=== PATIENT | male | born 1985 | race Caucasian/White ===

== ENCOUNTER 2017-10-05 23:12 | Emergency (ER) | payer OTHER, MEDICAID, SELFPAY ==
[2017-10-05 23:29] VITALS: BP 138/94; PULSE 96; RESP 18; TEMP 36.8; O2SAT 97; BMI 39.7
[2017-10-06] MEDS: OXYCODONE/APAP 5/325 PREPACK 1 BOTTLE MISC (01:16)
[2017-10-06 01:25] VITALS: BP 122/87; PULSE 71; RESP 18; TEMP 36.4; O2SAT 98
--- NOTE | 2017-10-06 02:08 | ED.BACK ---
HPI - Back Pain/Injury General Chief Complaint: Back Pain/Injury Stated Complaint: POST SPINAL SURGERY, IN PAIN Time Seen by Provider: 10/05/17 23:57 History of Present Illness HPI Narrative: HPI 31-year-old male presents requesting analgesia following a dorsal root stimulator revision at [facility] earlier today. Patient notes significant discomfort after his postoperative medications were off. Patient was discharged with another patient's prescription (provided to nursing, alternate prescription with correct date noted) . Patient attempted to contact his surgeon but was unable to have repeated phone calls not returned. Patient notes that he is been minimally ambulatory, has had ongoing study pain since his postoperative pain medications wore off. ROS with no recent constitutional symptoms. Exam Gen: Pleasant, non-toxic appearing, resting in discomfort. HEENT: NC, AT, PEERL, EOMI. Resp: Clear to auscultation bilaterally. Unlabored respirations with a normal work of breathing. Card: Regular rate and rhythm. Extremities warm and well perfused. GI: Non-distended. : Deferred MSK: No visible deformities, strength and tone without visually appreciable deficit. Back with 2 surgical sites bandage, scant bright red blood in the dressings, sites are mid lumbar left paraspinal and several inches lateral. Neuro: AO x 3, no facial asymmetry, vision and hearing WNL. Heme/Lymph: Deferred Skin: Normal color with no visible lesions (other than noted above). Psych: Mood and affect appropriate. MDM Previous chart, nursing note, and vitals reviewed. A: 31-year-old male presents requesting analgesia following a dorsal root stimulator revision at [facility] earlier today. Patient with a highly plausible story for clerical error leading to oligoanalgesia. Percocet prepack (4?5-325 mg tablets) provided. Patient instructed to follow up with his surgeon in the morning. History, exam, and vitals without evidence of postoperative complication. Impression: postoperative pain (please reference below for remainder of encounter information) Related Data Home Medications Medication Instructions Recorded Confirmed dicyclomine 20 mg PO #0 10/02/11 diphenoxylate-atropine 2.5 mg PO PRN #0 10/02/11 Previous Rx's Medication Instructions Recorded cyclobenzaprine 10 mg PO Q8HP PRN #5 tab 06/27/17 hydromorphone [Dilaudid] 2 mg PO Q4HP PRN #6 tab 06/27/17 Allergies Allergy/AdvReac Type Severity Reaction Status Date / Time fentanyl Allergy Mild N/V Unverified 07/15/17 13:06 amitriptyline Allergy Unknown Unverified 07/15/17 13:06 amoxicillin Allergy Unknown Unverified 07/15/17 13:06 gabapentin Allergy Unknown Unverified 07/15/17 13:06 lithium Allergy Unknown Unverified 07/15/17 13:06 trazodone Allergy Unknown Unverified 07/15/17 13:06 [facility] Social History Smoking Status: Current every day smoker Exam Initial Vital Signs Initial Vital Signs: Vital Signs Temperature 98.3 F 10/05/17 23:29 Pulse Rate 96 H 10/05/17 23:29 Respiratory Rate 18 10/05/17 23:29 Blood Pressure 138/94 H 10/05/17 23:29 Pulse Oximetry 97 10/05/17 23:29 Course Orders Ordered: Discontinued Medications Oxycodone/Acetaminophen (Endocet 5/325 Prepack) 1 bottle MISC SEEINSTR ONE Stop: 10/06/17 00:13 Last Admin: 10/06/17 01:16 Dose: 1 bottle Vital Signs - 8 hr 10/05/17 23:29 10/06/17 01:25 Temperature 98.3 F 97.5 F L Pulse Rate 96 H 71 Respiratory Rate 18 18 Blood Pressure 138/94 H 122/87 H Pulse Oximetry 97 98 Discharge Plan Departure Patient Disposition: Home, Self-Care Clinical Impression: Back pain Discharge Date/Time: 10/06/17 01:26 Interventions: ED Discharge Assessment Last Done: 10/06/17 01:25 Activity Restrictions/Additional Instructions: You were in seen in the [facility] Emergency Department for evaluation of postoperative pain. You have been given a limited prescription for Percocet. Please take this as prescribed. Please contact your surgeon in the morning for further evaluation and care. Please read and follow all of the instructions below. Please follow up with your primary care physician as needed. If you have any new symptoms or if you are at all concerned about your health please return immediately to the emergency department. If you do not have a primary care physician, please contact [facility], [facility] at [phone], [facility] at [phone], or [facility] at [phone] to arrange follow up care. If you have health insurance, please also contact your insurer for a list of accepting providers under your policy, you may contact these providers for further health care. Your care today was limited to identifying and treating emergent medical problems only. Many people have subtle differences in their test results that require follow up with their outpatient physician(s) to correctly determine if this represents a normal variation or concerning abnormality with respect to your specific health. The care given to you today was limited to identifying and treating emergent medical problems - you need to request a copy of all of your medical records from today's visit and follow up with your outpatient physician(s) to review both today's visit and your overall health. Percocet (Oxycodone + Acetamoniphen) * Take as directed on the prescription for relief of pain. * This product contains acetaminophen (Tylenol) do not use it with other Acetaminophen containing medications. * This drug may cause mild nausea, if so you may take it with a small snack. * This drug will cause constipation, if you experience a decrease in bowel movements purchase Senna-S (sennasides and docusate) which is available over the counter at pharmacies and take as directed on the bottle. Call your physician if you have not had bowel movemen in two days. * This drug may cause fatigue - do not drive or engage in other hazardous activities when using this medication. * Do no drink alcohol when using this medication. * Store this drug safely, it is a high risk medication if misused. SIDE EFFECTS: Tell your doctor immediately if any of these unlikely but serious side effects occur: mental/mood changes, severe stomach/abdominal pain, difficulty urinating. Seek immediate medical attention if any of these rare but serious side effects occur: fainting, seizure, slow/shallow breathing, unusual drowsiness/difficulty waking up. Taking more than the recommended dose of acetaminophen may cause serious (possibly fatal) liver disease. Seek immediate medical attention if you have any symptoms of liver damage, including: dark urine, persistent nausea/vomiting, stomach/abdominal pain, yellowing eyes/skin. A very serious allergic reaction to this drug is rare. However, seek immediate medical attention if you notice any symptoms of a serious allergic reaction, including: rash, itching/swelling (especially of the face/tongue/throat), severe dizziness, trouble breathing. This is not a complete list of possible side effects. PRECAUTIONS: Before taking this medication, tell your doctor or pharmacist if you are allergic to it; or to other narcotics (such as morphine, codeine); or if you have any other allergies. This product may contain inactive ingredients, which can cause allergic reactions or other problems. Talk to your pharmacist for more details. Before using this medication, tell your doctor or pharmacist your medical history, especially of: brain disorders (such as head injury, tumor, seizures), breathing problems (such as asthma, sleep apnea, chronic obstructive pulmonary disease-COPD), kidney disease, liver disease, mental/mood disorders (such as confusion, depression), personal or family history of regular use/abuse of drugs/alcohol, stomach/intestinal problems (such as blockage, constipation, diarrhea due to infection, paralytic ileus), difficulty urinating (such as due to enlarged prostate). This drug may make you dizzy or drowsy. Avoid alcoholic beverages. Acetaminophen may cause liver damage. Daily use of alcohol, especially when combined with acetaminophen, may increase your risk for liver damage. Caution is advised if you have diabetes, alcohol dependence, liver disease, phenylketonuria (PKU), or any other condition that requires you to limit/avoid these substances in your diet. Ask your doctor or pharmacist about using this product safely. Older adults may be more sensitive to the effects of this drug, especially dizziness, drowsiness, urinary problems. During , this medication should be used only when clearly needed. Using it for long periods or in high doses near the expected delivery date is not recommended because of the potential for harm to the unborn baby. Discuss the risks and benefits with your doctor. Babies born to mothers who have used this medication for an extended time may have withdrawal symptoms such as irritability, abnormal/persistent crying, vomiting, or diarrhea. If you notice any of these symptoms in your , tell the doctor promptly. This medication passes into breast milk and may rarely have undesirable effects on a nursing . Tell the doctor immediately if your baby develops unusual sleepiness, difficulty feeding, or trouble breathing. Consult your doctor before breast-feeding. Prescriptions: No Action diphenoxylate-atropine 2.5 MG/0.025 MG tablet 2.5 mg PO PRN Qty: 0 RF: 0 dicyclomine 20 MG tablet 20 mg PO Qty: 0 RF: 0 cyclobenzaprine 10 MG tablet 10 mg PO Q8HP PRNQty: 5 RF: 0 hydromorphone [Dilaudid] 2 MG tablet 2 mg PO Q4HP PRNQty: 6 RF: 0
== END 2017-10-06 01:26 | disposition home or self-care (01) ==
PROVIDERS: Emergency Provider Emergency Medicine; Family Provider Family Medicine; PCP Family Medicine
DX: G89.18 Other acute postprocedural pain (principal); M54.9 Dorsalgia, unspecified
CPT/HCPCS: 99282; 99283

== ENCOUNTER 2018-05-23 06:43 | Emergency (ER) | payer OTHER, MEDICAID, SELFPAY ==
[2018-05-23 06:52] VITALS: BP 163/97; PULSE 65; RESP 18; TEMP 37.2; O2SAT 97; BMI 37.3
--- NOTE | 2018-05-23 07:27 | DI.CT.S_ITS ---
PROCEDURE: CT KIDNEY URETER BLADDER (KUB) INDICATIONS: left flank pain TECHNIQUE: Noncontrast 5 mm thick sections acquired from the diaphragms to the symphysis. 5 mm thick coronal and sagittal reformats were then performed. For radiation dose reduction, the following was used: automated exposure control, adjustment of mA and/or kV according to patient size. COMPARISON: None. FINDINGS: Image quality: There is metallic streak artifact from patient's implanted neurostimulator devices. Lung bases: There are confluent groundglass opacities within the lower lobes with associated small nodular and linear opacities. No pleural effusions. Heart size is normal. Urinary system: There is a small obstructing stone within the mid left ureter measuring up to approximately 3 mm with associated minimal left hydroureteronephrosis. There is minimal perinephric and periureteral fat stranding. No additional renal stones identified. No right hydronephrosis. The urinary bladder is partially distended with suggestion of bladder wall thickening. No calcified bladder stones. Other solid organs: Noncontrast evaluation of the liver demonstrates no focal hepatic lesions the gallbladder appears within normal limits without calcified gallstones. Pancreas is normal in contours. Spleen is normal in size. No adrenal nodules. Peritoneum and bowel: Unenhanced bowel loops demonstrate normal wall thickness and caliber. The appendix is normal in caliber without associated inflammatory changes such as wall thickening or fat stranding. There are calcified filling defects within the appendiceal lumen consistent with multiple clustered appendicoliths. No free fluid or air. Nodes and vessels: No retroperitoneal or mesenteric adenopathy by size criteria. Aorta and inferior vena cava are normal in caliber. Abdominal wall: No ventral hernias. Pelvis: No free pelvic fluid. No inguinal hernias or adenopathy. Bones: No suspicious bony lesions. Implanted neurostimulator leads are demonstrated extending into the spinal canal at the lumbosacral junction and into the right neuroforamina at L5-S1 and S1-S2. No vertebral body compression fractures. IMPRESSION: 1. Small obstructing 3 mm left ureteral stone with minimal left hydroureteronephrosis. 2. Confluent areas of groundglass opacity in the lower lobes with small nodular and linear bandlike opacities. The findings likely represent an infectious or inflammatory process but followup is recommended with a dedicated chest CT in 3-6 months if clinically indicated. Dictated by: Esa Madera M.D. on 05/23/2018 at 8:09 Approved by: Esa Madera M.D. on 05/23/2018 at 8:14
--- NOTE | 2018-05-23 07:37 | ED.BACK ---
HPI - Back Pain/Injury General Chief Complaint: Back Pain/Injury Stated Complaint: abd and back pain,vomiting Time Seen by Provider: 05/23/18 07:06 Source: patient Mode of arrival: ambulatory Limitations: no limitations History of Present Illness HPI Narrative: patient is a 32-year-old male who presents with left flank pain. It started suddenly at around 4:30 a.m. this morning radiates around to the front. He feels nauseous and has vomited at sometimes. No hematuria no previous history of kidney stone. He has not taken any medication the states that medications do not work for him and that he has a congenital pharmacological abnormality. MD Complaint: back pain Related Data Home Medications Medication Instructions Recorded Confirmed dicyclomine 20 mg PO #0 10/02/11 diphenoxylate-atropine 2.5 mg PO PRN #0 10/02/11 Previous Rx's Medication Instructions Recorded cyclobenzaprine 10 mg PO Q8HP PRN #5 tab 06/27/17 hydromorphone [Dilaudid] 2 mg PO Q4HP PRN #6 tab 06/27/17 hydrocodone-acetaminophen [[place]] 1 tab PO Q4-6H PRN #10 tab 05/23/18 ketorolac 10 mg PO Q6H PRN #14 tab 05/23/18 ondansetron 4 mg PO Q6-8H PRN #10 tab 05/23/18 Allergies Allergy/AdvReac Type Severity Reaction Status Date / Time fentanyl Allergy Mild N/V Verified 05/23/18 06:59 amitriptyline Allergy Unknown Verified 05/23/18 06:59 amoxicillin Allergy Unknown Verified 05/23/18 06:59 gabapentin Allergy Unknown Verified 05/23/18 06:59 lithium Allergy Unknown Verified 05/23/18 06:59 trazodone Allergy Unknown Verified 05/23/18 06:59 buprenorphine Allergy Anaphylaxis Verified 05/23/18 06:59 bupropion [From Wellbutrin] AdvReac Verified 05/23/18 07:00 clavulanic acid AdvReac Verified 05/23/18 06:59 [From Augmentin] clonidine AdvReac Verified 05/23/18 06:59 methadone AdvReac Verified 05/23/18 06:59 nortriptyline AdvReac Verified 05/23/18 06:59 Review of Systems Review of Systems GENERAL: Denies chills, fatigue, malaise, fever, sweats, travel HEENT: Denies sinus pain, ear pain, sore throat, difficulty swallowing, neck pain RESPIRATORY: Denies dyspnea, cough, wheezing, hemoptysis, sputum. CARDIOVASCULAR: Denies chest pain, palpitations, orthopnea, edema GASTROINTESTINAL: +nausea, vomiting Denies abdominal pain, diarrhea, constipation, melena. : +flank pain, Denies dysuria, frequency, incontinence, hematuria, urinary retention MUSCULOSKELETAL: Denies weakness, joint pain, or bony pain SKIN: No rash, no erythema, no pruritus NEUROLOGIC: Denies weakness, dizziness, headache, numbness, change in speech, confusion PSYCHIATRIC: No concerning psychosocial issues. 12 point review of systems is negative except for those stated above and HPI COUNTS INCLUDE 234 BEDS AT THE [facility] Social History Smoking Status: Current every day smoker Social History Smoking Status: Current every day smoker Exam Initial Vital Signs Initial Vital Signs: Vital Signs Temperature 99 F 05/23/18 06:52 Pulse Rate 65 05/23/18 06:52 Respiratory Rate 18 05/23/18 06:52 Blood Pressure 163/97 H 05/23/18 06:52 Pulse Oximetry 97 05/23/18 06:52 GENERAL: young male appears in pain holding left flank HEENT: Head atraumatic,EOMI, pupils reactive CARDIOVASCULAR: Regular rate and rhythm without murmurs, rubs or gallops. RESPIRATORY: Breath sounds equal bilaterally, no wheezes rales or rhonchi. ABDOMEN: Soft, nontender. Normoactive bowel sounds all 4 quadrants. No guarding or rebound. : Left CVA tenderness EXTREMITIES: Normal range of motion, no clubbing or edema. Neurovascularly intact NEUROLOGICAL: Alert and oriented x4.Normal gait and speech. SKIN: Warm, dry, no laceration, no petechiae, no rashes or lesions. Course Orders Ordered: ED Orders 05/23/18 07:27 CT kidney ureter bladder (KUB) Stat 05/23/18 07:30 Basic Metabolic Panel Stat Complete Blood Count AUTO DIFF Stat 05/23/18 09:10 Urine Microscopic Stat Discontinued Medications Hydromorphone HCl (Dilaudid) 0.5 mg IV NOW ONE Stop: 05/23/18 09:33 Last Admin: 05/23/18 09:43 Dose: 0.5 mg Sodium Chloride (Normal Saline 0.9%) 1,000 mls @ 1,000 mls/hr IV BOLUS ONE Stop: 05/23/18 08:26 Last Infusion: 05/23/18 08:49 Dose: 0 mls/hr Admin: 05/23/18 07:39 Dose: 1,000 mls/hr Ketorolac Tromethamine (Toradol) 30 mg IV NOW ONE Stop: 05/23/18 07:28 Last Admin: 05/23/18 07:38 Dose: 30 mg Ondansetron HCl (Zofran) 4 mg IV NOW ONE Stop: 05/23/18 07:28 Last Admin: 05/23/18 07:39 Dose: 4 mg Ondansetron HCl (Zofran) 4 mg IV NOW ONE Stop: 05/23/18 08:53 Last Admin: 05/23/18 08:52 Dose: 4 mg Vital Signs - 8 hr 05/23/18 06:52 05/23/18 10:05 05/23/18 10:27 Temperature 99 F 98.1 F Pulse Rate 65 71 70 Respiratory Rate 18 18 18 Blood Pressure 163/97 H 135/85 Blood Pressure [Left Arm] 136/83 Pulse Oximetry 97 99 99 MDM - Back Pain/Injury Lab Data Attestation: I reviewed the patient's lab results. Result diagrams: 05/23/18 07:30 05/23/18 07:30 Lab Results 05/23/18 05/23/18 05/23/18 Range/Units 07:30 07:30 09:10 WBC 8.7 (4.5-11.0) X10^3/uL RBC 5.28 (4.5-5.9) X10^6/uL Hgb 15.8 (13.5-17.5) g/dL Hct 47.2 (41-53) % MCV 89.4 (80-100) fL MCH 30.0 (26-34) PG MCHC 33.6 (30-36) % RDW 13.3 (11.6-14.8) % Plt Count 337 (150-400) X10^3/uL Neut % (Auto) 66.5 (50-75) % Lymph % (Auto) 22.2 L (25-40) % [place] % (Auto) 5.7 (3-14) % Eos % (Auto) 4.9 H (2-4) % Baso % (Auto) 0.7 (0-2) % Neut # (Auto) 5800 (2581-0747) /uL Lymph # (Auto) 1900 (5773-4421) /uL [place] # (Auto) 500 (0-900) /uL Eos # (Auto) 400 (0-450) /uL Baso # (Auto) 100 (0-100) /uL Sodium 141 (137-145) mmol/L Potassium 3.9 (3.4-5.1) mmol/L Chloride 105 (98-107) mmol/L Carbon Dioxide 23 (22-32) mmol/L BUN 13 (9-20) mg/dL Creatinine 1.00 (0.66-1.25) mg/dL Estimated GFR > 60.0 (>60) mL/min BUN/Creatinine Ratio 13.0 (6-22) Glucose 128 H (70-100) mg/dL Calcium 9.4 (8.4-10.2) mg/dL Urine RBC 5-10/hpf H (0-5/HPF) Urine WBC 0-1/hpf (0-5/HPF) Ur Squamous Epith Cells 0-1 /hpf Amorphous Sediment 2+ Urine Bacteria Occasional (0-1) (None) Ur Culture Indicated? Cult not indicated Urine Dip Bedside Urine Glucose Negative Bedside Urine Bilirubin - Negative Bedside Urine Ketone + 15 Urine Specific [place] 1.025 Bedside Urine Occult Blood +++ Bedside Urine pH 6.0 Bedside Urine Protein +/- 15 Bedside Urine Urobilinogen - Negative Bedside Urine Nitrite - Negative Bedside Urine Leukocytes - Negative Esterase Imaging Data CT scan - abdomen: Radiologist's impression: PROCEDURE: CT KIDNEY URETER BLADDER (KUB) INDICATIONS: left flank pain TECHNIQUE: Noncontrast 5 mm thick sections acquired from the diaphragms to the symphysis. 5 mm thick coronal and sagittal reformats were then performed. For radiation dose reduction, the following was used: automated exposure control, adjustment of mA and/or kV according to patient size. COMPARISON: None. FINDINGS: Image quality: There is metallic streak artifact from patient's implanted neurostimulator devices. Lung bases: There are confluent groundglass opacities within the lower lobes with associated small nodular and linear opacities. No pleural effusions. Heart size is normal. Urinary system: There is a small obstructing stone within the mid left ureter measuring up to approximately 3 mm with associated minimal left hydroureteronephrosis. There is minimal perinephric and periureteral fat stranding. No additional renal stones identified. No right hydronephrosis. The urinary bladder is partially distended with suggestion of bladder wall thickening. No calcified bladder stones. Other solid organs: Noncontrast evaluation of the liver demonstrates no focal hepatic lesions the gallbladder appears within normal limits without calcified gallstones. Pancreas is normal in contours. Spleen is normal in size. No adrenal nodules. Peritoneum and bowel: Unenhanced bowel loops demonstrate normal wall thickness and caliber. The appendix is normal in caliber without associated inflammatory changes such as wall thickening or fat stranding. There are calcified filling defects within the appendiceal lumen consistent with multiple clustered appendicoliths. No free fluid or air. Nodes and vessels: No retroperitoneal or mesenteric adenopathy by size criteria. Aorta and inferior vena cava are normal in caliber. Abdominal wall: No ventral hernias. Pelvis: No free pelvic fluid. No inguinal hernias or adenopathy. Bones: No suspicious bony lesions. Implanted neurostimulator leads are demonstrated extending into the spinal canal at the lumbosacral junction and into the right neuroforamina at L5-S1 and S1-S2. No vertebral body compression fractures. IMPRESSION: 1. Small obstructing 3 mm left ureteral stone with minimal left hydroureteronephrosis. 2. Confluent areas of groundglass opacity in the lower lobes with small nodular and linear bandlike opacities. The findings likely represent an infectious or inflammatory process but followup is recommended with a dedicated chest CT in 3-6 months if clinically indicated. Dictated by: Esa Madera M.D. on 05/23/2018 at 8:09 MDM Narrative Medical decision making narrative: Patient's pain is starting to come back. Patient states that he does well with Dilaudid. His Toradol did help him quite a lot though. He is tolerating oral fluids but still feels nauseated at times. No sign of infection. Anticipate kidney stone to pass without any difficulty. Discharge Plan Departure Patient Disposition: Home Clinical Impression: Kidney stone on left side Discharge Date/Time: 05/23/18 10:27 Interventions: ED Discharge Assessment Last Done: 05/23/18 10:27 Instructions: DI for Kidney Stones Activity Restrictions/Additional Instructions: *Increase fluid intake * PCP tomorrow to schedule an get referral for Urology Strain urine, try to catch stone -If you should have fever, or pain is uncontrolled with medication at home or any other concerning symptoms return to ER for further evaluation MEDICATIONS Take ketorolac Take [place] every 6 hours if needed for severe pain Take Zofran every 4-6 hours if needed for nausea CONTROLLED SUBSTANCE DISCHARGE (Narcotoic/benzodiazepine) 1. You have been prescribed narcotic medications, it does have acetaminophen/Tylenol/paracetamol in it so do not take extra Tylenol or Tylenol containing products 2. Please understand that we cannot provide further refills of narcotics, benzodiazepines or controlled substances through the ED and her pain management will need to be through your provider. 3. While on these medications you cannot drive or operate heavy machinery. 4. You cannot sign legal documents or perform any duties such as this. 5. As long as you're taking opiate pain medications he should also be taking a stool softener such as Colace, Dulcolax, MiraLAX or prune juice, to help avoid constipation. Prescriptions: New ketorolac 10 mg tablet 10 mg PO Q6H PRN (Reason: pain) Qty: 14 RF: 0 ondansetron 4 mg tablet,disintegrating 4 mg PO Q6-8H PRN (Reason: nausea and vomiting) Qty: 10 RF: 0 hydrocodone-acetaminophen [[place]] 5-325 mg tablet 1 tab PO Q4-6H PRN (Reason: pain) Qty: 10 RF: 0 No Action diphenoxylate-atropine 2.5 MG/0.025 MG tablet 2.5 mg PO PRN Qty: 0 RF: 0 dicyclomine 20 MG tablet 20 mg PO Qty: 0 RF: 0 cyclobenzaprine 10 MG tablet 10 mg PO Q8HP PRNQty: 5 RF: 0 hydromorphone [Dilaudid] 2 MG tablet 2 mg PO Q4HP PRNQty: 6 RF: 0 Referrals: Juan Antonio Contreras MD [Primary Care Provider] -
[2018-05-23] MEDS: KETOROLAC 60 MG/2 ML VIAL 30 MG IV (07:38)
[2018-05-23] MEDS: SODIUM CHLORIDE 0.9% 1,000 ML 1000 ML IV (07:39)
[2018-05-23] MEDS: ONDANSETRON 4 MG/2 ML INJ IV ×2 (07:39→08:52)
[2018-05-23 07:41] LABS: Add Manual Diff / Slide Review NO; Basophils Absolute Auto 100 /uL (0-100); Basophils Percent Auto 0.7 % (0-2); Eosinophils Absolute Auto 400 /uL (0-450); Eosinophils Percent Auto 4.9 % (2-4); Hematocrit 47.2 % (41-53); Hemoglobin 15.8 g/dL (13.5-17.5); Lymphocytes Absolute Auto 1900 /uL (1100-4500); Lymphocytes Percent Auto 22.2 % (25-40); Mean Corpuscular HGB Conc 33.6 % (30-36); Mean Corpuscular Volume 89.4 fL (80-100); Monocytes Absolute Auto 500 /uL (0-900); Monocytes Percent Auto 5.7 % (3-14); Neutrophils Absolute Auto 5800 /uL (1500-7000); Neutrophils Percent Auto 66.5 % (50-75); Platelet Count 337 X10^3/uL (150-400); Red Blood Cell Count 5.28 X10^6/uL (4.5-5.9); Red Cell Distribution Width 13.3 % (11.6-14.8); White Blood Cell Count 8.7 X10^3/uL (4.5-11.0)
[2018-05-23 07:49] LABS: Blood Urea Nitrogen 13 mg/dL (9-20); Calcium 9.4 mg/dL (8.4-10.2); Carbon Dioxide 23 mmol/L (22-32); Chloride 105 mmol/L (98-107); Estimated Glomerular Filt Rate > 60.0 mL/min (>60); Glucose 128 mg/dL (70-100); HEMOLYSIS < 15 (0-50); Potassium 3.9 mmol/L (3.4-5.1); Sodium 141 mmol/L (137-145)
[2018-05-23 09:38] LABS: Amorphous Sediment Urine 2+; Bacteria Urine Occasional (0-1); Culture Indicated Urine Cult Not Indicated; RBC Urine 5-10/HPF (0-5/HPF); Squamous Epithelial Cell Urine 0-1 /HPF; WBC Urine 0-1/HPF (0-5/HPF)
[2018-05-23] MEDS: HYDROMORPHONE 1 MG INJ 0.5 MG IV (09:43)
[2018-05-23 10:05] VITALS: BP 136/83; PULSE 71; RESP 18; O2SAT 99
[2018-05-23 10:27] VITALS: BP 135/85; PULSE 70; RESP 18; TEMP 36.7; O2SAT 99
== END 2018-05-23 10:27 | disposition home or self-care (01) ==
PROVIDERS: Emergency Provider Emergency Medicine; Family Provider Family Medicine; PCP Family Medicine
DX: N20.0 Calculus of kidney (principal)
CPT/HCPCS: 36591; 74176; 80048; 81003; 81015; 85025; 96361; 96374; 96375; 96376; 99283; 99284; J1170; J1885; J2405

== ENCOUNTER 2018-10-10 06:53 | Emergency (ER) | payer OTHER, MEDICAID, SELFPAY ==
[2018-10-10 07:21] VITALS: BP 137/89; PULSE 88; RESP 14; TEMP 37.2; O2SAT 100; BMI 38.7
--- NOTE | 2018-10-10 08:06 | ED.MALEGU ---
HPI - Male Genitourinary General Chief complaint: Urogenital-Male Stated complaint: Severe back/abd pain Time Seen by Provider: 10/10/18 08:06 Source: patient and old records reviewed Mode of arrival: ambulatory Limitations: no limitations History of Present Illness HPI Narrative: This is a 32-year-old male comes to the emergency department with complaint of left flank pain that is radiating down to the testicular area. Patient states that he has felt sweaty and warm but does not know if he has had any fevers. Patient states he has been nauseated. He states he has actually been throwing up on and off for 3 days. But he states that the pain did not start until today. He states that he does not really have a lot of abdominal pain other than where radiates sort of obliquely along to the testicle. Patient states that he has had normal bowel movements although he has noted blood when he has them. Patient states that this does feel like when he had a kidney stone in the past. He does have a history of complex regional pain syndrome and has a neurostimulator. He states 1 of them is an MDR. He has had 2 surgeries total for neurostimulator. Patient states he has had a finger reattachmen but no other surgeries. He states that the pain came on about 3:00 a.m. this morning. He states he had taken some medication to help him sleep. Related Data Home Medications Medication Instructions Recorded Confirmed dicyclomine 20 mg PO #0 10/02/11 diphenoxylate-atropine 2.5 mg PO PRN #0 10/02/11 Previous Rx's Medication Instructions Recorded cyclobenzaprine 10 mg PO Q8HP PRN #5 tab 06/27/17 hydromorphone [Dilaudid] 2 mg PO Q4HP PRN #6 tab 06/27/17 hydrocodone-acetaminophen [[place]] 1 tab PO Q4-6H PRN #10 tab 05/23/18 ondansetron 4 mg PO Q6-8H PRN #10 tab 05/23/18 hydrocodone-acetaminophen [[place]] 1 tab PO QID PRN #7 tab 10/10/18 ketorolac 10 mg PO TID PRN 50 Days #10 tab 10/10/18 tamsulosin [Flomax] 0.4 mg PO DAILY #5 cap 10/10/18 Allergies Allergy/AdvReac Type Severity Reaction Status Date / Time fentanyl Allergy Mild N/V Verified 05/23/18 06:59 amitriptyline Allergy Unknown Verified 05/23/18 06:59 amoxicillin Allergy Unknown Verified 05/23/18 06:59 gabapentin Allergy Unknown Verified 05/23/18 06:59 lithium Allergy Unknown Verified 05/23/18 06:59 trazodone Allergy Unknown Verified 05/23/18 06:59 buprenorphine Allergy Anaphylaxis Verified 05/23/18 06:59 bupropion [From Wellbutrin] AdvReac Verified 05/23/18 07:00 clavulanic acid AdvReac Verified 05/23/18 06:59 [From Augmentin] clonidine AdvReac Verified 05/23/18 06:59 methadone AdvReac Verified 05/23/18 06:59 nortriptyline AdvReac Verified 05/23/18 06:59 Review of Systems Review of Systems ROS Unobtainable: All systems reviewed & are unremarkable except as noted in HPI and below Constitutional Denies chills, Denies fever(s), Denies lethargy and Denies weakness Cardiovascular Denies chest pain and Denies dyspnea Respiratory Denies chest congestion and Denies dyspnea Gastrointestinal Gastrointestinal: Reports abdominal pain (left flank radiates to testicle), Denies melena, Reports hematochezia, Denies change in bowel habits, Denies diarrhea, Reports nausea and Reports vomiting Genitourinary Reports hematuria, Denies difficulty urinating, Reports genital pain (pain radiates to left testicle), Reports dysuria, Reports flank pain (left), Denies scrotal swelling, Reports testicular pain (left sided.), Reports urinary frequency, Denies urinary incontinence and Reports urinary urgency Integumentary/Breasts Denies erythema and Denies rash Neurologic Denies weakness [facility] Social History (Updated 10/10/18 @ 08:22 by Phuong Eagle DO) Smoking Status: Current every day smoker alcohol intake: current substance use type: marijuana Social History (Updated 10/10/18 @ 08:22 by Phuong Eagle DO) Smoking Status: Current every day smoker alcohol intake: current substance use type: marijuana Exam Narrative Exam Narrative: GENERAL: Alert and oriented x three, obese male in moderate distress. HEENT: Head normocephalic, atraumatic, EOMI, pupils reactive, face symmetric, moist mucous membranes NECK: Supple, full range of motion CARDIOVASCULAR: Regular rate and rhythm without murmurs, rubs or gallops. RESPIRATORY: Breath sounds equal bilaterally, no wheezes rales or rhonchi. ABDOMEN: Soft, nontender to palpation. Normoactive bowel sounds all 4 quadrants. No guarding or rebound, rigidity, no mass : No CVA tenderness. Male: normal external examination, uncircumcised no penile discharge or lesions, testicles non-tender, cremasteric reflex intact, no inguinal hernias noted. EXTREMITIES: Normal range of motion, no clubbing or edema. Neurovascularly intact NEUROLOGICAL: Cranial nerves II through XII grossly intact. Moving all extremities SKIN: Warm, dry, no petechiae, no rashes or lesions. Initial Vital Signs Initial Vital Signs: Vital Signs Temperature 98.9 F 10/10/18 07:21 Pulse Rate 88 10/10/18 07:21 Respiratory Rate 14 10/10/18 07:21 Blood Pressure 137/89 10/10/18 07:21 Pulse Oximetry 100 10/10/18 07:21 Course Orders Ordered: ED Orders 10/10/18 07:58 Complete Blood Count AUTO DIFF Stat Comprehensive Metabolic Panel Stat 10/10/18 08:15 Urine Microscopic Stat 10/10/18 08:17 CT kidney ureter bladder (KUB) Stat Discontinued Medications Sodium Chloride (Normal Saline 0.9%) 1,000 mls @ 1,000 mls/hr IV BOLUS ONE Stop: 10/10/18 09:15 Last Infusion: 10/10/18 09:20 Dose: 0 mls/hr Admin: 10/10/18 08:25 Dose: 1,000 mls/hr Ketorolac Tromethamine (Toradol) 30 mg IV NOW ONE Stop: 10/10/18 08:17 Last Admin: 10/10/18 08:25 Dose: 30 mg Ondansetron HCl (Zofran) 4 mg IV NOW ONE Stop: 10/10/18 08:17 Last Admin: 10/10/18 08:25 Dose: 4 mg Vital Signs - 8 hr 10/10/18 07:21 10/10/18 08:49 10/10/18 10:03 Temperature 98.9 F Pulse Rate 88 110 H 95 H Respiratory Rate 14 18 16 Blood Pressure 137/89 107/65 Blood Pressure [Right Arm] 118/74 Pulse Oximetry 100 96 95 MDM - Male Genitourinary Lab Data Attestation: I reviewed the patient's lab results. Result diagrams: 10/10/18 07:58 10/10/18 07:58 Lab Results 10/10/18 10/10/18 10/10/18 Range/Units 07:58 07:58 08:15 WBC 7.2 (4.5-11.0) X10^3/uL RBC 5.10 (4.5-5.9) X10^6/uL Hgb 15.5 (13.5-17.5) g/dL Hct 46.4 (41-53) % MCV 90.9 (80-100) fL MCH 30.3 (26-34) PG MCHC 33.3 (30-36) % RDW 13.3 (11.6-14.8) % Plt Count 269 (150-400) X10^3/uL Neut % (Auto) 64.6 (50-75) % Lymph % (Auto) 20.2 L (25-40) % [place] % (Auto) 10.5 (3-14) % Eos % (Auto) 4.1 H (2-4) % Baso % (Auto) 0.6 (0-2) % Neut # (Auto) 4700 (0847-7735) /uL Lymph # (Auto) 1500 (8313-6491) /uL [place] # (Auto) 800 (0-900) /uL Eos # (Auto) 300 (0-450) /uL Baso # (Auto) 0 (0-100) /uL Sodium 142 (137-145) mmol/L Potassium 4.2 (3.4-5.1) mmol/L Chloride 104 (98-107) mmol/L Carbon Dioxide 28 (22-32) mmol/L BUN 12 (9-20) mg/dL Creatinine 1.00 (0.66-1.25) mg/dL Estimated GFR > 60.0 (>60) mL/min BUN/Creatinine Ratio 12.0 (6-22) Glucose 131 H (70-100) mg/dL Calcium 9.3 (8.4-10.2) mg/dL Total Bilirubin 0.5 (0.2-1.3) mg/dL AST 57 (17-59) IU/L ALT 28 (21-72) IU/L Alkaline Phosphatase 83 (38-126) U/L Total Protein 7.8 (6.3-8.2) g/dL Albumin 4.3 (3.5-5.0) g/dL Globulin 3.5 (1.7-4.1) g/dL Albumin/Globulin Ratio 1.2 (1.0-2.8) Urine RBC 1-5/hpf (0-5/HPF) Urine WBC 0-1/hpf (0-5/HPF) Ur Squamous Epith Cells 0-1 /hpf (0-5/HPF) Amorphous Sediment 1+ Urine Bacteria Not Reportable Urine Mucus 1+ H (Negative) Ur Culture Indicated? Cult not indicated Urine Dip Bedside Urine Glucose Negative Bedside Urine Bilirubin - Negative Bedside Urine Ketone - Negative Urine Specific [place] 1.030 Bedside Urine Occult Blood ++ Bedside Urine pH 5.0 Bedside Urine Protein + 30 Bedside Urine Urobilinogen - Negative Bedside Urine Nitrite - Negative Bedside Urine Leukocytes - Negative Esterase Imaging Data CT scan - abdomen: Radiologist's impression: [place] [address] CT Scan Report Signed Patient: Arsalan Varela [facility]#: [id number] : 1985Acct:[id number] Age/Sex: 32 / MDate of Service: 10/10/18 Loc: ED Accession Number: [id number] Procedure: CT kidney ureter bladder (KUB) Ordering Provider: Phuong Eagle D.O. PROCEDURE: CT KIDNEY URETER BLADDER (KUB) INDICATIONS: left flank pain, freq, dysuria today. vomiting x 3 day TECHNIQUE: Noncontrast 5 mm thick sections acquired from the diaphragms to the symphysis. 5 mm thick coronal and sagittal reformats were then performed. For radiation dose reduction, the following was used: automated exposure control, adjustment of mA and/or kV according to patient size. COMPARISON: None. FINDINGS: Image quality: Diagnostic. Lung bases: Minimal scar versus atelectasis is present within the bilateral imaged lung bases. Heart size is normal. Urinary system: Both kidneys are normal in size. No nephrolithiasis is identified. There is mild left-sided hydronephrosis and hydroureter with a 3 x 4 x 5 mm calculus evident within the distal aspect of the left ureter near the vesicoureteral junction. No additional renal or ureteral calculi are evident. There is no hydronephrosis or hydroureter on the right. Mild perinephric edema is present on the left. The urinary bladder is unremarkable. No bladder calculi are evident. The prostate is not enlarged. Other solid organs: Liver is normal in size. Gallbladder is not enlarged. Pancreas is normal in contours. Spleen is normal in size. No adrenal nodules. Peritoneum and bowel: Unenhanced bowel loops demonstrate normal wall thickness and caliber. No free fluid or air. Nodes and vessels: No retroperitoneal or mesenteric adenopathy by size criteria. Aorta and inferior vena cava are normal in caliber. Subcentimeter lymph nodes are seen within the ileocolic region. Abdominal wall: No ventral hernias. Pelvis: No free pelvic fluid. No inguinal hernias or adenopathy. Bones: No suspicious bony lesions. No vertebral body compression fractures. The spinal and sacral stimulator apparatus is identified. The spinal stimulator apparatus is positioned with the tip located at the T11 level. The sacral stimulator apparatus is seen extending into the right L5-S1 and S1-S2 neural foramina. IMPRESSION: 1. Small to moderate-sized at least partially obstructing calculus within the distal left ureter with corresponding mild hydronephrosis. 2. No bowel obstruction. 3. Spinal/sacral stimulator devices. Dictated by: Lionel Davison M.D. on 10/10/2018 at 8:27 Approved by: Lionel Davison M.D. on 10/10/2018 at 8:32 MDM Narrative Medical decision making narrative: Labs show no acute changes, slightly elevated glucose. Urine shows blood but no signs of infection. Patient's CT shows some mild left-sided hydro and hydroureter with a 3 x 4 x 5 mm calculus the distal aspect of the left ureter near the vesicoureteral junction. Mild perinephric edema is present on the left, bladder is unremarkable, patient spinal in sacral stimulator apparatus are identified and appear appropriately placed. No other changes to the bowel and otherwise no major abnormalities. Patient had some complaint of vomiting for 3 days as well as some blood in his stool that had started before his most recent episode of pain which is why a CT was ordered. Patient's and I discussed plan for follow-up with primary care or Urology as needed for his kidney stone. He is feeling more comfortable after some Toradol. We did discuss that it would be appropriate for him to get a colonoscopy he continues to have blood in his stool since, he states he is not aware of any hemorrhoids, he has had a colonoscopy 2 years prior and had an EGD fairly recently. Discharge Plan Departure Patient Disposition: Home Clinical Impression: Kidney stone on left side Discharge Date/Time: 10/10/18 10:04 Interventions: ED Discharge Assessment Last Done: 10/10/18 10:03 Instructions: DI for Kidney Stones Activity Restrictions/Additional Instructions: Follow-up with your primary care in the next 2-3 days for recheck. Call for an appointment. Also discussed with your physician about getting a colonoscopy if he continued to have blood in your stool. Take pain medication as prescribed, this medication can make you sleepy do not drive, perform hazardous activities or make any major decisions while taking it. Take flomax once daily until gone. Return to the emergency department for fevers greater than 100.4 F, rapidly worsening pain, persistent vomiting, black or bloody stools the continue, difficulty or inability to urinate, passing out, chest pain or shortness of breath or other new or concerning symptoms. Prescriptions: New tamsulosin [Flomax] 0.4 mg capsule 0.4 mg PO DAILY Qty: 5 RF: 0 hydrocodone-acetaminophen [[place]] 5-325 mg tablet 1 tab PO QID PRN (Reason: pain) Qty: 7 RF: 0 ketorolac 10 mg tablet 10 mg PO TID PRN (Reason: pain) 50 Days Qty: 10 RF: 0 No Action diphenoxylate-atropine 2.5 MG/0.025 MG tablet 2.5 mg PO PRN Qty: 0 RF: 0 dicyclomine 20 MG tablet 20 mg PO Qty: 0 RF: 0 cyclobenzaprine 10 MG tablet 10 mg PO Q8HP PRNQty: 5 RF: 0 hydromorphone [Dilaudid] 2 MG tablet 2 mg PO Q4HP PRNQty: 6 RF: 0 ondansetron 4 mg tablet,disintegrating 4 mg PO Q6-8H PRN (Reason: nausea and vomiting) Qty: 10 RF: 0 hydrocodone-acetaminophen [[place]] 5-325 mg tablet 1 tab PO Q4-6H PRN (Reason: pain) Qty: 10 RF: 0 Referrals: Michel Garnett [Primary Care Provider] -
--- NOTE | 2018-10-10 08:17 | DI.CT.S_ITS ---
PROCEDURE: CT KIDNEY URETER BLADDER (KUB) INDICATIONS: left flank pain, freq, dysuria today. vomiting x 3 day TECHNIQUE: Noncontrast 5 mm thick sections acquired from the diaphragms to the symphysis. 5 mm thick coronal and sagittal reformats were then performed. For radiation dose reduction, the following was used: automated exposure control, adjustment of mA and/or kV according to patient size. COMPARISON: None. FINDINGS: Image quality: Diagnostic. Lung bases: Minimal scar versus atelectasis is present within the bilateral imaged lung bases. Heart size is normal. Urinary system: Both kidneys are normal in size. No nephrolithiasis is identified. There is mild left-sided hydronephrosis and hydroureter with a 3 x 4 x 5 mm calculus evident within the distal aspect of the left ureter near the vesicoureteral junction. No additional renal or ureteral calculi are evident. There is no hydronephrosis or hydroureter on the right. Mild perinephric edema is present on the left. The urinary bladder is unremarkable. No bladder calculi are evident. The prostate is not enlarged. Other solid organs: Liver is normal in size. Gallbladder is not enlarged. Pancreas is normal in contours. Spleen is normal in size. No adrenal nodules. Peritoneum and bowel: Unenhanced bowel loops demonstrate normal wall thickness and caliber. No free fluid or air. Nodes and vessels: No retroperitoneal or mesenteric adenopathy by size criteria. Aorta and inferior vena cava are normal in caliber. Subcentimeter lymph nodes are seen within the ileocolic region. Abdominal wall: No ventral hernias. Pelvis: No free pelvic fluid. No inguinal hernias or adenopathy. Bones: No suspicious bony lesions. No vertebral body compression fractures. The spinal and sacral stimulator apparatus is identified. The spinal stimulator apparatus is positioned with the tip located at the T11 level. The sacral stimulator apparatus is seen extending into the right L5-S1 and S1-S2 neural foramina. IMPRESSION: 1. Small to moderate-sized at least partially obstructing calculus within the distal left ureter with corresponding mild hydronephrosis. 2. No bowel obstruction. 3. Spinal/sacral stimulator devices. Dictated by: Lionel Davison M.D. on 10/10/2018 at 8:27 Approved by: Lionel Davison M.D. on 10/10/2018 at 8:32
[2018-10-10] MEDS: KETOROLAC 30 MG/ML VIAL IV (08:25)
[2018-10-10] MEDS: SODIUM CHLORIDE 0.9% 1,000 ML 1000 ML IV (08:25)
[2018-10-10] MEDS: ONDANSETRON 4 MG/2 ML INJ IV (08:25)
[2018-10-10 08:29] LABS: Add Manual Diff / Slide Review NO; Basophils Absolute Auto 0 /uL (0-100); Basophils Percent Auto 0.6 % (0-2); Eosinophils Absolute Auto 300 /uL (0-450); Eosinophils Percent Auto 4.1 % (2-4); Hematocrit 46.4 % (41-53); Hemoglobin 15.5 g/dL (13.5-17.5); Lymphocytes Absolute Auto 1500 /uL (1100-4500); Lymphocytes Percent Auto 20.2 % (25-40); Mean Corpuscular HGB Conc 33.3 % (30-36); Mean Corpuscular Hemoglobin 30.3 PG (26-34); Mean Corpuscular Volume 90.9 fL (80-100); Monocytes Absolute Auto 800 /uL (0-900); Monocytes Percent Auto 10.5 % (3-14); Neutrophils Absolute Auto 4700 /uL (1500-7000); Neutrophils Percent Auto 64.6 % (50-75); Platelet Count 269 X10^3/uL (150-400); Red Cell Distribution Width 13.3 % (11.6-14.8); White Blood Cell Count 7.2 X10^3/uL (4.5-11.0)
[2018-10-10 08:35] LABS: Alanine Aminotransferase 28 IU/L (21-72); Albumin 4.3 g/dL (3.5-5.0); Albumin Globulin Ratio 1.2 (1.0-2.8); Alkaline Phosphatase 83 U/L (38-126); Aspartate Aminotransferase 57 IU/L (17-59); Bilirubin Total 0.5 mg/dL (0.2-1.3); Blood Urea Nitrogen 12 mg/dL (9-20); Calcium 9.3 mg/dL (8.4-10.2); Carbon Dioxide 28 mmol/L (22-32); Chloride 104 mmol/L (98-107); Estimated Glomerular Filt Rate > 60.0 mL/min (>60); Globulin 3.5 g/dL (1.7-4.1); Glucose 131 mg/dL (70-100); HEMOLYSIS 23 (0-50); Potassium 4.2 mmol/L (3.4-5.1); Sodium 142 mmol/L (137-145); Total Protein 7.8 g/dL (6.3-8.2)
[2018-10-10 08:40] LABS: Amorphous Sediment Urine 1+; Culture Indicated Urine Cult Not Indicated; Mucus Urine 1+ (Negative); RBC Urine 1-5/HPF (0-5/HPF); Squamous Epithelial Cell Urine 0-1 /HPF (0-5/HPF); WBC Urine 0-1/HPF (0-5/HPF)
[2018-10-10 08:49] VITALS: BP 118/74; PULSE 110; RESP 18; O2SAT 96
[2018-10-10 10:03] VITALS: BP 107/65; PULSE 95; RESP 16; O2SAT 95
== END 2018-10-10 10:04 | disposition home or self-care (01) ==
PROVIDERS: Emergency Provider Emergency Medicine; PCP Physician Assistant Medical
DX: N20.0 Calculus of kidney (principal)
CPT/HCPCS: 36591; 74176; 80053; 81003; 81015; 85025; 96361; 96374; 96375; 99283; 99284; J1885; J2405

== ENCOUNTER → 2019-03-16 11:42 | Outpatient (CLI) | payer OTHER, MEDICAID, SELFPAY ==
[2019-03-16 12:31] LABS: Add Manual Diff / Slide Review NO; Basophils Absolute Auto 0 /uL (0-100); Basophils Percent Auto 0.5 % (0-2); Eosinophils Absolute Auto 200 /uL (0-450); Eosinophils Percent Auto 3.3 % (2-4); Hematocrit 46.3 % (41-53); Hemoglobin 15.7 g/dL (13.5-17.5); Lymphocytes Absolute Auto 2200 /uL (1100-4500); Lymphocytes Percent Auto 31.3 % (25-40); Mean Corpuscular Volume 91.3 fL (80-100); Monocytes Absolute Auto 600 /uL (0-900); Monocytes Percent Auto 8.6 % (3-14); Neutrophils Absolute Auto 3900 /uL (1500-7000); Neutrophils Percent Auto 56.3 % (50-75); Platelet Count 259 X10^3/uL (150-400); Red Blood Cell Count 5.07 X10^6/uL (4.5-5.9)
[2019-03-16 12:58] LABS: Alanine Aminotransferase 19 IU/L (<50); Albumin 4.4 g/dL (3.5-5.0); Albumin Globulin Ratio 1.5 (1.0-2.8); Alkaline Phosphatase 75 U/L (38-126); Aspartate Aminotransferase 26 IU/L (17-59); BUN Creatinine Ratio 11.1 (6-22); Bilirubin Total 0.4 mg/dL (0.2-1.3); Blood Urea Nitrogen 10 mg/dL (9-20); Calcium 9.6 mg/dL (8.4-10.2); Carbon Dioxide 29 mmol/L (22-32); Chloride 106 mmol/L (98-107); Cholesterol 178 mg/dL (140-199); Estimated Glomerular Filt Rate > 60.0 mL/min (>60); Globulin 2.9 g/dL (1.7-4.1); Glucose 100 mg/dL (70-100); HDL Cholesterol 51 mg/dL (40-60); HEMOLYSIS < 15 (0-50); LDL Cholesterol Calculated 102 mg/dL (<100); Potassium 4.5 mmol/L (3.4-5.1); Sodium 143 mmol/L (137-145); Total Protein 7.3 g/dL (6.3-8.2); Triglycerides 124 mg/dL (35-150)
[2019-03-16 13:43] LABS: Vitamin D 25 Hydroxy (D3) 21.1 ng/mL (30.0-100.0)
[2019-03-16 13:47] LABS: Vitamin B12 327 pg/mL (239-931)
== END ==
PROVIDERS: PCP Family Medicine; Visit Provider Family Medicine
DX: E55.9 Vitamin D deficiency, unspecified (principal); E66.9 Obesity, unspecified; F32.9 Major depressive disorder, single episode, unspecified
CPT/HCPCS: 36415; 80053; 80061; 82306; 82607; 85025

== ENCOUNTER → 2019-05-06 08:38 | Outpatient (CLI) | payer OTHER, MEDICAID, SELFPAY ==
[2019-05-06 10:10] LABS: Alanine Aminotransferase 17 IU/L (<50); Albumin 4.2 g/dL (3.5-5.0); Albumin Globulin Ratio 1.2 (1.0-2.8); Alkaline Phosphatase 67 U/L (38-126); Aspartate Aminotransferase 26 IU/L (17-59); BUN Creatinine Ratio 11.8 (6-22); Bilirubin Total 0.5 mg/dL (0.2-1.3); Blood Urea Nitrogen 13 mg/dL (9-20); Calcium 9.3 mg/dL (8.4-10.2); Carbon Dioxide 30 mmol/L (22-32); Chloride 101 mmol/L (98-107); Cholesterol 188 mg/dL (140-199); Estimated Glomerular Filt Rate > 60.0 mL/min (>60); Globulin 3.4 g/dL (1.7-4.1); Glucose 99 mg/dL (70-100); HDL Cholesterol 36 mg/dL (40-60); HEMOLYSIS < 15 (0-50); LDL Cholesterol Calculated 133 mg/dL (<100); Potassium 4.3 mmol/L (3.4-5.1); Sodium 139 mmol/L (137-145); Total Protein 7.6 g/dL (6.3-8.2); Triglycerides 96 mg/dL (35-150)
== END ==
PROVIDERS: PCP Family Medicine; Visit Provider Family Medicine
DX: Z13.220 Encounter for screening for lipoid disorders (principal); Z13.228 Encounter for screening for other metabolic disorders
CPT/HCPCS: 36415; 80053; 80061

== ENCOUNTER → 2019-09-03 11:34 | Outpatient (CLI) | payer OTHER, MEDICAID, SELFPAY ==
[2019-09-05 02:33] LABS: COVID19 Sendout Not Detected (Not Detect)
== END ==
PROVIDERS: PCP Family Medicine; Visit Provider Physician Assistant
DX: Z01.818 Encounter for other preprocedural examination (principal)
CPT/HCPCS: 87635

== ENCOUNTER → 2020-05-18 08:35 | Outpatient (CLI) | payer OTHER, MEDICAID, SELFPAY ==
[2020-05-18 09:34] LABS: Add Manual Diff / Slide Review NO; Basophils Absolute Auto 0 /uL (0-100); Basophils Percent Auto 0.5 % (0-2); Eosinophils Absolute Auto 300 /uL (0-450); Eosinophils Percent Auto 3.6 % (2-4); Hematocrit 50.8 % (41-53); Hemoglobin 16.9 g/dL (13.5-17.5); Lymphocytes Absolute Auto 3000 /uL (1100-4500); Lymphocytes Percent Auto 37.2 % (25-40); Mean Corpuscular HGB Conc 33.2 % (30-36); Mean Corpuscular Hemoglobin 30.4 PG (26-34); Mean Corpuscular Volume 91.7 fL (80-100); Monocytes Absolute Auto 800 /uL (0-900); Monocytes Percent Auto 9.5 % (3-14); Neutrophils Absolute Auto 3900 /uL (1500-7000); Neutrophils Percent Auto 49.2 % (50-75); Platelet Count 260 X10^3/uL (150-400); Red Blood Cell Count 5.55 X10^6/uL (4.5-5.9); Red Cell Distribution Width 13.4 % (11.6-14.8)
[2020-05-18 09:41] LABS: Alanine Aminotransferase 26 IU/L (<50); Albumin 4.7 g/dL (3.5-5.0); Albumin Globulin Ratio 1.3 (1.0-2.8); Alkaline Phosphatase 80 U/L (38-126); Aspartate Aminotransferase 33 IU/L (17-59); BUN Creatinine Ratio 14.4 (6-22); Bilirubin Total 0.6 mg/dL (0.2-1.3); Blood Urea Nitrogen 13 mg/dL (9-20); Calcium 9.3 mg/dL (8.4-10.2); Carbon Dioxide 31 mmol/L (22-32); Chloride 106 mmol/L (98-107); Cholesterol 188 mg/dL (140-199); Estimated Glomerular Filt Rate > 60.0 mL/min (>60); Globulin 3.7 g/dL (1.7-4.1); Glucose 103 mg/dL (70-100); HDL Cholesterol 40 mg/dL (40-60); HEMOLYSIS < 15 (0-50); LDL Cholesterol Calculated 117 mg/dL (<100); Potassium 3.8 mmol/L (3.4-5.1); Sodium 141 mmol/L (137-145); Total Protein 8.4 g/dL (6.3-8.2); Triglycerides 154 mg/dL (35-150)
[2020-05-18 09:55] LABS: Vitamin D 25 Hydroxy (D3) 20.5 ng/mL (30.0-100.0)
== END ==
PROVIDERS: PCP Family Medicine; Referring Provider Family Medicine; Visit Provider Family Medicine
DX: E56.9 Vitamin deficiency, unspecified (principal); E66.9 Obesity, unspecified; Z13.220 Encounter for screening for lipoid disorders
CPT/HCPCS: 36415; 80053; 80061; 82306; 85025

== ENCOUNTER 2020-08-22 14:30 | Outpatient (RCR) | payer OTHER, MEDICAID, SELFPAY ==
--- NOTE | 2020-06-18 17:29 | PT.OIE ---
Current Diagnoses Other chronic pain (06/18/20) Low back pain (06/18/20) Past Medical History (Last Updated 06/08/20 @ 13:30 by Berhane Reinoso DO) Acute exacerbation of chronic low back pain ADHD Allergies Ankle pain Asthma Chronic back pain Chronic cough Cranial somatic dysfunction CRPS (complex regional pain syndrome) Depression Excessive cerumen in left ear canal Foot pain Fractures GI bleeding Headache History of recurrent ear infection Inflamed seborrheic keratosis Insomnia due to medical condition Kidney stones Lower limb region somatic dysfunction Migraines Obesity (BMI 30.0-34.9) Pain, foot, right, chronic Post traumatic stress disorder (PTSD) Sacral region somatic dysfunction Sacroiliac joint stiffness Screening for hyperlipidemia Sleep apnea Urge incontinence of urine Vitamin deficiency Past Surgical History (Last Updated 03/15/19 @ 21:54 by Ana Luisa Chen) Anesthesia History of placement of ear tubes Status post insertion of spinal cord stimulator Status post insertion of spinal cord stimulator Visit Care Team Role Provider Type Berhane Reinoso DO Attending Provider Physician Family Provider Primary Care Provider Referring Provider Specialty: Family Practice Address: [address] [place] [address], [facility] Email: Physical Therapy Initial Evaluation PT-OP-A Visit Information Start: 06/18/20 16:47 Freq: Status: Active Protocol: Document 06/18/20 16:47 HH (Rec: 06/18/20 17:29 [email or web address]) Out-Patient Physical Therapy Visit Information Visit Information Visit Type Initial Evaluation Visit Start Time 14:30 Visit Stop Time 15:15 Total Visit Minutes 45 Visit Number 1/9 Number of COMMUNITY ASSOCIATE Visits 0 Evaluation Information Evaluation Date 06/18/20 Precautions Precautions spinal stimulator and DRG stimulator at his low back fibromyalgia and CPRS Depression PT-OP-B Current Condition Start: 06/18/20 16:47 Freq: Status: Active Protocol: Document 06/18/20 16:47 HH (Rec: 06/18/20 17:29 HH [email or web address]) Current Condition History of Current Condition Onset Date many years ago Current Complaints Chronic low back pain, poor activity tolerance History of Current Condition This is a 34-year-old obeses man with history of COPD, asthma, kidney stones, daily current marijuana smoker, PTSD , depression, complex regional pain syndrome, migraines, pain related insomnia, ADHD, and REGIS presents today for his chronic low back pain. He reports low back pain in the middle of the sacrum and lower lumbar region which gets better only when lying on his back. He reports the pain ranges from 3-5/10 depending on activity, worse with bending forward and increased physical activity. He is not taking any pain medications now but use medical marijuana half a gram per day for pain relief. 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 He has severe pain in both legs most of the time and pain in the back only when bending over. He is officially disabled. Treatment Goals Patient/Caregiver Goals 1. to reduce his back pain 2. 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 He also tends to WB more on LLE d/t R foot pain Functional Limitations- Other pt requires to push off from chair armrests for STS He also WB mostly on L LE. Personal Factors Other Personal Factors That May Effect fibromyalgia, CPRS Therapy/Recovery spinal nerve stimulator and DRG stimulator depression PT-OP-C Subjective Start: 06/18/20 16:47 Freq: Status: Active Protocol: Document 06/18/20 16:47 (Rec: 06/18/20 17:29 [email or web address]) Patient Questionnaires Oswestry Low Back Index Oswestry Score 54 Oswestry Impairment 40 to 59% Impaired (Score 40- 59) OP-PT Pain Assessment Location R foot Pain Location Details medial plantar surface Intensity 3 Description Burning,Radiating,Shooting Frequency Constant Pain Aggravating Factors Activity,Exercise,Standing, Walking,Stair Climbing Pain Alleviating Factors Inactivity LBP Pain Location Details lower lumbar, sacral area Intensity 5 Scale Used Numeric (0 - 10) Description Aching,Dull Frequency Frequent Pain Aggravating Factors Activity,Exercise,Standing, Sitting,Walking,Bending, Lifting Pain Alleviating Factors Inactivity PT-OP-D Balance Start: 06/18/20 16:47 Freq: Status: Active Protocol: Document 06/18/20 16:47 HH (Rec: 06/18/20 17:29 [email or web address]) Balance Tests Single Limb Standing Single Limb- Right 5 Single Limb- Left >60 PT-OP-H Neuro Start: 06/18/20 16:47 Freq: Status: Active Protocol: Document 06/18/20 16:47 HH (Rec: 06/18/20 17:29 [email or web address]) Deep Tendon Reflex & Clonus Assessment Deep Tendon Reflex Left Achilles Deep Tendon Reflex 2+ Normal Left Patellar Deep Tendon Reflex 2+ Normal Right Achilles Deep Tendon Reflex 1+ Diminished Right Patellar Deep Tendon Reflex 1+ Diminished PT-OP-J Posture/Palpation/Skin Start: 06/18/20 16:47 Freq: Status: Active Protocol: Document 06/18/20 16:47 HH (Rec: 06/18/20 17:29 [email or web address]) Posture Evaluation Position Standing Pelvis Posture Anteriorly Tilted Weight Distribution Weight Shifted Left,Decreased Wt.Bear on (R) PT-OP-K Range of Motion Start: 06/18/20 16:47 Freq: Status: Active Protocol: Document 06/18/20 16:47 HH (Rec: 06/18/20 17:29 [email or web address]) Lumbar Spine Range of Motion Lumbar Spine Active Degrees Comments toe touch test= 14 inches from floor, consistent pain with repeated flexion lateral flexion = 22 inches from floor, no pain noted extension = shoulders meet heels, consistent pain with repeated extension PT-OP-L Special Tests Start: 06/18/20 16:47 Freq: Status: Active Protocol: Document 06/18/20 16:47 HH (Rec: 06/18/20 17:29 [email or web address]) Special Tests Lumbar Spine Special Tests Slump Test Results +ve on L Comments pain at lumbar Prone Instability Test Test Results +VE L Comments slight decrease in pain with LLE extension Straight Leg Raise Test Results -ve PT-OP-M Strength Start: 06/18/20 16:47 Freq: Status: Active Protocol: Document 06/18/20 16:47 HH (Rec: 06/18/20 17:29 [email or web address]) Trunk Strength Trunk Manual Muscle Testing Testing Position Sitting Core Stabilization flexion endurance hold test at sit up position with trunk at 60 degrees flexion= 19 s chect up extension test= 28s Hip Strength Hip Manual Muscle Testing Right Flexion (L2) 4+ Good+ Extension (S1) 4+ Good+ Abduction 4+ Good+ Adduction 4+ Good+ Left Flexion (L2) 4+ Good+ Extension (S1) 4+ Good+ Abduction 4+ Good+ Adduction 4+ Good+ Knee Strength Knee Manual Muscle Testing Right Flexion (S2) 4+ Good+ Extension (L3) 4+ Good+ Left Flexion (S2) 5 Normal Extension (L3) 5 Normal Ankle/Foot Strength Ankle and Foot Manual Muscle Testing Right Dorsiflexion (L4) 5 Normal Plantarflexion (S1) 4 Good Inversion 4+ Good+ Eversion (S1) 4+ Good+ Left Dorsiflexion (L4) 5 Normal Plantarflexion (S1) 5 Normal Inversion 5 Normal Eversion (S1) 5 Normal PT-OP-T Assessment and Plan Start: 06/18/20 16:47 Freq: Status: Active Protocol: Document 06/18/20 16:47 (Rec: 06/18/20 17:29 [email or web address]) Physical Therapy Assessment Rehab Potential Rehabilitation Potential Fair Evaluation Complexity Number of Personal Factors/Comorbidities 3 or More Number of Body Systems Impaired 4 or More Clinical Presentation at Evaluation Stable Impairments Impairments Activity Tolerance,Balance, Functional Activities, Functional Mobility,Gait,Pain, Posture,ROM,Sensation,Soft Tissue Mobility,Strength, Transfers Goals trunk endurance Impairment chest life= 28 s, flexion hold = 19s Short Term Goal (STG) pt will improve both trunk flexion and extension endurance by 10 seconds STG Duration 6 weeks Dividing Machine Operator Goal (LTG) pt will improve both trunk flexion and extension endurance by 20 seconds in 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 , walking and lift duty type of work LTG Duration 12 weeks ROM Impairment toe touch =14inches from floor Short Term Goal (STG) pt will be able to reach mid orozco with bend over test to improve his trunk flexion mobility without increase in pain STG Duration 4 weeks Dividing Machine Operator Goal (LTG) pt will be able to reach ankles with bend over test to improve his trunk flexion mobility without increase in pain LTG Duration 8weeks oswestry Impairment pt scores 54 on Owestry LBP questionnaire Short Term Goal (STG) pt will score <45 on Oswestry to improve his quality of life STG Duration 6 weeks Dividing Machine Operator Goal (LTG) pt will score <35 on Oswestry to improve his quality of life , such as pain, quality of sleep and overall activity tolerance. LTG Duration 12 weeks Assessment Summary Assessment This is a 34-year-old obese and disabled man with history of COPD, asthma, kidney stones , daily current marijuana smoker, PTSD, depression, complex regional pain syndrome , migraines, pain related insomnia presents today for his chronic low back pain. Pt also has a nerve stimulator in his back for the last seven years and a DRG stimulator for a year and a half. Upon assessment, pt shows non specific low back pain who has very poor trunk mobility whose pain is worse with either flexion/ extension, along with very poor trunk stability/ endurance. His pain also significant limits his functional mobility who needs support to stand up from chair and use of SPC for prolonged walking. However, pt does show WFL LE strength and mobility but R foot is worse d/t his CRPS on R lower leg from his old injury. Because of pt's complicated PMH and prolonged inactivity/ deconditioning, will attempt a course of PT to improve his trunk mobility and strength in order for him to increase his activitiy tolerance with manageable pain . Physical Therapy Plan Frequency and Duration Frequency of Treatment 2x/Week Duration of Treatment 12 weeks Plan of Care Start Date 06/18/20 Plan of Care End Date 09/16/20 Therapeutic Interventions Therapeutic Interventions Aquatic Therapy,Balance Training,Gait Training,Home Exercise Program,Manual Therapy,Neuromuscular Re- education,Orthotic/Prosthetic Management,Patient/Caregiver Education,Self-Care/Home Management,Soft Tissue Mobilization,Taping, Therapeutic Activities, Therapeutic Exercises Modalities Cold Pack/Ice Massage,Hot Packs Next Visit Focus/Plan Next Note Type Treatment Note Next Visit Plan overall cardio ex, bike, stepper initiate trunk ROM ex, in gravity eliminated position ankle PF strengthening if tolerable leg press
--- NOTE | 2020-06-21 15:17 | PT.OTN ---
Current Diagnoses Other chronic pain (06/21/20) Low back pain (06/21/20) Physical Therapy Treatment Note PT-OP-A Visit Information Start: 06/18/20 16:47 Freq: Status: Active Protocol: Document 06/21/20 14:34 HH (Rec: 06/21/20 15:17 HH [id number]) Out-Patient Physical Therapy Visit Information Visit Information Visit Type Treatment Note Visit Start Time 14:34 Visit Stop Time 15:15 Total Visit Minutes 41 Visit Number 2/9 Number of FUNERAL HOME ASSISTANT Visits 0 PT-OP-B Current Condition Start: 06/18/20 16:47 Freq: Status: Active Protocol: Document 06/18/20 16:47 HH (Rec: 06/18/20 17:29 HH [email or web address]) Current Condition History of Current Condition Onset Date many years ago Current Complaints Chronic low back pain, poor activity tolerance History of Current Condition This is a 34-year-old obeses man with history of COPD, asthma, kidney stones, daily current marijuana smoker, PTSD , depression, complex regional pain syndrome, migraines, pain related insomnia, ADHD, and REGIS presents today for his chronic low back pain. He reports low back pain in the middle of the sacrum and lower lumbar region which gets better only when lying on his back. He reports the pain ranges from 3-5/10 depending on activity, worse with bending forward and increased physical activity. He is not taking any pain medications now but use medical marijuana half a gram per day for pain relief. 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 He has severe pain in both legs most of the time and pain in the back only when bending over. He is officially disabled. Treatment Goals Patient/Caregiver Goals 1. to reduce his back pain 2. 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 He also tends to WB more on LLE d/t R foot pain Functional Limitations- Other pt requires to push off from chair armrests for STS He also WB mostly on L LE. Personal Factors Other Personal Factors That May Effect fibromyalgia, CPRS Therapy/Recovery spinal nerve stimulator and DRG stimulator depression PT-OP-C Subjective Start: 06/18/20 16:47 Freq: Status: Active Protocol: Document 06/21/20 14:34 HH (Rec: 06/21/20 15:17 HH [id number]) OP-PT Subjective Patient Comments Patient Comments Im feeling pretty much the same. PT-OP-D Balance Start: 06/18/20 16:47 Freq: Status: Active Protocol: Document 06/18/20 16:47 HH (Rec: 06/18/20 17:29 HH [email or web address]) Balance Tests Single Limb Standing Single Limb- Right 5 Single Limb- Left >60 PT-OP-H Neuro Start: 06/18/20 16:47 Freq: Status: Active Protocol: Document 06/18/20 16:47 HH (Rec: 06/18/20 17:29 HH [email or web address]) Deep Tendon Reflex & Clonus Assessment Deep Tendon Reflex Left Achilles Deep Tendon Reflex 2+ Normal Left Patellar Deep Tendon Reflex 2+ Normal Right Achilles Deep Tendon Reflex 1+ Diminished Right Patellar Deep Tendon Reflex 1+ Diminished PT-OP-J Posture/Palpation/Skin Start: 06/18/20 16:47 Freq: Status: Active Protocol: Document 06/18/20 16:47 HH (Rec: 06/18/20 17:29 HH [email or web address]) Posture Evaluation Position Standing Pelvis Posture Anteriorly Tilted Weight Distribution Weight Shifted Left,Decreased Wt.Bear on (R) PT-OP-K Range of Motion Start: 06/18/20 16:47 Freq: Status: Active Protocol: Document 06/18/20 16:47 HH (Rec: 06/18/20 17:29 HH [email or web address]) Lumbar Spine Range of Motion Lumbar Spine Active Degrees Comments toe touch test= 14 inches from floor, consistent pain with repeated flexion lateral flexion = 22 inches from floor, no pain noted extension = shoulders meet heels, consistent pain with repeated extension PT-OP-L Special Tests Start: 06/18/20 16:47 Freq: Status: Active Protocol: Document 06/18/20 16:47 HH (Rec: 06/18/20 17:29 HH [email or web address]) Special Tests Lumbar Spine Special Tests Slump Test Results +ve on L Comments pain at lumbar Prone Instability Test Test Results +VE L Comments slight decrease in pain with LLE extension Straight Leg Raise Test Results -ve PT-OP-M Strength Start: 06/18/20 16:47 Freq: Status: Active Protocol: Document 06/18/20 16:47 (Rec: 06/18/20 17:29 HH [email or web address]) Trunk Strength Trunk Manual Muscle Testing Testing Position Sitting Core Stabilization flexion endurance hold test at sit up position with trunk at 60 degrees flexion= 19 s chect up extension test= 28s Hip Strength Hip Manual Muscle Testing Right Flexion (L2) 4+ Good+ Extension (S1) 4+ Good+ Abduction 4+ Good+ Adduction 4+ Good+ Left Flexion (L2) 4+ Good+ Extension (S1) 4+ Good+ Abduction 4+ Good+ Adduction 4+ Good+ Knee Strength Knee Manual Muscle Testing Right Flexion (S2) 4+ Good+ Extension (L3) 4+ Good+ Left Flexion (S2) 5 Normal Extension (L3) 5 Normal Ankle/Foot Strength Ankle and Foot Manual Muscle Testing Right Dorsiflexion (L4) 5 Normal Plantarflexion (S1) 4 Good Inversion 4+ Good+ Eversion (S1) 4+ Good+ Left Dorsiflexion (L4) 5 Normal Plantarflexion (S1) 5 Normal Inversion 5 Normal Eversion (S1) 5 Normal PT-OP-Q Treatments Start: 06/18/20 16:47 Freq: Status: Active Protocol: Document 06/21/20 14:34 HH (Rec: 06/21/20 15:17 HH [id number]) Cardio Equipment Recumbent Stepper (Sci-Fit) Duration (Minutes) 8 Resistance 3 Gym Equipment Shuttle Recovery Bsquat Resistance # 75 Shuttle Recovery Platform Stable SL squat Resistance #50 Shuttle Recovery Platform Stable Reps/Time 15 x2 Therapeutic Exercises Supine Exercises pelvic tilt Side bilateral Reps/Minutes 8 x 2 Comments for HEP bridging Side bilateral Reps/Minutes 8 x 2 Comments for HEP Sitting Exercises trunk flexion Side bilateral Reps/Minutes 8 x2 Comments for HEP Manual Therapy Treatment Soft Tissue Mobilization glutes, piriformis Mobilization Type Sustained Pressure,Trigger Point Release Intensity/Depth Moderate Body Position Sidelying PT-OP-T Assessment and Plan Start: 06/18/20 16:47 Freq: Status: Active Protocol: Document 06/21/20 14:34 (Rec: 06/21/20 15:17 [id number]) Physical Therapy Assessment Goals trunk endurance Impairment chest life= 28 s, flexion hold = 19s Short Term Goal (STG) pt will improve both trunk flexion and extension endurance by 10 seconds STG Duration 6 weeks Intermediate Goal (LTG) pt will improve both trunk flexion and extension endurance by 20 seconds in 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 , 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 and lift duty type of work LTG Duration 12 weeks ROM Impairment toe touch =14inches from floor Short Term Goal (STG) pt will be able to reach mid orozco with bend over test to improve his trunk flexion mobility without increase in pain STG Duration 4 weeks Dough Braker Goal (LTG) pt will be able to reach ankles with bend over test to improve his trunk flexion mobility without increase in pain LTG Duration 8weeks oswestry Impairment pt scores 54 on Owestry LBP questionnaire Short Term Goal (STG) pt will score <45 on Oswestry to improve his quality of life STG Duration 6 weeks Dough Braker Goal (LTG) pt will score <35 on Oswestry to improve his quality of life , such as pain, quality of sleep and overall activity tolerance. LTG Duration 12 weeks Assessment Summary Assessment This session inclused a mix of trunk ROM, stabilization, LE strengthening and overall cardio endurance training. Pt isaac session well. Will assess his response next visit. Physical Therapy Plan Frequency and Duration Frequency of Treatment 2x/Week Duration of Treatment 12 weeks Plan of Care Start Date 06/18/20 Plan of Care End Date 09/16/20 Next Visit Focus/Plan Next Note Type Treatment Note Next Visit Plan overall cardio ex, bike, stepper initiate trunk ROM ex, in gravity eliminated position ankle PF strengthening if tolerable leg press
--- NOTE | 2020-06-28 15:18 | PT.OTN ---
Current Diagnoses Other chronic pain (06/28/20) Low back pain (06/28/20) Physical Therapy Treatment Note PT-OP-A Visit Information Start: 06/18/20 16:47 Freq: Status: Active Protocol: Document 06/28/20 14:34 HH (Rec: 06/28/20 15:18 HH [id number]) Out-Patient Physical Therapy Visit Information Visit Information Visit Type Treatment Note Visit Start Time 14:34 Visit Stop Time 15:16 Total Visit Minutes 42 Visit Number 3/9 Number of CLINICAL EDUCATION ACADEMIC COORDINATOR Visits 0 PT-OP-B Current Condition Start: 06/18/20 16:47 Freq: Status: Active Protocol: Document 06/18/20 16:47 HH (Rec: 06/18/20 17:29 HH [email or web address]) Current Condition History of Current Condition Onset Date many years ago Current Complaints Chronic low back pain, poor activity tolerance History of Current Condition This is a 34-year-old obeses man with history of COPD, asthma, kidney stones, daily current marijuana smoker, PTSD , depression, complex regional pain syndrome, migraines, pain related insomnia, ADHD, and REGIS presents today for his chronic low back pain. He reports low back pain in the middle of the sacrum and lower lumbar region which gets better only when lying on his back. He reports the pain ranges from 3-5/10 depending on activity, worse with bending forward and increased physical activity. He is not taking any pain medications now but use medical marijuana half a gram per day for pain relief. 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 He has severe pain in both legs most of the time and pain in the back only when bending over. He is officially disabled. Treatment Goals Patient/Caregiver Goals 1. to reduce his back pain 2. 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 He also tends to WB more on LLE d/t R foot pain Functional Limitations- Other pt requires to push off from chair armrests for STS He also WB mostly on L LE. Personal Factors Other Personal Factors That May Effect fibromyalgia, CPRS Therapy/Recovery spinal nerve stimulator and DRG stimulator depression PT-OP-C Subjective Start: 06/18/20 16:47 Freq: Status: Active Protocol: Document 06/21/20 14:34 HH (Rec: 06/21/20 15:17 HH [id number]) OP-PT Subjective Patient Comments Patient Comments Im feeling pretty much the same. PT-OP-D Balance Start: 06/18/20 16:47 Freq: Status: Active Protocol: Document 06/18/20 16:47 HH (Rec: 06/18/20 17:29 HH [email or web address]) Balance Tests Single Limb Standing Single Limb- Right 5 Single Limb- Left >60 PT-OP-H Neuro Start: 06/18/20 16:47 Freq: Status: Active Protocol: Document 06/18/20 16:47 HH (Rec: 06/18/20 17:29 HH [email or web address]) Deep Tendon Reflex & Clonus Assessment Deep Tendon Reflex Left Achilles Deep Tendon Reflex 2+ Normal Left Patellar Deep Tendon Reflex 2+ Normal Right Achilles Deep Tendon Reflex 1+ Diminished Right Patellar Deep Tendon Reflex 1+ Diminished PT-OP-J Posture/Palpation/Skin Start: 06/18/20 16:47 Freq: Status: Active Protocol: Document 06/18/20 16:47 HH (Rec: 06/18/20 17:29 HH [email or web address]) Posture Evaluation Position Standing Pelvis Posture Anteriorly Tilted Weight Distribution Weight Shifted Left,Decreased Wt.Bear on (R) PT-OP-K Range of Motion Start: 06/18/20 16:47 Freq: Status: Active Protocol: Document 06/18/20 16:47 HH (Rec: 06/18/20 17:29 HH [email or web address]) Lumbar Spine Range of Motion Lumbar Spine Active Degrees Comments toe touch test= 14 inches from floor, consistent pain with repeated flexion lateral flexion = 22 inches from floor, no pain noted extension = shoulders meet heels, consistent pain with repeated extension PT-OP-L Special Tests Start: 06/18/20 16:47 Freq: Status: Active Protocol: Document 06/18/20 16:47 HH (Rec: 06/18/20 17:29 HH [email or web address]) Special Tests Lumbar Spine Special Tests Slump Test Results +ve on L Comments pain at lumbar Prone Instability Test Test Results +VE L Comments slight decrease in pain with LLE extension Straight Leg Raise Test Results -ve PT-OP-M Strength Start: 06/18/20 16:47 Freq: Status: Active Protocol: Document 06/18/20 16:47 (Rec: 06/18/20 17:29 HH [email or web address]) Trunk Strength Trunk Manual Muscle Testing Testing Position Sitting Core Stabilization flexion endurance hold test at sit up position with trunk at 60 degrees flexion= 19 s chect up extension test= 28s Hip Strength Hip Manual Muscle Testing Right Flexion (L2) 4+ Good+ Extension (S1) 4+ Good+ Abduction 4+ Good+ Adduction 4+ Good+ Left Flexion (L2) 4+ Good+ Extension (S1) 4+ Good+ Abduction 4+ Good+ Adduction 4+ Good+ Knee Strength Knee Manual Muscle Testing Right Flexion (S2) 4+ Good+ Extension (L3) 4+ Good+ Left Flexion (S2) 5 Normal Extension (L3) 5 Normal Ankle/Foot Strength Ankle and Foot Manual Muscle Testing Right Dorsiflexion (L4) 5 Normal Plantarflexion (S1) 4 Good Inversion 4+ Good+ Eversion (S1) 4+ Good+ Left Dorsiflexion (L4) 5 Normal Plantarflexion (S1) 5 Normal Inversion 5 Normal Eversion (S1) 5 Normal PT-OP-Q Treatments Start: 06/18/20 16:47 Freq: Status: Active Protocol: Document 06/28/20 14:34 HH (Rec: 06/28/20 15:18 HH [id number]) Cardio Equipment Recumbent Stepper (Sci-Fit) Duration (Minutes) 10 Resistance 3 Gym Equipment Shuttle Recovery Bsquat Resistance # 75 Shuttle Recovery Platform Stable SL squat Resistance #50 Shuttle Recovery Platform Stable Reps/Time 15 x2 Therapeutic Exercises Supine Exercises supine marches Side bilateral Reps/Minutes 8x 2 bridging Side bilateral Equipment Used yellow band Reps/Minutes 8 x 2 Comments for HEP Sitting Exercises trunk flexion Side bilateral Reps/Minutes 10 x2 Manual Therapy Treatment Soft Tissue Mobilization glutes, piriformis Mobilization Type Sustained Pressure,Trigger Point Release Intensity/Depth Moderate Body Position Sidelying PT-OP-T Assessment and Plan Start: 06/18/20 16:47 Freq: Status: Active Protocol: Document 06/28/20 14:34 (Rec: 06/28/20 15:18 [id number]) Physical Therapy Assessment Goals trunk endurance Impairment chest life= 28 s, flexion hold = 19s Short Term Goal (STG) pt will improve both trunk flexion and extension endurance by 10 seconds STG Duration 6 weeks Senior Living Goal (LTG) pt will improve both trunk flexion and extension endurance by 20 seconds in 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 , walking and lift duty type of work LTG Duration 12 weeks ROM Impairment toe touch =14inches from floor Short Term Goal (STG) pt will be able to reach mid orozco with bend over test to improve his trunk flexion mobility without increase in pain STG Duration 4 weeks Senior Living Goal (LTG) pt will be able to reach ankles with bend over test to improve his trunk flexion mobility without increase in pain LTG Duration 8weeks oswestry Impairment pt scores 54 on Owestry LBP questionnaire Short Term Goal (STG) pt will score <45 on Oswestry to improve his quality of life STG Duration 6 weeks Nuclear Chemistry Technician Goal (LTG) pt will score <35 on Oswestry to improve his quality of life , such as pain, quality of sleep and overall activity tolerance. LTG Duration 12 weeks Assessment Summary Assessment Pt isaac session okay and he reports trunk flexion tends to increase his pain. Physical Therapy Plan Frequency and Duration Frequency of Treatment 2x/Week Duration of Treatment 12 weeks Plan of Care Start Date 06/18/20 Plan of Care End Date 09/16/20 Therapeutic Interventions Therapeutic Interventions Aquatic Therapy,Balance Training,Gait Training,Home Exercise Program,Manual Therapy,Neuromuscular Re- education,Orthotic/Prosthetic Management,Patient/Caregiver Education,Self-Care/Home Management,Soft Tissue Mobilization,Taping, Therapeutic Activities, Therapeutic Exercises Modalities Cold Pack/Ice Massage,Hot Packs Next Visit Focus/Plan Next Note Type Treatment Note Next Visit Plan overall cardio ex, bike, stepper initiate trunk ROM ex, in gravity eliminated position ankle PF strengthening if tolerable leg press
--- NOTE | 2020-07-02 15:32 | PT.OTN ---
Current Diagnoses Other chronic pain (07/02/20) Low back pain (07/02/20) Physical Therapy Treatment Note PT-OP-A Visit Information Start: 06/18/20 16:47 Freq: Status: Active Protocol: Document 07/02/20 14:37 HH (Rec: 07/02/20 15:32 HH [email or web address]) Out-Patient Physical Therapy Visit Information Visit Information Visit Type Treatment Note Visit Start Time 14:32 Visit Stop Time 15:15 Total Visit Minutes 43 Visit Number 4/9 Number of MUSIC PROMOTER Visits 0 PT-OP-B Current Condition Start: 06/18/20 16:47 Freq: Status: Active Protocol: Document 06/18/20 16:47 HH (Rec: 06/18/20 17:29 HH [email or web address]) Current Condition History of Current Condition Onset Date many years ago Current Complaints Chronic low back pain, poor activity tolerance History of Current Condition This is a 34-year-old obeses man with history of COPD, asthma, kidney stones, daily current marijuana smoker, PTSD , depression, complex regional pain syndrome, migraines, pain related insomnia, ADHD, and REGIS presents today for his chronic low back pain. He reports low back pain in the middle of the sacrum and lower lumbar region which gets better only when lying on his back. He reports the pain ranges from 3-5/10 depending on activity, worse with bending forward and increased physical activity. He is not taking any pain medications now but use medical marijuana half a gram per day for pain relief. 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 He has severe pain in both legs most of the time and pain in the back only when bending over. He is officially disabled. Treatment Goals Patient/Caregiver Goals 1. to reduce his back pain 2. 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 He also tends to WB more on LLE d/t R foot pain Functional Limitations- Other pt requires to push off from chair armrests for STS He also WB mostly on L LE. Personal Factors Other Personal Factors That May Effect fibromyalgia, CPRS Therapy/Recovery spinal nerve stimulator and DRG stimulator depression PT-OP-C Subjective Start: 06/18/20 16:47 Freq: Status: Active Protocol: Document 07/02/20 14:37 HH (Rec: 07/02/20 15:32 HH [id number]) OP-PT Subjective Patient Comments Patient Comments I havent slept since 2 am. My pain has been the same Patient Reported Progress Same PT-OP-D Balance Start: 06/18/20 16:47 Freq: Status: Active Protocol: Document 06/18/20 16:47 HH (Rec: 06/18/20 17:29 HH [email or web address]) Balance Tests Single Limb Standing Single Limb- Right 5 Single Limb- Left >60 PT-OP-H Neuro Start: 06/18/20 16:47 Freq: Status: Active Protocol: Document 06/18/20 16:47 HH (Rec: 06/18/20 17:29 HH [email or web address]) Deep Tendon Reflex & Clonus Assessment Deep Tendon Reflex Left Achilles Deep Tendon Reflex 2+ Normal Left Patellar Deep Tendon Reflex 2+ Normal Right Achilles Deep Tendon Reflex 1+ Diminished Right Patellar Deep Tendon Reflex 1+ Diminished PT-OP-J Posture/Palpation/Skin Start: 06/18/20 16:47 Freq: Status: Active Protocol: Document 06/18/20 16:47 HH (Rec: 06/18/20 17:29 HH [email or web address]) Posture Evaluation Position Standing Pelvis Posture Anteriorly Tilted Weight Distribution Weight Shifted Left,Decreased Wt.Bear on (R) PT-OP-K Range of Motion Start: 06/18/20 16:47 Freq: Status: Active Protocol: Document 06/18/20 16:47 HH (Rec: 06/18/20 17:29 HH [email or web address]) Lumbar Spine Range of Motion Lumbar Spine Active Degrees Comments toe touch test= 14 inches from floor, consistent pain with repeated flexion lateral flexion = 22 inches from floor, no pain noted extension = shoulders meet heels, consistent pain with repeated extension PT-OP-L Special Tests Start: 06/18/20 16:47 Freq: Status: Active Protocol: Document 06/18/20 16:47 HH (Rec: 06/18/20 17:29 [email or web address]) Special Tests Lumbar Spine Special Tests Slump Test Results +ve on L Comments pain at lumbar Prone Instability Test Test Results +VE L Comments slight decrease in pain with LLE extension Straight Leg Raise Test Results -ve PT-OP-M Strength Start: 06/18/20 16:47 Freq: Status: Active Protocol: Document 06/18/20 16:47 HH (Rec: 06/18/20 17:29 [email or web address]) Trunk Strength Trunk Manual Muscle Testing Testing Position Sitting Core Stabilization flexion endurance hold test at sit up position with trunk at 60 degrees flexion= 19 s chect up extension test= 28s Hip Strength Hip Manual Muscle Testing Right Flexion (L2) 4+ Good+ Extension (S1) 4+ Good+ Abduction 4+ Good+ Adduction 4+ Good+ Left Flexion (L2) 4+ Good+ Extension (S1) 4+ Good+ Abduction 4+ Good+ Adduction 4+ Good+ Knee Strength Knee Manual Muscle Testing Right Flexion (S2) 4+ Good+ Extension (L3) 4+ Good+ Left Flexion (S2) 5 Normal Extension (L3) 5 Normal Ankle/Foot Strength Ankle and Foot Manual Muscle Testing Right Dorsiflexion (L4) 5 Normal Plantarflexion (S1) 4 Good Inversion 4+ Good+ Eversion (S1) 4+ Good+ Left Dorsiflexion (L4) 5 Normal Plantarflexion (S1) 5 Normal Inversion 5 Normal Eversion (S1) 5 Normal PT-OP-Q Treatments Start: 06/18/20 16:47 Freq: Status: Active Protocol: Document 07/02/20 14:37 (Rec: 07/02/20 15:32 [id number]) Gym Equipment Shuttle Recovery Bsquat Resistance # 75 Shuttle Recovery Platform Stable Therapeutic Exercises Supine Exercises SLR Side bilateral Reps/Minutes 8x2 Comments cues on core engagement supine marches Side bilateral Reps/Minutes 8x 2 bridging Side bilateral Equipment Used yellow band Reps/Minutes 8 x 2 Comments for HEP Sitting Exercises trunk flexion Side bilateral Reps/Minutes 10 x2 Manual Therapy Treatment Soft Tissue Mobilization glutes, piriformis Mobilization Type Sustained Pressure,Trigger Point Release Intensity/Depth Moderate Body Position Sidelying PT-OP-T Assessment and Plan Start: 06/18/20 16:47 Freq: Status: Active Protocol: Document 07/02/20 14:37 HH (Rec: 07/02/20 15:32 [id number]) Physical Therapy Assessment Goals trunk endurance Impairment chest life= 28 s, flexion hold = 19s Short Term Goal (STG) pt will improve both trunk flexion and extension endurance by 10 seconds STG Duration 6 weeks Snf Goal (LTG) pt will improve both trunk flexion and extension endurance by 20 seconds in 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 , walking and lift duty type of work LTG Duration 12 weeks ROM Impairment toe touch =14inches from floor Short Term Goal (STG) pt will be able to reach mid orozco with bend over test to improve his trunk flexion mobility without increase in pain STG Duration 4 weeks Snf Goal (LTG) pt will be able to reach ankles with bend over test to improve his trunk flexion mobility without increase in pain LTG Duration 8weeks oswestry Impairment pt scores 54 on Owestry LBP questionnaire Short Term Goal (STG) pt will score <45 on Oswestry to improve his quality of life STG Duration 6 weeks Snf Goal (LTG) pt will score <35 on Oswestry to improve his quality of life , such as pain, quality of sleep and overall activity tolerance. LTG Duration 12 weeks Assessment Summary Assessment Pt reports stiffness during trunk flexion but didnt report increase of back pain. Will cont focus on core stabilization and overall strengthening. Physical Therapy Plan Frequency and Duration Frequency of Treatment 2x/Week Duration of Treatment 12 weeks Plan of Care Start Date 06/18/20 Plan of Care End Date 09/16/20 Next Visit Focus/Plan Next Note Type Treatment Note Next Visit Plan overall cardio ex, bike, stepper initiate trunk ROM ex, in gravity eliminated position ankle PF strengthening if tolerable leg press
--- NOTE | 2020-07-05 15:17 | PT.OTN ---
Current Diagnoses Other chronic pain (07/05/20) Low back pain (07/05/20) Physical Therapy Treatment Note PT-OP-A Visit Information Start: 06/18/20 16:47 Freq: Status: Active Protocol: Document 07/05/20 14:32 HH (Rec: 07/05/20 15:17 HH [id number]) Out-Patient Physical Therapy Visit Information Visit Information Visit Type Treatment Note Visit Start Time 14:32 Visit Stop Time 15:15 Total Visit Minutes 43 Visit Number 4/9 Number of MANAGER BUILDING Visits 0 PT-OP-B Current Condition Start: 06/18/20 16:47 Freq: Status: Active Protocol: Document 06/18/20 16:47 HH (Rec: 06/18/20 17:29 HH [email or web address]) Current Condition History of Current Condition Onset Date many years ago Current Complaints Chronic low back pain, poor activity tolerance History of Current Condition This is a 34-year-old obeses man with history of COPD, asthma, kidney stones, daily current marijuana smoker, PTSD , depression, complex regional pain syndrome, migraines, pain related insomnia, ADHD, and REGIS presents today for his chronic low back pain. He reports low back pain in the middle of the sacrum and lower lumbar region which gets better only when lying on his back. He reports the pain ranges from 3-5/10 depending on activity, worse with bending forward and increased physical activity. He is not taking any pain medications now but use medical marijuana half a gram per day for pain relief. 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 He has severe pain in both legs most of the time and pain in the back only when bending over. He is officially disabled. Treatment Goals Patient/Caregiver Goals 1. to reduce his back pain 2. 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 He also tends to WB more on LLE d/t R foot pain Functional Limitations- Other pt requires to push off from chair armrests for STS He also WB mostly on L LE. Personal Factors Other Personal Factors That May Effect fibromyalgia, CPRS Therapy/Recovery spinal nerve stimulator and DRG stimulator depression PT-OP-C Subjective Start: 06/18/20 16:47 Freq: Status: Active Protocol: Document 07/05/20 14:32 HH (Rec: 07/05/20 15:17 HH [email or web address]) OP-PT Subjective Patient Comments Patient Comments I just lift a lot of fernandez earlier for a couple so it hurts my back today. Patient Reported Progress Same PT-OP-D Balance Start: 06/18/20 16:47 Freq: Status: Active Protocol: Document 06/18/20 16:47 HH (Rec: 06/18/20 17:29 HH [email or web address]) Balance Tests Single Limb Standing Single Limb- Right 5 Single Limb- Left >60 PT-OP-H Neuro Start: 06/18/20 16:47 Freq: Status: Active Protocol: Document 06/18/20 16:47 HH (Rec: 06/18/20 17:29 HH [email or web address]) Deep Tendon Reflex & Clonus Assessment Deep Tendon Reflex Left Achilles Deep Tendon Reflex 2+ Normal Left Patellar Deep Tendon Reflex 2+ Normal Right Achilles Deep Tendon Reflex 1+ Diminished Right Patellar Deep Tendon Reflex 1+ Diminished PT-OP-J Posture/Palpation/Skin Start: 06/18/20 16:47 Freq: Status: Active Protocol: Document 06/18/20 16:47 HH (Rec: 06/18/20 17:29 HH [email or web address]) Posture Evaluation Position Standing Pelvis Posture Anteriorly Tilted Weight Distribution Weight Shifted Left,Decreased Wt.Bear on (R) PT-OP-K Range of Motion Start: 06/18/20 16:47 Freq: Status: Active Protocol: Document 06/18/20 16:47 HH (Rec: 06/18/20 17:29 HH [email or web address]) Lumbar Spine Range of Motion Lumbar Spine Active Degrees Comments toe touch test= 14 inches from floor, consistent pain with repeated flexion lateral flexion = 22 inches from floor, no pain noted extension = shoulders meet heels, consistent pain with repeated extension PT-OP-L Special Tests Start: 06/18/20 16:47 Freq: Status: Active Protocol: Document 06/18/20 16:47 HH (Rec: 06/18/20 17:29 [email or web address]) Special Tests Lumbar Spine Special Tests Slump Test Results +ve on L Comments pain at lumbar Prone Instability Test Test Results +VE L Comments slight decrease in pain with LLE extension Straight Leg Raise Test Results -ve PT-OP-M Strength Start: 06/18/20 16:47 Freq: Status: Active Protocol: Document 06/18/20 16:47 (Rec: 06/18/20 17:29 [email or web address]) Trunk Strength Trunk Manual Muscle Testing Testing Position Sitting Core Stabilization flexion endurance hold test at sit up position with trunk at 60 degrees flexion= 19 s chect up extension test= 28s Hip Strength Hip Manual Muscle Testing Right Flexion (L2) 4+ Good+ Extension (S1) 4+ Good+ Abduction 4+ Good+ Adduction 4+ Good+ Left Flexion (L2) 4+ Good+ Extension (S1) 4+ Good+ Abduction 4+ Good+ Adduction 4+ Good+ Knee Strength Knee Manual Muscle Testing Right Flexion (S2) 4+ Good+ Extension (L3) 4+ Good+ Left Flexion (S2) 5 Normal Extension (L3) 5 Normal Ankle/Foot Strength Ankle and Foot Manual Muscle Testing Right Dorsiflexion (L4) 5 Normal Plantarflexion (S1) 4 Good Inversion 4+ Good+ Eversion (S1) 4+ Good+ Left Dorsiflexion (L4) 5 Normal Plantarflexion (S1) 5 Normal Inversion 5 Normal Eversion (S1) 5 Normal PT-OP-Q Treatments Start: 06/18/20 16:47 Freq: Status: Active Protocol: Document 07/05/20 14:32 (Rec: 07/05/20 15:17 [id number]) Therapeutic Exercises Supine Exercises ab curl Side bilateral Equipment Used red therapy Reps/Minutes 10 x2 LTR Side bilateral Equipment Used red therapy ball Reps/Minutes 10 x2 SLR Side bilateral Reps/Minutes 8x2 Comments cues on core engagement supine marches Side bilateral Reps/Minutes 8x 2 bridging Side bilateral Equipment Used yellow band Reps/Minutes 8 x 2 Comments for HEP Sitting Exercises trunk flexion Side bilateral Reps/Minutes 10 x2 Manual Therapy Treatment Soft Tissue Mobilization glutes, piriformis Mobilization Type Sustained Pressure,Trigger Point Release Intensity/Depth Moderate Body Position Sidelying PT-OP-T Assessment and Plan Start: 06/18/20 16:47 Freq: Status: Active Protocol: Document 07/05/20 14:32 (Rec: 07/05/20 15:17 [id number]) Physical Therapy Assessment Goals trunk endurance Impairment chest life= 28 s, flexion hold = 19s Short Term Goal (STG) pt will improve both trunk flexion and extension endurance by 10 seconds STG Duration 6 weeks Lorry Weigher Goal (LTG) pt will improve both trunk flexion and extension endurance by 20 seconds in 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 , walking and lift duty type of work LTG Duration 12 weeks ROM Impairment toe touch =14inches from floor Short Term Goal (STG) pt will be able to reach mid orozco with bend over test to improve his trunk flexion mobility without increase in pain STG Duration 4 weeks Lorry Weigher Goal (LTG) pt will be able to reach ankles with bend over test to improve his trunk flexion mobility without increase in pain LTG Duration 8weeks oswestry Impairment pt scores 54 on Owestry LBP questionnaire Short Term Goal (STG) pt will score <45 on Oswestry to improve his quality of life STG Duration 6 weeks Lorry Weigher Goal (LTG) pt will score <35 on Oswestry to improve his quality of life , such as pain, quality of sleep and overall activity tolerance. LTG Duration 12 weeks Assessment Summary Assessment Pt has higher muscle tonicity at lumbar paraspinals today after helping his friends to lift fernandez. He reports his fatigue has been as bad but pain is persistent. Physical Therapy Plan Frequency and Duration Frequency of Treatment 2x/Week Duration of Treatment 12 weeks Plan of Care Start Date 06/18/20 Plan of Care End Date 09/16/20 Next Visit Focus/Plan Next Note Type Treatment Note Next Visit Plan overall cardio ex, bike, stepper initiate trunk ROM ex, in gravity eliminated position ankle PF strengthening if tolerable leg press
--- NOTE | 2020-07-12 15:17 | PT.OTN ---
Current Diagnoses Other chronic pain (07/12/20) Low back pain (07/12/20) Physical Therapy Treatment Note PT-OP-A Visit Information Start: 06/18/20 16:47 Freq: Status: Active Protocol: Document 07/12/20 14:33 HH (Rec: 07/12/20 15:17 HH [id number]) Out-Patient Physical Therapy Visit Information Visit Information Visit Type Treatment Note Visit Start Time 14:31 Visit Stop Time 15:15 Total Visit Minutes 44 Visit Number 5/9 Number of CLOUD INFRASTRUCTURE ARCHITECT Visits 0 PT-OP-B Current Condition Start: 06/18/20 16:47 Freq: Status: Active Protocol: Document 06/18/20 16:47 HH (Rec: 06/18/20 17:29 HH [email or web address]) Current Condition History of Current Condition Onset Date many years ago Current Complaints Chronic low back pain, poor activity tolerance History of Current Condition This is a 34-year-old obeses man with history of COPD, asthma, kidney stones, daily current marijuana smoker, PTSD , depression, complex regional pain syndrome, migraines, pain related insomnia, ADHD, and REGIS presents today for his chronic low back pain. He reports low back pain in the middle of the sacrum and lower lumbar region which gets better only when lying on his back. He reports the pain ranges from 3-5/10 depending on activity, worse with bending forward and increased physical activity. He is not taking any pain medications now but use medical marijuana half a gram per day for pain relief. 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 He has severe pain in both legs most of the time and pain in the back only when bending over. He is officially disabled. Treatment Goals Patient/Caregiver Goals 1. to reduce his back pain 2. 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 He also tends to WB more on LLE d/t R foot pain Functional Limitations- Other pt requires to push off from chair armrests for STS He also WB mostly on L LE. Personal Factors Other Personal Factors That May Effect fibromyalgia, CPRS Therapy/Recovery spinal nerve stimulator and DRG stimulator depression PT-OP-C Subjective Start: 06/18/20 16:47 Freq: Status: Active Protocol: Document 07/12/20 14:33 HH (Rec: 07/12/20 15:17 HH [id number]) OP-PT Subjective Patient Comments Patient Comments Im going to have a diagnostic facet joint nerve block and they gave me meloxican at the same time. The med tends to help i think. Patient Reported Progress Same PT-OP-D Balance Start: 06/18/20 16:47 Freq: Status: Active Protocol: Document 06/18/20 16:47 HH (Rec: 06/18/20 17:29 HH [email or web address]) Balance Tests Single Limb Standing Single Limb- Right 5 Single Limb- Left >60 PT-OP-H Neuro Start: 06/18/20 16:47 Freq: Status: Active Protocol: Document 06/18/20 16:47 HH (Rec: 06/18/20 17:29 HH [email or web address]) Deep Tendon Reflex & Clonus Assessment Deep Tendon Reflex Left Achilles Deep Tendon Reflex 2+ Normal Left Patellar Deep Tendon Reflex 2+ Normal Right Achilles Deep Tendon Reflex 1+ Diminished Right Patellar Deep Tendon Reflex 1+ Diminished PT-OP-J Posture/Palpation/Skin Start: 06/18/20 16:47 Freq: Status: Active Protocol: Document 06/18/20 16:47 HH (Rec: 06/18/20 17:29 HH [email or web address]) Posture Evaluation Position Standing Pelvis Posture Anteriorly Tilted Weight Distribution Weight Shifted Left,Decreased Wt.Bear on (R) PT-OP-K Range of Motion Start: 06/18/20 16:47 Freq: Status: Active Protocol: Document 06/18/20 16:47 HH (Rec: 06/18/20 17:29 HH [email or web address]) Lumbar Spine Range of Motion Lumbar Spine Active Degrees Comments toe touch test= 14 inches from floor, consistent pain with repeated flexion lateral flexion = 22 inches from floor, no pain noted extension = shoulders meet heels, consistent pain with repeated extension PT-OP-L Special Tests Start: 06/18/20 16:47 Freq: Status: Active Protocol: Document 06/18/20 16:47 HH (Rec: 06/18/20 17:29 HH [email or web address]) Special Tests Lumbar Spine Special Tests Slump Test Results +ve on L Comments pain at lumbar Prone Instability Test Test Results +VE L Comments slight decrease in pain with LLE extension Straight Leg Raise Test Results -ve PT-OP-M Strength Start: 06/18/20 16:47 Freq: Status: Active Protocol: Document 06/18/20 16:47 HH (Rec: 06/18/20 17:29 [email or web address]) Trunk Strength Trunk Manual Muscle Testing Testing Position Sitting Core Stabilization flexion endurance hold test at sit up position with trunk at 60 degrees flexion= 19 s chect up extension test= 28s Hip Strength Hip Manual Muscle Testing Right Flexion (L2) 4+ Good+ Extension (S1) 4+ Good+ Abduction 4+ Good+ Adduction 4+ Good+ Left Flexion (L2) 4+ Good+ Extension (S1) 4+ Good+ Abduction 4+ Good+ Adduction 4+ Good+ Knee Strength Knee Manual Muscle Testing Right Flexion (S2) 4+ Good+ Extension (L3) 4+ Good+ Left Flexion (S2) 5 Normal Extension (L3) 5 Normal Ankle/Foot Strength Ankle and Foot Manual Muscle Testing Right Dorsiflexion (L4) 5 Normal Plantarflexion (S1) 4 Good Inversion 4+ Good+ Eversion (S1) 4+ Good+ Left Dorsiflexion (L4) 5 Normal Plantarflexion (S1) 5 Normal Inversion 5 Normal Eversion (S1) 5 Normal PT-OP-Q Treatments Start: 06/18/20 16:47 Freq: Status: Active Protocol: Document 07/12/20 14:33 HH (Rec: 07/12/20 15:17 [id number]) Cardio Equipment Recumbent Stepper (Sci-Fit) Duration (Minutes) 8 Resistance 3.0 Gym Equipment Shuttle Recovery Bsquat Resistance # 75 Shuttle Recovery Platform Stable Reps/Time 10 x2 SL squat Resistance #50 Shuttle Recovery Platform Stable Reps/Time 15x2 Therapeutic Exercises Supine Exercises supine marches Side bilateral Reps/Minutes 8x 2 bridging Side bilateral Equipment Used yellow band Reps/Minutes 8 x 2 Comments for HEP Sitting Exercises trunk flexion Side bilateral Reps/Minutes 10 x2 PT-OP-T Assessment and Plan Start: 06/18/20 16:47 Freq: Status: Active Protocol: Document 07/12/20 14:33 (Rec: 07/12/20 15:17 HH [id number]) Physical Therapy Assessment Goals trunk endurance Impairment chest life= 28 s, flexion hold = 19s Short Term Goal (STG) pt will improve both trunk flexion and extension endurance by 10 seconds STG Duration 6 weeks [facility] Goal (LTG) pt will improve both trunk flexion and extension endurance by 20 seconds in 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 , walking and lift duty 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 work LTG Duration 12 weeks ROM Impairment toe touch =14inches from floor Short Term Goal (STG) pt will be able to reach mid orozco with bend over test to improve his trunk flexion mobility without increase in pain STG Duration 4 weeks [facility] Goal (LTG) pt will be able to reach ankles with bend over test to improve his trunk flexion mobility without increase in pain LTG Duration 8weeks oswestry Impairment pt scores 54 on Owestry LBP questionnaire Short Term Goal (STG) pt will score <45 on Oswestry to improve his quality of life STG Duration 6 weeks [facility] Goal (LTG) pt will score <35 on Oswestry to improve his quality of life , such as pain, quality of sleep and overall activity tolerance. LTG Duration 12 weeks Assessment Summary Assessment Pt isaac session okay today but his pain is persistent. Pt noticed his activity tolerance is possilby improving. Added 4 more appointments to cont overall endurance and strength training. Physical Therapy Plan Frequency and Duration Frequency of Treatment 2x/Week Duration of Treatment 12 weeks Plan of Care Start Date 06/18/20 Plan of Care End Date 09/16/20 Next Visit Focus/Plan Next Note Type Treatment Note Next Visit Plan overall cardio ex, bike, stepper initiate trunk ROM ex, in gravity eliminated position ankle PF strengthening if tolerable leg press
--- NOTE | 2020-07-17 15:18 | PT.OTN ---
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 1 Evaluation Information Evaluation Date 06/18/20 Precautions Precautions spinal stimulator and DRG stimulator at his low back fibromyalgia and CPRS Depression PT-OP-B Current Condition Start: 06/18/20 16:47 Freq: Status: Active Protocol: Document 06/18/20 16:47 HH (Rec: 06/18/20 17:29 HH [email or web address]) Current Condition History of Current Condition Onset Date many years ago Current Complaints Chronic low back pain, poor activity tolerance History of Current Condition This is a 34-year-old obeses man with history of COPD, asthma, kidney stones, daily current marijuana smoker, PTSD , depression, complex regional pain syndrome, migraines, pain related insomnia, ADHD, and REGIS presents today for his chronic low back pain. He reports low back pain in the middle of the sacrum and lower lumbar region which gets better only when lying on his back. He reports the pain ranges from 3-5/10 depending on activity, worse with bending forward and increased physical activity. He is not taking any pain medications now but use medical marijuana half a gram per day for pain relief. 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 He has severe pain in both legs most of the time and pain in the back only when bending over. He is officially disabled. Treatment Goals Patient/Caregiver Goals 1. to reduce his back pain 2. 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 He also tends to WB more on LLE d/t R foot pain Functional Limitations- Other pt requires to push off from chair armrests for STS He also WB mostly on L LE. Personal Factors Other Personal Factors That May Effect fibromyalgia, CPRS Therapy/Recovery spinal nerve stimulator and DRG stimulator depression PT-OP-C Subjective Start: 06/18/20 16:47 Freq: Status: Active Protocol: Document 07/17/20 14:35 SP (Rec: 07/17/20 16:44 SP [id number]) OP-PT Subjective Patient Comments Patient Comments I ususally feel ok during tx but its later when find out if did to much and increased pain. Am taking meds and have the spinal stimulator for pain control. Pt reported Miriam flexion ROM bothers him. Patient Reported Progress Same PT-OP-D Balance Start: 06/18/20 16:47 Freq: Status: Active Protocol: Document 06/18/20 16:47 HH (Rec: 06/18/20 17:29 HH [email or web address]) Balance Tests Single Limb Standing Single Limb- Right 5 Single Limb- Left >60 PT-OP-H Neuro Start: 06/18/20 16:47 Freq: Status: Active Protocol: Document 06/18/20 16:47 HH (Rec: 06/18/20 17:29 HH [email or web address]) Deep Tendon Reflex & Clonus Assessment Deep Tendon Reflex Left Achilles Deep Tendon Reflex 2+ Normal Left Patellar Deep Tendon Reflex 2+ Normal Right Achilles Deep Tendon Reflex 1+ Diminished Right Patellar Deep Tendon Reflex 1+ Diminished PT-OP-J Posture/Palpation/Skin Start: 06/18/20 16:47 Freq: Status: Active Protocol: Document 06/18/20 16:47 HH (Rec: 06/18/20 17:29 HH [email or web address]) Posture Evaluation Position Standing Pelvis Posture Anteriorly Tilted Weight Distribution Weight Shifted Left,Decreased Wt.Bear on (R) PT-OP-K Range of Motion Start: 06/18/20 16:47 Freq: Status: Active Protocol: Document 06/18/20 16:47 HH (Rec: 06/18/20 17:29 HH [email or web address]) Lumbar Spine Range of Motion Lumbar Spine Active Degrees Comments toe touch test= 14 inches from floor, consistent pain with repeated flexion lateral flexion = 22 inches from floor, no pain noted extension = shoulders meet heels, consistent pain with repeated extension PT-OP-L Special Tests Start: 06/18/20 16:47 Freq: Status: Active Protocol: Document 06/18/20 16:47 HH (Rec: 06/18/20 17:29 HH [email or web address]) Special Tests Lumbar Spine Special Tests Slump Test Results +ve on L Comments pain at lumbar Prone Instability Test Test Results +VE L Comments slight decrease in pain with LLE extension Straight Leg Raise Test Results -ve PT-OP-M Strength Start: 06/18/20 16:47 Freq: Status: Active Protocol: Document 06/18/20 16:47 HH (Rec: 06/18/20 17:29 HH [email or web address]) Trunk Strength Trunk Manual Muscle Testing Testing Position Sitting Core Stabilization flexion endurance hold test at sit up position with trunk at 60 degrees flexion= 19 s chect up extension test= 28s Hip Strength Hip Manual Muscle Testing Right Flexion (L2) 4+ Good+ Extension (S1) 4+ Good+ Abduction 4+ Good+ Adduction 4+ Good+ Left Flexion (L2) 4+ Good+ Extension (S1) 4+ Good+ Abduction 4+ Good+ Adduction 4+ Good+ Knee Strength Knee Manual Muscle Testing Right Flexion (S2) 4+ Good+ Extension (L3) 4+ Good+ Left Flexion (S2) 5 Normal Extension (L3) 5 Normal Ankle/Foot Strength Ankle and Foot Manual Muscle Testing Right Dorsiflexion (L4) 5 Normal Plantarflexion (S1) 4 Good Inversion 4+ Good+ Eversion (S1) 4+ Good+ Left Dorsiflexion (L4) 5 Normal Plantarflexion (S1) 5 Normal Inversion 5 Normal Eversion (S1) 5 Normal PT-OP-Q Treatments Start: 06/18/20 16:47 Freq: Status: Active Protocol: Document 07/17/20 14:35 SP (Rec: 07/17/20 16:44 SP [id number]) Cardio Equipment Recumbent Stepper (Sci-Fit) Duration (Minutes) 7 Resistance 4 Gym Equipment Shuttle Recovery Bsquat Resistance # 75 Shuttle Recovery Platform Stable,Unstable Reps/Time x10 each SL squat Resistance #50 Shuttle Recovery Platform Stable,Unstable Reps/Time 2x15 Therapeutic Exercises Supine Exercises pec stretch Supine Exercise Name supine table Side bilateral Reps/Minutes 30 LTR Side bilateral Equipment Used feet on table this tx. Reps/Minutes x10, pause 5 sec each side. supine marches Side bilateral Resistance AROM Reps/Minutes 8x 2 bridging Side bilateral Equipment Used L2 TB Reps/Minutes 8 x 2 Comments for HEP Prone Exercises cat/camel Reps/Minutes x8 Comments good tolerance quadruped Prone Exercise Name LE extension slides (foot kept contact table) Resistance AROM Reps/Minutes x5 each LE Comments cued level pelvis, good tolerance reported Sidelying Exercises open book Sidelying Exercise Name irritated back R>L so stopped Side bilateral Reps/Minutes x5 Comments cued limit pain free range, scap glide head with arm little TS rotation Sitting Exercises trunk flexion Sitting Exercise Name tolerant range Side bilateral Reps/Minutes 10 x2 Comments reports emma but it does irritate LB Standing Exercises hip abd Side bilateral Resistance AROM Reps/Minutes x10 each Comments cued tall posture, wt shift over stance LE, lift only glut fac- isaac well PT-OP-T Assessment and Plan Start: 06/18/20 16:47 Freq: Status: Active Protocol: Document 07/17/20 14:35 SP (Rec: 07/17/20 16:44 SP [id number]) Physical Therapy Assessment Goals trunk endurance Impairment chest life= 28 s, flexion hold = 19s Short Term Goal (STG) pt will improve both trunk flexion and extension endurance by 10 seconds STG Duration 6 weeks Assisted Goal (LTG) pt will improve both trunk flexion and extension endurance by 20 seconds in 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 , walking and lift duty type of work LTG Duration 12 weeks ROM Impairment toe touch =14inches from floor Short Term Goal (STG) pt will be able to reach mid orozco with bend over test to improve his trunk flexion mobility without increase in pain STG Duration 4 weeks Motor Driver Goal (LTG) pt will be able to reach ankles with bend over test to improve his trunk flexion mobility without increase in pain LTG Duration 8weeks oswestry Impairment pt scores 54 on Owestry LBP questionnaire Short Term Goal (STG) pt will score <45 on Oswestry to improve his quality of life STG Duration 6 weeks Motor Driver Goal (LTG) pt will score <35 on Oswestry to improve his quality of life , such as pain, quality of sleep and overall activity tolerance. LTG Duration 12 weeks Assessment Summary Assessment Pt tolerated tx ok today, no changes in pain level maintained at 4/10 central LBP . Reviewed HEP, tolerated supine march better than seated Miriam flexion ROM. Initiated quadruped activities and standing hip abd with good response tolerance. TS assessment rotation seemed to irritate spine so stopped. Physical Therapy Plan Frequency and Duration Frequency of Treatment 2x/Week Duration of Treatment 12 weeks Plan of Care Start Date 06/18/20 Plan of Care End Date 09/16/20 Therapeutic Interventions Therapeutic Interventions Aquatic Therapy,Balance Training,Gait Training,Home Exercise Program,Manual Therapy,Neuromuscular Re- education,Orthotic/Prosthetic Management,Patient/Caregiver Education,Self-Care/Home Management,Soft Tissue Mobilization,Taping, Therapeutic Activities, Therapeutic Exercises Modalities Cold Pack/Ice Massage,Hot Packs Next Visit Focus/Plan Next Note Type Treatment Note Next Visit Plan Assess response to quadruped, standign hip abd, TS rotation ROM last tx. Continue per PT POC: overall cardio ex, bike, stepper initiate trunk ROM ex, in gravity eliminated position ankle PF strengthening if tolerable leg press
--- NOTE | 2020-07-26 10:33 | PT.OTN ---
Current Diagnoses Other chronic pain (07/26/20) Low back pain (07/26/20) Physical Therapy Treatment Note PT-OP-A Visit Information Start: 06/18/20 16:47 Freq: Status: Active Protocol: Document 07/26/20 09:48 SP (Rec: 07/26/20 11:36 SP [id number]) Out-Patient Physical Therapy Visit Information Visit Information Visit Type Treatment Note Visit Note 2 more visits left with authorization. Last tx 08/09 with PT. 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 2 Evaluation Information Evaluation Date 06/18/20 Precautions Precautions spinal stimulator and DRG stimulator at his low back fibromyalgia and CPRS Depression PT-OP-B Current Condition Start: 06/18/20 16:47 Freq: Status: Active Protocol: Document 06/18/20 16:47 HH (Rec: 06/18/20 17:29 HH [email or web address]) Current Condition History of Current Condition Onset Date many years ago Current Complaints Chronic low back pain, poor activity tolerance History of Current Condition This is a 34-year-old obeses man with history of COPD, asthma, kidney stones, daily current marijuana smoker, PTSD , depression, complex regional pain syndrome, migraines, pain related insomnia, ADHD, and REGIS presents today for his chronic low back pain. He reports low back pain in the middle of the sacrum and lower lumbar region which gets better only when lying on his back. He reports the pain ranges from 3-5/10 depending on activity, worse with bending forward and increased physical activity. He is not taking any pain medications now but use medical marijuana half a gram per day for pain relief. 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 He has severe pain in both legs most of the time and pain in the back only when bending over. He is officially disabled. Treatment Goals Patient/Caregiver Goals 1. to reduce his back pain 2. 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 He also tends to WB more on LLE d/t R foot pain Functional Limitations- Other pt requires to push off from chair armrests for STS He also WB mostly on L LE. Personal Factors Other Personal Factors That May Effect fibromyalgia, CPRS Therapy/Recovery spinal nerve stimulator and DRG stimulator depression PT-OP-C Subjective Start: 06/18/20 16:47 Freq: Status: Active Protocol: Document 07/26/20 09:48 SP (Rec: 07/26/20 11:36 SP [id number]) OP-PT Subjective Patient Comments Patient Comments Pt states is moving better, but the back pain hasn't changed just the diagnostic nerve block has given relief but only about 2 hrs. Is able to help his father painting, prepping bee boxes. Patient Reported Progress Same PT-OP-D Balance Start: 06/18/20 16:47 Freq: Status: Active Protocol: Document 06/18/20 16:47 HH (Rec: 06/18/20 17:29 HH [email or web address]) Balance Tests Single Limb Standing Single Limb- Right 5 Single Limb- Left >60 PT-OP-H Neuro Start: 06/18/20 16:47 Freq: Status: Active Protocol: Document 06/18/20 16:47 HH (Rec: 06/18/20 17:29 HH [email or web address]) Deep Tendon Reflex & Clonus Assessment Deep Tendon Reflex Left Achilles Deep Tendon Reflex 2+ Normal Left Patellar Deep Tendon Reflex 2+ Normal Right Achilles Deep Tendon Reflex 1+ Diminished Right Patellar Deep Tendon Reflex 1+ Diminished PT-OP-J Posture/Palpation/Skin Start: 06/18/20 16:47 Freq: Status: Active Protocol: Document 06/18/20 16:47 HH (Rec: 06/18/20 17:29 HH [email or web address]) Posture Evaluation Position Standing Pelvis Posture Anteriorly Tilted Weight Distribution Weight Shifted Left,Decreased Wt.Bear on (R) PT-OP-K Range of Motion Start: 06/18/20 16:47 Freq: Status: Active Protocol: Document 06/18/20 16:47 HH (Rec: 06/18/20 17:29 HH [email or web address]) Lumbar Spine Range of Motion Lumbar Spine Active Degrees Comments toe touch test= 14 inches from floor, consistent pain with repeated flexion lateral flexion = 22 inches from floor, no pain noted extension = shoulders meet heels, consistent pain with repeated extension PT-OP-L Special Tests Start: 06/18/20 16:47 Freq: Status: Active Protocol: Document 06/18/20 16:47 HH (Rec: 06/18/20 17:29 HH [email or web address]) Special Tests Lumbar Spine Special Tests Slump Test Results +ve on L Comments pain at lumbar Prone Instability Test Test Results +VE L Comments slight decrease in pain with LLE extension Straight Leg Raise Test Results -ve PT-OP-M Strength Start: 06/18/20 16:47 Freq: Status: Active Protocol: Document 06/18/20 16:47 HH (Rec: 06/18/20 17:29 HH [email or web address]) Trunk Strength Trunk Manual Muscle Testing Testing Position Sitting Core Stabilization flexion endurance hold test at sit up position with trunk at 60 degrees flexion= 19 s chect up extension test= 28s Hip Strength Hip Manual Muscle Testing Right Flexion (L2) 4+ Good+ Extension (S1) 4+ Good+ Abduction 4+ Good+ Adduction 4+ Good+ Left Flexion (L2) 4+ Good+ Extension (S1) 4+ Good+ Abduction 4+ Good+ Adduction 4+ Good+ Knee Strength Knee Manual Muscle Testing Right Flexion (S2) 4+ Good+ Extension (L3) 4+ Good+ Left Flexion (S2) 5 Normal Extension (L3) 5 Normal Ankle/Foot Strength Ankle and Foot Manual Muscle Testing Right Dorsiflexion (L4) 5 Normal Plantarflexion (S1) 4 Good Inversion 4+ Good+ Eversion (S1) 4+ Good+ Left Dorsiflexion (L4) 5 Normal Plantarflexion (S1) 5 Normal Inversion 5 Normal Eversion (S1) 5 Normal PT-OP-Q Treatments Start: 06/18/20 16:47 Freq: Status: Active Protocol: Document 07/26/20 09:48 SP (Rec: 07/26/20 11:36 SP [id number]) Cardio Equipment Recumbent Stepper (Sci-Fit) Duration (Minutes) 7 Resistance 5 Seat Position 13 Therapeutic Exercises Supine Exercises ab curl Supine Exercise Name upper body lift Side bilateral Equipment Used BLE on red cm ball Reps/Minutes 10 x2 LTR Supine Exercise Name able Ble lifted Side bilateral Reps/Minutes 2x5 SLR Supine Exercise Name BLE out straight Side bilateral Reps/Minutes x8 Comments cues on core engagement supine marches Side bilateral Resistance AROM Reps/Minutes x15 bridging Side bilateral Equipment Used L2 TB Reps/Minutes 8 x 2 Comments for HEP Prone Exercises cat/camel Prone Exercise Name cat camel x8 then into child's pose 30 x2 Reps/Minutes x8 Comments good tolerance quadruped Prone Exercise Name LE extension slides (foot kept contact table) Resistance AROM Reps/Minutes x5 each LE Comments cued level pelvis, good tolerance reported Sidelying Exercises open book Sidelying Exercise Name R ok, L end range pinches on implant so lessened range and ok (PT only) Side bilateral Reps/Minutes x5 Comments good painfree range Sitting Exercises trunk flexion Sitting Exercise Name tolerant range to Side bilateral Reps/Minutes x10 Comments able reach floor now, good stretch Standing Exercises calf stretch Standing Exercise Name R tighter than L Side bilateral Reps/Minutes 30 each LE band walk Standing Exercise Name assessment if ok for HEP, PT only til next tx Side bilateral Resistance Tb #2 Reps/Minutes 10 ft x2 laps Comments max cuing for trunk alignment, small steps, foot clearance trial LE heel raises Standing Exercise Name 2 count up, pause 4 count down Side bilateral Resistance AROM Equipment Used rail, off step Reps/Minutes x10 Comments good stable w/ ankle mobility hip abd Side bilateral Resistance AROM Equipment Used rail Reps/Minutes x10 each Comments cued tall posture, wt shift over stance LE, lift only glut fac- isaac well Manual Therapy Treatment Soft Tissue Mobilization gastroc/ soleus Body Location R>L Mobilization Type Cross-Friction,Myofascial Release,Sustained Pressure, Other Intensity/Depth Moderate Body Position Prone Comments manual then instruction on self rolling stick vs tennis ball sustained pressure ankle ROM PF, DF/ circles Self-Care/Home Management Treatment Education Patient Education Home Exercise Program Other Education Time spent on beneficial HEP flexibiltiy and ther ex strengthening with good results end tx. Education of importance of HEP carryover done in PT at home for continued benefits is noticing with activities able to do now. 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 LTG Duration 8weeks progressing oswestry Impairment pt scores 54 on Owestry LBP questionnaire Short Term Goal (STG) pt will score <45 on Oswestry to improve his quality of life STG Duration 6 weeks Alf Goal (LTG) pt will score <35 on Oswestry to improve his quality of life , such as pain, quality of sleep and overall activity tolerance. LTG Duration 12 weeks Progress Towards Goals Progress Towards Goals Progressing Toward Goals Progress Comments Pt met STG ROM. Assessment Summary Assessment Pt had good tolerance to stretching and core HEP, he is able to sit and reach toes seated, within 2 from floor standing with report of good stretch. Intiated band walk, eccentric calf raises to assist R>L tightness and self STMs to R calf with reported improvement. Physical Therapy Plan Frequency and Duration Frequency of Treatment 2x/Week Duration of Treatment 12 weeks Plan of Care Start Date 06/18/20 Plan of Care End Date 09/16/20 Therapeutic Interventions Therapeutic Interventions Aquatic Therapy,Balance Training,Gait Training,Home Exercise Program,Manual Therapy,Neuromuscular Re- education,Orthotic/Prosthetic Management,Patient/Caregiver Education,Self-Care/Home Management,Soft Tissue Mobilization,Taping, Therapeutic Activities, Therapeutic Exercises Modalities Cold Pack/Ice Massage,Hot Packs Next Visit Focus/Plan Next Note Type Treatment Note Next Visit Plan Assess response to HEP review, self STMs to R calf, initiated band walk. Continue per PT POC 2 more txs in authorization: overall cardio ex, bike, stepper initiate trunk ROM ex, in gravity eliminated position ankle PF strengthening if tolerable leg press
--- NOTE | 2020-07-31 15:15 | PT.OTN ---
Current Diagnoses Other chronic pain (07/31/20) Low back pain (07/31/20) Physical Therapy Treatment Note PT-OP-A Visit Information Start: 06/18/20 16:47 Freq: Status: Active Protocol: Document 07/31/20 14:33 SP (Rec: 07/31/20 16:16 SP [id number]) Out-Patient Physical Therapy Visit Information Visit Information Visit Type Treatment Note Visit Note 1 more visit left with authorization. Last tx / with PT, added 3 more tx, check if can get approval otherwise next is his last. Visit Start Time 14:33 Visit Stop Time 15:15 Total Visit Minutes 42 Visit Number 8/9 Number of HEAT CURER Visits 3 Evaluation Information Evaluation Date 06/18/20 Precautions Precautions spinal stimulator and DRG stimulator at his low back fibromyalgia and CPRS Depression PT-OP-B Current Condition Start: 06/18/20 16:47 Freq: Status: Active Protocol: Document 06/18/20 16:47 HH (Rec: 06/18/20 17:29 HH [email or web address]) Current Condition History of Current Condition Onset Date many years ago Current Complaints Chronic low back pain, poor activity tolerance History of Current Condition This is a 34-year-old obeses man with history of COPD, asthma, kidney stones, daily current marijuana smoker, PTSD , depression, complex regional pain syndrome, migraines, pain related insomnia, ADHD, and REGIS presents today for his chronic low back pain. He reports low back pain in the middle of the sacrum and lower lumbar region which gets better only when lying on his back. He reports the pain ranges from 3-5/10 depending on activity, worse with bending forward and increased physical activity. He is not taking any pain medications now but use medical marijuana half a gram per day for pain relief. 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 He has severe pain in both legs most of the time and pain in the back only when bending over. He is officially disabled. Treatment Goals Patient/Caregiver Goals 1. to reduce his back pain 2. 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 He also tends to WB more on LLE d/t R foot pain Functional Limitations- Other pt requires to push off from chair armrests for STS He also WB mostly on L LE. Personal Factors Other Personal Factors That May Effect fibromyalgia, CPRS Therapy/Recovery spinal nerve stimulator and DRG stimulator depression PT-OP-C Subjective Start: 06/18/20 16:47 Freq: Status: Active Protocol: Document 07/31/20 14:33 SP (Rec: 07/31/20 16:16 SP [id number]) OP-PT Subjective Patient Comments Patient Comments Pt stated his R leg hurt more after last tx. My calf is as hard as a rock, it let's me know its there. Back 08/13. 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 PT-OP-D Balance Start: 06/18/20 16:47 Freq: Status: Active Protocol: Document 06/18/20 16:47 HH (Rec: 06/18/20 17:29 HH [email or web address]) Balance Tests Single Limb Standing Single Limb- Right 5 Single Limb- Left >60 PT-OP-H Neuro Start: 06/18/20 16:47 Freq: Status: Active Protocol: Document 06/18/20 16:47 HH (Rec: 06/18/20 17:29 HH [email or web address]) Deep Tendon Reflex & Clonus Assessment Deep Tendon Reflex Left Achilles Deep Tendon Reflex 2+ Normal Left Patellar Deep Tendon Reflex 2+ Normal Right Achilles Deep Tendon Reflex 1+ Diminished Right Patellar Deep Tendon Reflex 1+ Diminished PT-OP-J Posture/Palpation/Skin Start: 06/18/20 16:47 Freq: Status: Active Protocol: Document 06/18/20 16:47 HH (Rec: 06/18/20 17:29 HH [email or web address]) Posture Evaluation Position Standing Pelvis Posture Anteriorly Tilted Weight Distribution Weight Shifted Left,Decreased Wt.Bear on (R) PT-OP-K Range of Motion Start: 06/18/20 16:47 Freq: Status: Active Protocol: Document 06/18/20 16:47 HH (Rec: 06/18/20 17:29 HH [email or web address]) Lumbar Spine Range of Motion Lumbar Spine Active Degrees Comments toe touch test= 14 inches from floor, consistent pain with repeated flexion lateral flexion = 22 inches from floor, no pain noted extension = shoulders meet heels, consistent pain with repeated extension PT-OP-L Special Tests Start: 06/18/20 16:47 Freq: Status: Active Protocol: Document 06/18/20 16:47 HH (Rec: 06/18/20 17:29 HH [email or web address]) Special Tests Lumbar Spine Special Tests Slump Test Results +ve on L Comments pain at lumbar Prone Instability Test Test Results +VE L Comments slight decrease in pain with LLE extension Straight Leg Raise Test Results -ve PT-OP-M Strength Start: 06/18/20 16:47 Freq: Status: Active Protocol: Document 06/18/20 16:47 HH (Rec: 06/18/20 17:29 HH [email or web address]) Trunk Strength Trunk Manual Muscle Testing Testing Position Sitting Core Stabilization flexion endurance hold test at sit up position with trunk at 60 degrees flexion= 19 s chect up extension test= 28s Hip Strength Hip Manual Muscle Testing Right Flexion (L2) 4+ Good+ Extension (S1) 4+ Good+ Abduction 4+ Good+ Adduction 4+ Good+ Left Flexion (L2) 4+ Good+ Extension (S1) 4+ Good+ Abduction 4+ Good+ Adduction 4+ Good+ Knee Strength Knee Manual Muscle Testing Right Flexion (S2) 4+ Good+ Extension (L3) 4+ Good+ Left Flexion (S2) 5 Normal Extension (L3) 5 Normal Ankle/Foot Strength Ankle and Foot Manual Muscle Testing Right Dorsiflexion (L4) 5 Normal Plantarflexion (S1) 4 Good Inversion 4+ Good+ Eversion (S1) 4+ Good+ Left Dorsiflexion (L4) 5 Normal Plantarflexion (S1) 5 Normal Inversion 5 Normal Eversion (S1) 5 Normal PT-OP-Q Treatments Start: 06/18/20 16:47 Freq: Status: Active Protocol: Document 07/31/20 14:33 SP (Rec: 07/31/20 16:16 SP [id number]) Cardio Equipment Recumbent Stepper (Sci-Fit) Duration (Minutes) 6 Resistance 4 Seat Position 12 Other 0.92 miles, RPMs 43-51 Therapeutic Exercises Prone Exercises child's pose Reps/Minutes 30 x2 Comments feels good prone press up on elbows Resistance AROM Reps/Minutes 2 sec hold x5 Comments little pinch pressure in LS but stated it's not bad. quadruped Prone Exercise Name bird dog UE/ LE ext- addd to HEP Resistance AROM Reps/Minutes 2x5 reps Comments good level pelvis and tolerance reported Standing Exercises postural roll up TA Standing Exercise Name w/ shld ER Resistance back to wall Reps/Minutes x5 Comments cued TA, LS ROM- discomfort if flexes to far approx >40 deg shld ext Standing Exercise Name added to HEP Resistance Tb #2 Reps/Minutes x10 Comments cued x1 for scap stabilization - good self corrections- pain free core resisted walk outs Standing Exercise Name added to HEP Side bilateral Resistance TB #2 Reps/Minutes 3 steps R and L Comments to L find, to R little pressure at hip but stated was ok. calf stretch Standing Exercise Name R tighter than L Side bilateral Reps/Minutes 30 each LE Manual Therapy Treatment Soft Tissue Mobilization glutes, piriformis Mobilization Type Cross-Friction,Sustained Pressure,Other Intensity/Depth Moderate Body Position Sidelying Comments [facility] kathryn guerra. 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 LTG Duration 8weeks progressing oswestry Impairment pt scores 54 on Owestry LBP questionnaire Short Term Goal (STG) pt will score <45 on Oswestry to improve his quality of life STG Duration 6 weeks Prison Goal (LTG) pt will score <35 on Oswestry to improve his quality of life , such as pain, quality of sleep and overall activity tolerance. LTG Duration 12 weeks Assessment Summary Assessment Pt stated leg not as tight but back feels about the same. Pt does his exercises but not the trunk flexion seated, irritates back to much. Pt seems to tolerated extension base ex today. Physical Therapy Plan Frequency and Duration Frequency of Treatment 2x/Week Duration of Treatment 12 weeks Plan of Care Start Date 06/18/20 Plan of Care End Date 09/16/20 Therapeutic Interventions Therapeutic Interventions Aquatic Therapy,Balance Training,Gait Training,Home Exercise Program,Manual Therapy,Neuromuscular Re- education,Orthotic/Prosthetic Management,Patient/Caregiver Education,Self-Care/Home Management,Soft Tissue Mobilization,Taping, Therapeutic Activities, Therapeutic Exercises Modalities Cold Pack/Ice Massage,Hot Packs Next Visit Focus/Plan Next Note Type Treatment Note Next Visit Plan Assess response to last tx. Continue per PT POC 1 more txs in authorization: overall cardio ex, bike, stepper initiate trunk ROM ex, in gravity eliminated position ankle PF strengthening if tolerable leg press
--- NOTE | 2020-08-09 15:15 | PT.OTN ---
Current Diagnoses Other chronic pain (08/09/20) Low back pain (08/09/20) Physical Therapy Treatment Note PT-OP-A Visit Information Start: 06/18/20 16:47 Freq: Status: Active Protocol: Document 08/09/20 14:24 HH (Rec: 08/09/20 15:15 [id number]) Out-Patient Physical Therapy Visit Information Visit Information Visit Type Treatment Note Visit Note 1 more visit left with authorization. Last tx 08/09 with PT, added 3 more tx, check if can get approval otherwise next is his last. Visit Start Time 14:30 Visit Stop Time 15:15 Total Visit Minutes 45 Visit Number 12/13 Number of PORTFOLIO ASSISTANT Visits 0 PT-OP-B Current Condition Start: 06/18/20 16:47 Freq: Status: Active Protocol: Document 06/18/20 16:47 HH (Rec: 06/18/20 17:29 [email or web address]) Current Condition History of Current Condition Onset Date many years ago Current Complaints Chronic low back pain, poor activity tolerance History of Current Condition This is a 34-year-old obeses man with history of COPD, asthma, kidney stones, daily current marijuana smoker, PTSD , depression, complex regional pain syndrome, migraines, pain related insomnia, ADHD, and REGIS presents today for his chronic low back pain. He reports low back pain in the middle of the sacrum and lower lumbar region which gets better only when lying on his back. He reports the pain ranges from 3-5/10 depending on activity, worse with bending forward and increased physical activity. He is not taking any pain medications now but use medical marijuana half a gram per day for pain relief. 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 He has severe pain in both legs most of the time and pain in the back only when bending over. He is officially disabled. Treatment Goals Patient/Caregiver Goals 1. to reduce his back pain 2. 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 He also tends to WB more on LLE d/t R foot pain Functional Limitations- Other pt requires to push off from chair armrests for STS He also WB mostly on L LE. Personal Factors Other Personal Factors That May Effect fibromyalgia, CPRS Therapy/Recovery spinal nerve stimulator and DRG stimulator depression PT-OP-C Subjective Start: 06/18/20 16:47 Freq: Status: Active Protocol: Document 08/09/20 14:24 HH (Rec: 08/09/20 15:15 HH [id number]) OP-PT Subjective Patient Comments Patient Comments Im more mobile then before but the pain is still the same . They did the nerve block shots L4-S1. I felt good for a day but thats it. Patient Reported Progress Same Patient Questionnaires Oswestry Low Back Index Oswestry Score 54 Oswestry Impairment 40 to 59% Impaired (Score 40- 59) PT-OP-D Balance Start: 06/18/20 16:47 Freq: Status: Active Protocol: Document 06/18/20 16:47 HH (Rec: 06/18/20 17:29 HH [email or web address]) Balance Tests Single Limb Standing Single Limb- Right 5 Single Limb- Left >60 PT-OP-H Neuro Start: 06/18/20 16:47 Freq: Status: Active Protocol: Document 06/18/20 16:47 HH (Rec: 06/18/20 17:29 HH [email or web address]) Deep Tendon Reflex & Clonus Assessment Deep Tendon Reflex Left Achilles Deep Tendon Reflex 2+ Normal Left Patellar Deep Tendon Reflex 2+ Normal Right Achilles Deep Tendon Reflex 1+ Diminished Right Patellar Deep Tendon Reflex 1+ Diminished PT-OP-J Posture/Palpation/Skin Start: 06/18/20 16:47 Freq: Status: Active Protocol: Document 06/18/20 16:47 HH (Rec: 06/18/20 17:29 HH [email or web address]) Posture Evaluation Position Standing Pelvis Posture Anteriorly Tilted Weight Distribution Weight Shifted Left,Decreased Wt.Bear on (R) PT-OP-K Range of Motion Start: 06/18/20 16:47 Freq: Status: Active Protocol: Document 06/18/20 16:47 HH (Rec: 06/18/20 17:29 HH [email or web address]) Lumbar Spine Range of Motion Lumbar Spine Active Degrees Comments toe touch test= 14 inches from floor, consistent pain with repeated flexion lateral flexion = 22 inches from floor, no pain noted extension = shoulders meet heels, consistent pain with repeated extension PT-OP-L Special Tests Start: 06/18/20 16:47 Freq: Status: Active Protocol: Document 06/18/20 16:47 HH (Rec: 06/18/20 17:29 [email or web address]) Special Tests Lumbar Spine Special Tests Slump Test Results +ve on L Comments pain at lumbar Prone Instability Test Test Results +VE L Comments slight decrease in pain with LLE extension Straight Leg Raise Test Results -ve PT-OP-M Strength Start: 06/18/20 16:47 Freq: Status: Active Protocol: Document 06/18/20 16:47 (Rec: 06/18/20 17:29 [email or web address]) Trunk Strength Trunk Manual Muscle Testing Testing Position Sitting Core Stabilization flexion endurance hold test at sit up position with trunk at 60 degrees flexion= 19 s chect up extension test= 28s Hip Strength Hip Manual Muscle Testing Right Flexion (L2) 4+ Good+ Extension (S1) 4+ Good+ Abduction 4+ Good+ Adduction 4+ Good+ Left Flexion (L2) 4+ Good+ Extension (S1) 4+ Good+ Abduction 4+ Good+ Adduction 4+ Good+ Knee Strength Knee Manual Muscle Testing Right Flexion (S2) 4+ Good+ Extension (L3) 4+ Good+ Left Flexion (S2) 5 Normal Extension (L3) 5 Normal Ankle/Foot Strength Ankle and Foot Manual Muscle Testing Right Dorsiflexion (L4) 5 Normal Plantarflexion (S1) 4 Good Inversion 4+ Good+ Eversion (S1) 4+ Good+ Left Dorsiflexion (L4) 5 Normal Plantarflexion (S1) 5 Normal Inversion 5 Normal Eversion (S1) 5 Normal PT-OP-Q Treatments Start: 06/18/20 16:47 Freq: Status: Active Protocol: Document 08/09/20 14:24 HH (Rec: 08/09/20 15:15 [id number]) Cardio Equipment Recumbent Stepper (Sci-Fit) Duration (Minutes) 6 Resistance 4 Seat Position 12 Other 0.92 miles, RPMs 43-51 Therapeutic Exercises Supine Exercises supine marches Side bilateral Resistance AROM Reps/Minutes x15 pelvic tilt Side bilateral Reps/Minutes 8 x 2 Comments for HEP Prone Exercises prone press up on elbows Resistance AROM Reps/Minutes 2 sec hold x5 Comments little pinch pressure in LS but stated it's not bad. cat/camel Prone Exercise Name cat camel x8 then into child's pose 30 x2 Reps/Minutes x8 Comments good tolerance quadruped Prone Exercise Name bird dog UE/ LE ext- addd to HEP Resistance AROM Reps/Minutes 2x5 reps Comments good level pelvis and tolerance reported Standing Exercises hip hinge Standing Exercise Name neutral spine Side bilateral Equipment Used PVC pipe Reps/Minutes 10 x2 PT-OP-T Assessment and Plan Start: 06/18/20 16:47 Freq: Status: Active Protocol: Document 08/09/20 14:24 HH (Rec: 08/09/20 15:15 HH [id number]) Physical Therapy Assessment Goals trunk endurance Impairment chest life= 28 s, flexion hold = 19s Short Term Goal (STG) pt will improve both trunk flexion and extension endurance by 10 seconds STG Duration 6 weeks Blocker And Cutter Contact Lens Goal (LTG) pt will improve both trunk flexion and extension endurance by 20 seconds 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 LTG Duration 8weeks progressing oswestry Impairment pt scores 54 on Owestry LBP questionnaire Short Term Goal (STG) pt will score <45 on Oswestry to improve his quality of life STG Duration 6 weeks Senior Care Goal (LTG) pt will score <35 on Oswestry to improve his quality of life , such as pain, quality of sleep and overall activity tolerance. LTG Duration 12 weeks Assessment Summary Assessment Pt stated his pain is about the same since evaluation but he is overall more mobile and believes physical therapy is helping. Tx focused on stability and initiation of strengthening. Added hip hinge pattern today and he has no c /o Physical Therapy Plan Frequency and Duration Frequency of Treatment 2x/Week Duration of Treatment 12 weeks Plan of Care Start Date 06/18/20 Plan of Care End Date 09/16/20 Next Visit Focus/Plan Next Note Type Treatment Note Next Visit Plan Assess response to last tx. Continue per PT POC 1 more txs in authorization: overall cardio ex, bike, stepper initiate trunk ROM ex, in gravity eliminated position ankle PF strengthening if tolerable leg press
--- NOTE | 2020-08-15 16:00 | PT.OTN ---
Current Diagnoses Other chronic pain (08/15/20) Low back pain (08/15/20) Physical Therapy Treatment Note PT-OP-A Visit Information Start: 06/18/20 16:47 Freq: Status: Active Protocol: Document 08/15/20 14:29 HH (Rec: 08/15/20 16:16 HH [id number]) Out-Patient Physical Therapy Visit Information Visit Information Visit Type Treatment Note Visit Note 12 more authorized visit Visit Start Time 14:30 Visit Stop Time 15:14 Total Visit Minutes 44 Visit Number 04/17 Number of RN REFERRAL Visits 0 PT-OP-B Current Condition Start: 06/18/20 16:47 Freq: Status: Active Protocol: Document 06/18/20 16:47 HH (Rec: 06/18/20 17:29 [email or web address]) Current Condition History of Current Condition Onset Date many years ago Current Complaints Chronic low back pain, poor activity tolerance History of Current Condition This is a 34-year-old obeses man with history of COPD, asthma, kidney stones, daily current marijuana smoker, PTSD , depression, complex regional pain syndrome, migraines, pain related insomnia, ADHD, and REGIS presents today for his chronic low back pain. He reports low back pain in the middle of the sacrum and lower lumbar region which gets better only when lying on his back. He reports the pain ranges from 3-5/10 depending on activity, worse with bending forward and increased physical activity. He is not taking any pain medications now but use medical marijuana half a gram per day for pain relief. 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 He has severe pain in both legs most of the time and pain in the back only when bending over. He is officially disabled. Treatment Goals Patient/Caregiver Goals 1. to reduce his back pain 2. 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 He also tends to WB more on LLE d/t R foot pain Functional Limitations- Other pt requires to push off from chair armrests for STS He also WB mostly on L LE. Personal Factors Other Personal Factors That May Effect fibromyalgia, CPRS Therapy/Recovery spinal nerve stimulator and DRG stimulator depression PT-OP-C Subjective Start: 06/18/20 16:47 Freq: Status: Active Protocol: Document 08/15/20 14:29 HH (Rec: 08/15/20 16:16 HH [id number]) OP-PT Subjective Patient Comments Patient Comments im going to have nerve cauterization AT L4 medial branch to kill the pain nerve on 09/04 at [facility]. My leg did get tight and sore after last time. Patient Reported Progress Same PT-OP-D Balance Start: 06/18/20 16:47 Freq: Status: Active Protocol: Document 06/18/20 16:47 HH (Rec: 06/18/20 17:29 HH [email or web address]) Balance Tests Single Limb Standing Single Limb- Right 5 Single Limb- Left >60 PT-OP-H Neuro Start: 06/18/20 16:47 Freq: Status: Active Protocol: Document 06/18/20 16:47 HH (Rec: 06/18/20 17:29 HH [email or web address]) Deep Tendon Reflex & Clonus Assessment Deep Tendon Reflex Left Achilles Deep Tendon Reflex 2+ Normal Left Patellar Deep Tendon Reflex 2+ Normal Right Achilles Deep Tendon Reflex 1+ Diminished Right Patellar Deep Tendon Reflex 1+ Diminished PT-OP-J Posture/Palpation/Skin Start: 06/18/20 16:47 Freq: Status: Active Protocol: Document 06/18/20 16:47 HH (Rec: 06/18/20 17:29 HH [email or web address]) Posture Evaluation Position Standing Pelvis Posture Anteriorly Tilted Weight Distribution Weight Shifted Left,Decreased Wt.Bear on (R) PT-OP-K Range of Motion Start: 06/18/20 16:47 Freq: Status: Active Protocol: Document 06/18/20 16:47 HH (Rec: 06/18/20 17:29 HH [email or web address]) Lumbar Spine Range of Motion Lumbar Spine Active Degrees Comments toe touch test= 14 inches from floor, consistent pain with repeated flexion lateral flexion = 22 inches from floor, no pain noted extension = shoulders meet heels, consistent pain with repeated extension PT-OP-L Special Tests Start: 06/18/20 16:47 Freq: Status: Active Protocol: Document 06/18/20 16:47 (Rec: 06/18/20 17:29 [email or web address]) Special Tests Lumbar Spine Special Tests Slump Test Results +ve on L Comments pain at lumbar Prone Instability Test Test Results +VE L Comments slight decrease in pain with LLE extension Straight Leg Raise Test Results -ve PT-OP-M Strength Start: 06/18/20 16:47 Freq: Status: Active Protocol: Document 06/18/20 16:47 (Rec: 06/18/20 17:29 [email or web address]) Trunk Strength Trunk Manual Muscle Testing Testing Position Sitting Core Stabilization flexion endurance hold test at sit up position with trunk at 60 degrees flexion= 19 s chect up extension test= 28s Hip Strength Hip Manual Muscle Testing Right Flexion (L2) 4+ Good+ Extension (S1) 4+ Good+ Abduction 4+ Good+ Adduction 4+ Good+ Left Flexion (L2) 4+ Good+ Extension (S1) 4+ Good+ Abduction 4+ Good+ Adduction 4+ Good+ Knee Strength Knee Manual Muscle Testing Right Flexion (S2) 4+ Good+ Extension (L3) 4+ Good+ Left Flexion (S2) 5 Normal Extension (L3) 5 Normal Ankle/Foot Strength Ankle and Foot Manual Muscle Testing Right Dorsiflexion (L4) 5 Normal Plantarflexion (S1) 4 Good Inversion 4+ Good+ Eversion (S1) 4+ Good+ Left Dorsiflexion (L4) 5 Normal Plantarflexion (S1) 5 Normal Inversion 5 Normal Eversion (S1) 5 Normal PT-OP-Q Treatments Start: 06/18/20 16:47 Freq: Status: Active Protocol: Document 08/15/20 14:29 (Rec: 08/15/20 16:16 [id number]) Gym Equipment Shuttle Recovery Bsquat Resistance # 75 then 100# Shuttle Recovery Platform Stable,Unstable Reps/Time x10 each Therapeutic Exercises Prone Exercises cat/camel Prone Exercise Name cat camel x8 then into child's pose 30 x2 Reps/Minutes x8 Comments good tolerance Sidelying Exercises hip abduction Side bilateral Reps/Minutes x 8 x2 Standing Exercises hip extension Side bilateral Resistance AROM Reps/Minutes 10 each hip hinge Standing Exercise Name neutral spine Side bilateral Equipment Used PVC pipe Reps/Minutes 10 x2 calf stretch Standing Exercise Name R tighter than L Side bilateral Reps/Minutes 30 each LE hip abd Side bilateral Resistance AROM Equipment Used rail Reps/Minutes x10 each Comments cued tall posture, wt shift over stance LE, lift only glut fac- isaac well PT-OP-T Assessment and Plan Start: 06/18/20 16:47 Freq: Status: Active Protocol: Document 08/15/20 14:29 HH (Rec: 08/15/20 16:16 HH [id number]) Physical Therapy Assessment Goals trunk endurance Impairment chest life= 28 s, flexion hold = 19s Short Term Goal (STG) pt will improve both trunk flexion and extension endurance by 10 seconds STG Duration 6 weeks Numerical Control Lathe Operator Goal (LTG) pt will improve both trunk flexion and extension endurance by 20 seconds in 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 LTG Duration 8weeks progressing oswestry Impairment pt scores 54 on Owestry LBP questionnaire Short Term Goal (STG) pt will score <45 on Oswestry to improve his quality of life STG Duration 6 weeks Fci Goal (LTG) pt will score <35 on Oswestry to improve his quality of life , such as pain, quality of sleep and overall activity tolerance. LTG Duration 12 weeks Assessment Summary Assessment pt is going to have L4 medial branch nerve cauterization on 09/04 for managing his ongoing pain. Pt isaac session okay today with same c/o. Physical Therapy Plan Frequency and Duration Frequency of Treatment 2x/Week Duration of Treatment 12 weeks Plan of Care Start Date 06/18/20 Plan of Care End Date 09/16/20 Therapeutic Interventions Therapeutic Interventions Aquatic Therapy,Balance Training,Gait Training,Home Exercise Program,Manual Therapy,Neuromuscular Re- education,Orthotic/Prosthetic Management,Patient/Caregiver Education,Self-Care/Home Management,Soft Tissue Mobilization,Taping, Therapeutic Activities, Therapeutic Exercises Modalities Cold Pack/Ice Massage,Hot Packs Next Visit Focus/Plan Next Note Type Treatment Note Next Visit Plan Assess response to last tx. Continue per PT POC 1 more txs in authorization: overall cardio ex, bike, stepper initiate trunk ROM ex, in gravity eliminated position ankle PF strengthening if tolerable leg press
--- NOTE | 2020-08-22 16:20 | PT.OTN ---
Current Diagnoses Other chronic pain (08/22/20) Low back pain (08/22/20) Physical Therapy Treatment Note PT-OP-A Visit Information Start: 06/18/20 16:47 Freq: Status: Active Protocol: Document 08/22/20 14:37 HH (Rec: 08/22/20 16:20 HH [id number]) Out-Patient Physical Therapy Visit Information Visit Information Visit Type Treatment Note Visit Note 12 more authorized visit Visit Start Time 14:31 Visit Stop Time 15:15 Total Visit Minutes 44 Visit Number 2/ Number of PUBLIC POLICY COORDINATOR Visits 0 PT-OP-B Current Condition Start: 06/18/20 16:47 Freq: Status: Active Protocol: Document 06/18/20 16:47 HH (Rec: 06/18/20 17:29 HH [email or web address]) Current Condition History of Current Condition Onset Date many years ago Current Complaints Chronic low back pain, poor activity tolerance History of Current Condition This is a 34-year-old obeses man with history of COPD, asthma, kidney stones, daily current marijuana smoker, PTSD , depression, complex regional pain syndrome, migraines, pain related insomnia, ADHD, and REGIS presents today for his chronic low back pain. He reports low back pain in the middle of the sacrum and lower lumbar region which gets better only when lying on his back. He reports the pain ranges from 3-5/10 depending on activity, worse with bending forward and increased physical activity. He is not taking any pain medications now but use medical marijuana half a gram per day for pain relief. 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 He has severe pain in both legs most of the time and pain in the back only when bending over. He is officially disabled. Treatment Goals Patient/Caregiver Goals 1. to reduce his back pain 2. 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 He also tends to WB more on LLE d/t R foot pain Functional Limitations- Other pt requires to push off from chair armrests for STS He also WB mostly on L LE. Personal Factors Other Personal Factors That May Effect fibromyalgia, CPRS Therapy/Recovery spinal nerve stimulator and DRG stimulator depression PT-OP-C Subjective Start: 06/18/20 16:47 Freq: Status: Active Protocol: Document 08/22/20 14:37 HH (Rec: 08/22/20 16:20 HH [email or web address]) OP-PT Subjective Patient Comments Patient Comments I had a tough week cause i havent been sleeping at all because my niece were over at my place. I also stop smoking marijuana since last week so my pain is spiking up! Patient Reported Progress Improving PT-OP-D Balance Start: 06/18/20 16:47 Freq: Status: Active Protocol: Document 06/18/20 16:47 HH (Rec: 06/18/20 17:29 HH [email or web address]) Balance Tests Single Limb Standing Single Limb- Right 5 Single Limb- Left >60 PT-OP-H Neuro Start: 06/18/20 16:47 Freq: Status: Active Protocol: Document 06/18/20 16:47 HH (Rec: 06/18/20 17:29 HH [email or web address]) Deep Tendon Reflex & Clonus Assessment Deep Tendon Reflex Left Achilles Deep Tendon Reflex 2+ Normal Left Patellar Deep Tendon Reflex 2+ Normal Right Achilles Deep Tendon Reflex 1+ Diminished Right Patellar Deep Tendon Reflex 1+ Diminished PT-OP-J Posture/Palpation/Skin Start: 06/18/20 16:47 Freq: Status: Active Protocol: Document 06/18/20 16:47 HH (Rec: 06/18/20 17:29 HH [email or web address]) Posture Evaluation Position Standing Pelvis Posture Anteriorly Tilted Weight Distribution Weight Shifted Left,Decreased Wt.Bear on (R) PT-OP-K Range of Motion Start: 06/18/20 16:47 Freq: Status: Active Protocol: Document 06/18/20 16:47 HH (Rec: 06/18/20 17:29 HH [email or web address]) Lumbar Spine Range of Motion Lumbar Spine Active Degrees Comments toe touch test= 14 inches from floor, consistent pain with repeated flexion lateral flexion = 22 inches from floor, no pain noted extension = shoulders meet heels, consistent pain with repeated extension PT-OP-L Special Tests Start: 06/18/20 16:47 Freq: Status: Active Protocol: Document 06/18/20 16:47 HH (Rec: 06/18/20 17:29 [email or web address]) Special Tests Lumbar Spine Special Tests Slump Test Results +ve on L Comments pain at lumbar Prone Instability Test Test Results +VE L Comments slight decrease in pain with LLE extension Straight Leg Raise Test Results -ve PT-OP-M Strength Start: 06/18/20 16:47 Freq: Status: Active Protocol: Document 06/18/20 16:47 HH (Rec: 06/18/20 17:29 [email or web address]) Trunk Strength Trunk Manual Muscle Testing Testing Position Sitting Core Stabilization flexion endurance hold test at sit up position with trunk at 60 degrees flexion= 19 s chect up extension test= 28s Hip Strength Hip Manual Muscle Testing Right Flexion (L2) 4+ Good+ Extension (S1) 4+ Good+ Abduction 4+ Good+ Adduction 4+ Good+ Left Flexion (L2) 4+ Good+ Extension (S1) 4+ Good+ Abduction 4+ Good+ Adduction 4+ Good+ Knee Strength Knee Manual Muscle Testing Right Flexion (S2) 4+ Good+ Extension (L3) 4+ Good+ Left Flexion (S2) 5 Normal Extension (L3) 5 Normal Ankle/Foot Strength Ankle and Foot Manual Muscle Testing Right Dorsiflexion (L4) 5 Normal Plantarflexion (S1) 4 Good Inversion 4+ Good+ Eversion (S1) 4+ Good+ Left Dorsiflexion (L4) 5 Normal Plantarflexion (S1) 5 Normal Inversion 5 Normal Eversion (S1) 5 Normal PT-OP-Q Treatments Start: 06/18/20 16:47 Freq: Status: Active Protocol: Document 08/22/20 14:37 HH (Rec: 08/22/20 16:20 HH [id number]) Cardio Equipment Recumbent Stepper (Sci-Fit) Duration (Minutes) 6 Resistance 4 Seat Position 12 Other 0.92 miles, RPMs 43-51 Gym Equipment Shuttle Recovery Bsquat Resistance # 75 then 100# Shuttle Recovery Platform Stable,Unstable Reps/Time x10 each Therapeutic Exercises Supine Exercises deadbug Side bilateral Equipment Used red therapy ball in between legs and UEs Reps/Minutes 8 seconds x 5 SLR Supine Exercise Name BLE out straight Side bilateral Reps/Minutes x8 Comments cues on core engagement Prone Exercises cat/camel Prone Exercise Name cat camel x8 then into child's pose 30 x2 Reps/Minutes x8 Comments good tolerance Standing Exercises hip extension Side bilateral Resistance AROM Reps/Minutes 10 each hip hinge Standing Exercise Name neutral spine Side bilateral Equipment Used PVC pipe Reps/Minutes 10 x2 hip abd Side bilateral Resistance AROM Equipment Used rail Reps/Minutes x10 each Comments cued tall posture, wt shift over stance LE, lift only glut fac- isaac well PT-OP-T Assessment and Plan Start: 06/18/20 16:47 Freq: Status: Active Protocol: Document 08/22/20 14:37 HH (Rec: 08/22/20 16:20 HH [id number]) Physical Therapy Assessment Goals trunk endurance Impairment chest life= 28 s, flexion hold = 19s Short Term Goal (STG) pt will improve both trunk flexion and extension endurance by 10 seconds STG Duration 6 weeks [place] Goal (LTG) pt will improve both trunk flexion and extension endurance by 20 seconds 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 LTG Duration 8weeks progressing oswestry Impairment pt scores 54 on Owestry LBP questionnaire Short Term Goal (STG) pt will score <45 on Oswestry to improve his quality of life STG Duration 6 weeks Usp Goal (LTG) pt will score <35 on Oswestry to improve his quality of life , such as pain, quality of sleep and overall activity tolerance. LTG Duration 12 weeks Assessment Summary Assessment Pt stated he has not been taking marijuana so his pain is quite consistent and he hasnt been sleeping. Pt isaac session okay today with mostly core stabilization ex. Physical Therapy Plan Frequency and Duration Frequency of Treatment 2x/Week Duration of Treatment 12 weeks Plan of Care Start Date 06/18/20 Plan of Care End Date 06/13/21 Next Visit Focus/Plan Next Note Type Treatment Note Next Visit Plan Assess response to last tx. Continue per PT POC 1 more txs in authorization: overall cardio ex, bike, stepper initiate trunk ROM ex, in gravity eliminated position ankle PF strengthening if tolerable leg press
--- NOTE | 2020-10-26 11:56 | PT.OPDS ---
Current Diagnoses Other chronic pain (08/22/20) Low back pain (08/22/20) Visit Care Team Role Provider Type Berhane Reinoso DO Attending Provider Physician Family Provider Primary Care Provider Referring Provider Specialty: Family Practice Address: [address] [place] [address], [phone] Email: Visit Number Visit Number 05/18 Discharge Summary PT-OP-T Assessment and Plan Start: 06/18/20 16:47 Freq: Status: Active Protocol: Document 10/26/20 11:55 HH (Rec: 10/26/20 11:56 [email or web address]) Physical Therapy Plan Discharge Physical Therapy Discharge Reasons No Longer Attending PT Discharge Comments pt is no longer attending PT. Per EMR, pt has not shown significant improvements from PT. DC from PT today
== END 2020-11-06 15:29 | disposition home or self-care (01) ==
LOC: PHYS 14:30
PROVIDERS: Family Provider Family Medicine; PCP Family Medicine; Referring Provider Family Medicine; Visit Provider Family Medicine
DX: M54.5 Low back pain (principal); G89.29 Other chronic pain
CPT/HCPCS: 97110; 97140; 97163

== ENCOUNTER → 2021-10-17 10:33 | Outpatient (CLI) | payer OTHER, MEDICAID, SELFPAY ==
--- NOTE | 2021-10-17 10:35 | DI.RAD.S_ITS ---
PROCEDURE: XR ANKLE LT MIN 3V INDICATIONS: pain TECHNIQUE: Three views of the ankle were acquired. COMPARISON: None. FINDINGS: Bones: No fractures or dislocations. Ankle mortise is normally aligned. Lateral view demonstrates prominent anterior and mild posterior tibiotalar joint spurs and reactive spurring in the dorsal talus. No suspicious bony lesions. Soft tissues: No tibiotalar joint effusion. Achilles tendon appears normal. 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 Dictated by: Elizabeth Toledo M.D. on 10/17/2021 at 14:43 Approved by: Elizabeth Toledo M.D. on 10/17/2021 at 14:44
--- NOTE | 2021-10-17 10:35 | DI.RAD.S_ITS ---
PROCEDURE: XR SHOULDER RT MIN 2V INDICATIONS: pain TECHNIQUE: 3 views of the shoulder were acquired. COMPARISON: None. FINDINGS: Bones: No fractures or dislocations. No suspicious bony lesions. Visualized ribs appear intact. Soft tissues: No suspicious soft tissue calcifications. IMPRESSION: No fracture. No osseous lesion. If symptoms and/or clinical suspicion for pathology persists, further assessment with repeat radiographs (7-10 days) or advanced imaging (e.g. CT, MRI or bone scan) should be considered. Dictated by: Shweta Mackay MD, PhD on 10/17/2021 at 12:07 Approved by: Shweta Mackay MD, PhD on 10/17/2021 at 12:07
== END ==
PROVIDERS: Family Provider Family Medicine; PCP Family Medicine; Referring Provider Family Medicine; Visit Provider Family Medicine
DX: G89.11 Acute pain due to trauma (principal); M25.511 Pain in right shoulder; M25.572 Pain in left ankle and joints of left foot; G89.29 Other chronic pain
CPT/HCPCS: 73030; 73610

== ENCOUNTER 2022-01-07 09:00 | Outpatient (RCR) | payer OTHER, MEDICAID, SELFPAY ==
--- NOTE | 2021-10-01 18:49 | PT.OIE ---
Current Diagnoses Acute pain due to trauma (10/01/21) Other chronic pain (10/01/21) Pain in right shoulder (10/01/21) Pain in left ankle and joints of left foot (10/01/21) Muscle weakness (generalized) (10/01/21) Past Medical History (Last Updated 08/30/21 @ 17:02 by Berhane Reinoso DO) Acute exacerbation of chronic low back pain Acute pain of right shoulder due to trauma ADHD Allergies Ankle pain Asthma Chronic back pain Chronic cough Chronic pain of left ankle Cranial somatic dysfunction CRPS (complex regional pain syndrome) Depression Excessive cerumen in left ear canal Foot pain Fractures GI bleeding Headache History of recurrent ear infection Inflamed seborrheic keratosis Insomnia due to medical condition Kidney stones Lower limb region somatic dysfunction Migraines Obesity (BMI 30.0-34.9) Pain, foot, right, chronic Post traumatic stress disorder (PTSD) Sacral region somatic dysfunction Sacroiliac joint stiffness Screening for hyperlipidemia Sleep apnea Urge incontinence of urine Vitamin deficiency Past Surgical History (Last Updated 03/15/19 @ 21:54 by Ana Luisa Chen) Anesthesia History of placement of ear tubes Status post insertion of spinal cord stimulator Status post insertion of spinal cord stimulator Visit Care Team Role Provider Type Berhane Reinoso DO Attending Provider Physician Family Provider Primary Care Provider Referring Provider Specialty: [facility] Address: [address] [place] [address], [facility] Email: Physical Therapy Initial Evaluation PT-OP-A Visit Information Start: 09/30/21 17:50 Freq: Status: Active Protocol: Document 10/01/21 13:49 LRN (Rec: 10/01/21 14:37 LRN [id number]) Out-Patient Physical Therapy Visit Information Visit Information Visit Type Initial Evaluation Visit Start Time 13:49 Visit Stop Time 14:35 Total Visit Minutes 46 Visit Number 1 Evaluation Information Evaluation Date 10/01/21 Precautions Precautions Dorsal root ganglion Spinal Stimulator at L5-S1 on R side and ~T12 level, PTSD, ADHD, Depression, Complex Regional Pain Syndrome/Fibromyalgia, Headaches, Tape allergy, Back and neck pain. PT-OP-B Current Condition Start: 09/30/21 17:50 Freq: Status: Active Protocol: Document 10/01/21 13:49 LRN (Rec: 10/01/21 14:37 LRN [id number]) Current Condition History of Current Condition Onset Date R shldr 05/2021 & L ankle 2013 Current Complaints R shoulder and L ankle pain. History of Current Condition R shoulder pain is worse than the L ankle pain. R shoulder pain onset by doing pushups against the sink and went from 90 deg's shoulder AB to 0 deg 's AB and felt a pop and burning pain at posterior R shoulder deep inside radiated across the chest and down to forearm. Has intermittent tingling in the R hand or with use (holding screwdriver or electric drill). Had broken the Lunate in 2013 (seizure from falling off rope swing 30 ' in air). No imaging to date . States TNS units are alright to use and that he has one that he uses (ok'd as long as he doesn't do it over the DRG site. L Ankle pain from falling off rope swing 30' in air due to seizure and had avulsion fracture of the distal fibula. L Ankle grabs him when moving, with pain on the outside of the ankle. In standing he describes the ankle as gravely. Denies tinging or numbness. Prior Treatments and Tests R shoulder: Needling by Dr. Reinoso, pt feels is not too helpful. Future Testing and Treatments Planned Order in for CT of R shoulder and CT of ankle (not able to do MRI due to implants). Developmental History Developmental History Pt was supposed to have surgery for additional leads to the L side of the dorsal root ganglion at L5-S1 due to Complex Regional Pain Syndrome (CRPS). Has dorsal root ganglion stimulator at L5-S1 on R side for DRG and at mid back (level unknown), ~T12 level. Treatment Goals Patient/Caregiver Goals Decrease R shoulder pain with pt able to tolerate positioning for drawing on a big pad. Decrease L ankle pain in standing and when at rest. Improve R shoulder mobility. Personal Factors Other Personal Factors That May Effect [facility] Therapy/Recovery on waking due to pain. 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 Has Dorsal Root Ganglion Spinal Stimulator implants for past 12 yrs (07/02/2011, 2nd implant 06/2017 due to stimulatro stopped working after fall, no damage to implant or wires at the time of fall) PT-OP-C Subjective Start: 09/30/21 17:50 Freq: Status: Active Protocol: Document 10/01/21 13:49 LRN (Rec: 10/01/21 14:37 LRN [id number]) Patient Questionnaires Foot & Ankle Ability Measure- ADL and Sports FAAM-ADL Score 36 FAAM-ADL Impairment 60 to 79% Impaired (Score 16- 32) FAAM-Sport Score 10 FAAM-Sport Impairment 60 to 79% Impaired (Score 6-11 ) Lower Extremity Functional Scale LEFS Score 28 LEFS Impairment 60 to 79% Impaired (Score 17- 31) Quick Dash- Upper Extremity Quick Dash UE Score 59.09 Quick Dash UE Impairment 40 to 59% Impaired (Score 40- 59) OP-PT Pain Assessment Pain Assessment Grid Paper Pain Assessment Grid Completed Yes Location R shoulder Pain Location Details Superior aspect and posterior acromion Intensity 7 Scale Used Numeric (0 - 10) Description Burning Frequency Constant Pain Duration Lessens at rest Radiating Location Elbow, 1/2 time down to forearm Other Pain Alleviating Factors Marijuana, and cyclobenzaprine L ankle Pain Location Details Lateral ankle jt and lateral lower leg Intensity 6 Scale Used Numeric (0 - 10) Description Aching,Sharp,Throbbing Description- Other Sharp when grabs Frequency Intermittent Pain Duration When standing, relieved with meds and offloading. Radiating Location to knee Other Pain Alleviating Factors Marijuana, Stimulator PT-OP-D Balance Start: 09/30/21 17:50 Freq: Status: Active Protocol: Document 10/01/21 13:49 LRN (Rec: 10/01/21 14:37 LRN [id number]) Balance Tests Functional Reach Functional Reach Test 0 (Pt not able to hold arm to 90 deg's flex) Functional Reach Impairment Rating 100% Impaired (Score 0) Single Limb Standing Single Limb- Right 17 Single Limb- Left 21 PT-OP-J Posture/Palpation/Skin Start: 09/30/21 17:50 Freq: Status: Active Protocol: Document 10/01/21 13:49 LRN (Rec: 10/01/21 14:37 LRN [id number]) Posture Evaluation Position Standing Head/C-Spine Posture Forward Head Shoulder Posture (L) Elevated Foot Arch (L) Low Arch,(R) Low Arch Palpation Assessment Location R shoulder Palpation Location Superior R shoulder Palpation Findings Tenderness L ankle Palpation Location Lateral L ankle Palpation Findings Tenderness PT-OP-K Range of Motion Start: 09/30/21 17:50 Freq: Status: Active Protocol: Document 10/01/21 13:49 LRN (Rec: 10/01/21 14:37 LRN [id number]) Shoulder Goniometric Range of Motion Shoulder Right Active Shoulder ROM WFL No Testing Position Sitting Flexion 80 Extension 22 Abduction 62 Horizontal Adduction 52 External Rotation at 0 degrees Abduction 45 Internal Rotation Behind Back (text) Hand on buttock Comments Numbness reaching into AB Lacks 15 deg's horiz AB Left Active Shoulder ROM WFL Yes Testing Position Sitting Flexion 180 Extension 60 Abduction 180 Horizontal Adduction 78 External Rotation at 0 degrees Abduction 50 Internal Rotation Behind Back (text) T6 Shoulder ROM Limitations Shoulder ROM Limitations Pain PT-OP-M Strength Start: 09/30/21 17:50 Freq: Status: Active Protocol: Document 10/01/21 13:49 LRN (Rec: 10/01/21 14:37 LRN [id number]) Shoulder Strength Shoulder Manual Muscle Testing Right Flexion 2 Poor Abduction (C5) 2- Poor- Adduction 4 Good External Rotation 4+ Good+ Internal Rotation 5 Normal Horizontal Abduction 2 Poor Horizontal Adduction 2 Poor Left Comments Generally 5/5 Elbow/Forearm Strength Elbow and Forearm Manual Muscle Testing Right Flexion (C6) 5 Normal Extension (C7) 4 Good Pronation 5 Normal Supination 5 Normal Comments Decreased strength due to shoulder pain. Left Comments Generally 5/5 Knee Strength Knee Manual Muscle Testing Right Comments Generally 5/5 Left Comments Generally 5/5 Ankle/Foot Strength Ankle and Foot Manual Muscle Testing Right Dorsiflexion (L4) 5 Normal Plantarflexion (S1) 5 Normal Inversion 4 Good Eversion (S1) 4 Good Left Dorsiflexion (L4) 5 Normal Plantarflexion (S1) 5 Normal Inversion 3 Fair Eversion (S1) 3- Fair- PT-OP-Q Treatments Start: 09/30/21 17:50 Freq: Status: Active Protocol: Document 10/01/21 13:49 LRN (Rec: 10/01/21 14:37 LRN [id number]) Self-Care/Home Management Treatment Education Other Education Discussed results of evaluation, goals, and plan of care (POC). Pt agreeable to goals and POC. Activities Self-Care/Home Management Activities I/S pt in home ex of active shoulder IR/ER with elbow in by sides & active ankle PF/DF/ EV/IV - 30 reps if tolerated. PT-OP-T Assessment and Plan Start: 09/30/21 17:50 Freq: Status: Active Protocol: Document 10/01/21 13:49 LRN (Rec: 10/01/21 14:37 LRN [id number]) Physical Therapy Assessment Rehab Potential Rehabilitation Potential Fair Evaluation Complexity Number of Personal Factors/Comorbidities 3 or More Number of Body Systems Impaired 4 or More Clinical Presentation at Evaluation Evolving Impairments Impairments Activity Tolerance,Balance, Pain,Posture,ROM,Soft Tissue Mobility,Strength Goals Four Impairment Decreased R shoulder mobility. Short Term Goal (STG) Pt will be able reach above shoulder height with tolerable pain. STG Duration 10/31/21 Technical Documentation Specialist Goal (LTG) Improve R shoulder mobility to improved function per UE QuickDASH score. LTG Duration 12/03/21 Three Impairment Pain in L ankle Impairment Pain standing is 5-6/10 Pain laying down is 4-5/10 Technical Documentation Specialist Goal (LTG) Decrease L ankle pain in standing and when at rest ( lying down 50%). LTG Duration 12/03/21 Two Impairment Pain in R shoulder Impairment Pain at rest is 5/10 Pain with movement is 7/10 Technical Documentation Specialist Goal (LTG) Decrease R shoulder pain with pt able to tolerate positioning for drawing on a big pad (isaac R arm in AB). LTG Duration 12/13/21 One Impairment Lacks appropriate self care HEP Short Term Goal (STG) Pt will be independent in a self care HEP of L ankle strengthening & R shoulder ROM exercises. STG Duration 10/04/21 Technical Documentation Specialist Goal (LTG) Pt will be independent in a self care HEP of shoulder ROM/ strengthening, core strengthening and standing balance ex's. LTG Duration 12/13/21 Assessment Summary Assessment Pt presents with multiple areas of dysfunction. He has an acute R shoulder injury, a chronic L ankle injury causing pain that limits his ability to walk and use his UE's. The pt also has a Dorsal Root Ganglion (DRG) Spinal stimulator on the R side at level L4-L5 and in the mid back (area unknown). The pt is waiting for scheduling of another DRG surgery to add leads to the L side of the back due to back pain related to his Complex Regional Pain Syndrome (CRPS), that will probably hinder his therapy for the L ankle. The pt/s primary area of complaint is the acute R shoulder pain since he has lived with the ankle pain since 2013. The pt has decreased R shoulder AROM and strength due to pain. Further special testing will be performed at his next visit if the pt is able to tolerate it. His L ankle is weak, but he appears to have functional AROM. Strengthening and stabilization is expected to help with pain reduction, although the pt tolerates very limited standing or walking due to pain that may be related to his CRPS. The pt will benefit from skilled physical therapy for therapeutic ex and education on a HEP. Modalities will be used to help manage his pain. Exercise and balance training will be progressed as pt tolerates. If the pt tolerates gait training would be appropriate. Physical Therapy Plan Frequency and Duration Frequency of Treatment 2x/Week Plan of Care Start Date 10/01/21 Plan of Care End Date 12/13/21 Therapeutic Interventions Therapeutic Interventions Balance Training,Gait Training ,Home Exercise Program,Joint Mobilizations,Manual Therapy, Neuromuscular Re-education, Patient/Caregiver Education, Self-Care/Home Management,Soft Tissue Mobilization, Therapeutic Exercises Modalities Cold Pack/Ice Massage,Hot Packs Next Visit Focus/Plan Next Note Type Treatment Note Next Visit Plan R shoulder RC strengthening and special testing of the R shoulder for possible tears/ dysfunction. L ankle strengthening with HEP issued. Gait training and balance training if tolerated. Core strengthening. Modalities of MH/Ice if needed . Although pt reports use of EStim is okay, conservative treatment of no EStim with pt using TNS unit at home.
--- NOTE | 2021-10-03 16:27 | PT.OTN ---
Current Diagnoses Acute pain due to trauma (10/03/21) Other chronic pain (10/03/21) Pain in right shoulder (10/03/21) Pain in left ankle and joints of left foot (10/03/21) Muscle weakness (generalized) (10/03/21) Physical Therapy Treatment Note PT-OP-A Visit Information Start: 09/30/21 17:50 Freq: Status: Active Protocol: Document 10/03/21 15:27 LRN (Rec: 10/03/21 16:26 LRN [id number]) Out-Patient Physical Therapy Visit Information Visit Information Visit Type Treatment Note Visit Start Time 15:27 Visit Stop Time 16:08 Total Visit Minutes 41 Visit Number 2 Evaluation Information Evaluation Date 10/01/21 Precautions Precautions Dorsal root ganglion Spinal Stimulator at L5-S1 on R side and ~T12 level, PTSD, ADHD, Depression, Complex Regional Pain Syndrome/Fibromyalgia, Headaches, Tape allergy, Back and neck pain. PT-OP-B Current Condition Start: 09/30/21 17:50 Freq: Status: Active Protocol: Document 10/01/21 13:49 LRN (Rec: 10/01/21 14:37 LRN [id number]) Current Condition History of Current Condition Onset Date R shldr 05/2021 & L ankle 2013 Current Complaints R shoulder and L ankle pain. History of Current Condition R shoulder pain is worse than the L ankle pain. R shoulder pain onset by doing pushups against the sink and went from 90 deg's shoulder AB to 0 deg 's AB and felt a pop and burning pain at posterior R shoulder deep inside radiated across the chest and down to forearm. Has intermittent tingling in the R hand or with use (holding screwdriver or electric drill). Had broken the Lunate in 2013 (seizure from falling off rope swing 30 ' in air). No imaging to date . States TNS units are alright to use and that he has one that he uses (ok'd as long as he doesn't do it over the DRG site. L Ankle pain from falling off rope swing 30' in air due to seizure and had avulsion fracture of the distal fibula. L Ankle grabs him when moving, with pain on the outside of the ankle. In standing he describes the ankle as gravely. Denies tinging or numbness. Prior Treatments and Tests R shoulder: Needling by Dr. Reinoso, pt feels is not too helpful. Future Testing and Treatments Planned Order in for CT of R shoulder and CT of ankle (not able to do MRI due to implants). Developmental History Developmental History Pt was supposed to have surgery for additional leads to the L side of the dorsal root ganglion at L5-S1 due to Complex Regional Pain Syndrome (CRPS). Has dorsal root ganglion stimulator at L5-S1 on R side for DRG and at mid back (level unknown), ~T12 level. Treatment Goals Patient/Caregiver Goals Decrease R shoulder pain with pt able to tolerate positioning for drawing on a big pad. Decrease L ankle pain in standing and when at rest. Improve R shoulder mobility. Personal Factors Other Personal Factors That May Effect [facility] Therapy/Recovery on waking due to pain. 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 Has Dorsal Root Ganglion Spinal Stimulator implants for past 12 yrs (07/02/2011, 2nd implant 06/2017 due to stimulatro stopped working after fall, no damage to implant or wires at the time of fall) PT-OP-C Subjective Start: 09/30/21 17:50 Freq: Status: Active Protocol: Document 10/03/21 15:27 LRN (Rec: 10/03/21 16:26 LRN [id number]) OP-PT Subjective Patient Comments Patient Comments States he did shoulder ER/IR ex's did 15x 4 vs 20x 3, and did ankle ex's. States today he hurts all over. PT-OP-D Balance Start: 09/30/21 17:50 Freq: Status: Active Protocol: Document 10/01/21 13:49 LRN (Rec: 10/01/21 14:37 LRN [id number]) Balance Tests Functional Reach Functional Reach Test 0 (Pt not able to hold arm to 90 deg's flex) Functional Reach Impairment Rating 100% Impaired (Score 0) Single Limb Standing Single Limb- Right 17 Single Limb- Left 21 PT-OP-J Posture/Palpation/Skin Start: 09/30/21 17:50 Freq: Status: Active Protocol: Document 10/01/21 13:49 LRN (Rec: 10/01/21 14:37 LRN [id number]) Posture Evaluation Position Standing Head/C-Spine Posture Forward Head Shoulder Posture (L) Elevated Foot Arch (L) Low Arch,(R) Low Arch Palpation Assessment Location R shoulder Palpation Location Superior R shoulder Palpation Findings Tenderness L ankle Palpation Location Lateral L ankle Palpation Findings Tenderness PT-OP-K Range of Motion Start: 09/30/21 17:50 Freq: Status: Active Protocol: Document 10/01/21 13:49 LRN (Rec: 10/01/21 14:37 LRN [id number]) Shoulder Goniometric Range of Motion Shoulder Right Active Shoulder ROM WFL No Testing Position Sitting Flexion 80 Extension 22 Abduction 62 Horizontal Adduction 52 External Rotation at 0 degrees Abduction 45 Internal Rotation Behind Back (text) Hand on buttock Comments Numbness reaching into AB Lacks 15 deg's horiz AB Left Active Shoulder ROM WFL Yes Testing Position Sitting Flexion 180 Extension 60 Abduction 180 Horizontal Adduction 78 External Rotation at 0 degrees Abduction 50 Internal Rotation Behind Back (text) T6 Shoulder ROM Limitations Shoulder ROM Limitations Pain PT-OP-L Special Tests Start: 09/30/21 17:50 Freq: Status: Active Protocol: Document 10/03/21 15:27 LRN (Rec: 10/03/21 16:26 LRN [id number]) Special Tests Shoulder Special Tests Empty Can Test Results + R shoulder Comments Painful in positioning Belly Press Test Results - R shoulder Comments Good tolerance Anterior Draw Test Results - R shoulder [place] Impingement Test Results + R shoulder Comments Very painful Elevation Impingement Test Results + R shoulder Comments Pt gets pain at R Supraspinatus region and inferior shoulder joint. PT-OP-M Strength Start: 09/30/21 17:50 Freq: Status: Active Protocol: Document 10/03/21 15:27 LRN (Rec: 10/03/21 16:26 LRN [id number]) Shoulder Strength Shoulder Manual Muscle Testing Right Flexion 2 Poor Extension 3- Fair- Abduction (C5) 2- Poor- Adduction 4 Good External Rotation 5 Normal Internal Rotation 5 Normal Horizontal Abduction 2 Poor Horizontal Adduction 2 Poor PT-OP-Q Treatments Start: 09/30/21 17:50 Freq: Status: Active Protocol: Document 10/03/21 15:27 LRN (Rec: 10/03/21 16:26 LRN [id number]) Therapeutic Exercises Supine Exercises TA/breath chest/heel slide Supine Exercise Name TA/chest breath/heel slide Side bilateral Reps/Minutes 8x each Comments Extra time for pt awareness on ASIS' to try and keep core stable. TA/breathing Supine Exercise Name TA/NL breathing Reps/Minutes 5' Comments Extra time for training, using hands on chest/abdomen for mvmt feedback TA tighening Supine Exercise Name TA tightening Reps/Minutes 3' Comments Extra time taken for cuing to pull belly button to spine Sitting Exercises L ankle TB ex Sitting Exercise Name L ankle strengthening (DF, EV) Side left Equipment Used Lev 2 Tband Reps/Minutes 20x EV, 10x 2 DF & IV Comments Extra time taken to deter max isaac resistance & best positioning. Standing Exercises Ankle DF Standing Exercise Name Ankle DF Side bilateral Equipment Used Wall Reps/Minutes 10x Ankle PF Standing Exercise Name Ankle PF Side bilateral Equipment Used Wall Reps/Minutes 10x Self-Care/Home Management Treatment Education Patient Education Home Exercise Program Activities Self-Care/Home Management Activities Issued & Reviewed ankle strengthening ex's for HEP: Sitting Ankle DF, EV, IV and standing PF/DF. Lev 2 TB issued. PT-OP-T Assessment and Plan Start: 09/30/21 17:50 Freq: Status: Active Protocol: Document 10/03/21 15:27 LRN (Rec: 10/03/21 16:26 LRN [id number]) Physical Therapy Assessment Goals Four Impairment Decreased R shoulder mobility. Short Term Goal (STG) Pt will be able reach above shoulder height with tolerable pain. STG Duration 10/31/21 Skilled Nursing Goal (LTG) Improve R shoulder mobility to improved function per UE QuickDASH score. LTG Duration 12/03/21 Three Impairment Pain in L ankle Impairment Pain standing is 5-6/10 Pain laying down is 4-5/10 Licensing Engineer Goal (LTG) Decrease L ankle pain in standing and when at rest ( lying down 50%). LTG Duration 12/03/21 Two Impairment Pain in R shoulder Impairment Pain at rest is 5/10 Pain with movement is 7/10 Skilled Nursing Goal (LTG) Decrease R shoulder pain with pt able to tolerate positioning for drawing on a big pad (isaac R arm in AB). LTG Duration 12/13/21 One Impairment Lacks appropriate self care HEP Short Term Goal (STG) Pt will be independent in a self care HEP of L ankle strengthening & R shoulder ROM exercises. (10/03/21: HEP: L ankle strengthening PF/DF/IV/EV w/ Lev 2 TBand issued). STG Duration 10/04/21 (10/03/21: MET for L ankle) Licensing Engineer Goal (LTG) Pt will be independent in a self care HEP of shoulder ROM/ strengthening, core strengthening and standing balance ex's. LTG Duration 12/13/21 Assessment Summary Assessment Pt presents with possible R Supraspinatus tear. He has low tolerance for impingement tests and is pain limiting for shoulder AB and inferior glide humeral head at GHJ. Good strength R shoulder ER/IR w/resistance. Core: pt not able to hold a TA with regular breathing, moving in abdomen vs any chest mvmt. Pt not able to feel pressure on his low back for awareness of core stab in supine due to nerve ablation. Pt able to identify loss of core control with hands on ASIS'. Physical Therapy Plan Frequency and Duration Frequency of Treatment 2x/Week Plan of Care Start Date 10/01/21 Plan of Care End Date 12/13/21 Next Visit Focus/Plan Next Note Type Treatment Note Next Visit Plan R shoulder RC strengthening, with caution at Supraspinatus. Gentle STM self care of R Supraspintus/UT. Quick review of L ankle HEP. Gait training and balance training if tolerated. Core strengthening. Modalities of MH/Ice if needed . Although pt reports use of EStim is okay, conservative treatment of no EStim with pt using TNS unit at home.
--- NOTE | 2021-10-10 17:19 | PT.OTN ---
Current Diagnoses Acute pain due to trauma (10/10/21) Other chronic pain (10/10/21) Pain in right shoulder (10/10/21) Pain in left ankle and joints of left foot (10/10/21) Muscle weakness (generalized) (10/10/21) Physical Therapy Treatment Note PT-OP-A Visit Information Start: 09/30/21 17:50 Freq: Status: Active Protocol: Document 10/10/21 15:05 AW (Rec: 10/10/21 17:19 AW [id number]) Out-Patient Physical Therapy Visit Information Visit Information Visit Type Treatment Note Visit Start Time 15:15 Visit Stop Time 15:55 Total Visit Minutes 40 Visit Number 3 Number of BOLT THREADER Visits 0 Evaluation Information Evaluation Date 10/01/21 Precautions Precautions Dorsal root ganglion Spinal Stimulator at L5-S1 on R side and ~T12 level, PTSD, ADHD, Depression, Complex Regional Pain Syndrome/Fibromyalgia, Headaches, Tape allergy, Back and neck pain. PT-OP-B Current Condition Start: 09/30/21 17:50 Freq: Status: Active Protocol: Document 10/01/21 13:49 LRN (Rec: 10/01/21 14:37 LRN [id number]) Current Condition History of Current Condition Onset Date R shldr 05/2021 & L ankle 2013 Current Complaints R shoulder and L ankle pain. History of Current Condition R shoulder pain is worse than the L ankle pain. R shoulder pain onset by doing pushups against the sink and went from 90 deg's shoulder AB to 0 deg 's AB and felt a pop and burning pain at posterior R shoulder deep inside radiated across the chest and down to forearm. Has intermittent tingling in the R hand or with use (holding screwdriver or electric drill). Had broken the Lunate in 2013 (seizure from falling off rope swing 30 ' in air). No imaging to date . States TNS units are alright to use and that he has one that he uses (ok'd as long as he doesn't do it over the DRG site. L Ankle pain from falling off rope swing 30' in air due to seizure and had avulsion fracture of the distal fibula. L Ankle grabs him when moving, with pain on the outside of the ankle. In standing he describes the ankle as gravely. Denies tinging or numbness. Prior Treatments and Tests R shoulder: Needling by Dr. Reinoso, pt feels is not too helpful. Future Testing and Treatments Planned Order in for CT of R shoulder and CT of ankle (not able to do MRI due to implants). Developmental History Developmental History Pt was supposed to have surgery for additional leads to the L side of the dorsal root ganglion at L5-S1 due to Complex Regional Pain Syndrome (CRPS). Has dorsal root ganglion stimulator at L5-S1 on R side for DRG and at mid back (level unknown), ~T12 level. Treatment Goals Patient/Caregiver Goals Decrease R shoulder pain with pt able to tolerate positioning for drawing on a big pad. Decrease L ankle pain in standing and when at rest. Improve R shoulder mobility. Personal Factors Other Personal Factors That May Effect [facility] Therapy/Recovery on waking due to pain. 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 Has Dorsal Root Ganglion Spinal Stimulator implants for past 12 yrs (07/02/2011, 2nd implant 06/2017 due to stimulatro stopped working after fall, no damage to implant or wires at the time of fall) PT-OP-C Subjective Start: 09/30/21 17:50 Freq: Status: Active Protocol: Document 10/10/21 15:05 AW (Rec: 10/10/21 17:19 AW [id number]) OP-PT Subjective Patient Comments Patient Comments Pt states he is most concerned with his shoulder today. He forgot the remote for his DRG stimulators and may not be able to tolerate supine position. PT-OP-D Balance Start: 09/30/21 17:50 Freq: Status: Active Protocol: Document 10/01/21 13:49 LRN (Rec: 10/01/21 14:37 LRN [id number]) Balance Tests Functional Reach Functional Reach Test 0 (Pt not able to hold arm to 90 deg's flex) Functional Reach Impairment Rating 100% Impaired (Score 0) Single Limb Standing Single Limb- Right 17 Single Limb- Left 21 PT-OP-J Posture/Palpation/Skin Start: 09/30/21 17:50 Freq: Status: Active Protocol: Document 10/01/21 13:49 LRN (Rec: 10/01/21 14:37 LRN [id number]) Posture Evaluation Position Standing Head/C-Spine Posture Forward Head Shoulder Posture (L) Elevated Foot Arch (L) Low Arch,(R) Low Arch Palpation Assessment Location R shoulder Palpation Location Superior R shoulder Palpation Findings Tenderness L ankle Palpation Location Lateral L ankle Palpation Findings Tenderness PT-OP-K Range of Motion Start: 09/30/21 17:50 Freq: Status: Active Protocol: Document 10/01/21 13:49 LRN (Rec: 10/01/21 14:37 LRN [id number]) Shoulder Goniometric Range of Motion Shoulder Right Active Shoulder ROM WFL No Testing Position Sitting Flexion 80 Extension 22 Abduction 62 Horizontal Adduction 52 External Rotation at 0 degrees Abduction 45 Internal Rotation Behind Back (text) Hand on buttock Comments Numbness reaching into AB Lacks 15 deg's horiz AB Left Active Shoulder ROM WFL Yes Testing Position Sitting Flexion 180 Extension 60 Abduction 180 Horizontal Adduction 78 External Rotation at 0 degrees Abduction 50 Internal Rotation Behind Back (text) T6 Shoulder ROM Limitations Shoulder ROM Limitations Pain PT-OP-L Special Tests Start: 09/30/21 17:50 Freq: Status: Active Protocol: Document 10/03/21 15:27 LRN (Rec: 10/03/21 16:26 LRN [id number]) Special Tests Shoulder Special Tests Empty Can Test Results + R shoulder Comments Painful in positioning Belly Press Test Results - R shoulder Comments Good tolerance Anterior Draw Test Results - R shoulder [place] Impingement Test Results + R shoulder Comments Very painful Elevation Impingement Test Results + R shoulder Comments Pt gets pain at R Supraspinatus region and inferior shoulder joint. PT-OP-M Strength Start: 09/30/21 17:50 Freq: Status: Active Protocol: Document 10/03/21 15:27 LRN (Rec: 10/03/21 16:26 LRN [id number]) Shoulder Strength Shoulder Manual Muscle Testing Right Flexion 2 Poor Extension 3- Fair- Abduction (C5) 2- Poor- Adduction 4 Good External Rotation 5 Normal Internal Rotation 5 Normal Horizontal Abduction 2 Poor Horizontal Adduction 2 Poor PT-OP-Q Treatments Start: 09/30/21 17:50 Freq: Status: Active Protocol: Document 10/10/21 15:05 AW (Rec: 10/10/21 17:19 AW [id number]) Therapeutic Exercises Supine Exercises TA tighening Supine Exercise Name TA tightening Reps/Minutes 3' Comments Extra time taken for cuing to pull belly button to spine Sidelying Exercises shoulder ER Sidelying Exercise Name shoulder ER Comments HEP Sitting Exercises shoulder isometrics Sitting Exercise Name shoulder isometrics - ER, IR, flexion Side right Resistance used opposite hand Comments HEP Standing Exercises Ankle DF Standing Exercise Name Ankle DF Side bilateral Equipment Used Wall Reps/Minutes 10x Ankle PF Standing Exercise Name Ankle PF Side bilateral Equipment Used Wall Reps/Minutes 10x Manual Therapy Treatment Soft Tissue Mobilization R UT, pec, biceps Body Location R UT, pec, biceps Mobilization Type Rolling,Strumming Intensity/Depth Moderate Body Position Hooklying Joint Mobilizations scapulothoracic Joint scapulothoracic Direction rotation Body Position Sidelying Self-Care/Home Management Treatment Education Patient Education Home Exercise Program Activities Self-Care/Home Management Activities Added SL ER and shoulder rotation isometrics for home. PT-OP-T Assessment and Plan Start: 09/30/21 17:50 Freq: Status: Active Protocol: Document 10/10/21 15:05 AW (Rec: 10/10/21 17:19 AW [id number]) Physical Therapy Assessment Impairments Impairments Activity Tolerance,Balance, Pain,Posture,ROM,Soft Tissue Mobility,Strength Goals Four Impairment Decreased R shoulder mobility. Short Term Goal (STG) Pt will be able reach above shoulder height with tolerable pain. STG Duration 10/31/21 [facility] Goal (LTG) Improve R shoulder mobility to improved function per UE QuickDASH score. LTG Duration 12/03/21 Three Impairment Pain in L ankle Impairment Pain standing is 5-6/10 Pain laying down is 4-5/10 Director Of Managed Care Goal (LTG) Decrease L ankle pain in standing and when at rest ( lying down 50%). LTG Duration 12/03/21 Two Impairment Pain in R shoulder Impairment Pain at rest is 5/10 Pain with movement is 7/10 Director Of Managed Care Goal (LTG) Decrease R shoulder pain with pt able to tolerate positioning for drawing on a big pad (isaac R arm in AB). LTG Duration 12/13/21 One Impairment Lacks appropriate self care HEP Short Term Goal (STG) Pt will be independent in a self care HEP of L ankle strengthening & R shoulder ROM exercises. (10/03/21: HEP: L ankle strengthening PF/DF/IV/EV w/ Lev 2 TBand issued). STG Duration 10/04/21 (10/03/21: MET for L ankle) [facility] Goal (LTG) Pt will be independent in a self care HEP of shoulder ROM/ strengthening, core strengthening and standing balance ex's. LTG Duration 12/13/21 Assessment Summary Assessment Pt does not tolerate supine position today as he forgot the remote for his DRG stim. Sidelying was better and pt was able to perform R shoulder ER in sidelying. All abduction was painful. In sitting, pt was able to perform isometric strength exercise for ER/IR and flexion . Physical Therapy Plan Frequency and Duration Frequency of Treatment 2x/Week Plan of Care Start Date 10/01/21 Plan of Care End Date 12/13/21 Therapeutic Interventions Therapeutic Interventions Balance Training,Gait Training ,Home Exercise Program,Joint Mobilizations,Manual Therapy, Neuromuscular Re-education, Patient/Caregiver Education, Self-Care/Home Management,Soft Tissue Mobilization, Therapeutic Exercises Modalities Cold Pack/Ice Massage,Hot Packs Next Visit Focus/Plan Next Note Type Treatment Note Next Visit Plan R shoulder RC strengthening, with caution at Supraspinatus. Gentle STM self care of R Supraspintus/UT. Quick review of L ankle HEP. Gait training and balance training if tolerated. Core strengthening. Modalities of MH/Ice if needed . Although pt reports use of EStim is okay, conservative treatment of no EStim with pt using TNS unit at home.
--- NOTE | 2021-10-17 17:22 | PT.OTN ---
Current Diagnoses Acute pain due to trauma (10/17/21) Other chronic pain (10/17/21) Pain in right shoulder (10/17/21) Pain in left ankle and joints of left foot (10/17/21) Muscle weakness (generalized) (10/17/21) Physical Therapy Treatment Note PT-OP-A Visit Information Start: 09/30/21 17:50 Freq: Status: Active Protocol: Document 10/17/21 08:47 LRN (Rec: 10/17/21 10:33 LRN [id number]) Out-Patient Physical Therapy Visit Information Visit Information Visit Type Treatment Note Visit Start Time 09:48 Visit Stop Time 10:27 Total Visit Minutes 39 Visit Number 07/16 Evaluation Information Evaluation Date 10/01/21 Precautions Precautions Dorsal root ganglion Spinal Stimulator at L5-S1 on R side and ~T12 level, PTSD, ADHD, Depression, Complex Regional Pain Syndrome/Fibromyalgia, Headaches, Tape allergy, Back and neck pain. PT-OP-B Current Condition Start: 09/30/21 17:50 Freq: Status: Active Protocol: Document 10/01/21 13:49 LRN (Rec: 10/01/21 14:37 LRN [id number]) Current Condition History of Current Condition Onset Date R shldr 05/2021 & L ankle 2013 Current Complaints R shoulder and L ankle pain. History of Current Condition R shoulder pain is worse than the L ankle pain. R shoulder pain onset by doing pushups against the sink and went from 90 deg's shoulder AB to 0 deg 's AB and felt a pop and burning pain at posterior R shoulder deep inside radiated across the chest and down to forearm. Has intermittent tingling in the R hand or with use (holding screwdriver or electric drill). Had broken the Lunate in 2013 (seizure from falling off rope swing 30 ' in air). No imaging to date . States TNS units are alright to use and that he has one that he uses (ok'd as long as he doesn't do it over the DRG site. L Ankle pain from falling off rope swing 30' in air due to seizure and had avulsion fracture of the distal fibula. L Ankle grabs him when moving, with pain on the outside of the ankle. In standing he describes the ankle as gravely. Denies tinging or numbness. Prior Treatments and Tests R shoulder: Needling by Dr. Reinoso, pt feels is not too helpful. Future Testing and Treatments Planned Order in for CT of R shoulder and CT of ankle (not able to do MRI due to implants). Developmental History Developmental History Pt was supposed to have surgery for additional leads to the L side of the dorsal root ganglion at L5-S1 due to Complex Regional Pain Syndrome (CRPS). Has dorsal root ganglion stimulator at L5-S1 on R side for DRG and at mid back (level unknown), ~T12 level. Treatment Goals Patient/Caregiver Goals Decrease R shoulder pain with pt able to tolerate positioning for drawing on a big pad. Decrease L ankle pain in standing and when at rest. Improve R shoulder mobility. Personal Factors Other Personal Factors That May Effect [facility] Therapy/Recovery on waking due to pain. 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 Has Dorsal Root Ganglion Spinal Stimulator implants for past 12 yrs (07/02/2011, 2nd implant 06/2017 due to stimulatro stopped working after fall, no damage to implant or wires at the time of fall) PT-OP-C Subjective Start: 09/30/21 17:50 Freq: Status: Active Protocol: Document 10/17/21 08:47 LRN (Rec: 10/17/21 10:33 LRN [id number]) OP-PT Subjective Patient Comments Patient Comments Was sick from pain for 3 days after last session due to nausea. Thinks it was because the ex's were too much. LE's makes it worse than UE's. Gastroc problems may be aggrevating the stomach. Having R shoulder and L ankle x-rays after therapy today. PT-OP-D Balance Start: 09/30/21 17:50 Freq: Status: Active Protocol: Document 10/01/21 13:49 LRN (Rec: 10/01/21 14:37 LRN [id number]) Balance Tests Functional Reach Functional Reach Test 0 (Pt not able to hold arm to 90 deg's flex) Functional Reach Impairment Rating 100% Impaired (Score 0) Single Limb Standing Single Limb- Right 17 Single Limb- Left 21 PT-OP-J Posture/Palpation/Skin Start: 09/30/21 17:50 Freq: Status: Active Protocol: Document 10/01/21 13:49 LRN (Rec: 10/01/21 14:37 LRN [id number]) Posture Evaluation Position Standing Head/C-Spine Posture Forward Head Shoulder Posture (L) Elevated Foot Arch (L) Low Arch,(R) Low Arch Palpation Assessment Location R shoulder Palpation Location Superior R shoulder Palpation Findings Tenderness L ankle Palpation Location Lateral L ankle Palpation Findings Tenderness PT-OP-K Range of Motion Start: 09/30/21 17:50 Freq: Status: Active Protocol: Document 10/01/21 13:49 LRN (Rec: 10/01/21 14:37 LRN [id number]) Shoulder Goniometric Range of Motion Shoulder Right Active Shoulder ROM WFL No Testing Position Sitting Flexion 80 Extension 22 Abduction 62 Horizontal Adduction 52 External Rotation at 0 degrees Abduction 45 Internal Rotation Behind Back (text) Hand on buttock Comments Numbness reaching into AB Lacks 15 deg's horiz AB Left Active Shoulder ROM WFL Yes Testing Position Sitting Flexion 180 Extension 60 Abduction 180 Horizontal Adduction 78 External Rotation at 0 degrees Abduction 50 Internal Rotation Behind Back (text) T6 Shoulder ROM Limitations Shoulder ROM Limitations Pain PT-OP-L Special Tests Start: 09/30/21 17:50 Freq: Status: Active Protocol: Document 10/03/21 15:27 LRN (Rec: 10/03/21 16:26 LRN [id number]) Special Tests Shoulder Special Tests Empty Can Test Results + R shoulder Comments Painful in positioning Belly Press Test Results - R shoulder Comments Good tolerance Anterior Draw Test Results - R shoulder [place] Impingement Test Results + R shoulder Comments Very painful Elevation Impingement Test Results + R shoulder Comments Pt gets pain at R Supraspinatus region and inferior shoulder joint. PT-OP-M Strength Start: 09/30/21 17:50 Freq: Status: Active Protocol: Document 10/03/21 15:27 LRN (Rec: 10/03/21 16:26 LRN [id number]) Shoulder Strength Shoulder Manual Muscle Testing Right Flexion 2 Poor Extension 3- Fair- Abduction (C5) 2- Poor- Adduction 4 Good External Rotation 5 Normal Internal Rotation 5 Normal Horizontal Abduction 2 Poor Horizontal Adduction 2 Poor PT-OP-Q Treatments Start: 09/30/21 17:50 Freq: Status: Active Protocol: Document 10/17/21 08:47 LRN (Rec: 10/17/21 10:33 LRN [id number]) Therapeutic Exercises Sitting Exercises R shoulder ER Sitting Exercise Name ER strengthening Side right Equipment Used Lev 2 TB at level of comfort Reps/Minutes 6x R shoulder Flex Sitting Exercise Name Shoulder active flex with arm resting on plinth Side right Equipment Used Plinth, towel under forearm Reps/Minutes 8x Comments Pt moves very slowly shoulder isometrics Sitting Exercise Name shoulder isometrics - ER, flexion Side right Resistance used opposite hand Comments Modified due to low toleranc L ankle TB ex Sitting Exercise Name L ankle strengthening (DF, EV) Side left Equipment Used Lev 2 Tband Reps/Minutes 20x EV, 10x DF/PF, Comments Extra time taken to deter max isaac resistance & best positioning. Standing Exercises R Biceps stretch Standing Exercise Name Shoulder in 20-25 deg flex for R elbow passive ext stretch Side right Reps/Minutes 2' Comments Extra time to determine max tolerated passive stretch position. Ankle DF Standing Exercise Name Ankle DF Side bilateral Equipment Used Wall Reps/Minutes 2x Ankle PF Standing Exercise Name Ankle PF Side bilateral Equipment Used Wall Reps/Minutes 2x Manual Therapy Treatment Soft Tissue Mobilization R UT, pec, biceps Body Location R UT, pec, biceps (side, sit) Mobilization Type Rolling,Strumming Intensity/Depth Moderate Body Position Hooklying Comments Pt R UT trP not well released, Pecs responded well to TrP release, but reportedly caused UT tightening. R biceps STM in sidelie caused tingling, in sitting tightness noted. Self-Care/Home Management Treatment Education Patient Education Pain Management Other Education Discussed with pt need to balance ex's with overdoing to prevent nausea. Activities Self-Care/Home Management Activities I/S pt to increase use of ice to R anterior shoulder and biceps for pain managment PT-OP-T Assessment and Plan Start: 09/30/21 17:50 Freq: Status: Active Protocol: Document 10/17/21 08:47 LRN (Rec: 10/17/21 10:33 LRN [id number]) Physical Therapy Assessment Goals Four Impairment Decreased R shoulder mobility. Short Term Goal (STG) Pt will be able reach above shoulder height with tolerable pain. STG Duration 10/31/21 [employer] Goal (LTG) Improve R shoulder mobility to improved function per UE QuickDASH score. LTG Duration 12/03/21 Three Impairment Pain in L ankle Impairment Pain standing is 5-6/10 Pain laying down is 4-5/10 Nursing Home Goal (LTG) Decrease L ankle pain in standing and when at rest ( lying down 50%). LTG Duration 12/03/21 Two Impairment Pain in R shoulder Impairment Pain at rest is 5/10 Pain with movement is 7/10 [employer] Goal (LTG) Decrease R shoulder pain with pt able to tolerate positioning for drawing on a big pad (isaac R arm in AB). LTG Duration 12/13/21 One Impairment Lacks appropriate self care HEP Short Term Goal (STG) Pt will be independent in a self care HEP of L ankle strengthening & R shoulder ROM exercises. (10/03/21: HEP: L ankle strengthening PF/DF/IV/EV w/ Lev 2 TBand issued). (10/17/21: I/S pt in FF R shoulder sliding arm fwd on plinth/table vs ajay, active shoulder ER/IR) STG Duration 10/04/21 (10/03/21: MET for L ankle) Nursing Home Goal (LTG) Pt will be independent in a self care HEP of shoulder ROM/ strengthening, core strengthening and standing balance ex's. (10/17/21: I/S pt in FF R shoulder sliding arm fwd on plinth/table vs ajay, active shoulder ER/IR) LTG Duration 12/13/21 (10/17/21: Progressing I/S in HEP) Assessment Summary Assessment Pt tracking his response to ex per pain rating and is quite focused on his pain. Pt is noting pain intensity with nausea onset with ankle PF/DF and possibly R shoulder ex ( ajay reaching across body). Pt may have excessive scarring at L ankle due to evulsion fracture. Poor tolerance to STM of R biceps, pt needs to self stretch more. Physical Therapy Plan Frequency and Duration Frequency of Treatment 2x/Week Plan of Care Start Date 10/01/21 Plan of Care End Date 12/13/21 Next Visit Focus/Plan Next Note Type Treatment Note Next Visit Plan Assess response to treatment and modify as needed. Issue HEP for active R shoulder RC ex's. R shoulder RC strengthening, with caution at Supraspinatus (dx tear). Gentle STM self care of R Supraspintus/UT. Quick review of L ankle HEP. Gait training and balance training if tolerated. Core strengthening. Modalities of MH/Ice if needed . Although pt reports use of EStim is okay, conservative treatment of no EStim with pt using TNS unit at home.
--- NOTE | 2021-10-28 12:34 | PT.OTN ---
Current Diagnoses Acute pain due to trauma (10/28/21) Other chronic pain (10/28/21) Pain in right shoulder (10/28/21) Pain in left ankle and joints of left foot (10/28/21) Muscle weakness (generalized) (10/28/21) Physical Therapy Treatment Note PT-OP-A Visit Information Start: 09/30/21 17:50 Freq: Status: Active Protocol: Document 10/28/21 11:18 LRN (Rec: 10/28/21 12:33 LRN [id number]) Out-Patient Physical Therapy Visit Information Visit Information Visit Type Treatment Note Visit Start Time 11:18 Visit Stop Time 12:10 Total Visit Minutes 52 Visit Number 08/15 Evaluation Information Evaluation Date 10/01/21 Precautions Precautions Dorsal root ganglion Spinal Stimulator at L5-S1 on R side and ~T12 level, PTSD, ADHD, Depression, Complex Regional Pain Syndrome/Fibromyalgia, Headaches, Tape allergy, Back and neck pain. PT-OP-B Current Condition Start: 09/30/21 17:50 Freq: Status: Active Protocol: Document 10/01/21 13:49 LRN (Rec: 10/01/21 14:37 LRN [id number]) Current Condition History of Current Condition Onset Date R shldr 05/2021 & L ankle 2013 Current Complaints R shoulder and L ankle pain. History of Current Condition R shoulder pain is worse than the L ankle pain. R shoulder pain onset by doing pushups against the sink and went from 90 deg's shoulder AB to 0 deg 's AB and felt a pop and burning pain at posterior R shoulder deep inside radiated across the chest and down to forearm. Has intermittent tingling in the R hand or with use (holding screwdriver or electric drill). Had broken the Lunate in 2013 (seizure from falling off rope swing 30 ' in air). No imaging to date . States TNS units are alright to use and that he has one that he uses (ok'd as long as he doesn't do it over the DRG site. L Ankle pain from falling off rope swing 30' in air due to seizure and had avulsion fracture of the distal fibula. L Ankle grabs him when moving, with pain on the outside of the ankle. In standing he describes the ankle as gravely. Denies tinging or numbness. Prior Treatments and Tests R shoulder: Needling by Dr. Reinoso, pt feels is not too helpful. Future Testing and Treatments Planned Order in for CT of R shoulder and CT of ankle (not able to do MRI due to implants). Developmental History Developmental History Pt was supposed to have surgery for additional leads to the L side of the dorsal root ganglion at L5-S1 due to Complex Regional Pain Syndrome (CRPS). Has dorsal root ganglion stimulator at L5-S1 on R side for DRG and at mid back (level unknown), ~T12 level. Treatment Goals Patient/Caregiver Goals Decrease R shoulder pain with pt able to tolerate positioning for drawing on a big pad. Decrease L ankle pain in standing and when at rest. Improve R shoulder mobility. Personal Factors Other Personal Factors That May Effect [facility] Therapy/Recovery on waking due to pain. 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 Has Dorsal Root Ganglion Spinal Stimulator implants for past 12 yrs (07/02/2011, 2nd implant 06/2017 due to stimulatro stopped working after fall, no damage to implant or wires at the time of fall) PT-OP-C Subjective Start: 09/30/21 17:50 Freq: Status: Active Protocol: Document 10/28/21 11:18 LRN (Rec: 10/28/21 12:33 LRN [id number]) OP-PT Subjective Patient Comments Patient Comments General pain has decreased, but some movements (reaching out to front and backwards) triggers the pain. Pain is down to 3-4/10 (irritating) with ex pain is 5-5.5/10), but not as bad as initially and taking Zofran. Took some this morning to prevent nausea from driving. Feels he has more ROM at his shoulders. PT-OP-D Balance Start: 09/30/21 17:50 Freq: Status: Active Protocol: Document 10/01/21 13:49 LRN (Rec: 10/01/21 14:37 LRN [id number]) Balance Tests Functional Reach Functional Reach Test 0 (Pt not able to hold arm to 90 deg's flex) Functional Reach Impairment Rating 100% Impaired (Score 0) Single Limb Standing Single Limb- Right 17 Single Limb- Left 21 PT-OP-J Posture/Palpation/Skin Start: 09/30/21 17:50 Freq: Status: Active Protocol: Document 10/01/21 13:49 LRN (Rec: 10/01/21 14:37 LRN [id number]) Posture Evaluation Position Standing Head/C-Spine Posture Forward Head Shoulder Posture (L) Elevated Foot Arch (L) Low Arch,(R) Low Arch Palpation Assessment Location R shoulder Palpation Location Superior R shoulder Palpation Findings Tenderness L ankle Palpation Location Lateral L ankle Palpation Findings Tenderness PT-OP-K Range of Motion Start: 09/30/21 17:50 Freq: Status: Active Protocol: Document 10/28/21 11:18 LRN (Rec: 10/28/21 12:33 LRN [id number]) Shoulder Goniometric Range of Motion Shoulder Right Active Shoulder ROM WFL No Testing Position Sitting Flexion 100 Extension 43 Abduction 125 Horizontal Abduction 100 Horizontal Adduction 110 External Rotation at 0 degrees Abduction 70 Internal Rotation Behind Back (text) L5 PT-OP-L Special Tests Start: 09/30/21 17:50 Freq: Status: Active Protocol: Document 10/03/21 15:27 LRN (Rec: 10/03/21 16:26 LRN [id number]) Special Tests Shoulder Special Tests Empty Can Test Results + R shoulder Comments Painful in positioning Belly Press Test Results - R shoulder Comments Good tolerance Anterior Draw Test Results - R shoulder [place] Impingement Test Results + R shoulder Comments Very painful Elevation Impingement Test Results + R shoulder Comments Pt gets pain at R Supraspinatus region and inferior shoulder joint. PT-OP-M Strength Start: 09/30/21 17:50 Freq: Status: Active Protocol: Document 10/03/21 15:27 LRN (Rec: 10/03/21 16:26 LRN [id number]) Shoulder Strength Shoulder Manual Muscle Testing Right Flexion 2 Poor Extension 3- Fair- Abduction (C5) 2- Poor- Adduction 4 Good External Rotation 5 Normal Internal Rotation 5 Normal Horizontal Abduction 2 Poor Horizontal Adduction 2 Poor PT-OP-Q Treatments Start: 09/30/21 17:50 Freq: Status: Active Protocol: Document 10/28/21 11:18 LRN (Rec: 10/28/21 12:33 LRN [id number]) Therapeutic Exercises Sitting Exercises R shoulder AROM Sitting Exercise Name AROM flex, ext, AB, ER Side right Comments ROM taken R shoulder Ext Sitting Exercise Name Active shoulder Ext f/b scapular pinch Side bilateral Reps/Minutes 10x R shoulder AB Sitting Exercise Name Shoulder active AB with arm resting on rolling table, elbow hgt Side right Reps/Minutes 10x R shoulder ER Sitting Exercise Name ER strengthening AROM Side right Equipment Used AROM Reps/Minutes 20x R shoulder Flex Sitting Exercise Name Shoulder active flex with arm resting on rolling table, elbow hgt Side right Reps/Minutes 10x (10x also with L side to give R side a rest) Comments Pt moves very slowly shoulder isometrics Sitting Exercise Name shoulder isometrics - ER, flexion Side right Resistance used opposite hand Reps/Minutes 10x Comments Modified resistance due to low tolerance L ankle TB ex Sitting Exercise Name L ankle strengthening (DF, EV) Side left Equipment Used Lev 2 Tband, towel roll btn knees Reps/Minutes 20x EV, 18x IV, No resistance for DF/PF-20x Comments Extra time for set up change with ankle EV with towel roll btn knees. Self-Care/Home Management Treatment Education Patient Education Home Exercise Program Activities Self-Care/Home Management Activities Issued & reviewed HEP: Standing ankle DF/PF as tolerated with I/S to continue sitting ex until able to do 10x3 reps, then pt can switch to standing ex if able to perform 8 standing reps. Issued & reviewed HEP: Passive shoulder flex and AB (sliding arm on table, active: ER/IR/ extension. PT-OP-T Assessment and Plan Start: 09/30/21 17:50 Freq: Status: Active Protocol: Document 10/28/21 11:18 LRN (Rec: 10/28/21 12:33 LRN [id number]) Physical Therapy Assessment Goals Four Impairment Decreased R shoulder mobility. Short Term Goal (STG) Pt will be able reach above shoulder height with tolerable pain. (10/28/21: R shoulder active: flex 100 deg's, AB 125 deg's) STG Duration 10/31/21 (10/28/21: MET GOAL) Assisted Goal (LTG) Improve R shoulder mobility to improved function per UE QuickDASH score. LTG Duration 12/03/21 Three Impairment Pain in L ankle Impairment Pain standing is 5-6/10 Pain laying down is 4-5/10 Assisted Goal (LTG) Decrease L ankle pain in standing and when at rest ( lying down 50%). (10/28/21: Pain rated 3-4/10) LTG Duration 12/03/21 Two Impairment Pain in R shoulder Impairment Pain at rest is 5/10 Pain with movement is 7/10 Assistant Professor Of Art Goal (LTG) Decrease R shoulder pain with pt able to tolerate positioning for drawing on a big pad (isaac R arm in AB). (10/28/21: Pt has not tried) LTG Duration 12/13/21 One Impairment Lacks appropriate self care HEP Short Term Goal (STG) Pt will be independent in a self care HEP of L ankle strengthening & R shoulder ROM exercises. (10/03/21: HEP: L ankle strengthening PF/DF/IV/EV w/ Lev 2 TBand issued). (10/17/21: I/S pt in FF R shoulder sliding arm fwd on plinth/table vs ajay, active shoulder ER/IR) (10/28/21: HEP issued: Sitting: PROM shoulder flex, AB & active shoulder ext, ER/ IR. Previously issued : HEP issued for sitting ajay shldr ER/IR and sidelie ER) STG Duration 10/04/21 (10/28/21: L ankle-MET, R shldr progressing) Assistant Professor Of Art Goal (LTG) Pt will be independent in a self care HEP of shoulder ROM/ strengthening, core strengthening and standing balance ex's. (10/17/21: I/S pt in FF R shoulder sliding arm fwd on plinth/table vs ajay, active shoulder ER/IR) LTG Duration 12/13/21 (10/17/21: Progressing I/S in HEP) Progress Towards Goals Progress Comments Improved R shoulder AROM. Assessment Summary Assessment Pt was fairly nauseated after last treatment but found marijuana to be helpful with his symptoms. Pt not able to lie down for ex's. He continues to have to move slowly and cautiously to avoid pain that might elicit onset of nausea. Pt demonstrates much improved R shoulder AROM and he tolerated new ex's very well without complaints at time of exercise. Will need to monitor and adjust ex's as needed per post-exercise symptoms. Physical Therapy Plan Frequency and Duration Frequency of Treatment 2x/Week Plan of Care Start Date 10/01/21 Plan of Care End Date 12/13/21 Next Visit Focus/Plan Next Note Type Treatment Note Next Visit Plan Assess response to ex and adjust as needed. Issue HEP for active R shoulder RC ex's of IR behind back and if tolerated reaching behind head . R shoulder RC strengthening, with caution at Supraspinatus (dx tear). Gentle STM self care of R Supraspintus/UT. Gait training and balance training if tolerated. Core strengthening. Modalities of MH/Ice if needed . Although pt reports use of No EStim for conservative treatment due to pt implanted stimulator, note: pt uses TNS unit at home.
--- NOTE | 2021-11-06 13:05 | PT.OTN ---
Current Diagnoses Acute pain due to trauma (11/06/21) Other chronic pain (11/06/21) Pain in right shoulder (11/06/21) Pain in left ankle and joints of left foot (11/06/21) Muscle weakness (generalized) (11/06/21) Physical Therapy Treatment Note PT-OP-A Visit Information Start: 09/30/21 17:50 Freq: Status: Active Protocol: Document 11/06/21 12:16 SP (Rec: 11/06/21 13:05 SP [id number]) Out-Patient Physical Therapy Visit Information Visit Information Visit Type Treatment Note Visit Note Pt reported hurt his R shld couple nights ago trying to move covers off R side due to wrapped around him in sleep felt restricting and moved to quickly into R shld ER causing increased pain. He is unable to reach out ABD, FF <45 deg. He has been using CP and not attempted to perform his exercises today. Visit Start Time 12:16 Visit Stop Time 13:05 Total Visit Minutes 49 Visit Number 09/15 Number of PERSONNEL WORKER Visits 1 Evaluation Information Evaluation Date 10/01/21 Precautions Precautions Dorsal root ganglion Spinal Stimulator at L5-S1 on R side and ~T12 level, PTSD, ADHD, Depression, Complex Regional Pain Syndrome/Fibromyalgia, Headaches, Tape allergy, Back and neck pain. PT-OP-B Current Condition Start: 09/30/21 17:50 Freq: Status: Active Protocol: Document 10/01/21 13:49 LRN (Rec: 10/01/21 14:37 LRN [id number]) Current Condition History of Current Condition Onset Date R shldr 05/2021 & L ankle 2013 Current Complaints R shoulder and L ankle pain. History of Current Condition R shoulder pain is worse than the L ankle pain. R shoulder pain onset by doing pushups against the sink and went from 90 deg's shoulder AB to 0 deg 's AB and felt a pop and burning pain at posterior R shoulder deep inside radiated across the chest and down to forearm. Has intermittent tingling in the R hand or with use (holding screwdriver or electric drill). Had broken the Lunate in 2013 (seizure from falling off rope swing 30 ' in air). No imaging to date . States TNS units are alright to use and that he has one that he uses (ok'd as long as he doesn't do it over the DRG site. L Ankle pain from falling off rope swing 30' in air due to seizure and had avulsion fracture of the distal fibula. L Ankle grabs him when moving, with pain on the outside of the ankle. In standing he describes the ankle as gravely. Denies tinging or numbness. Prior Treatments and Tests R shoulder: Needling by Dr. Reinoso, pt feels is not too helpful. Future Testing and Treatments Planned Order in for CT of R shoulder and CT of ankle (not able to do MRI due to implants). Developmental History Developmental History Pt was supposed to have surgery for additional leads to the L side of the dorsal root ganglion at L5-S1 due to Complex Regional Pain Syndrome (CRPS). Has dorsal root ganglion stimulator at L5-S1 on R side for DRG and at mid back (level unknown), ~T12 level. Treatment Goals Patient/Caregiver Goals Decrease R shoulder pain with pt able to tolerate positioning for drawing on a big pad. Decrease L ankle pain in standing and when at rest. Improve R shoulder mobility. Personal Factors Other Personal Factors That May Effect [facility] [facility] Therapy/Recovery on waking due to pain. 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 Has Dorsal Root Ganglion Spinal Stimulator implants for past 12 yrs (07/02/2011, 2nd implant 06/2017 due to stimulatro stopped working after fall, no damage to implant or wires at the time of fall) PT-OP-C Subjective Start: 09/30/21 17:50 Freq: Status: Active Protocol: Document 10/28/21 11:18 LRN (Rec: 10/28/21 12:33 LRN [id number]) OP-PT Subjective Patient Comments Patient Comments General pain has decreased, but some movements (reaching out to front and backwards) triggers the pain. Pain is down to 3-4/10 (irritating) with ex pain is 5-5.5/10), but not as bad as initially and taking Zofran. Took some this morning to prevent nausea from driving. Feels he has more ROM at his shoulders. PT-OP-D Balance Start: 09/30/21 17:50 Freq: Status: Active Protocol: Document 10/01/21 13:49 LRN (Rec: 10/01/21 14:37 LRN [id number]) Balance Tests Functional Reach Functional Reach Test 0 (Pt not able to hold arm to 90 deg's flex) Functional Reach Impairment Rating 100% Impaired (Score 0) Single Limb Standing Single Limb- Right 17 Single Limb- Left 21 PT-OP-J Posture/Palpation/Skin Start: 09/30/21 17:50 Freq: Status: Active Protocol: Document 10/01/21 13:49 LRN (Rec: 10/01/21 14:37 LRN [id number]) Posture Evaluation Position Standing Head/C-Spine Posture Forward Head Shoulder Posture (L) Elevated Foot Arch (L) Low Arch,(R) Low Arch Palpation Assessment Location R shoulder Palpation Location Superior R shoulder Palpation Findings Tenderness L ankle Palpation Location Lateral L ankle Palpation Findings Tenderness PT-OP-K Range of Motion Start: 09/30/21 17:50 Freq: Status: Active Protocol: Document 10/28/21 11:18 LRN (Rec: 10/28/21 12:33 LRN [id number]) Shoulder Goniometric Range of Motion Shoulder Right Active Shoulder ROM WFL No Testing Position Sitting Flexion 100 Extension 43 Abduction 125 Horizontal Abduction 100 Horizontal Adduction 110 External Rotation at 0 degrees Abduction 70 Internal Rotation Behind Back (text) L5 PT-OP-L Special Tests Start: 09/30/21 17:50 Freq: Status: Active Protocol: Document 10/03/21 15:27 LRN (Rec: 10/03/21 16:26 LRN [id number]) Special Tests Shoulder Special Tests Empty Can Test Results + R shoulder Comments Painful in positioning Belly Press Test Results - R shoulder Comments Good tolerance Anterior Draw Test Results - R shoulder [place] Impingement Test Results + R shoulder Comments Very painful Elevation Impingement Test Results + R shoulder Comments Pt gets pain at R Supraspinatus region and inferior shoulder joint. PT-OP-M Strength Start: 09/30/21 17:50 Freq: Status: Active Protocol: Document 10/03/21 15:27 LRN (Rec: 10/03/21 16:26 LRN [id number]) Shoulder Strength Shoulder Manual Muscle Testing Right Flexion 2 Poor Extension 3- Fair- Abduction (C5) 2- Poor- Adduction 4 Good External Rotation 5 Normal Internal Rotation 5 Normal Horizontal Abduction 2 Poor Horizontal Adduction 2 Poor PT-OP-Q Treatments Start: 09/30/21 17:50 Freq: Status: Active Protocol: Document 11/06/21 12:16 SP (Rec: 11/06/21 13:05 SP [id number]) Therapeutic Exercises Sitting Exercises radial nerve glide Sitting Exercise Name added to HEP Side right Reps/Minutes x5 reps Comments cued slow movement not excessive tension, painfree R shoulder Ext Sitting Exercise Name Active shoulder Ext f/b scapular pinch Side bilateral Reps/Minutes 10x Comments good feedback respond R shoulder AB Sitting Exercise Name Shoulder active AB with arm resting on rolling table, elbow hgt Side right Equipment Used arms in pillow case Reps/Minutes 10x Comments cued slow R shoulder ER Sitting Exercise Name ER strengthening AROM Side right Resistance AROM Equipment Used towel under arm Reps/Minutes 20x R shoulder Flex Sitting Exercise Name Shoulder active flex with arm resting on rolling table, elbow hgt Side right Equipment Used table slide Reps/Minutes 10x (10x also with L side to give R side a rest) Comments Pt moves very slowly 120 deg shoulder isometrics Sitting Exercise Name shoulder isometrics - ER, flexion Side right Resistance used opposite hand Reps/Minutes 10x Comments gentle resistance L ankle TB ex Sitting Exercise Name L ankle strengthening (DF, EV) Side left Equipment Used Lev 2 Tband, towel roll btn knees Reps/Minutes 20x EV- muscle work burn, 20x IV Comments good set up/form Standing Exercises wall walking Standing Exercise Name added end last tx, discussed but not reviewed- review next tx. Side right R Biceps stretch Standing Exercise Name Shoulder in 20-25 deg flex for R elbow passive ext stretch Side right Resistance sitting, UE contact table. Reps/Minutes 2' Comments Extra time to determine max tolerated passive stretch position. Manual Therapy Treatment Soft Tissue Mobilization R UT, pec, biceps Body Location R UT, pec, biceps, infraspinatus Mobilization Type Rolling,Strumming Intensity/Depth Moderate Body Position Sidelying Comments Pt R UT good releases, sensitive infraspinatus and R biceps STM in sidelie caused tingling, in sitting tightness noted. Joint Mobilizations scapulothoracic Joint R scapulothoracic Direction retraction/depression/ downward rotation Grade II Body Position Sidelying Reps/Duration 1 min Comments good feedback response Self-Care/Home Management Treatment Education Patient Education Home Exercise Program,Pain Management,Posture Other Education Initiated radial n. glide R UE seated with fair response discussed painfree range to decrease tingling into 1st-2nd MTP. PT-OP-T Assessment and Plan Start: 09/30/21 17:50 Freq: Status: Active Protocol: Document 11/06/21 12:16 SP (Rec: 11/06/21 13:05 SP [id number]) Physical Therapy Assessment Goals Four Impairment Decreased R shoulder mobility. Short Term Goal (STG) Pt will be able reach above shoulder height with tolerable pain. (10/28/21: R shoulder active: flex 100 deg's, AB 125 deg's) STG Duration 10/31/21 (10/28/21: MET GOAL) Sat Tutor Goal (LTG) Improve R shoulder mobility to improved function per UE QuickDASH score. LTG Duration 12/03/21 Three Impairment Pain in L ankle Impairment Pain standing is 5-6/10 Pain laying down is 4-5/10 Sat Tutor Goal (LTG) Decrease L ankle pain in standing and when at rest ( lying down 50%). (10/28/21: Pain rated 3-4/10) LTG Duration 12/03/21 Two Impairment Pain in R shoulder Impairment Pain at rest is 5/10 Pain with movement is 7/10 Sat Tutor Goal (LTG) Decrease R shoulder pain with pt able to tolerate positioning for drawing on a big pad (isaac R arm in AB). (10/28/21: Pt has not tried) LTG Duration 12/13/21 One Impairment Lacks appropriate self care HEP Short Term Goal (STG) Pt will be independent in a self care HEP of L ankle strengthening & R shoulder ROM exercises. (10/03/21: HEP: L ankle strengthening PF/DF/IV/EV w/ Lev 2 TBand issued). (10/17/21: I/S pt in FF R shoulder sliding arm fwd on plinth/table vs ajay, active shoulder ER/IR) (10/28/21: HEP issued: Sitting: PROM shoulder flex, AB & active shoulder ext, ER/ IR. Previously issued : HEP issued for sitting ajay shldr ER/IR and sidelie ER) 11/06/21: issued radial nerve glide RUE for tingling in R hand. STG Duration 10/04/21 (11/06/21: L ankle-MET, R shldr progressing) Sat Tutor Goal (LTG) Pt will be independent in a self care HEP of shoulder ROM/ strengthening, core strengthening and standing balance ex's. (10/17/21: I/S pt in FF R shoulder sliding arm fwd on plinth/table vs ajay, active shoulder ER/IR) LTG Duration 12/13/21 (11/06/21: Progressing I/S in HEP) Assessment Summary Assessment Pt improved R shld AAROM 120 deg table slide flexion, limiting shld ext and ER painfree AROM w/ suggested towel roll under arm. Pt reports no increase in pain but feels pretty sore end tx. Able to increased 20 reps ankle EV, IV against resistance today. Initiated radial n. glide within no pain ROM. Pt declined modalities end tx, states will do at home . Physical Therapy Plan Frequency and Duration Frequency of Treatment 2x/Week Plan of Care Start Date 10/01/21 Plan of Care End Date 12/13/21 Therapeutic Interventions Therapeutic Interventions Balance Training,Gait Training ,Home Exercise Program,Joint Mobilizations,Manual Therapy, Neuromuscular Re-education, Patient/Caregiver Education, Self-Care/Home Management,Soft Tissue Mobilization, Therapeutic Exercises Modalities Cold Pack/Ice Massage,Hot Packs Next Visit Focus/Plan Next Note Type Treatment Note Next Visit Plan Recheck radial n. glide, ankle , R shld HEP, adjust as needed . Issue HEP for active R shoulder RC ex's of IR behind back and if tolerated reaching behind head. R shoulder RC strengthening, with caution at Supraspinatus (dx tear). Gentle STM self care of R Supraspintus/UT. Gait training and balance training if tolerated. Core strengthening. Modalities of MH/Ice if needed . Although pt reports use of No EStim for conservative treatment due to pt implanted stimulator, note: pt uses TNS unit at home.
--- NOTE | 2021-11-15 11:45 | PT.OTN ---
Current Diagnoses Acute pain due to trauma (11/15/21) Other chronic pain (11/15/21) Pain in right shoulder (11/15/21) Pain in left ankle and joints of left foot (11/15/21) Muscle weakness (generalized) (11/15/21) Physical Therapy Treatment Note PT-OP-A Visit Information Start: 09/30/21 17:50 Freq: Status: Active Protocol: Document 11/15/21 10:45 NBM (Rec: 11/15/21 18:18 NBM [id number]) Out-Patient Physical Therapy Visit Information Visit Information Visit Type Treatment Note Visit Start Time 10:45 Visit Stop Time 11:30 Total Visit Minutes 45 Visit Number 10/15 Number of HEALTHCARE INTERPRETER Visits 2 Precautions Precautions Dorsal root ganglion Spinal Stimulator at L5-S1 on R side and ~T12 level, PTSD, ADHD, Depression, Complex Regional Pain Syndrome/Fibromyalgia, Headaches, Tape allergy, Back and neck pain. PT-OP-B Current Condition Start: 09/30/21 17:50 Freq: Status: Active Protocol: Document 10/01/21 13:49 LRN (Rec: 10/01/21 14:37 LRN [id number]) Current Condition History of Current Condition Onset Date R shldr 05/2021 & L ankle 2013 Current Complaints R shoulder and L ankle pain. History of Current Condition R shoulder pain is worse than the L ankle pain. R shoulder pain onset by doing pushups against the sink and went from 90 deg's shoulder AB to 0 deg 's AB and felt a pop and burning pain at posterior R shoulder deep inside radiated across the chest and down to forearm. Has intermittent tingling in the R hand or with use (holding screwdriver or electric drill). Had broken the Lunate in 2013 (seizure from falling off rope swing 30 ' in air). No imaging to date . States TNS units are alright to use and that he has one that he uses (ok'd as long as he doesn't do it over the DRG site. L Ankle pain from falling off rope swing 30' in air due to seizure and had avulsion fracture of the distal fibula. L Ankle grabs him when moving, with pain on the outside of the ankle. In standing he describes the ankle as gravely. Denies tinging or numbness. Prior Treatments and Tests R shoulder: Needling by Dr. Kemar, pt feels is not too helpful. Future Testing and Treatments Planned Order in for CT of R shoulder and CT of ankle (not able to do MRI due to implants). Developmental History Developmental History Pt was supposed to have surgery for additional leads to the L side of the dorsal root ganglion at L5-S1 due to Complex Regional Pain Syndrome (CRPS). Has dorsal root ganglion stimulator at L5-S1 on R side for DRG and at mid back (level unknown), ~T12 level. Treatment Goals Patient/Caregiver Goals Decrease R shoulder pain with pt able to tolerate positioning for drawing on a big pad. Decrease L ankle pain in standing and when at rest. Improve R shoulder mobility. Personal Factors Other Personal Factors That May Effect [facility] Therapy/Recovery on waking due to pain. 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 Has Dorsal Root Ganglion Spinal Stimulator implants for past 12 yrs (07/02/2011, 2nd implant 06/2017 due to stimulatro stopped working after fall, no damage to implant or wires at the time of fall) PT-OP-C Subjective Start: 09/30/21 17:50 Freq: Status: Active Protocol: Document 11/15/21 10:45 NBM (Rec: 11/15/21 18:18 NBM [id number]) OP-PT Subjective Patient Comments Patient Comments Arsalan reports It feels like a golf ball under my right shoulder blade and his shoulder hurts with tingling down his R arm. He states his shoulder had been getting steadily better until he pulled the covers off quickly and now he has plateaued. All of the exercises seem to make his R shoulder symptoms worse. His L ankle is doing much better. PT-OP-D Balance Start: 09/30/21 17:50 Freq: Status: Active Protocol: Document 10/01/21 13:49 LRN (Rec: 10/01/21 14:37 LRN [id number]) Balance Tests Functional Reach Functional Reach Test 0 (Pt not able to hold arm to 90 deg's flex) Functional Reach Impairment Rating 100% Impaired (Score 0) Single Limb Standing Single Limb- Right 17 Single Limb- Left 21 PT-OP-J Posture/Palpation/Skin Start: 09/30/21 17:50 Freq: Status: Active Protocol: Document 10/01/21 13:49 LRN (Rec: 10/01/21 14:37 LRN [id number]) Posture Evaluation Position Standing Head/C-Spine Posture Forward Head Shoulder Posture (L) Elevated Foot Arch (L) Low Arch,(R) Low Arch Palpation Assessment Location R shoulder Palpation Location Superior R shoulder Palpation Findings Tenderness L ankle Palpation Location Lateral L ankle Palpation Findings Tenderness PT-OP-K Range of Motion Start: 09/30/21 17:50 Freq: Status: Active Protocol: Document 10/28/21 11:18 LRN (Rec: 10/28/21 12:33 LRN [id number]) Shoulder Goniometric Range of Motion Shoulder Right Active Shoulder ROM WFL No Testing Position Sitting Flexion 100 Extension 43 Abduction 125 Horizontal Abduction 100 Horizontal Adduction 110 External Rotation at 0 degrees Abduction 70 Internal Rotation Behind Back (text) L5 PT-OP-L Special Tests Start: 09/30/21 17:50 Freq: Status: Active Protocol: Document 10/03/21 15:27 LRN (Rec: 10/03/21 16:26 LRN [id number]) Special Tests Shoulder Special Tests Empty Can Test Results + R shoulder Comments Painful in positioning Belly Press Test Results - R shoulder Comments Good tolerance Anterior Draw Test Results - R shoulder [place] Impingement Test Results + R shoulder Comments Very painful Elevation Impingement Test Results + R shoulder Comments Pt gets pain at R Supraspinatus region and inferior shoulder joint. PT-OP-M Strength Start: 09/30/21 17:50 Freq: Status: Active Protocol: Document 10/03/21 15:27 LRN (Rec: 10/03/21 16:26 LRN [id number]) Shoulder Strength Shoulder Manual Muscle Testing Right Flexion 2 Poor Extension 3- Fair- Abduction (C5) 2- Poor- Adduction 4 Good External Rotation 5 Normal Internal Rotation 5 Normal Horizontal Abduction 2 Poor Horizontal Adduction 2 Poor PT-OP-Q Treatments Start: 09/30/21 17:50 Freq: Status: Active Protocol: Document 11/15/21 10:45 NBM (Rec: 11/15/21 18:18 NBM [id number]) Therapeutic Exercises Supine Exercises scapular retraction Supine Exercise Name elbows at 90 deg Equipment Used mat table Reps/Minutes 5 x 5SH Comments cues for UT overactivation Sitting Exercises radial nerve glide Side right Reps/Minutes x5 reps Comments cued form and slow continuous movement - dc'd d/t increase in RUE symptoms L ankle TB ex Sitting Exercise Name L ankle strengthening (DF, PF, EV, IV) Side left Equipment Used Lev 2 Tband, towel roll btn knees Reps/Minutes 20x ea Comments cued for slow eccentric, pain w/ resisted PF resolved w/ talocrural jt mob Standing Exercises Calf stretch Standing Exercise Name gastroc/soleus: 1. 4 step 2. at wall - added to HEP Side bilateral Equipment Used 4 step; wall Reps/Minutes 2 x 30 Comments cues for toes forward, feet hip width apart Manual Therapy Treatment Soft Tissue Mobilization R UT, pec, biceps Body Location R UT, rhomboids, subscapularis , infraspinatus Mobilization Type Rolling,Strumming Intensity/Depth Moderate Body Position Sidelying Comments demar-scapular guarding improved w/ manual therapy. pillow support under RUE. cues for breathing deeply. Joint Mobilizations Talocrural Joint L Direction PA Grade II Body Position Sitting Reps/Duration x5 Comments Anterior ankle pain w/ resisted PF resolved when combined w/ PA jt mobilization . scapulothoracic Joint R scapulothoracic Direction retraction/depression/ downward rotation Grade II Body Position Sidelying Reps/Duration 4 min Comments good feedback response pillow support under RUE. Self-Care/Home Management Treatment Education Patient Education Home Exercise Program Other Education Added to HEP: standing calf stretch (gastroc/soleus) at wall - HO given. PT-OP-T Assessment and Plan Start: 09/30/21 17:50 Freq: Status: Active Protocol: Document 11/15/21 10:45 [facility] (Rec: 11/15/21 18:18 [facility] [id number]) Physical Therapy Assessment Goals Four Impairment Decreased R shoulder mobility. Short Term Goal (STG) Pt will be able reach above shoulder height with tolerable pain. (10/28/21: R shoulder active: flex 100 deg's, AB 125 deg's) STG Duration 10/31/21 (10/28/21: MET GOAL) Alf Goal (LTG) Improve R shoulder mobility to improved function per UE QuickDASH score. LTG Duration 12/03/21 Three Impairment Pain in L ankle Impairment Pain standing is 5-6/10 Pain laying down is 4-5/10 Fine Grade Operator Goal (LTG) Decrease L ankle pain in standing and when at rest ( lying down 50%). (10/28/21: Pain rated 3-4/10) LTG Duration 12/03/21 Two Impairment Pain in R shoulder Impairment Pain at rest is 5/10 Pain with movement is 7/10 Alf Goal (LTG) Decrease R shoulder pain with pt able to tolerate positioning for drawing on a big pad (isaac R arm in AB). (10/28/21: Pt has not tried) LTG Duration 12/13/21 One Impairment Lacks appropriate self care HEP Short Term Goal (STG) Pt will be independent in a self care HEP of L ankle strengthening & R shoulder ROM exercises. (10/03/21: HEP: L ankle strengthening PF/DF/IV/EV w/ Lev 2 TBand issued). (10/17/21: I/S pt in FF R shoulder sliding arm fwd on plinth/table vs ajay, active shoulder ER/IR) (10/28/21: HEP issued: Sitting: PROM shoulder flex, AB & active shoulder ext, ER/ IR. Previously issued : HEP issued for sitting ajay shldr ER/IR and sidelie ER) 11/06/21: issued radial nerve glide RUE for tingling in R hand. STG Duration 10/04/21 (11/06/21: L ankle-MET, R shldr progressing) Alf Goal (LTG) Pt will be independent in a self care HEP of shoulder ROM/ strengthening, core strengthening and standing balance ex's. (10/17/21: I/S pt in FF R shoulder sliding arm fwd on plinth/table vs ajay, active shoulder ER/IR) LTG Duration 12/13/21 (11/06/21: Progressing I/S in HEP) Assessment Summary Assessment Treatment focus on manual therapy to R shoulder and L ankle HEP review. Pt demonstrates decreased R shoulder muscle guarding after manual therapy and reports improved R shoulder symptoms. Pt's anterior ankle pain w/ resisted PF resolved when combined w/ PA talocrural jt mobilization. Gastrocnemius and soleus stretches added to HEP - HO given. Physical Therapy Plan Frequency and Duration Frequency of Treatment 2x/Week Plan of Care Start Date 10/01/21 Plan of Care End Date 12/13/21 Therapeutic Interventions Therapeutic Interventions Balance Training,Gait Training ,Home Exercise Program,Joint Mobilizations,Manual Therapy, Neuromuscular Re-education, Patient/Caregiver Education, Self-Care/Home Management,Soft Tissue Mobilization, Therapeutic Exercises Modalities Cold Pack/Ice Massage,Hot Packs Next Visit Focus/Plan Next Note Type Treatment Note Next Visit Plan Recheck radial n. glide, ankle , R shld HEP, adjust as needed . Issue HEP for active R shoulder RC ex's of IR behind back and if tolerated reaching behind head. R shoulder RC strengthening, with caution at Supraspinatus (dx tear). Gentle STM self care of R Supraspintus/UT. Gait training and balance training if tolerated. Core strengthening. Modalities of MH/Ice if needed . Although pt reports use of No EStim for conservative treatment due to pt implanted stimulator, note: pt uses TNS unit at home.
--- NOTE | 2021-12-04 08:15 | PT.OTN ---
Current Diagnoses Acute pain due to trauma (12/04/21) Other chronic pain (12/04/21) Pain in right shoulder (12/04/21) Pain in left ankle and joints of left foot (12/04/21) Muscle weakness (generalized) (12/04/21) Physical Therapy Treatment Note PT-OP-A Visit Information Start: 09/30/21 17:50 Freq: Status: Active Protocol: Document 12/04/21 07:32 SP (Rec: 12/04/21 08:38 SP [id number]) Out-Patient Physical Therapy Visit Information Visit Information Visit Type Treatment Note Visit Note PN/ POC due after next appt, expires 12/13. Update goals next visit. May need more appts,only 3 left scheduled. Visit Start Time 07:32 Visit Stop Time 08:15 Total Visit Minutes 43 Visit Number 11/15 Number of ELEMENTARY SCHOOL REGISTRAR Visits 3 Evaluation Information Evaluation Date 10/01/21 Precautions Precautions Dorsal root ganglion Spinal Stimulator at L5-S1 on R side and ~T12 level, PTSD, ADHD, Depression, Complex Regional Pain Syndrome/Fibromyalgia, Headaches, Tape allergy, Back and neck pain. PT-OP-B Current Condition Start: 09/30/21 17:50 Freq: Status: Active Protocol: Document 10/01/21 13:49 LRN (Rec: 10/01/21 14:37 LRN [id number]) Current Condition History of Current Condition Onset Date R shldr 05/2021 & L ankle 2013 Current Complaints R shoulder and L ankle pain. History of Current Condition R shoulder pain is worse than the L ankle pain. R shoulder pain onset by doing pushups against the sink and went from 90 deg's shoulder AB to 0 deg 's AB and felt a pop and burning pain at posterior R shoulder deep inside radiated across the chest and down to forearm. Has intermittent tingling in the R hand or with use (holding screwdriver or electric drill). Had broken the Lunate in 2013 (seizure from falling off rope swing 30 ' in air). No imaging to date . States TNS units are alright to use and that he has one that he uses (ok'd as long as he doesn't do it over the DRG site. L Ankle pain from falling off rope swing 30' in air due to seizure and had avulsion fracture of the distal fibula. L Ankle grabs him when moving, with pain on the outside of the ankle. In standing he describes the ankle as gravely. Denies tinging or numbness. Prior Treatments and Tests R shoulder: Needling by Dr. Reinoso, pt feels is not too helpful. Future Testing and Treatments Planned Order in for CT of R shoulder and CT of ankle (not able to do MRI due to implants). Developmental History Developmental History Pt was supposed to have surgery for additional leads to the L side of the dorsal root ganglion at L5-S1 due to Complex Regional Pain Syndrome (CRPS). Has dorsal root ganglion stimulator at L5-S1 on R side for DRG and at mid back (level unknown), ~T12 level. Treatment Goals Patient/Caregiver Goals Decrease R shoulder pain with pt able to tolerate positioning for drawing on a big pad. Decrease L ankle pain in standing and when at rest. Improve R shoulder mobility. Personal Factors Other Personal Factors That May Effect [employer] [facility] Therapy/Recovery on waking due to pain. 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 Has Dorsal Root Ganglion Spinal Stimulator implants for past 12 yrs (07/02/2011, 2nd implant 06/2017 due to stimulatro stopped working after fall, no damage to implant or wires at the time of fall) PT-OP-C Subjective Start: 09/30/21 17:50 Freq: Status: Active Protocol: Document 12/04/21 07:32 SP (Rec: 12/04/21 08:38 SP [id number]) OP-PT Subjective Patient Comments Patient Comments Pt reported ankle improving 4/ 10 pain can do B heel raises off floor now but L ankle not allowing L knee bend during calf stretch positioning, lack mobililty DF. His R shld is still hurting with HABD, worse retraction motions pointing to approx T4-7 region and not seen significant improvement in the past 2 weeks with pain lateral R arm and tingling into R 4-5 MCPs. He reports didn't get more than 45 min sleep last night but not due to shld. He reports does self STMs ball wall R post scap and a door knob to help decrease pain and self massage but doesn't fully get to area deeper thinks needed. PT-OP-D Balance Start: 09/30/21 17:50 Freq: Status: Active Protocol: Document 10/01/21 13:49 LRN (Rec: 10/01/21 14:37 LRN [id number]) Balance Tests Functional Reach Functional Reach Test 0 (Pt not able to hold arm to 90 deg's flex) Functional Reach Impairment Rating 100% Impaired (Score 0) Single Limb Standing Single Limb- Right 17 Single Limb- Left 21 PT-OP-J Posture/Palpation/Skin Start: 09/30/21 17:50 Freq: Status: Active Protocol: Document 10/01/21 13:49 LRN (Rec: 10/01/21 14:37 LRN [id number]) Posture Evaluation Position Standing Head/C-Spine Posture Forward Head Shoulder Posture (L) Elevated Foot Arch (L) Low Arch,(R) Low Arch Palpation Assessment Location R shoulder Palpation Location Superior R shoulder Palpation Findings Tenderness L ankle Palpation Location Lateral L ankle Palpation Findings Tenderness PT-OP-K Range of Motion Start: 09/30/21 17:50 Freq: Status: Active Protocol: Document 10/28/21 11:18 LRN (Rec: 10/28/21 12:33 LRN [id number]) Shoulder Goniometric Range of Motion Shoulder Right Active Shoulder ROM WFL No Testing Position Sitting Flexion 100 Extension 43 Abduction 125 Horizontal Abduction 100 Horizontal Adduction 110 External Rotation at 0 degrees Abduction 70 Internal Rotation Behind Back (text) L5 PT-OP-L Special Tests Start: 09/30/21 17:50 Freq: Status: Active Protocol: Document 10/03/21 15:27 LRN (Rec: 10/03/21 16:26 LRN [id number]) Special Tests Shoulder Special Tests Empty Can Test Results + R shoulder Comments Painful in positioning Belly Press Test Results - R shoulder Comments Good tolerance Anterior Draw Test Results - R shoulder [place] Impingement Test Results + R shoulder Comments Very painful Elevation Impingement Test Results + R shoulder Comments Pt gets pain at R Supraspinatus region and inferior shoulder joint. PT-OP-M Strength Start: 09/30/21 17:50 Freq: Status: Active Protocol: Document 10/03/21 15:27 LRN (Rec: 10/03/21 16:26 LRN [id number]) Shoulder Strength Shoulder Manual Muscle Testing Right Flexion 2 Poor Extension 3- Fair- Abduction (C5) 2- Poor- Adduction 4 Good External Rotation 5 Normal Internal Rotation 5 Normal Horizontal Abduction 2 Poor Horizontal Adduction 2 Poor PT-OP-Q Treatments Start: 09/30/21 17:50 Freq: Status: Active Protocol: Document 12/04/21 07:32 SP (Rec: 12/04/21 08:38 SP [id number]) Therapeutic Exercises Supine Exercises Self STMs Supine Exercise Name Ts ext & rolling over foam roller, over tennis ball w/ arm mvt Side right Resistance Recommended for HEP as needed pre R shld HEP Reps/Minutes 4 min total Comments MWM feedback found helpful more movement but pain didn't go away. scapular retraction Supine Exercise Name elbows at 90 deg Equipment Used mat table Reps/Minutes 5 x 5SH Comments cues for UT overactivation, causing pain T4-7 region so stopped Sidelying Exercises open book Sidelying Exercise Name added to HEP-not want HOs Side right Reps/Minutes x8 reps Comments cued head turn within painfree range, hand on head shoulder ER Sidelying Exercise Name shoulder ER- HEP review Reps/Minutes x10 Comments good feedback response within pain free range Standing Exercises calf eccentric raises/ stretch Standing Exercise Name added to HEP Side left Equipment Used heel off bottom step Reps/Minutes 10s hold stretch gastroc then soleus stretch, then ankle mob foot 2nd step Comments little more ankle mobiltiy but tight over anterior ankle: little crunchy ulnar nerve glide Standing Exercise Name added to HEP Side right Reps/Minutes x10 Comments reported gentle slow movement, tingle but goes away quickly Manual Therapy Treatment Soft Tissue Mobilization R UT, pec, biceps Body Location R UT, rhomboids, subscapularis , infraspinatus Mobilization Type Rolling,Strumming Intensity/Depth Moderate Body Position Sidelying Comments demar-scapular guarding improved w/ manual therapy. pillow support under RUE. cues for breathing deeply. Joint Mobilizations T4-8 Direction PAs Grade II Body Position Prone Comments gentle manual PAs w/ breath out- good feedback response painfree Talocrural Joint L Direction PA Grade II Body Position Supine Reps/Duration x5 Comments Anterior ankle pain w/ resisted PF resolved when combined w/ PA and AP jt mobilization. scapulothoracic Joint R scapulothoracic Direction retraction/depression/ downward rotation Grade II Body Position Sidelying Comments good feedback response pillow support under RUE. PT-OP-T Assessment and Plan Start: 09/30/21 17:50 Freq: Status: Active Protocol: Document 12/04/21 07:32 SP (Rec: 12/04/21 08:38 SP [id number]) Physical Therapy Assessment Goals Four Impairment Decreased R shoulder mobility. Short Term Goal (STG) Pt will be able reach above shoulder height with tolerable pain. (10/28/21: R shoulder active: flex 100 deg's, AB 125 deg's) STG Duration 10/31/21 (10/28/21: MET GOAL) Longterm Goal (LTG) Improve R shoulder mobility to improved function per UE QuickDASH score. LTG Duration 12/03/21 Three Impairment Pain in L ankle Impairment Pain standing is 5-6/10 Pain laying down is 4-5/10 Box Worker Goal (LTG) Decrease L ankle pain in standing and when at rest ( lying down 50%). (10/28/21: Pain rated 3-4/10) LTG Duration 12/03/21 Two Impairment Pain in R shoulder Impairment Pain at rest is 5/10 Pain with movement is 7/10 Longterm Goal (LTG) Decrease R shoulder pain with pt able to tolerate positioning for drawing on a big pad (isaac R arm in AB). (10/28/21: Pt has not tried) LTG Duration 12/13/21 One Impairment Lacks appropriate self care HEP Short Term Goal (STG) Pt will be independent in a self care HEP of L ankle strengthening & R shoulder ROM exercises. (10/03/21: HEP: L ankle strengthening PF/DF/IV/EV w/ Lev 2 TBand issued). (10/17/21: I/S pt in FF R shoulder sliding arm fwd on plinth/table vs ajay, active shoulder ER/IR) (10/28/21: HEP issued: Sitting: PROM shoulder flex, AB & active shoulder ext, ER/ IR. Previously issued : HEP issued for sitting ajay shldr ER/IR and sidelie ER) 11/06/21: issued radial nerve glide RUE for tingling in R hand. STG Duration 10/04/21 (11/06/21: L ankle-MET, R shldr progressing) Longterm Goal (LTG) Pt will be independent in a self care HEP of shoulder ROM/ strengthening, core strengthening and standing balance ex's. (10/17/21: I/S pt in FF R shoulder sliding arm fwd on plinth/table vs ajay, active shoulder ER/IR) LTG Duration 12/13/21 (11/06/21: Progressing I/S in HEP) Assessment Summary Assessment Pt responded well to manual and introduction and demonstration of self mobilizations with movement for R scap/TS with R UE ROM and L ankle off step for decreased limiting pain and increase ROM into DF but not full ROM as RLE has. Pt declined HOs. RUE ulnar nerve glide little helpful reported, suggested if tingling continues to speak with Dr Reinoso and possible inquire if EMG might be beneficial for further assessment. Physical Therapy Plan Frequency and Duration Frequency of Treatment 2x/Week Plan of Care Start Date 10/01/21 Plan of Care End Date 12/13/21 Therapeutic Interventions Therapeutic Interventions Balance Training,Gait Training ,Home Exercise Program,Joint Mobilizations,Manual Therapy, Neuromuscular Re-education, Patient/Caregiver Education, Self-Care/Home Management,Soft Tissue Mobilization, Therapeutic Exercises Modalities Cold Pack/Ice Massage,Hot Packs Next Visit Focus/Plan Next Note Type Treatment Note Next Visit Plan Ask response to manual and self STMs MWM last tx. Recheck radial n. glide, ankle , R shld HEP, adjust as needed . Issue HEP for active R shoulder RC ex's of IR behind back and if tolerated reaching behind head. R shoulder RC strengthening, with caution at Supraspinatus (dx tear). Gentle STM self care of R Supraspintus/UT. Gait training and balance training if tolerated. Core strengthening. Modalities of MH/Ice if needed . Although pt reports use of No EStim for conservative treatment due to pt implanted stimulator, note: pt uses TNS unit at home.
--- NOTE | 2021-12-12 11:22 | PT.OTN ---
Current Diagnoses Acute pain due to trauma (12/12/21) Other chronic pain (12/12/21) Pain in right shoulder (12/12/21) Pain in left ankle and joints of left foot (12/12/21) Muscle weakness (generalized) (12/12/21) Physical Therapy Treatment Note PT-OP-A Visit Information Start: 09/30/21 17:50 Freq: Status: Active Protocol: Document 12/12/21 10:35 SP (Rec: 12/12/21 11:35 SP [id number]) Out-Patient Physical Therapy Visit Information Visit Information Visit Type Treatment Note Visit Note PN/ POC due next appt, expires 12/13. Only 3 more visits possibly allowed, recheck. Visit Start Time 10:35 Visit Stop Time 11:22 Total Visit Minutes 47 Visit Number 12/16 Number of EXPLOSIVE ORDNANCE DISPOSAL SPECIALIST Visits 4 Evaluation Information Evaluation Date 10/01/21 Precautions Precautions Dorsal root ganglion Spinal Stimulator at L5-S1 on R side and ~T12 level, PTSD, ADHD, Depression, Complex Regional Pain Syndrome/Fibromyalgia, Headaches, Tape allergy, Back and neck pain. PT-OP-B Current Condition Start: 09/30/21 17:50 Freq: Status: Active Protocol: Document 10/01/21 13:49 LRN (Rec: 10/01/21 14:37 LRN [id number]) Current Condition History of Current Condition Onset Date R shldr 05/2021 & L ankle 2013 Current Complaints R shoulder and L ankle pain. History of Current Condition R shoulder pain is worse than the L ankle pain. R shoulder pain onset by doing pushups against the sink and went from 90 deg's shoulder AB to 0 deg 's AB and felt a pop and burning pain at posterior R shoulder deep inside radiated across the chest and down to forearm. Has intermittent tingling in the R hand or with use (holding screwdriver or electric drill). Had broken the Lunate in 2013 (seizure from falling off rope swing 30 ' in air). No imaging to date . States TNS units are alright to use and that he has one that he uses (ok'd as long as he doesn't do it over the DRG site. L Ankle pain from falling off rope swing 30' in air due to seizure and had avulsion fracture of the distal fibula. L Ankle grabs him when moving, with pain on the outside of the ankle. In standing he describes the ankle as gravely. Denies tinging or numbness. Prior Treatments and Tests R shoulder: Needling by Dr. Reinoso, pt feels is not too helpful. Future Testing and Treatments Planned Order in for CT of R shoulder and CT of ankle (not able to do MRI due to implants). Developmental History Developmental History Pt was supposed to have surgery for additional leads to the L side of the dorsal root ganglion at L5-S1 due to Complex Regional Pain Syndrome (CRPS). Has dorsal root ganglion stimulator at L5-S1 on R side for DRG and at mid back (level unknown), ~T12 level. Treatment Goals Patient/Caregiver Goals Decrease R shoulder pain with pt able to tolerate positioning for drawing on a big pad. Decrease L ankle pain in standing and when at rest. Improve R shoulder mobility. Personal Factors Other Personal Factors That May Effect [facility] Therapy/Recovery on waking due to pain. 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 Has Dorsal Root Ganglion Spinal Stimulator implants for past 12 yrs (07/02/2011, 2nd implant 06/2017 due to stimulatro stopped working after fall, no damage to implant or wires at the time of fall) PT-OP-C Subjective Start: 09/30/21 17:50 Freq: Status: Active Protocol: Document 12/12/21 10:35 SP (Rec: 12/12/21 11:35 SP [id number]) OP-PT Subjective Patient Comments Patient Comments Pt reports still having tingling into 4-5 RUE digits. Able to reach OH front and side now but little pinch end range ABD side head, hurts HABD fornt body and place hand in pocket jacket. PT-OP-D Balance Start: 09/30/21 17:50 Freq: Status: Active Protocol: Document 10/01/21 13:49 LRN (Rec: 10/01/21 14:37 LRN [id number]) Balance Tests Functional Reach Functional Reach Test 0 (Pt not able to hold arm to 90 deg's flex) Functional Reach Impairment Rating 100% Impaired (Score 0) Single Limb Standing Single Limb- Right 17 Single Limb- Left 21 PT-OP-J Posture/Palpation/Skin Start: 09/30/21 17:50 Freq: Status: Active Protocol: Document 10/01/21 13:49 LRN (Rec: 10/01/21 14:37 LRN [id number]) Posture Evaluation Position Standing Head/C-Spine Posture Forward Head Shoulder Posture (L) Elevated Foot Arch (L) Low Arch,(R) Low Arch Palpation Assessment Location R shoulder Palpation Location Superior R shoulder Palpation Findings Tenderness L ankle Palpation Location Lateral L ankle Palpation Findings Tenderness PT-OP-K Range of Motion Start: 09/30/21 17:50 Freq: Status: Active Protocol: Document 12/12/21 10:35 SP (Rec: 12/12/21 11:35 SP [id number]) Shoulder Goniometric Range of Motion Shoulder Right Active Shoulder ROM WFL No Testing Position Sitting Flexion 160 Abduction 168 External Rotation at 0 degrees Abduction 95 Internal Rotation Behind Back (text) T10 Comments R shld AROM seated; gained 60 deg FF, ABD 35 deg, 25 deg ER, IR behind back stadning L5> T10 improvement. *Did not recheck HABD, HADD, Extension ROM. PT-OP-L Special Tests Start: 09/30/21 17:50 Freq: Status: Active Protocol: Document 10/03/21 15:27 LRN (Rec: 10/03/21 16:26 LRN [id number]) Special Tests Shoulder Special Tests Empty Can Test Results + R shoulder Comments Painful in positioning Belly Press Test Results - R shoulder Comments Good tolerance Anterior Draw Test Results - R shoulder [place] Impingement Test Results + R shoulder Comments Very painful Elevation Impingement Test Results + R shoulder Comments Pt gets pain at R Supraspinatus region and inferior shoulder joint. PT-OP-M Strength Start: 09/30/21 17:50 Freq: Status: Active Protocol: Document 10/03/21 15:27 LRN (Rec: 10/03/21 16:26 LRN [id number]) Shoulder Strength Shoulder Manual Muscle Testing Right Flexion 2 Poor Extension 3- Fair- Abduction (C5) 2- Poor- Adduction 4 Good External Rotation 5 Normal Internal Rotation 5 Normal Horizontal Abduction 2 Poor Horizontal Adduction 2 Poor PT-OP-Q Treatments Start: 09/30/21 17:50 Freq: Status: Active Protocol: Document 12/12/21 10:35 SP (Rec: 12/12/21 11:35 SP [id number]) Therapeutic Exercises Sitting Exercises R shld TB Sitting Exercise Name ER (90- 117 deg painfree), Adduction, IR, Ext, Side right Resistance TB #2 Equipment Used Added to HEP Reps/Minutes x8 reps each Comments ed painfree range radial nerve glide Side right Reps/Minutes x5 reps Comments cued form and slow continuous movement - dc'd d/t increase in RUE symptoms R shoulder AROM Sitting Exercise Name AROM flex, ext, AB, ER Side right Equipment Used sit on box near stairs Comments ROM taken, see measurements Standing Exercises calf eccentric raises/ stretch Standing Exercise Name reviewed HEP Side left Equipment Used heel off bottom step Reps/Minutes 10s hold stretch gastroc then soleus stretch, then ankle mob foot 2nd step Comments little more ankle mobiltiy but tight over anterior ankle post manual ulnar nerve glide Standing Exercise Name reviewed HEP Side right Reps/Minutes x10 Comments reported gentle slow movement, tingle but goes away quickly return start Manual Therapy Treatment Soft Tissue Mobilization R UT, pec, biceps Body Location R UT, rhomboids, infraspinatus Mobilization Type Rolling,Strumming Intensity/Depth Moderate Body Position Sidelying Comments manual with scapular PNF Joint Mobilizations Talocrural Joint L talocrual and distal fib AP Direction PA Grade II Body Position sit Reps/Duration x5 Comments not significant decrease in tightness over anterlateral ankle and DF mobility lunge ( back position) scapulothoracic Joint R scapulothoracic Direction retraction/depression/ downward rotation Grade II Body Position Sidelying Comments good feedback response Self-Care/Home Management Treatment Education Patient Education Home Exercise Program Other Education Added: ER (90- 117 deg painfree), Adduction, IR, Ext to side TB #2. Instructed can DC isometrics. PT-OP-T Assessment and Plan Start: 09/30/21 17:50 Freq: Status: Active Protocol: Document 12/12/21 10:35 SP (Rec: 12/12/21 11:35 SP [id number]) Physical Therapy Assessment Goals Four Impairment Decreased R shoulder mobility. Short Term Goal (STG) Pt will be able reach above shoulder height with tolerable pain. (10/28/21: R shoulder active: flex 100 deg's, AB 125 deg's) STG Duration 10/31/21 (10/28/21: MET GOAL) Spreader Operator Goal (LTG) Improve R shoulder mobility to improved function per UE QuickDASH score. LTG Duration 12/03/21 Three Impairment Pain in L ankle Impairment Pain standing is 5-6/10 Pain laying down is 4-5/10 [facility]ci Goal (LTG) Decrease L ankle pain in standing and when at rest ( lying down 50%). (10/28/21: Pain rated 3-4/10) 12/12/21: pain down to 4/10 and 5 at worst when sleeping/ standing. Not continuous some positions better on R side with flexoral take and weighted blanket on top L ankle holding alignment in neutral. LTG Duration 12/03/21 progressin12/12/21 Two Impairment Pain in R shoulder Impairment Pain at rest is 5/10 Pain with movement is 7/10 Spreader Operator Goal (LTG) Decrease R shoulder pain with pt able to tolerate positioning for drawing on a big pad (isaac R arm in AB). (10/28/21: Pt has not tried) 12/12/21: progressing: mobility better accept backwards and across body, hurts put hand in pocket jacket. AROM FF WFL and ABD end range full range little pinching. LTG Duration 12/13/21 progressin12/12/21 One Impairment Lacks appropriate self care HEP Short Term Goal (STG) Pt will be independent in a self care HEP of L ankle strengthening & R shoulder ROM exercises. (10/03/21: HEP: L ankle strengthening PF/DF/IV/EV w/ Lev 2 TBand issued). (10/17/21: I/S pt in FF R shoulder sliding arm fwd on plinth/table vs ajay, active shoulder ER/IR) (10/28/21: HEP issued: Sitting: PROM shoulder flex, AB & active shoulder ext, ER/ IR. Previously issued : HEP issued for sitting ajay shldr ER/IR and sidelie ER) 11/06/21: issued radial nerve glide RUE for tingling in R hand. 12/12/21: able almost full AROM R shld FF, ABD but little pinch end reange ABD, hurts HABD fornt body. STG Duration 10/04/21 (12/12/21: L ankle-MET, R shldr progressing) [facility] Goal (LTG) Pt will be independent in a self care HEP of shoulder ROM/ strengthening, core strengthening and standing balance ex's. (10/17/21: I/S pt in FF R shoulder sliding arm fwd on plinth/table vs ajay, active shoulder ER/IR) 12/12/21: isometric reviewed R shld all directions, radial and Ulnar n. glide, wall walking ABD side shld ER. Today Added TB ER (90- 117 deg painfree), Adduction, IR, Ext to side. LTG Duration 12/13/21 (12/12/21: Progressing I/S in HEP) Progress Towards Goals Progress Towards Goals Progressing Toward Goals Progress Comments R shld AROM seated; gained 60 deg FF, ABD 35 deg, 25 deg ER, IR behind back in standing L5 > T10 improvement. *Did not recheck HABD, HADD, Extension ROM. Assessment Summary Assessment Pt making gains in AROM seated / standing. Continues get tingling in R UE 4-5 digits, pain HADD across body and putting hand in pocket jacket. Limited L ankle DF not significant improvements. Good response calf stretching gastroc. Added 4 way R shld TB strengthening today within painfree range no adverse affects. Instructed can DC isometrics. Physical Therapy Plan Frequency and Duration Frequency of Treatment 2x/Week Plan of Care Start Date 10/01/21 Plan of Care End Date 12/13/21 Therapeutic Interventions Therapeutic Interventions Balance Training,Gait Training ,Home Exercise Program,Joint Mobilizations,Manual Therapy, Neuromuscular Re-education, Patient/Caregiver Education, Self-Care/Home Management,Soft Tissue Mobilization, Therapeutic Exercises Modalities Cold Pack/Ice Massage,Hot Packs Next Visit Focus/Plan Next Note Type Re-Evaluation Next Visit Plan POC need updating,exp 12/13. Recheck HEP added 4 way TB R shld, Radial/ulnar n. glide, ankle, R shld HEP, adjust as needed. Can add towel IR stretch, range isaac. R shoulder RC strengthening, with caution at Supraspinatus (dx tear). Gentle STM self care of R Supraspintus/UT. Gait training and balance training if tolerated. Core strengthening. Modalities of MH/Ice if needed . Although pt reports use of No EStim for conservative treatment due to pt implanted stimulator, note: pt uses TNS unit at home.
--- NOTE | 2021-12-24 15:30 | PT.OTN ---
Current Diagnoses Acute pain due to trauma (12/24/21) Other chronic pain (12/24/21) Pain in right shoulder (12/24/21) Pain in left ankle and joints of left foot (12/24/21) Muscle weakness (generalized) (12/24/21) Physical Therapy Treatment Note PT-OP-A Visit Information Start: 09/30/21 17:50 Freq: Status: Active Protocol: Document 12/24/21 12:47 LRN (Rec: 12/24/21 13:54 LRN [id number]) Out-Patient Physical Therapy Visit Information Visit Information Visit Type Progress Note Visit Start Time 13:00 Visit Stop Time 13:50 Total Visit Minutes 50 Visit Number 01/15 Evaluation Information Evaluation Date 10/01/21 Precautions Precautions Dorsal root ganglion Spinal Stimulator at L5-S1 on R side and ~T12 level, PTSD, ADHD, Depression, Complex Regional Pain Syndrome/Fibromyalgia, Headaches, Tape allergy, Back and neck pain. PT-OP-B Current Condition Start: 09/30/21 17:50 Freq: Status: Active Protocol: Document 10/01/21 13:49 LRN (Rec: 10/01/21 14:37 LRN [id number]) Current Condition History of Current Condition Onset Date R shldr 05/2021 & L ankle 2013 Current Complaints R shoulder and L ankle pain. History of Current Condition R shoulder pain is worse than the L ankle pain. R shoulder pain onset by doing pushups against the sink and went from 90 deg's shoulder AB to 0 deg 's AB and felt a pop and burning pain at posterior R shoulder deep inside radiated across the chest and down to forearm. Has intermittent tingling in the R hand or with use (holding screwdriver or electric drill). Had broken the Lunate in 2013 (seizure from falling off rope swing 30 ' in air). No imaging to date . States TNS units are alright to use and that he has one that he uses (ok'd as long as he doesn't do it over the DRG site. L Ankle pain from falling off rope swing 30' in air due to seizure and had avulsion fracture of the distal fibula. L Ankle grabs him when moving, with pain on the outside of the ankle. In standing he describes the ankle as gravely. Denies tinging or numbness. Prior Treatments and Tests R shoulder: Needling by Dr. Reinoso, pt feels is not too helpful. Future Testing and Treatments Planned Order in for CT of R shoulder and CT of ankle (not able to do MRI due to implants). Developmental History Developmental History Pt was supposed to have surgery for additional leads to the L side of the dorsal root ganglion at L5-S1 due to Complex Regional Pain Syndrome (CRPS). Has dorsal root ganglion stimulator at L5-S1 on R side for DRG and at mid back (level unknown), ~T12 level. Treatment Goals Patient/Caregiver Goals Decrease R shoulder pain with pt able to tolerate positioning for drawing on a big pad. Decrease L ankle pain in standing and when at rest. Improve R shoulder mobility. Personal Factors Other Personal Factors That May Effect [facility] Therapy/Recovery on waking due to pain. 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 Has Dorsal Root Ganglion Spinal Stimulator implants for past 12 yrs (07/02/2011, 2nd implant 06/2017 due to stimulatro stopped working after fall, no damage to implant or wires at the time of fall) PT-OP-C Subjective Start: 09/30/21 17:50 Freq: Status: Active Protocol: Document 12/24/21 12:47 LRN (Rec: 12/24/21 13:54 LRN [id number]) OP-PT Subjective Patient Comments Patient Comments States R knee gave out when young. States pain has reduced in the arm, having trouble holding R arm up to draw due to pain from biceps to wrist. ROM is almost back to normal. Can do motions, still gets pain at one side of R shoulder blade hangs up. Patient Questionnaires Lower Extremity Functional Scale LEFS Score 38 LEFS Impairment 40 to 59% Impaired (Score 32- 47) Quick Dash- Upper Extremity Quick Dash UE Score 40.90 Quick Dash UE Impairment 40 to 59% Impaired (Score 40- 59) PT-OP-D Balance Start: 09/30/21 17:50 Freq: Status: Active Protocol: Document 10/01/21 13:49 LRN (Rec: 10/01/21 14:37 LRN [id number]) Balance Tests Functional Reach Functional Reach Test 0 (Pt not able to hold arm to 90 deg's flex) Functional Reach Impairment Rating 100% Impaired (Score 0) Single Limb Standing Single Limb- Right 17 Single Limb- Left 21 PT-OP-J Posture/Palpation/Skin Start: 09/30/21 17:50 Freq: Status: Active Protocol: Document 10/01/21 13:49 LRN (Rec: 10/01/21 14:37 LRN [id number]) Posture Evaluation Position Standing Head/C-Spine Posture Forward Head Shoulder Posture (L) Elevated Foot Arch (L) Low Arch,(R) Low Arch Palpation Assessment Location R shoulder Palpation Location Superior R shoulder Palpation Findings Tenderness L ankle Palpation Location Lateral L ankle Palpation Findings Tenderness PT-OP-K Range of Motion Start: 09/30/21 17:50 Freq: Status: Active Protocol: Document 12/24/21 12:47 LRN (Rec: 12/24/21 13:54 LRN [id number]) Shoulder Goniometric Range of Motion Shoulder Right Active Shoulder ROM WFL No Testing Position Sitting Flexion 180 Extension 52 Abduction 180 Horizontal Adduction 98 External Rotation at 90 degrees 90 Abduction External Rotation at 0 degrees Abduction 95 Internal Rotation Behind Back (text) T9 Left Active Shoulder ROM WFL Yes Testing Position Sitting Flexion 190 Extension 52 Abduction 180 Horizontal Adduction 102 External Rotation at 90 degrees 100 Abduction External Rotation at 0 degrees Abduction 95 Internal Rotation Behind Back (text) T8 Ankle and Foot Goniometric Range of Motion Ankle and Foot Right Active Testing Position Semi-supine Dorsiflexion with Knee Extended 3 Plantarflexion 60 Inversion 40 Eversion 25 Left Active Testing Position Semi-supine Dorsiflexion with Knee Extended 2 Plantarflexion 50 Inversion 28 Eversion 17 PT-OP-L Special Tests Start: 09/30/21 17:50 Freq: Status: Active Protocol: Document 10/03/21 15:27 LRN (Rec: 10/03/21 16:26 LRN [id number]) Special Tests Shoulder Special Tests Empty Can Test Results + R shoulder Comments Painful in positioning Belly Press Test Results - R shoulder Comments Good tolerance Anterior Draw Test Results - R shoulder [place] Impingement Test Results + R shoulder Comments Very painful Elevation Impingement Test Results + R shoulder Comments Pt gets pain at R Supraspinatus region and inferior shoulder joint. PT-OP-M Strength Start: 09/30/21 17:50 Freq: Status: Active Protocol: Document 10/03/21 15:27 LRN (Rec: 10/03/21 16:26 LRN [id number]) Shoulder Strength Shoulder Manual Muscle Testing Right Flexion 2 Poor Extension 3- Fair- Abduction (C5) 2- Poor- Adduction 4 Good External Rotation 5 Normal Internal Rotation 5 Normal Horizontal Abduction 2 Poor Horizontal Adduction 2 Poor PT-OP-Q Treatments Start: 09/30/21 17:50 Freq: Status: Active Protocol: Document 12/24/21 12:47 LRN (Rec: 12/24/21 13:54 [facility] [id number]) Therapeutic Exercises Sitting Exercises Ankle ROM Sitting Exercise Name AROM: DF, PF, EV Side bilateral Reps/Minutes x 2 Comments ROM taken R shoulder AROM Sitting Exercise Name AROM flex, ext, AB, ER, IR, horiz AD Side bilateral Comments ROM taken, see measurements R shoulder AB Sitting Exercise Name Shoulder AB stretch & review Side right R shoulder ER Sitting Exercise Name Shoulder ER stretch & review Side right R shoulder Flex Sitting Exercise Name Shoulder Flex stretch & review Side right L ankle TB ex Sitting Exercise Name L ankle strengthening (DF, PF, EV, IV) Side left Equipment Used Lev 2 Tband, towel roll btn knees Reps/Minutes 30x ea Comments cued for slow eccentric, pain w/ resisted PF resolved w/ talocrural jt mob Standing Exercises calf eccentric raises/ stretch Standing Exercise Name Toe Ups/downs Side left Reps/Minutes 10SH x 14 Comments little more ankle mobiltiy but tight over anterior ankle post manual Calf stretch Standing Exercise Name Calf stretch -runners stretch and soleus stretch Equipment Used Wall for balance Reps/Minutes 10s hold stretch gastroc then soleus stretch, then ankle mob foot 2nd step PT-OP-T Assessment and Plan Start: 09/30/21 17:50 Freq: Status: Active Protocol: Document 12/24/21 12:47 LRN (Rec: 12/24/21 13:54 [facility] [id number]) Physical Therapy Assessment Rehab Potential Rehabilitation Potential Good Evaluation Complexity Number of Personal Factors/Comorbidities 3 or More Number of Body Systems Impaired 4 or More Clinical Presentation at Evaluation Evolving Impairments Impairments Gait,Pain,ROM,Strength Goals Four Impairment Decreased R shoulder mobility. Short Term Goal (STG) Pt will be able reach above shoulder height with tolerable pain. (10/28/21: R shoulder active: flex 100 deg's, AB 125 deg's) STG Duration 10/31/21 (10/28/21: MET GOAL) Usp Goal (LTG) Improve R shoulder mobility to improved function per UE QuickDASH score. (12/24/21: Improved R shoulder mobility (see AROM R shoulder ), and improved score number for UE QuickDASH (without a change in his % disability)). LTG Duration 01/31/22 (12/24/21: Progressing) Three Impairment Pain in L ankle Impairment Pain standing is 5-6/10 Pain laying down is 4-5/10 Powder Shoveler Goal (LTG) Decrease L ankle pain in standing and when at rest ( lying down 50%). (10/28/21: Pain rated 3-4/10) (12/12/21: pain down to 4/10 and 5 at worst when sleeping/ standing. Not continuous some positions better on R side with flexoral take and weighted blanket on top L ankle holding alignment in neutral). (12/24/21: Lying down & Sitting Ankle pain is 3/10, Standing >5 minutes pain is 5/ 10 and takes hours to go away) . LTG Duration 01/31/22 (12/24/21: Progressing) Two Impairment Pain in R shoulder Impairment Pain at rest is 5/10 Pain with movement is 7/10 Powder Shoveler Goal (LTG) Decrease R shoulder pain with pt able to tolerate positioning for drawing on a big pad (isaac R arm in AB). (10/28/21: Pt has not tried) (12/12/21: progressing: mobility better accept backwards and across body, hurts put hand in pocket jacket. AROM FF WFL and ABD end range full range little pinching). (12/24/21: Pain drawing is 2/ 10, increasing to 4-5/10 after 10-15 minutes. Hand and wrist hurts after awhile. Pain at rest is 1/10). LTG Duration 01/31/22 (12/24/21: Improved, Progressing) One Impairment Lacks appropriate self care HEP Short Term Goal (STG) Pt will be independent in a self care HEP of L ankle strengthening & R shoulder ROM exercises. (10/03/21: HEP: L ankle strengthening PF/DF/IV/EV w/ Lev 2 TBand issued). (10/17/21: I/S pt in FF R shoulder sliding arm fwd on plinth/table vs ajay, active shoulder ER/IR) (10/28/21: HEP issued: Sitting: PROM shoulder flex, AB & active shoulder ext, ER/ IR. Previously issued : HEP issued for sitting ajay shldr ER/IR and sidelie ER) (11/06/21: issued radial nerve glide RUE for tingling in R hand). (12/12/21: able almost full AROM R shld FF, ABD but little pinch end reange ABD, hurts HABD fornt body). STG Duration 10/04/21 (12/24/21: MET GOAL) Powder Shoveler Goal (LTG) Pt will be independent in a self care HEP of shoulder ROM/ strengthening, core strengthening and standing balance ex's. (10/17/21: I/S pt in FF R shoulder sliding arm fwd on plinth/table vs ajay, active shoulder ER/IR) (12/12/21: isometric reviewed R shld all directions, radial and Ulnar n. glide, wall walking ABD side shld ER. Today Added TB ER (90- 117 deg painfree), Adduction, IR, Ext to side). LTG Duration 01/31/22 (12/12/21: Progressing I/S in HEP) Assessment Summary Assessment Pt has improved greatly in his R shoulder ROM and improvement in function per UE Quickdash score of 40 (40-59% impaired) vs 50 initially (40 -59% impaired, score 40-59). Although % disability is the same, a drop in score indicates good improvement. His LE function has improved per LEFS score 38 (40-59% impaired) compared to initial score of 28 (60-79% impaired). Pt continues to have pain, although less overall, in the L ankle in all positions probably due to decreased L ankle mobility and strength. He has pain in the R scapular region when drawing, but AROM is normal; therefore scapular stab and strengthening is needed. He has R Shoulder pain with pain on pushing and carrying objects, possibly due to decreased strength. The pt has 2 more allowed insurance visits; therefore the pt plans to end therapy when he has reached his limit of visits. The pt would benefit from further therapy for education and progression of his HEP, therefore we will see him for his remaining 2 visits to advance his HEP with discharge to a HEP in 2 visits if you agree. The pt will benefit from this skilled intervention to keep progressing towards achieving the above stated goals. Physical Therapy Plan Frequency and Duration Frequency of Treatment 1x/Week Plan of Care Start Date 12/24/21 Plan of Care End Date 01/31/22 Therapeutic Interventions Therapeutic Interventions Balance Training,Gait Training ,Home Exercise Program,Manual Therapy,Neuromuscular Re- education,Patient/Caregiver Education,Self-Care/Home Management,Taping,Therapeutic Exercises Modalities Cold Pack/Ice Massage,Hot Packs Next Visit Focus/Plan Next Note Type Treatment Note Next Visit Plan Improve L ankle ROM and strength to decrease pain at rest in sit, stand and supine; improve R shoulder and scapular strength and mechanics to decrease R scapular pain; and add balance HEP. R shoulder RC/scap stab strengthening, with caution at Supraspinatus (dx tear). Recheck added HEP: 4 way TB R shld, Radial/ulnar n. glide, ankle, R shld HEP, adjust as needed. Core strengthening. Gait training and balance training if tolerated. Modalities of MH/Ice if needed . No EStim for conservative treatment due to pt implanted stimulator, note: pt uses TNS unit at home.
--- NOTE | 2021-12-31 10:06 | PT.OTN ---
Current Diagnoses Acute pain due to trauma (12/31/21) Other chronic pain (12/31/21) Pain in right shoulder (12/31/21) Pain in left ankle and joints of left foot (12/31/21) Muscle weakness (generalized) (12/31/21) Physical Therapy Treatment Note PT-OP-A Visit Information Start: 09/30/21 17:50 Freq: Status: Active Protocol: Document 12/31/21 08:59 AW (Rec: 12/31/21 10:06 AW [id number]) Out-Patient Physical Therapy Visit Information Visit Information Visit Type Treatment Note Visit Start Time 09:00 Visit Stop Time 09:45 Total Visit Minutes 45 Visit Number 02/15 Evaluation Information Evaluation Date 10/01/21 Precautions Precautions Dorsal root ganglion Spinal Stimulator at L5-S1 on R side and ~T12 level, PTSD, ADHD, Depression, Complex Regional Pain Syndrome/Fibromyalgia, Headaches, Tape allergy, Back and neck pain. PT-OP-B Current Condition Start: 09/30/21 17:50 Freq: Status: Active Protocol: Document 10/01/21 13:49 LRN (Rec: 10/01/21 14:37 LRN [id number]) Current Condition History of Current Condition Onset Date R shldr 05/2021 & L ankle 2013 Current Complaints R shoulder and L ankle pain. History of Current Condition R shoulder pain is worse than the L ankle pain. R shoulder pain onset by doing pushups against the sink and went from 90 deg's shoulder AB to 0 deg 's AB and felt a pop and burning pain at posterior R shoulder deep inside radiated across the chest and down to forearm. Has intermittent tingling in the R hand or with use (holding screwdriver or electric drill). Had broken the Lunate in 2013 (seizure from falling off rope swing 30 ' in air). No imaging to date . States TNS units are alright to use and that he has one that he uses (ok'd as long as he doesn't do it over the DRG site. L Ankle pain from falling off rope swing 30' in air due to seizure and had avulsion fracture of the distal fibula. L Ankle grabs him when moving, with pain on the outside of the ankle. In standing he describes the ankle as gravely. Denies tinging or numbness. Prior Treatments and Tests R shoulder: Needling by Dr. Reinoso, pt feels is not too helpful. Future Testing and Treatments Planned Order in for CT of R shoulder and CT of ankle (not able to do MRI due to implants). Developmental History Developmental History Pt was supposed to have surgery for additional leads to the L side of the dorsal root ganglion at L5-S1 due to Complex Regional Pain Syndrome (CRPS). Has dorsal root ganglion stimulator at L5-S1 on R side for DRG and at mid back (level unknown), ~T12 level. Treatment Goals Patient/Caregiver Goals Decrease R shoulder pain with pt able to tolerate positioning for drawing on a big pad. Decrease L ankle pain in standing and when at rest. Improve R shoulder mobility. Personal Factors Other Personal Factors That May Effect [facility] Therapy/Recovery on waking due to pain. 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 Has Dorsal Root Ganglion Spinal Stimulator implants for past 12 yrs (07/02/2011, 2nd implant 06/2017 due to stimulatro stopped working after fall, no damage to implant or wires at the time of fall) PT-OP-C Subjective Start: 09/30/21 17:50 Freq: Status: Active Protocol: Document 12/31/21 08:59 AW (Rec: 12/31/21 10:06 AW [id number]) OP-PT Subjective Patient Comments Patient Comments Pt still having UE tingling that is bothersome but happy with ROM gains. PT-OP-D Balance Start: 09/30/21 17:50 Freq: Status: Active Protocol: Document 10/01/21 13:49 LRN (Rec: 10/01/21 14:37 LRN [id number]) Balance Tests Functional Reach Functional Reach Test 0 (Pt not able to hold arm to 90 deg's flex) Functional Reach Impairment Rating 100% Impaired (Score 0) Single Limb Standing Single Limb- Right 17 Single Limb- Left 21 PT-OP-J Posture/Palpation/Skin Start: 09/30/21 17:50 Freq: Status: Active Protocol: Document 10/01/21 13:49 LRN (Rec: 10/01/21 14:37 LRN [id number]) Posture Evaluation Position Standing Head/C-Spine Posture Forward Head Shoulder Posture (L) Elevated Foot Arch (L) Low Arch,(R) Low Arch Palpation Assessment Location R shoulder Palpation Location Superior R shoulder Palpation Findings Tenderness L ankle Palpation Location Lateral L ankle Palpation Findings Tenderness PT-OP-K Range of Motion Start: 09/30/21 17:50 Freq: Status: Active Protocol: Document 12/24/21 12:47 LRN (Rec: 12/24/21 13:54 LRN [id number]) Shoulder Goniometric Range of Motion Shoulder Right Active Shoulder ROM WFL No Testing Position Sitting Flexion 180 Extension 52 Abduction 180 Horizontal Adduction 98 External Rotation at 90 degrees 90 Abduction External Rotation at 0 degrees Abduction 95 Internal Rotation Behind Back (text) T9 Left Active Shoulder ROM WFL Yes Testing Position Sitting Flexion 190 Extension 52 Abduction 180 Horizontal Adduction 102 External Rotation at 90 degrees 100 Abduction External Rotation at 0 degrees Abduction 95 Internal Rotation Behind Back (text) T8 Ankle and Foot Goniometric Range of Motion Ankle and Foot Right Active Testing Position Semi-supine Dorsiflexion with Knee Extended 3 Plantarflexion 60 Inversion 40 Eversion 25 Left Active Testing Position Semi-supine Dorsiflexion with Knee Extended 2 Plantarflexion 50 Inversion 28 Eversion 17 PT-OP-L Special Tests Start: 09/30/21 17:50 Freq: Status: Active Protocol: Document 10/03/21 15:27 LRN (Rec: 10/03/21 16:26 LRN [id number]) Special Tests Shoulder Special Tests Empty Can Test Results + R shoulder Comments Painful in positioning Belly Press Test Results - R shoulder Comments Good tolerance Anterior Draw Test Results - R shoulder [place] Impingement Test Results + R shoulder Comments Very painful Elevation Impingement Test Results + R shoulder Comments Pt gets pain at R Supraspinatus region and inferior shoulder joint. PT-OP-M Strength Start: 09/30/21 17:50 Freq: Status: Active Protocol: Document 10/03/21 15:27 LRN (Rec: 10/03/21 16:26 LRN [id number]) Shoulder Strength Shoulder Manual Muscle Testing Right Flexion 2 Poor Extension 3- Fair- Abduction (C5) 2- Poor- Adduction 4 Good External Rotation 5 Normal Internal Rotation 5 Normal Horizontal Abduction 2 Poor Horizontal Adduction 2 Poor PT-OP-Q Treatments Start: 09/30/21 17:50 Freq: Status: Active Protocol: Document 12/31/21 08:59 AW (Rec: 12/31/21 10:06 AW [id number]) Therapeutic Exercises Sitting Exercises R shld TB Sitting Exercise Name ER (90- 117 deg painfree), Adduction, IR, Ext, Side right Resistance TB #2 Equipment Used Added to HEP Reps/Minutes x8 reps each Comments ed painfree range L ankle TB ex Sitting Exercise Name L ankle strengthening (DF, PF, EV, IV) Side left Equipment Used Lev 2 Tband, towel roll btn knees Reps/Minutes 30x ea Comments cued for slow eccentric, pain w/ resisted PF resolved w/ talocrural jt mob Standing Exercises single leg stance Standing Exercise Name SLS Comments R 20+ sec stable; L 20 sec unstable wall slides - SA activation Standing Exercise Name wall slides - SA activation calf eccentric raises/ stretch Standing Exercise Name Toe Ups/downs Side left Reps/Minutes 10SH x 14 ulnar nerve glide Standing Exercise Name reviewed HEP Side right Reps/Minutes x10 Comments reported gentle slow movement, tingle but goes away quickly return start Calf stretch Standing Exercise Name Calf stretch -runners stretch and soleus stretch Equipment Used Wall for balance Reps/Minutes 10s hold stretch gastroc then soleus stretch, then ankle mob foot 2nd step Comments soleus stretch much more limited Manual Therapy Treatment Joint Mobilizations Talocrural Joint L talocrual and distal fib AP Direction PA Grade II Body Position sit Reps/Duration x5 scapulothoracic Joint R scapulothoracic Direction retraction/depression/ downward rotation Grade II Body Position Sidelying Comments good feedback response PT-OP-T Assessment and Plan Start: 09/30/21 17:50 Freq: Status: Active Protocol: Document 12/31/21 08:59 AW (Rec: 12/31/21 10:06 [id number]) Physical Therapy Assessment Goals Four Impairment Decreased R shoulder mobility. Short Term Goal (STG) Pt will be able reach above shoulder height with tolerable pain. (10/28/21: R shoulder active: flex 100 deg's, AB 125 deg's) STG Duration 10/31/21 (10/28/21: MET GOAL) Correction Goal (LTG) Improve R shoulder mobility to improved function per UE QuickDASH score. (12/24/21: Improved R shoulder mobility (see AROM R shoulder ), and improved score number for UE QuickDASH (without a change in his % disability)). LTG Duration 01/31/22 (12/24/21: Progressing) Three Impairment Pain in L ankle Impairment Pain standing is 5-6/10 Pain laying down is 4-5/10 Correction Goal (LTG) Decrease L ankle pain in standing and when at rest ( lying down 50%). (10/28/21: Pain rated 3-4/10) (12/12/21: pain down to 4/10 and 5 at worst when sleeping/ standing. Not continuous some positions better on R side with flexoral take and weighted blanket on top L ankle holding alignment in neutral). (12/24/21: Lying down & Sitting Ankle pain is 3/10, Standing >5 minutes pain is 5/ 10 and takes hours to go away) . LTG Duration 01/31/22 (12/24/21: Progressing) Two Impairment Pain in R shoulder Impairment Pain at rest is 5/10 Pain with movement is 7/10 Youth Minister Goal (LTG) Decrease R shoulder pain with pt able to tolerate positioning for drawing on a big pad (isaac R arm in AB). (10/28/21: Pt has not tried) (12/12/21: progressing: mobility better accept backwards and across body, hurts put hand in pocket jacket. AROM FF WFL and ABD end range full range little pinching). (12/24/21: Pain drawing is 2/ 10, increasing to 4-5/10 after 10-15 minutes. Hand and wrist hurts after awhile. Pain at rest is 1/10). LTG Duration 01/31/22 (12/24/21: Improved, Progressing) One Impairment Lacks appropriate self care HEP Short Term Goal (STG) Pt will be independent in a self care HEP of L ankle strengthening & R shoulder ROM exercises. (10/03/21: HEP: L ankle strengthening PF/DF/IV/EV w/ Lev 2 TBand issued). (10/17/21: I/S pt in FF R shoulder sliding arm fwd on plinth/table vs ajay, active shoulder ER/IR) (10/28/21: HEP issued: Sitting: PROM shoulder flex, AB & active shoulder ext, ER/ IR. Previously issued : HEP issued for sitting ajay shldr ER/IR and sidelie ER) (11/06/21: issued radial nerve glide RUE for tingling in R hand). (12/12/21: able almost full AROM R shld FF, ABD but little pinch end reange ABD, hurts HABD fornt body). STG Duration 10/04/21 (12/24/21: MET GOAL) Correction Goal (LTG) Pt will be independent in a self care HEP of shoulder ROM/ strengthening, core strengthening and standing balance ex's. (10/17/21: I/S pt in FF R shoulder sliding arm fwd on plinth/table vs ajay, active shoulder ER/IR) (12/12/21: isometric reviewed R shld all directions, radial and Ulnar n. glide, wall walking ABD side shld ER. Today Added TB ER (90- 117 deg painfree), Adduction, IR, Ext to side). LTG Duration 01/31/22 (12/12/21: Progressing I/S in HEP) Assessment Summary Assessment Arsalan has made excellent ROM gains but is still having RUE tingling and scapular pain which limit his ability to engage in drawing. Discussed possible referral for EMG which pt will follow up on with his PCP. Pt understands next visit will be his last Physical Therapy Plan Frequency and Duration Frequency of Treatment 1x/Week Plan of Care Start Date 12/24/21 Plan of Care End Date 01/31/22 Therapeutic Interventions Therapeutic Interventions Balance Training,Gait Training ,Home Exercise Program,Manual Therapy,Neuromuscular Re- education,Patient/Caregiver Education,Self-Care/Home Management,Taping,Therapeutic Exercises Modalities Cold Pack/Ice Massage,Hot Packs Next Visit Focus/Plan Next Note Type Treatment Note Next Visit Plan Consolidate HEP for discharge
--- NOTE | 2022-01-07 18:14 | PT.OTN ---
Current Diagnoses Acute pain due to trauma (01/07/22) Other chronic pain (01/07/22) Pain in right shoulder (01/07/22) Pain in left ankle and joints of left foot (01/07/22) Muscle weakness (generalized) (01/07/22) Physical Therapy Treatment Note PT-OP-A Visit Information Start: 09/30/21 17:50 Freq: Status: Active Protocol: Document 01/07/22 09:03 LRN (Rec: 01/07/22 10:51 LRN [id number]) Out-Patient Physical Therapy Visit Information Visit Information Visit Type Treatment Note Visit Start Time 09:03 Visit Stop Time 09:54 Total Visit Minutes 51 Visit Number 03/17 Evaluation Information Evaluation Date 10/01/21 Precautions Precautions Dorsal root ganglion Spinal Stimulator at L5-S1 on R side and ~T12 level, PTSD, ADHD, Depression, Complex Regional Pain Syndrome/Fibromyalgia, Headaches, Tape allergy, Back and neck pain. PT-OP-B Current Condition Start: 09/30/21 17:50 Freq: Status: Active Protocol: Document 10/01/21 13:49 LRN (Rec: 10/01/21 14:37 LRN [id number]) Current Condition History of Current Condition Onset Date R shldr 05/2021 & L ankle 2013 Current Complaints R shoulder and L ankle pain. History of Current Condition R shoulder pain is worse than the L ankle pain. R shoulder pain onset by doing pushups against the sink and went from 90 deg's shoulder AB to 0 deg 's AB and felt a pop and burning pain at posterior R shoulder deep inside radiated across the chest and down to forearm. Has intermittent tingling in the R hand or with use (holding screwdriver or electric drill). Had broken the Lunate in 2013 (seizure from falling off rope swing 30 ' in air). No imaging to date . States TNS units are alright to use and that he has one that he uses (ok'd as long as he doesn't do it over the DRG site. L Ankle pain from falling off rope swing 30' in air due to seizure and had avulsion fracture of the distal fibula. L Ankle grabs him when moving, with pain on the outside of the ankle. In standing he describes the ankle as gravely. Denies tinging or numbness. Prior Treatments and Tests R shoulder: Needling by Dr. Reinoso, pt feels is not too helpful. Future Testing and Treatments Planned Order in for CT of R shoulder and CT of ankle (not able to do MRI due to implants). Developmental History Developmental History Pt was supposed to have surgery for additional leads to the L side of the dorsal root ganglion at L5-S1 due to Complex Regional Pain Syndrome (CRPS). Has dorsal root ganglion stimulator at L5-S1 on R side for DRG and at mid back (level unknown), ~T12 level. Treatment Goals Patient/Caregiver Goals Decrease R shoulder pain with pt able to tolerate positioning for drawing on a big pad. Decrease L ankle pain in standing and when at rest. Improve R shoulder mobility. Personal Factors Other Personal Factors That May Effect [facility] Therapy/Recovery on waking due to pain. 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 Has Dorsal Root Ganglion Spinal Stimulator implants for past 12 yrs (07/02/2011, 2nd implant 06/2017 due to stimulatro stopped working after fall, no damage to implant or wires at the time of fall) PT-OP-C Subjective Start: 09/30/21 17:50 Freq: Status: Active Protocol: Document 01/07/22 09:03 LRN (Rec: 01/07/22 10:51 LRN [id number]) OP-PT Subjective Patient Comments Patient Comments Would like to know what to do to get rid of R shoulder pain. Patient Questionnaires Lower Extremity Functional Scale LEFS Score 35 LEFS Impairment 40 to 59% Impaired (Score 32- 47) Quick Dash- Upper Extremity Quick Dash UE Score 56.81 Quick Dash UE Impairment 40 to 59% Impaired (Score 40- 59) OP-PT Pain Assessment Location R ankle pain Pain Location Details Lateral ankle jt and lateral lower leg Intensity 4 Scale Used Numeric (0 - 10) R shoulder Pain Location Details Medial border of R scapula Intensity 6 Scale Used Numeric (0 - 10) Description Aching,Sharp Frequency Intermittent L ankle Pain Location Details Lateral ankle jt and lateral lower leg Intensity 2 Scale Used Numeric (0 - 10) PT-OP-D Balance Start: 09/30/21 17:50 Freq: Status: Active Protocol: Document 10/01/21 13:49 LRN (Rec: 10/01/21 14:37 LRN [id number]) Balance Tests Functional Reach Functional Reach Test 0 (Pt not able to hold arm to 90 deg's flex) Functional Reach Impairment Rating 100% Impaired (Score 0) Single Limb Standing Single Limb- Right 17 Single Limb- Left 21 PT-OP-J Posture/Palpation/Skin Start: 09/30/21 17:50 Freq: Status: Active Protocol: Document 10/01/21 13:49 LRN (Rec: 10/01/21 14:37 LRN [id number]) Posture Evaluation Position Standing Head/C-Spine Posture Forward Head Shoulder Posture (L) Elevated Foot Arch (L) Low Arch,(R) Low Arch Palpation Assessment Location R shoulder Palpation Location Superior R shoulder Palpation Findings Tenderness L ankle Palpation Location Lateral L ankle Palpation Findings Tenderness PT-OP-K Range of Motion Start: 09/30/21 17:50 Freq: Status: Active Protocol: Document 01/07/22 09:03 LRN (Rec: 01/07/22 10:51 LRN [id number]) Shoulder Goniometric Range of Motion Shoulder Right Active Shoulder ROM WFL No Testing Position Sitting Flexion 153 Extension 55 Abduction 180 Horizontal Adduction 115 External Rotation at 90 degrees 90 Abduction External Rotation at 0 degrees Abduction 76 Left Active Shoulder ROM WFL Yes Testing Position Sitting Flexion 190 Extension 52 Abduction 180 Horizontal Adduction 102 External Rotation at 90 degrees 100 Abduction External Rotation at 0 degrees Abduction 95 Internal Rotation Behind Back (text) T8 PT-OP-L Special Tests Start: 09/30/21 17:50 Freq: Status: Active Protocol: Document 10/03/21 15:27 LRN (Rec: 10/03/21 16:26 LRN [id number]) Special Tests Shoulder Special Tests Empty Can Test Results + R shoulder Comments Painful in positioning Belly Press Test Results - R shoulder Comments Good tolerance Anterior Draw Test Results - R shoulder [place] Impingement Test Results + R shoulder Comments Very painful Elevation Impingement Test Results + R shoulder Comments Pt gets pain at R Supraspinatus region and inferior shoulder joint. PT-OP-M Strength Start: 09/30/21 17:50 Freq: Status: Active Protocol: Document 10/03/21 15:27 LRN (Rec: 10/03/21 16:26 LRN [id number]) Shoulder Strength Shoulder Manual Muscle Testing Right Flexion 2 Poor Extension 3- Fair- Abduction (C5) 2- Poor- Adduction 4 Good External Rotation 5 Normal Internal Rotation 5 Normal Horizontal Abduction 2 Poor Horizontal Adduction 2 Poor PT-OP-Q Treatments Start: 09/30/21 17:50 Freq: Status: Active Protocol: Document 01/07/22 09:03 LRN (Rec: 01/07/22 10:51 N [id number]) Therapeutic Exercises Sidelying Exercises open book Sidelying Exercise Name Modified open book with arms by sides for pec stretch Side bilateral Reps/Minutes 10x each side stretching Sitting Exercises Mireille Shoulder AROM Sitting Exercise Name Active flex, ext, ER, IR, AB Side bilateral Reps/Minutes 15' Comments AROM taken Trunk Rot Sitting Exercise Name Trunk rot with elbows flexed. Side bilateral Reps/Minutes 15X Self-Care/Home Management Treatment Education Patient Education Body Mechanics,Posture Other Education Educated and discussed proper sitting and standing posture with handouts issued and reviewed. Educated and discussed proper body mechanics with handouts issued & reviewed. Activities Self-Care/Home Management Activities Issued & Reviewed HEP for R shoulder: Pec stretch per trunk rotation, standing shoulder pushups with progression to kneeling and regular, and standing shoulder retract w/mireille arms overhead. PT-OP-T Assessment and Plan Start: 09/30/21 17:50 Freq: Status: Active Protocol: Document 01/07/22 09:03 LRN (Rec: 01/07/22 10:51 [facility] [id number]) Physical Therapy Assessment Goals Four Impairment Decreased R shoulder mobility. Impairment UE QuickDASH initial is 59.09, 40-59% impaired (score 40-59) . Short Term Goal (STG) Pt will be able reach above shoulder height with tolerable pain. (10/28/21: R shoulder active: flex 100 deg's, AB 125 deg's) STG Duration 10/31/21 (10/28/21: MET GOAL) Senior Care Goal (LTG) Improve R shoulder mobility to improved function per UE QuickDASH score. 12/24/21: Improved R shoulder mobility (see AROM R shoulder) , and improved score number for UE QuickDASH (without a change in his % disability). 01/07/22: UE QuickDASH 56.81, 40-59% impaired (score 40-59). LTG Duration 01/31/22 (01/07/22: NOT MET GOAL) Three Impairment Pain in L ankle Impairment Pain standing is 5-6/10 Pain laying down is 4-5/10 Senior Care Goal (LTG) Decrease L ankle pain in standing and when at rest ( lying down 50%). (10/28/21: Pain rated 3-4/10) (12/12/21: pain down to 4/10 and 5 at worst when sleeping/ standing. Not continuous some positions better on R side with flexoral take and weighted blanket on top L ankle holding alignment in neutral). (12/24/21: Lying down & Sitting Ankle pain is 3/10, Standing >5 minutes pain is 5/ 10 and takes hours to go away) . 01/07/22: Standin/10 At rest laying down : 0-4/10. 0/ 10 if hasn't been doing anything. LTG Duration 01/31/22 (01/07/22: Standing GOAL MET, Rest goal NOT MET) Two Impairment Pain in R shoulder Impairment Pain at rest is 5/10 Pain with movement is 7/10 Senior Care Goal (LTG) Decrease R shoulder pain with pt able to tolerate positioning for drawing on a big pad (isaac R arm in AB). (10/28/21: Pt has not tried) (12/12/21: progressing: mobility better accept backwards and across body, hurts put hand in pocket jacket. AROM FF WFL and ABD end range full range little pinching). (12/24/21: Pain drawing is 2/ 10, increasing to 4-5/10 after 10-15 minutes. Hand and wrist hurts after awhile. Pain at rest is 1/10). 01/07/22: 90% improved. LTG Duration 01/31/22 (01/07/22: Improved, NOT MET GOAL) One Impairment Lacks appropriate self care HEP Short Term Goal (STG) Pt will be independent in a self care HEP of L ankle strengthening & R shoulder ROM exercises. (10/03/21: HEP: L ankle strengthening PF/DF/IV/EV w/ Lev 2 TBand issued). (10/17/21: I/S pt in FF R shoulder sliding arm fwd on plinth/table vs ajay, active shoulder ER/IR) (10/28/21: HEP issued: Sitting: PROM shoulder flex, AB & active shoulder ext, ER/ IR. Previously issued : HEP issued for sitting ajay shldr ER/IR and sidelie ER) (11/06/21: issued radial nerve glide RUE for tingling in R hand). (12/12/21: able almost full AROM R shld FF, ABD but little pinch end reange ABD, hurts HABD fornt body). STG Duration 10/04/21 (12/24/21: MET GOAL) Con[employer] Pointer Goal (LTG) Pt will be independent in a self care HEP of shoulder ROM/ strengthening, core strengthening and standing balance ex's. (10/17/21: I/S pt in FF R shoulder sliding arm fwd on plinth/table vs ajay, active shoulder ER/IR) (12/12/21: isometric reviewed R shld all directions, radial and Ulnar n. glide, wall walking ABD side shld ER. Today Added TB ER (90- 117 deg painfree), Adduction, IR, Ext to side). (01/07/22: Pt given Shoulder AROM/active strengthening LTG Duration 01/31/22 (01/07/22: Partially met goal) Assessment Summary Assessment Pt overall has improved his R shoulder mobility but strengthening has been hindered due to pain. He has slowly improved ankle strength . Core strengthening was not able to be progressed due to discomfort from his spinal stimulator. The pt appears to have R medial scapular pain that is not cervical related, but more muscular in nature. He may have inflammation of his scapular retractors or pain from his Subscapularis, both when manually muscle tested result in pain. Further therapy would have been helpful to further reduce his pain, but understandable the pt did not want to continue therapy without financial coverage by his insurance group. If the pt continues to have R posterior shoulder pain he would be appropriate for therapy next year, but with only 1 evaluation and 12 visits for the calendar year the pt would have to decide on severity of his pain and need for PT. Physical Therapy Plan Discharge Physical Therapy Discharge Comments Pt choosing to discharge due to max insurance visit limit reached. Thank you for your referral.
== END 2022-01-09 11:33 | disposition home or self-care (01) ==
LOC: PHYS 09:00
PROVIDERS: Family Provider Family Medicine; PCP Family Medicine; Referring Provider Family Medicine; Visit Provider Family Medicine
DX: M25.572 Pain in left ankle and joints of left foot (principal); G89.29 Other chronic pain; M25.511 Pain in right shoulder; G89.11 Acute pain due to trauma; M62.81 Muscle weakness (generalized)
CPT/HCPCS: 97110; 97140; 97162; 97535

== ENCOUNTER → 2022-06-02 13:24 | Outpatient (CLI) | payer OTHER, MEDICAID, SELFPAY ==
--- NOTE | 2022-06-02 13:26 | DI.RAD.S_ITS ---
PROCEDURE: XR CERVICAL SPINE 4V OR 5V INDICATIONS: Right upper extremity pain and paresthesias TECHNIQUE: 5 views of the cervical spine acquired. COMPARISON: None. FINDINGS: Normal cervical spine vertebral body height and alignment. No degenerative changes of the endplates. Disc heights maintained. No osseous neural foraminal narrowing on oblique views. IMPRESSION: Normal study. Dictated by: Edgar Ballesteros M.D. on 06/02/2022 at 15:15 Approved by: dEgar Ballesteros M.D. on 06/02/2022 at 15:16
== END ==
PROVIDERS: Family Provider Family Medicine; PCP Family Medicine; Referring Provider Physical Medicine & Rehabilitation; Visit Provider Physical Medicine & Rehabilitation
DX: M54.12 Radiculopathy, cervical region (principal)
CPT/HCPCS: 72050

== ENCOUNTER → 2022-07-10 13:07 | Outpatient (CLI) | payer OTHER, MEDICAID, SELFPAY | PROVIDERS: Absent Provider Family Medicine; Family Provider Family Medicine; PCP Family Medicine; Referring Provider Physical Medicine & Rehabilitation; Visit Provider Physical Medicine & Rehabilitation | DX: R20.2 Paresthesia of skin (principal) | CPT/HCPCS: 95886; 95909 ==

== ENCOUNTER 2022-09-29 12:30 | Outpatient (RCR) | payer OTHER, MEDICAID, SELFPAY ==
--- NOTE | 2022-08-04 16:30 | PT.OIE ---
Current Diagnoses Acute pain due to trauma (08/04/22) Pain in right shoulder (08/04/22) Radiculopathy, cervical region (08/04/22) Impingement syndrome of right shoulder (08/04/22) Weakness (08/04/22) Past Medical History (Last Updated 05/26/22 @ 16:00 by [place] Hector DO) Acute exacerbation of chronic low back pain Acute pain of right shoulder due to trauma ADHD Allergies Ankle pain Asthma Cervical radiculopathy Chronic back pain Chronic cough Chronic pain of left ankle Cranial somatic dysfunction CRPS (complex regional pain syndrome) Depression Excessive cerumen in left ear canal Foot pain Fractures GI bleeding Headache History of recurrent ear infection Impingement syndrome of right shoulder Inflamed seborrheic keratosis Insomnia due to medical condition Kidney stones Lower limb region somatic dysfunction Migraines Obesity (BMI 30.0-34.9) Pain, foot, right, chronic Paresthesia of upper extremity Post traumatic stress disorder (PTSD) Sacral region somatic dysfunction Sacroiliac joint stiffness Screening for hyperlipidemia Sleep apnea Urge incontinence of urine Vitamin deficiency Past Surgical History (Last Reviewed 05/26/22 @ 15:54 by [place] Hector DO) Anesthesia History of placement of ear tubes Status post insertion of spinal cord stimulator Status post insertion of spinal cord stimulator Visit Care Team Role Provider Type Rambo Reinoso DO Family Provider Physician Primary Care Provider Specialty: Family Practice Address: [address] [place] [address], [id number] Email: [place] Hector DO Attending Provider Physician Referring Provider Specialty: Physiatry Pain Management Address: [address] [place] [address], [facility] Email: [email or web address] Physical Therapy Initial Evaluation PT-OP-A Visit Information Start: 07/31/22 16:46 Freq: Status: Active Protocol: Document 08/04/22 07:55 SAK (Rec: 08/04/22 08:45 SAK [id number]) Out-Patient Physical Therapy Visit Information Visit Information Visit Type Initial Evaluation Visit Start Time 08:00 Visit Stop Time 08:45 Total Visit Minutes 45 Visit Number 1 Evaluation Information Evaluation Date 08/04/22 Precautions Precautions spinal implants PT-OP-B Current Condition Start: 07/31/22 16:46 Freq: Status: Active Protocol: Document 08/04/22 07:55 SAK (Rec: 08/04/22 08:45 SAK [id number]) Current Condition History of Current Condition Onset Date 1 year Current Complaints right shoulder pain, neck pain History of Current Condition Arsalan presents today for further evaluation treatment of ongoing right shoulder and arm pain. He reports that approximately a year ago he was doing pushups when he subsequently felt acute pain involving his right shoulder and arm. He reports pain down to the fingers typically the 3rd, 4th, and 5th digits. He reports he has been through extensive conservative therapy including physical therapy at [facility]. He reports that shoulder exercises ultrasound as well as conservative management has not been beneficial; left shoulder just started hurting as well about a week ago. Had cortisone injection right shoulder about 1 month ago; took pain from 7 down to a 4. Sent back to PT due to diagnosis of right shoulder impingement. Has been doing HEP from prior PT doing every other day. Got movement back in shoulder: ER AROM, theraband ex, wall push ups, table slide Has CRPS LEs, can't use cane due to pain in shoulders. Sleeps on right shoulder, no pain in shoulder when laying on it. 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 Current Functional Impairments (Reported) Functional Limitations- ADL's painful Functional Limitations- Mobility/Gait can't use cane due to shoulder pain 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; 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 PT-OP-C Subjective Start: 07/31/22 16:46 Freq: Status: Active Protocol: Document 08/04/22 07:55 SAK (Rec: 08/05/22 16:26 SAK [id number]) Patient Questionnaires Quick Dash- Upper Extremity Quick Dash UE Score 57 OP-PT Pain Assessment Pain Assessment Grid Paper Pain Assessment Grid Completed Yes Location R shoulder Intensity 6 Scale Used Numeric (0 - 10) Description Aching,Pressure,Radiating, Tender,Tingling,With Movement Frequency Frequent Radiating Location right digits 2,3,4 Pain Aggravating Factors Activity Other Pain Aggravating Factors reaching PT-OP-F Manual Assessment Start: 07/31/22 16:46 Freq: Status: Active Protocol: Document 08/04/22 07:55 [facility] (Rec: 08/05/22 16:26 [facility] [id number]) Manual Assessments Joint Mobility Assessment Joint Mobility Assessment dec posterior and inf glid mireille shoulders right greater than left PT-OP-H Neuro Start: 07/31/22 16:46 Freq: Status: Active Protocol: Document 08/04/22 07:55 SAK (Rec: 08/05/22 16:26 [facility] [id number]) Sensation Evaluation Gross Sensation Gross Sensation Right UE Impaired Sensation Description Tingling Dermatome Impairments C7,C8,T1 PT-OP-J Posture/Palpation/Skin Start: 07/31/22 16:46 Freq: Status: Active Protocol: Document 08/04/22 07:55 [facility] (Rec: 08/05/22 16:26 [facility] [id number]) Posture Evaluation Position Sitting Head/C-Spine Posture Forward Head T-Spine Posture Increased Kyphosis Shoulder Posture (L) Rounded,(R) Rounded Scapula Posture (L) Protracted,(R) Protracted Arm Posture (L) Internally Rotated,(R) Internally Rotated Palpation Assessment Location cervical spine Palpation Location mireille right greater than left Palpation Findings Soft Tissue Tightness,Muscle Guarding,Tenderness shoulder Palpation Location GH joint line mireille Palpation Findings Soft Tissue Tightness,Muscle Guarding,Tenderness Palpation Details right greater than left PT-OP-K Range of Motion Start: 07/31/22 16:46 Freq: Status: Active Protocol: Document 08/04/22 07:55 SAK (Rec: 08/04/22 08:45 [facility] [id number]) Cervical Spine Range of Motion Cervical Spine Active Flexion 55 Extension 40 Rotation Left 55 Rotation Right 55 Lateral Flexion Left 50 Lateral Flexion Right 50 ROM Limitations Pain Shoulder Goniometric Range of Motion Shoulder Right Flexion 158 Extension 25 Abduction 150 Horizontal Abduction 75 Horizontal Adduction 0 Internal Rotation Behind Back (text) T12 Left Shoulder ROM WFL Yes Testing Position Sitting Internal Rotation Behind Back (text) T12 Shoulder ROM Limitations Shoulder ROM Limitations Pain Elbow/Forearm Range of Motion Elbow/Forearm mireille Elbow/Forearm ROM WFL Yes PT-OP-L Special Tests Start: 07/31/22 16:46 Freq: Status: Active Protocol: Document 08/04/22 07:55 [facility] (Rec: 08/05/22 16:26 [facility] [id number]) Special Tests Shoulder Special Tests Empty Can Test Results + R shoulder Comments Painful in positioning Belly Press Test Results - R shoulder Comments Good tolerance Anterior Draw Test Results - R shoulder [place] Impingement Test Results + R shoulder Comments Very painful Elevation Impingement Test Results + R shoulder Comments Pt gets pain at R Supraspinatus region and inferior shoulder joint. PT-OP-M Strength Start: 07/31/22 16:46 Freq: Status: Active Protocol: Document 08/04/22 07:55 [facility] (Rec: 08/04/22 08:45 [facility] [id number]) Shoulder Strength Shoulder Manual Muscle Testing Right Flexion 4+ Good+ Extension 4+ Good+ Abduction (C5) 4+ Good+ External Rotation 4- Good- Internal Rotation 4 Good Comments pain all motions, clunking right shoulder with return from elevation Left External Rotation 4 Good Internal Rotation 4+ Good+ Elbow/Forearm Strength Elbow and Forearm Manual Muscle Testing Right Flexion (C6) 4+ Good+ Extension (C7) 4+ Good+ Left Flexion (C6) 4+ Good+ Extension (C7) 4+ Good+ PT-OP-Q Treatments Start: 07/31/22 16:46 Freq: Status: Active Protocol: Document 08/04/22 07:55 [facility] (Rec: 08/05/22 16:26 [facility] [id number]) Self-Care/Home Management Treatment Education Patient Education Body Mechanics,Home Exercise Program,Posture Other Education Educated and discussed proper sitting and standing posture instructed to resume gentle ther ex from HEP as isaac, bring handouts for review next session. PT-OP-T Assessment and Plan Start: 07/31/22 16:46 Freq: Status: Active Protocol: Document 08/04/22 07:55 [facility] (Rec: 08/05/22 16:26 [facility] [id number]) Physical Therapy Assessment Rehab Potential Rehabilitation Potential Good Evaluation Complexity Number of Personal Factors/Comorbidities 1-2 Number of Body Systems Impaired 3 Clinical Presentation at Evaluation Evolving Impairments Impairments Activity Tolerance,Pain, Posture,ROM,Strength Goals One Impairment weakness R shoulder and c/s Short Term Goal (STG) Patient to be instructed in HEP for purposes of c/s and shoulder strengthening STG Duration 09/04/22 Senior Living Goal (LTG) Patient to be independent with HEP and demonstrate at least 4+/5 muscle strength throughout c/s and right shoulder for improved function with ADL's and work activities LTG Duration 10/04/22 Two Impairment postural dysfunction Impairment contributes to cervical and shoulder pain and dysfunction Short Term Goal (STG) instruct patient in neutral posture and postural correction exercises STG Duration 09/04/22 Senior Living Goal (LTG) Patient to be independent with HEP and demonstrate improved posture statically and with functional activities. LTG Duration 10/04/22 Three Impairment Pain in neck and right shoulders as high as 7/10 Short Term Goal (STG) Decrease reported pain level to no greater than 5/10 with all usual activities STG Duration 09/04/22 Senior Living Goal (LTG) Decrease reported pain level to no greater than 3/10 with all usual activities and allow patient to resume prior level of function Four Impairment Decreased activity tolerance Impairment UE QuickDASH initial is 57% Short Term Goal (STG) Improve QuickDash score to no greater than 40% as measure of improved activity tolerance STG Duration 09/04/22 Senior Living Goal (LTG) Improve Quickdash score to no greater than 30% as measure of improved activity tolerance Assessment Summary Assessment Patient presents to PT with function-limiting pain of a chronic nature in neck and right shoulder with radicular symptoms into right UE. Pain resulted from doing a push-up one year ago during which he felt a pop in his right shoulder and resulting pain which has persisted. His pain and radicular symptoms severely limit his activity tolerance, ability to do ADL's or work activities. He has significant postural dysfunction and weakness throughout cervical spine and shoulders. REcent injection into right AC joint was somewhat helpful Feel he would benefit from PT to decrease his pain and improve his posture, strength, and overall function. Discussed POC and patient is in agreement. Physical Therapy Plan Frequency and Duration Frequency of Treatment 2x/Week Duration of treatment (weeks) 8 Plan of Care Start Date 08/04/22 Plan of Care End Date 10/04/22 Therapeutic Interventions Therapeutic Interventions Home Exercise Program,Joint Mobilizations,Manual Therapy, Patient/Caregiver Education, Self-Care/Home Management,Soft Tissue Mobilization,Taping, Therapeutic Activities, Therapeutic Exercises Modalities Cold Pack/Ice Massage,Electric Stimulation,Hot Packs, Traction- Mechanical, Ultrasound Next Visit Focus/Plan Next Note Type Treatment Note Next Visit Plan REview HEP, ther ex for postural correction, shoulder girdle strengthening, manual therapy to improve joint mobility.
--- NOTE | 2022-08-05 16:31 | PT.OPPOC ---
Physical, Occupational & Speech Therapy At [facility] Current Diagnoses Acute pain due to trauma (08/04/22) Pain in right shoulder (08/04/22) Radiculopathy, cervical region (08/04/22) Impingement syndrome of right shoulder (08/04/22) Weakness (08/04/22) Visit Care Team Role Provider Type Rambo Reinoso DO Family Provider Physician Primary Care Provider Specialty: Family Practice Address: [address] [place] [address], [id number] Email: [place] Hector DO Attending Provider Physician Referring Provider Specialty: Physiatry Pain Management Address: [facility] [place], [address] Email: [email or web address] Plan Of Care PT-OP-T Assessment and Plan Start: 07/31/22 16:46 Freq: Status: Active Protocol: Document 08/04/22 07:55 SAK (Rec: 08/05/22 16:26 SAK [id number]) Physical Therapy Assessment Rehab Potential Rehabilitation Potential Good Evaluation Complexity Number of Personal Factors/Comorbidities 1-2 Number of Body Systems Impaired 3 Clinical Presentation at Evaluation Evolving Impairments Impairments Activity Tolerance,Pain, Posture,ROM,Strength Goals One Impairment weakness R shoulder and c/s Short Term Goal (STG) Patient to be instructed in HEP for purposes of c/s and shoulder strengthening STG Duration 09/04/22 Scorer Helper Goal (LTG) Patient to be independent with HEP and demonstrate at least 4+/5 muscle strength throughout c/s and right shoulder for improved function with ADL's and work activities LTG Duration 10/04/22 Two Impairment postural dysfunction Impairment contributes to cervical and shoulder pain and dysfunction Short Term Goal (STG) instruct patient in neutral posture and postural correction exercises STG Duration 09/04/22 Mcfp Goal (LTG) Patient to be independent with HEP and demonstrate improved posture statically and with functional activities. LTG Duration 10/04/22 Three Impairment Pain in neck and right shoulders as high as 7/10 Short Term Goal (STG) Decrease reported pain level to no greater than 5/10 with all usual activities STG Duration 09/04/22 Scorer Helper Goal (LTG) Decrease reported pain level to no greater than 3/10 with all usual activities and allow patient to resume prior level of function Four Impairment Decreased activity tolerance Impairment UE QuickDASH initial is 57% Short Term Goal (STG) Improve QuickDash score to no greater than 40% as measure of improved activity tolerance STG Duration 09/04/22 Scorer Helper Goal (LTG) Improve Quickdash score to no greater than 30% as measure of improved activity tolerance Assessment Summary Assessment Patient presents to PT with function-limiting pain of a chronic nature in neck and right shoulder with radicular symptoms into right UE. Pain resulted from doing a push-up one year ago during which he felt a pop in his right shoulder and resulting pain which has persisted. His pain and radicular symptoms severely limit his activity tolerance, ability to do ADL's or work activities. He has significant postural dysfunction and weakness throughout cervical spine and shoulders. REcent injection into right AC joint was somewhat helpful Feel he would benefit from PT to decrease his pain and improve his posture, strength, and overall function. Discussed POC and patient is in agreement. Physical Therapy Plan Frequency and Duration Frequency of Treatment 2x/Week Duration of treatment (weeks) 8 Plan of Care Start Date 08/04/22 Plan of Care End Date 10/04/22 Therapeutic Interventions Therapeutic Interventions Home Exercise Program,Joint Mobilizations,Manual Therapy, Patient/Caregiver Education, Self-Care/Home Management,Soft Tissue Mobilization,Taping, Therapeutic Activities, Therapeutic Exercises Modalities Cold Pack/Ice Massage,Electric Stimulation,Hot Packs, Traction- Mechanical, Ultrasound Next Visit Focus/Plan Next Note Type Treatment Note Next Visit Plan REview HEP, ther ex for postural correction, shoulder girdle strengthening, manual therapy to improve joint mobility. Plan of Care Dates Plan of Care Start Date 08/04/22 Plan of Care End Date 10/04/22 Electronically Signed by: Jelly Marlow PT 08/05/22 [id number] If you are in agreement with this Plan of Care, please return a signed and dated copy. I have reviewed this Plan of Care and certify that the skilled therapy services above are required to meet the patient?s needs. Physician Signature Date Printed Name and Credentials Clinical Instructor Signature Printed Name and Credentials
--- NOTE | 2022-08-06 16:24 | PT.OTN ---
Current Diagnoses Acute pain due to trauma (08/06/22) Pain in right shoulder (08/06/22) Radiculopathy, cervical region (08/06/22) Impingement syndrome of right shoulder (08/06/22) Weakness (08/06/22) Physical Therapy Treatment Note PT-OP-A Visit Information Start: 07/31/22 16:46 Freq: Status: Active Protocol: Document 08/06/22 08:47 SAK (Rec: 08/06/22 09:28 [facility] [id number]) Out-Patient Physical Therapy Visit Information Visit Information Visit Type Treatment Note Visit Note 05/18 Visit Start Time 08:47 Visit Number 2 PT-OP-B Current Condition Start: 07/31/22 16:46 Freq: Status: Active Protocol: Document 08/06/22 08:47 SAK (Rec: 08/06/22 09:28 [facility] [id number]) Current Condition History of Current Condition Onset Date 1 year Current Complaints right shoulder pain, neck pain History of Current Condition Arsalan presents today for further evaluation treatment of ongoing right shoulder and arm pain. He reports that approximately a year ago he was doing pushups when he subsequently felt acute pain involving his right shoulder and arm. He reports pain down to the fingers typically the 3rd, 4th, and 5th digits. He reports he has been through extensive conservative therapy including physical therapy at [facility]. He reports that shoulder exercises ultrasound as well as conservative management has not been beneficial; left shoulder just started hurting as well about a week ago. Had cortisone injection right shoulder about 1 month ago; took pain from 7 down to a 4. Sent back to PT due to diagnosis of right shoulder impingement. Has been doing HEP from prior PT doing every other day. Got movement back in shoulder: ER AROM, theraband ex, wall push ups, table slide Has CRPS LEs, can't use cane due to pain in shoulders. Sleeps on right shoulder, no pain in shoulder when laying on it. Also reports pain anterior chest T6 ; has had OMT Prior Treatments and Tests x-ray shoulder 10/17/22: normal x-ray c/s 06/02/22 normal study EMG right UE normal PT-OP-C Subjective Start: 07/31/22 16:46 Freq: Status: Active Protocol: Document 08/06/22 08:47 SAK (Rec: 08/06/22 09:28 [facility] [id number]) OP-PT Subjective Patient Comments Patient Comments Feeling pretty sore, did think kinesiotape some helpful with postural reminders. Brought prior HEP for PT to review PT-OP-F Manual Assessment Start: 07/31/22 16:46 Freq: Status: Active Protocol: Document 08/04/22 07:55 SAK (Rec: 08/05/22 16:26 [facility] [id number]) Manual Assessments Joint Mobility Assessment Joint Mobility Assessment dec posterior and inf glid mireille shoulders right greater than left PT-OP-H Neuro Start: 07/31/22 16:46 Freq: Status: Active Protocol: Document 08/04/22 07:55 SAK (Rec: 08/05/22 16:26 [facility] [id number]) Sensation Evaluation Gross Sensation Gross Sensation Right UE Impaired Sensation Description Tingling Dermatome Impairments C7,C8,T1 PT-OP-J Posture/Palpation/Skin Start: 07/31/22 16:46 Freq: Status: Active Protocol: Document 08/04/22 07:55 [facility] (Rec: 08/05/22 16:26 [facility] [id number]) Posture Evaluation Position Sitting Head/C-Spine Posture Forward Head T-Spine Posture Increased Kyphosis Shoulder Posture (L) Rounded,(R) Rounded Scapula Posture (L) Protracted,(R) Protracted Arm Posture (L) Internally Rotated,(R) Internally Rotated Palpation Assessment Location cervical spine Palpation Location mireille right greater than left Palpation Findings Soft Tissue Tightness,Muscle Guarding,Tenderness shoulder Palpation Location GH joint line mireille Palpation Findings Soft Tissue Tightness,Muscle Guarding,Tenderness Palpation Details right greater than left PT-OP-K Range of Motion Start: 07/31/22 16:46 Freq: Status: Active Protocol: Document 08/04/22 07:55 SAK (Rec: 08/04/22 08:45 [facility] [id number]) Cervical Spine Range of Motion Cervical Spine Active Flexion 55 Extension 40 Rotation Left 55 Rotation Right 55 Lateral Flexion Left 50 Lateral Flexion Right 50 ROM Limitations Pain Shoulder Goniometric Range of Motion Shoulder Right Flexion 158 Extension 25 Abduction 150 Horizontal Abduction 75 Horizontal Adduction 0 Internal Rotation Behind Back (text) T12 Left Shoulder ROM WFL Yes Testing Position Sitting Internal Rotation Behind Back (text) T12 Shoulder ROM Limitations Shoulder ROM Limitations Pain Elbow/Forearm Range of Motion Elbow/Forearm mireille Elbow/Forearm ROM WFL Yes PT-OP-L Special Tests Start: 07/31/22 16:46 Freq: Status: Active Protocol: Document 08/04/22 07:55 [facility] (Rec: 08/05/22 16:26 [facility] [id number]) Special Tests Shoulder Special Tests Empty Can Test Results + R shoulder Comments Painful in positioning Belly Press Test Results - R shoulder Comments Good tolerance Anterior Draw Test Results - R shoulder [place] Impingement Test Results + R shoulder Comments Very painful Elevation Impingement Test Results + R shoulder Comments Pt gets pain at R Supraspinatus region and inferior shoulder joint. PT-OP-M Strength Start: 07/31/22 16:46 Freq: Status: Active Protocol: Document 08/04/22 07:55 [facility] (Rec: 08/04/22 08:45 [facility] [id number]) Shoulder Strength Shoulder Manual Muscle Testing Right Flexion 4+ Good+ Extension 4+ Good+ Abduction (C5) 4+ Good+ External Rotation 4- Good- Internal Rotation 4 Good Comments pain all motions, clunking right shoulder with return from elevation Left External Rotation 4 Good Internal Rotation 4+ Good+ Elbow/Forearm Strength Elbow and Forearm Manual Muscle Testing Right Flexion (C6) 4+ Good+ Extension (C7) 4+ Good+ Left Flexion (C6) 4+ Good+ Extension (C7) 4+ Good+ PT-OP-Q Treatments Start: 07/31/22 16:46 Freq: Status: Active Protocol: Document 08/06/22 08:47 [facility] (Rec: 08/06/22 09:28 [facility] [id number]) Therapeutic Exercises Supine Exercises pec stretch Side bilateral Reps/Minutes 1 min Comments manual deep breathing Supine Exercise Name abdominal and chest Reps/Minutes 5x ea scap retr Reps/Minutes 5x chin tuck Reps/Minutes 5x Sitting Exercises sitting posture Reps/Minutes 3 min Comments chin tuck, scap retr Standing Exercises wall posture Reps/Minutes 3 min Comments verbal and tactile cues; less strain, dec effort to comfortable level Manual Therapy Treatment Soft Tissue Mobilization c/s Mobilization Type Myofascial Release,Sustained Pressure Intensity/Depth Moderate Body Position Hooklying Comments suboccipital release right shoulder Body Location biceps, deltoid, UT, Mobilization Type Myofascial Release,Strumming Intensity/Depth Moderate Body Position Hooklying Taping right shoulder Body Location right shoudler Treatment Focus support, postural correcton, pain relief Type of Tape Kinesio Tape Skin Inspection intact Comments I strip T10 to ant shoulder 50 % stretch Y strip deltoid insertion to ant and post borders deltoid with 50% stretch Y strip supraspinatus 50% stretch Self-Care/Home Management Treatment Education Patient Education Home Exercise Program,Pain Management,Posture PT-OP-R Modalities Start: 07/31/22 16:46 Freq: Status: Active Protocol: Document 08/06/22 08:47 [facility] (Rec: 08/06/22 16:23 [facility] [id number]) Electric Stimulation Electric Stimulation right shoulder Duration (Minutes) 15 Intensity 9 Target/Sweep Sweep Patient Position Hooklying Combined With Heat/Cold Hot Pack Comments MH to shoulder and c/s Ultrasound Therapy Treatment right shoulder Patient Position Supine Coupling Medium Ultrasound Gel Applicator Size (cm2) 10 Frequency Setting (mHz) 1 Duty Cycle 100% Intensity Setting (w/cm2) 1.4 PT-OP-T Assessment and Plan Start: 07/31/22 16:46 Freq: Status: Active Protocol: Document 08/06/22 08:47 [facility] (Rec: 08/06/22 09:28 [facility] [id number]) Physical Therapy Assessment Impairments Impairments Activity Tolerance,Pain, Posture,ROM,Strength Goals One Impairment weakness R shoulder and c/s Short Term Goal (STG) Patient to be instructed in HEP for purposes of c/s and shoulder strengthening STG Duration 09/04/22 Detention Goal (LTG) Patient to be independent with HEP and demonstrate at least 4+/5 muscle strength throughout c/s and right shoulder for improved function with ADL's and work activities LTG Duration 10/04/22 Two Impairment postural dysfunction Impairment contributes to cervical and shoulder pain and dysfunction Short Term Goal (STG) instruct patient in neutral posture and postural correction exercises STG Duration 09/04/22 Hydro Excavation Operator Goal (LTG) Patient to be independent with HEP and demonstrate improved posture statically and with functional activities. LTG Duration 10/04/22 Three Impairment Pain in neck and right shoulders as high as 7/10 Short Term Goal (STG) Decrease reported pain level to no greater than 5/10 with all usual activities STG Duration 09/04/22 Hydro Excavation Operator Goal (LTG) Decrease reported pain level to no greater than 3/10 with all usual activities and allow patient to resume prior level of function Four Impairment Decreased activity tolerance Impairment UE QuickDASH initial is 57% Short Term Goal (STG) Improve QuickDash score to no greater than 40% as measure of improved activity tolerance STG Duration 09/04/22 Detention Goal (LTG) Improve Quickdash score to no greater than 30% as measure of improved activity tolerance Assessment Summary Assessment Patient symptoms highly irritable. Provided Ultrasound, soft tissue mobilization, and IFES with MH today following ther ex for gentle postural correction with good tolerance. Patient demonstrated good understanding of new ex. Physical Therapy Plan Frequency and Duration Frequency of Treatment 2x/Week Duration of treatment (weeks) 8 Plan of Care Start Date 08/04/22 Plan of Care End Date 10/04/22 Therapeutic Interventions Therapeutic Interventions Home Exercise Program,Joint Mobilizations,Manual Therapy, Patient/Caregiver Education, Self-Care/Home Management,Soft Tissue Mobilization,Taping, Therapeutic Activities, Therapeutic Exercises Modalities Cold Pack/Ice Massage,Electric Stimulation,Hot Packs, Traction- Mechanical, Ultrasound Next Visit Focus/Plan Next Note Type Treatment Note Next Visit Plan Continue gentle progression of postural correction ex. Add AAROM ther ex as tolerated progression to AROM and resisted. Kinesiotape, manual therapy and modalities PRN.
--- NOTE | 2022-08-13 09:11 | PT.OTN ---
Current Diagnoses Acute pain due to trauma (08/13/22) Pain in right shoulder (08/13/22) Radiculopathy, cervical region (08/13/22) Impingement syndrome of right shoulder (08/13/22) Weakness (08/13/22) Physical Therapy Treatment Note PT-OP-A Visit Information Start: 07/31/22 16:46 Freq: Status: Active Protocol: Document 08/13/22 08:19 SP (Rec: 08/13/22 09:04 SP [id number]) Out-Patient Physical Therapy Visit Information Visit Information Visit Type Treatment Note Visit Note 06/15 Visit Start Time 08:19 Visit Stop Time 09:11 Total Visit Minutes 52 Visit Number 3 Number of GRAIN ELEVATOR SUPERINTENDENT Visits 1 Evaluation Information Evaluation Date 08/04/22 Precautions Precautions spinal implants PT-OP-B Current Condition Start: 07/31/22 16:46 Freq: Status: Active Protocol: Document 08/06/22 08:47 SAK (Rec: 08/06/22 09:28 SAK [id number]) Current Condition History of Current Condition Onset Date 1 year Current Complaints right shoulder pain, neck pain History of Current Condition Arsalan presents today for further evaluation treatment of ongoing right shoulder and arm pain. He reports that approximately a year ago he was doing pushups when he subsequently felt acute pain involving his right shoulder and arm. He reports pain down to the fingers typically the 3rd, 4th, and 5th digits. He reports he has been through extensive conservative therapy including physical therapy at [facility]. He reports that shoulder exercises ultrasound as well as conservative management has not been beneficial; left shoulder just started hurting as well about a week ago. Had cortisone injection right shoulder about 1 month ago; took pain from 7 down to a 4. Sent back to PT due to diagnosis of right shoulder impingement. Has been doing HEP from prior PT doing every other day. Got movement back in shoulder: ER AROM, theraband ex, wall push ups, table slide Has CRPS LEs, can't use cane due to pain in shoulders. Sleeps on right shoulder, no pain in shoulder when laying on it. Also reports pain anterior chest T6 ; has had OMT Prior Treatments and Tests x-ray shoulder 10/17/22: normal x-ray c/s 06/02/22 normal study EMG right UE normal PT-OP-C Subjective Start: 07/31/22 16:46 Freq: Status: Active Protocol: Document 08/13/22 08:19 SP (Rec: 08/13/22 09:04 SP [id number]) OP-PT Subjective Patient Comments Patient Comments Pt reports had a bad headache later in day after last tx but not sure was related to PT. He states his R shld really sore. He hasn't been able to return to drawing. He thinks the TENS helped last tx. Pt decreased R arm swing upon arrival. PT-OP-F Manual Assessment Start: 07/31/22 16:46 Freq: Status: Active Protocol: Document 08/04/22 07:55 SAK (Rec: 08/05/22 16:26 SAK [id number]) Manual Assessments Joint Mobility Assessment Joint Mobility Assessment dec posterior and inf glid mireille shoulders right greater than left PT-OP-H Neuro Start: 07/31/22 16:46 Freq: Status: Active Protocol: Document 08/04/22 07:55 SAK (Rec: 08/05/22 16:26 SAK [id number]) Sensation Evaluation Gross Sensation Gross Sensation Right UE Impaired Sensation Description Tingling Dermatome Impairments C7,C8,T1 PT-OP-J Posture/Palpation/Skin Start: 07/31/22 16:46 Freq: Status: Active Protocol: Document 08/04/22 07:55 SAK (Rec: 08/05/22 16:26 SAK [id number]) Posture Evaluation Position Sitting Head/C-Spine Posture Forward Head T-Spine Posture Increased Kyphosis Shoulder Posture (L) Rounded,(R) Rounded Scapula Posture (L) Protracted,(R) Protracted Arm Posture (L) Internally Rotated,(R) Internally Rotated Palpation Assessment Location cervical spine Palpation Location mireille right greater than left Palpation Findings Soft Tissue Tightness,Muscle Guarding,Tenderness shoulder Palpation Location GH joint line mireille Palpation Findings Soft Tissue Tightness,Muscle Guarding,Tenderness Palpation Details right greater than left PT-OP-K Range of Motion Start: 07/31/22 16:46 Freq: Status: Active Protocol: Document 08/04/22 07:55 SAK (Rec: 08/04/22 08:45 SAK [id number]) Cervical Spine Range of Motion Cervical Spine Active Flexion 55 Extension 40 Rotation Left 55 Rotation Right 55 Lateral Flexion Left 50 Lateral Flexion Right 50 ROM Limitations Pain Shoulder Goniometric Range of Motion Shoulder Right Flexion 158 Extension 25 Abduction 150 Horizontal Abduction 75 Horizontal Adduction 0 Internal Rotation Behind Back (text) T12 Left Shoulder ROM WFL Yes Testing Position Sitting Internal Rotation Behind Back (text) T12 Shoulder ROM Limitations Shoulder ROM Limitations Pain Elbow/Forearm Range of Motion Elbow/Forearm mireille Elbow/Forearm ROM WFL Yes PT-OP-L Special Tests Start: 07/31/22 16:46 Freq: Status: Active Protocol: Document 08/04/22 07:55 SAK (Rec: 08/05/22 16:26 SAK [id number]) Special Tests Shoulder Special Tests Empty Can Test Results + R shoulder Comments Painful in positioning Belly Press Test Results - R shoulder Comments Good tolerance Anterior Draw Test Results - R shoulder [place] Impingement Test Results + R shoulder Comments Very painful Elevation Impingement Test Results + R shoulder Comments Pt gets pain at R Supraspinatus region and inferior shoulder joint. PT-OP-M Strength Start: 07/31/22 16:46 Freq: Status: Active Protocol: Document 08/04/22 07:55 SAK (Rec: 08/04/22 08:45 SAK [id number]) Shoulder Strength Shoulder Manual Muscle Testing Right Flexion 4+ Good+ Extension 4+ Good+ Abduction (C5) 4+ Good+ External Rotation 4- Good- Internal Rotation 4 Good Comments pain all motions, clunking right shoulder with return from elevation Left External Rotation 4 Good Internal Rotation 4+ Good+ Elbow/Forearm Strength Elbow and Forearm Manual Muscle Testing Right Flexion (C6) 4+ Good+ Extension (C7) 4+ Good+ Left Flexion (C6) 4+ Good+ Extension (C7) 4+ Good+ PT-OP-Q Treatments Start: 07/31/22 16:46 Freq: Status: Active Protocol: Document 08/13/22 08:19 SP (Rec: 08/13/22 09:04 SP [id number]) Therapeutic Exercises Supine Exercises pec stretch Side bilateral Reps/Minutes 1 min Comments manual deep breathing Supine Exercise Name abdominal and chest Reps/Minutes 5x ea scap retr Reps/Minutes 5x Comments cued small gentle fluid engagement, tends to over engage. chin tuck Reps/Minutes 5x 5SH Comments cued small gentle nod/ hold. Sidelying Exercises shld ER Sidelying Exercise Name small range Side right Reps/Minutes x8 reps Comments cued slow painfree range, scap neutral stab positioning Manual Therapy Treatment Soft Tissue Mobilization c/s Body Location SOR, UT, LS, SCM Mobilization Type Myofascial Release,Sustained Pressure Intensity/Depth Moderate Body Position Hooklying right shoulder Body Location biceps, deltoid, UT, pec, Rhomboid, infraspinatus Mobilization Type Myofascial Release,Strumming Intensity/Depth Moderate Body Position Sidelying Joint Mobilizations R scapulothoracic Direction retraction/depression Body Position Sidelying Comments small, gentle ROM- improved post manual STMs Taping right shoulder Body Location right shoudler Treatment Focus support, postural correcton, pain relief Type of Tape Kinesio Tape Skin Inspection intact Comments I strip T10 to ant shoulder 50 % stretch Y strip deltoid insertion to ant and post borders deltoid with 50% stretch Y strip supraspinatus 50% stretch PT-OP-R Modalities Start: 07/31/22 16:46 Freq: Status: Active Protocol: Document 08/13/22 08:19 SP (Rec: 08/13/22 09:04 SP [id number]) Electric Stimulation Electric Stimulation right shoulder Duration (Minutes) 10 Intensity 9.8 Target/Sweep Sweep Patient Position Hooklying Combined With Heat/Cold Hot Pack Comments MH to shoulder and c/s PT-OP-T Assessment and Plan Start: 07/31/22 16:46 Freq: Status: Active Protocol: Document 08/13/22 08:19 SP (Rec: 08/13/22 09:04 SP [id number]) Physical Therapy Assessment Goals One Impairment weakness R shoulder and c/s Short Term Goal (STG) Patient to be instructed in HEP for purposes of c/s and shoulder strengthening STG Duration 09/04/22 Car Dealer Goal (LTG) Patient to be independent with HEP and demonstrate at least 4+/5 muscle strength throughout c/s and right shoulder for improved function with ADL's and work activities LTG Duration 10/04/22 Two Impairment postural dysfunction Impairment contributes to cervical and shoulder pain and dysfunction Short Term Goal (STG) instruct patient in neutral posture and postural correction exercises STG Duration 09/04/22 Car Dealer Goal (LTG) Patient to be independent with HEP and demonstrate improved posture statically and with functional activities. LTG Duration 10/04/22 Three Impairment Pain in neck and right shoulders as high as 7/10 Short Term Goal (STG) Decrease reported pain level to no greater than 5/10 with all usual activities STG Duration 09/04/22 Car Dealer Goal (LTG) Decrease reported pain level to no greater than 3/10 with all usual activities and allow patient to resume prior level of function Four Impairment Decreased activity tolerance Impairment UE QuickDASH initial is 57% Short Term Goal (STG) Improve QuickDash score to no greater than 40% as measure of improved activity tolerance STG Duration 09/04/22 Car Dealer Goal (LTG) Improve Quickdash score to no greater than 30% as measure of improved activity tolerance Assessment Summary Assessment Pt reports less tension R neck and more scap mobililty but having numbness anterior arm at end tx post IFC. Pt reports Ktaping is very helpful and R shld feels more supportive. Physical Therapy Plan Frequency and Duration Frequency of Treatment 2x/Week Duration of treatment (weeks) 8 Plan of Care Start Date 08/04/22 Plan of Care End Date 10/04/22 Therapeutic Interventions Therapeutic Interventions Home Exercise Program,Joint Mobilizations,Manual Therapy, Patient/Caregiver Education, Self-Care/Home Management,Soft Tissue Mobilization,Taping, Therapeutic Activities, Therapeutic Exercises Modalities Cold Pack/Ice Massage,Electric Stimulation,Hot Packs, Traction- Mechanical, Ultrasound Next Visit Focus/Plan Next Note Type Treatment Note Next Visit Plan Next tx: add nerve glides.Continue gentle progression of postural correction ex. Add AAROM ther ex as tolerated progression to AROM and resisted. Kinesiotape, manual therapy and modalities PRN.
--- NOTE | 2022-08-18 16:10 | PT.OTN ---
Current Diagnoses Acute pain due to trauma (08/18/22) Pain in right shoulder (08/18/22) Radiculopathy, cervical region (08/18/22) Impingement syndrome of right shoulder (08/18/22) Weakness (08/18/22) Physical Therapy Treatment Note PT-OP-A Visit Information Start: 07/31/22 16:46 Freq: Status: Active Protocol: Document 08/18/22 07:58 SAK (Rec: 08/18/22 08:46 SAK [id number]) Out-Patient Physical Therapy Visit Information Visit Information Visit Type Treatment Note Visit Note 07/16 Visit Start Time 07:59 Visit Number 4 Evaluation Information Evaluation Date 08/04/22 PT-OP-B Current Condition Start: 07/31/22 16:46 Freq: Status: Active Protocol: Document 08/06/22 08:47 SAK (Rec: 08/06/22 09:28 SAK [id number]) Current Condition History of Current Condition Onset Date 1 year Current Complaints right shoulder pain, neck pain History of Current Condition Arsalan presents today for further evaluation treatment of ongoing right shoulder and arm pain. He reports that approximately a year ago he was doing pushups when he subsequently felt acute pain involving his right shoulder and arm. He reports pain down to the fingers typically the 3rd, 4th, and 5th digits. He reports he has been through extensive conservative therapy including physical therapy at [facility]. He reports that shoulder exercises ultrasound as well as conservative management has not been beneficial; left shoulder just started hurting as well about a week ago. Had cortisone injection right shoulder about 1 month ago; took pain from 7 down to a 4. Sent back to PT due to diagnosis of right shoulder impingement. Has been doing HEP from prior PT doing every other day. Got movement back in shoulder: ER AROM, theraband ex, wall push ups, table slide Has CRPS LEs, can't use cane due to pain in shoulders. Sleeps on right shoulder, no pain in shoulder when laying on it. Also reports pain anterior chest T6 ; has had OMT Prior Treatments and Tests x-ray shoulder 10/17/22: normal x-ray c/s 06/02/22 normal study EMG right UE normal PT-OP-C Subjective Start: 07/31/22 16:46 Freq: Status: Active Protocol: Document 08/18/22 07:58 SAK (Rec: 08/18/22 08:46 [facility] [id number]) OP-PT Subjective Patient Comments Patient Comments Didn't tolerate the tape; blistered after a couple days. States the e-stim caused spasms all day long. Thinks ultrasound did more help than e-stim. PT-OP-F Manual Assessment Start: 07/31/22 16:46 Freq: Status: Active Protocol: Document 08/04/22 07:55 [facility] (Rec: 08/05/22 16:26 [facility] [id number]) Manual Assessments Joint Mobility Assessment Joint Mobility Assessment dec posterior and inf glid mireille shoulders right greater than left PT-OP-H Neuro Start: 07/31/22 16:46 Freq: Status: Active Protocol: Document 08/04/22 07:55 [facility] (Rec: 08/05/22 16:26 [facility] [id number]) Sensation Evaluation Gross Sensation Gross Sensation Right UE Impaired Sensation Description Tingling Dermatome Impairments C7,C8,T1 PT-OP-J Posture/Palpation/Skin Start: 07/31/22 16:46 Freq: Status: Active Protocol: Document 08/04/22 07:55 [facility] (Rec: 08/05/22 16:26 [facility] [id number]) Posture Evaluation Position Sitting Head/C-Spine Posture Forward Head T-Spine Posture Increased Kyphosis Shoulder Posture (L) Rounded,(R) Rounded Scapula Posture (L) Protracted,(R) Protracted Arm Posture (L) Internally Rotated,(R) Internally Rotated Palpation Assessment Location cervical spine Palpation Location mireille right greater than left Palpation Findings Soft Tissue Tightness,Muscle Guarding,Tenderness shoulder Palpation Location GH joint line mireille Palpation Findings Soft Tissue Tightness,Muscle Guarding,Tenderness Palpation Details right greater than left PT-OP-K Range of Motion Start: 07/31/22 16:46 Freq: Status: Active Protocol: Document 08/04/22 07:55 [facility] (Rec: 08/04/22 08:45 [facility] [id number]) Cervical Spine Range of Motion Cervical Spine Active Flexion 55 Extension 40 Rotation Left 55 Rotation Right 55 Lateral Flexion Left 50 Lateral Flexion Right 50 ROM Limitations Pain Shoulder Goniometric Range of Motion Shoulder Right Flexion 158 Extension 25 Abduction 150 Horizontal Abduction 75 Horizontal Adduction 0 Internal Rotation Behind Back (text) T12 Left Shoulder ROM WFL Yes Testing Position Sitting Internal Rotation Behind Back (text) T12 Shoulder ROM Limitations Shoulder ROM Limitations Pain Elbow/Forearm Range of Motion Elbow/Forearm mireille Elbow/Forearm ROM WFL Yes PT-OP-L Special Tests Start: 07/31/22 16:46 Freq: Status: Active Protocol: Document 08/04/22 07:55 [facility] (Rec: 08/05/22 16:26 [facility] [id number]) Special Tests Shoulder Special Tests Empty Can Test Results + R shoulder Comments Painful in positioning Belly Press Test Results - R shoulder Comments Good tolerance Anterior Draw Test Results - R shoulder [place] Impingement Test Results + R shoulder Comments Very painful Elevation Impingement Test Results + R shoulder Comments Pt gets pain at R Supraspinatus region and inferior shoulder joint. PT-OP-M Strength Start: 07/31/22 16:46 Freq: Status: Active Protocol: Document 08/04/22 07:55 [facility] (Rec: 08/04/22 08:45 [facility] [id number]) Shoulder Strength Shoulder Manual Muscle Testing Right Flexion 4+ Good+ Extension 4+ Good+ Abduction (C5) 4+ Good+ External Rotation 4- Good- Internal Rotation 4 Good Comments pain all motions, clunking right shoulder with return from elevation Left External Rotation 4 Good Internal Rotation 4+ Good+ Elbow/Forearm Strength Elbow and Forearm Manual Muscle Testing Right Flexion (C6) 4+ Good+ Extension (C7) 4+ Good+ Left Flexion (C6) 4+ Good+ Extension (C7) 4+ Good+ PT-OP-Q Treatments Start: 07/31/22 16:46 Freq: Status: Active Protocol: Document 08/18/22 07:58 [facility] (Rec: 08/18/22 08:46 [facility] [id number]) Therapeutic Exercises Sidelying Exercises scapular clocks Sidelying Exercise Name right shoulder 9,8,7:00 Reps/Minutes 5x ea Comments gentle tactile cues open book Sidelying Exercise Name modfied, arm at side Reps/Minutes 10x Sitting Exercises scapular retraction Reps/Minutes 5x sh shrugs Reps/Minutes 5x Manual Therapy Treatment Soft Tissue Mobilization c/s Body Location SOR, UT, LS, SCM Mobilization Type Myofascial Release,Sustained Pressure Intensity/Depth Moderate Body Position Hooklying right shoulder Body Location biceps, deltoid, UT, pec, Rhomboid, infraspinatus Mobilization Type Myofascial Release,Strumming Intensity/Depth Moderate Body Position Sidelying Joint Mobilizations R scapulothoracic Direction retraction/depression Body Position Sidelying Comments small, gentle ROM- improved post manual STMs Self-Care/Home Management Treatment Education Other Education self massage rhomboids with tennis ball PT-OP-R Modalities Start: 07/31/22 16:46 Freq: Status: Active Protocol: Document 08/18/22 07:58 [facility] (Rec: 08/18/22 08:46 [facility] [id number]) Hot Pack/Cold Pack Treatment Hot Pack Location right shoulder Patient Position Supine Treatment Duration (minutes) 15 Patient Tolerance Good Ultrasound Therapy Treatment right shoulder Patient Position Supine Coupling Medium Ultrasound Gel Applicator Size (cm2) 10 Frequency Setting (mHz) 1 Duty Cycle 100% Intensity Setting (w/cm2) 1.4 PT-OP-T Assessment and Plan Start: 07/31/22 16:46 Freq: Status: Active Protocol: Document 08/18/22 07:58 [facility] (Rec: 08/18/22 08:46 [facility] [id number]) Physical Therapy Assessment Goals One Impairment weakness R shoulder and c/s Short Term Goal (STG) Patient to be instructed in HEP for purposes of c/s and shoulder strengthening STG Duration 09/04/22 Longterm Goal (LTG) Patient to be independent with HEP and demonstrate at least 4+/5 muscle strength throughout c/s and right shoulder for improved function with ADL's and work activities LTG Duration 10/04/22 Two Impairment postural dysfunction Impairment contributes to cervical and shoulder pain and dysfunction Short Term Goal (STG) instruct patient in neutral posture and postural correction exercises STG Duration 09/04/22 Possum Trapper Goal (LTG) Patient to be independent with HEP and demonstrate improved posture statically and with functional activities. LTG Duration 10/04/22 Three Impairment Pain in neck and right shoulders as high as 7/10 Short Term Goal (STG) Decrease reported pain level to no greater than 5/10 with all usual activities STG Duration 09/04/22 Possum Trapper Goal (LTG) Decrease reported pain level to no greater than 3/10 with all usual activities and allow patient to resume prior level of function Four Impairment Decreased activity tolerance Impairment UE QuickDASH initial is 57% Short Term Goal (STG) Improve QuickDash score to no greater than 40% as measure of improved activity tolerance STG Duration 09/04/22 Longterm Goal (LTG) Improve Quickdash score to no greater than 30% as measure of improved activity tolerance Assessment Summary Assessment Patient did not tolerate kinesiotape or IFES well. Symptoms very irritable, poor tolerance for any ther ex. Verbal and tactile cues for scapular clock ex and modified open book with fair tolerance . Continue breathing education for relaxation. Patient ed for gentle postural correction with turning palms toward body instead of posterior. Physical Therapy Plan Frequency and Duration Frequency of Treatment 2x/Week Duration of treatment (weeks) 8 Plan of Care Start Date 08/04/22 Plan of Care End Date 10/04/22 Therapeutic Interventions Therapeutic Interventions Home Exercise Program,Joint Mobilizations,Manual Therapy, Patient/Caregiver Education, Self-Care/Home Management,Soft Tissue Mobilization,Taping, Therapeutic Activities, Therapeutic Exercises Modalities Cold Pack/Ice Massage,Electric Stimulation,Hot Packs, Traction- Mechanical, Ultrasound Next Visit Focus/Plan Next Note Type Treatment Note Next Visit Plan Continue gentle progression of postural correction ex. Add AAROM ther ex as tolerated progression to AROM and resisted. Evaluate response to moist heat to shoulder today.
--- NOTE | 2022-08-20 09:00 | PT.OTN ---
Current Diagnoses Acute pain due to trauma (08/20/22) Pain in right shoulder (08/20/22) Radiculopathy, cervical region (08/20/22) Impingement syndrome of right shoulder (08/20/22) Weakness (08/20/22) Physical Therapy Treatment Note PT-OP-A Visit Information Start: 07/31/22 16:46 Freq: Status: Active Protocol: Document 08/20/22 08:15 SP (Rec: 08/20/22 09:04 SP [id number]) Out-Patient Physical Therapy Visit Information Visit Information Visit Type Treatment Note Visit Note 08/15 Visit Start Time 08:15 Visit Stop Time 09:00 Total Visit Minutes 45 Visit Number 5 Number of SCREW MACHINE SET UP OPERATOR TOOL Visits 1 Evaluation Information Evaluation Date 08/04/22 Precautions Precautions spinal implants 08/13-03/28: Ktaping- blister adverse reaction. PT-OP-B Current Condition Start: 07/31/22 16:46 Freq: Status: Active Protocol: Document 08/06/22 08:47 SAK (Rec: 08/06/22 09:28 SAK [id number]) Current Condition History of Current Condition Onset Date 1 year Current Complaints right shoulder pain, neck pain History of Current Condition Arsalan presents today for further evaluation treatment of ongoing right shoulder and arm pain. He reports that approximately a year ago he was doing pushups when he subsequently felt acute pain involving his right shoulder and arm. He reports pain down to the fingers typically the 3rd, 4th, and 5th digits. He reports he has been through extensive conservative therapy including physical therapy at [facility]. He reports that shoulder exercises ultrasound as well as conservative management has not been beneficial; left shoulder just started hurting as well about a week ago. Had cortisone injection right shoulder about 1 month ago; took pain from 7 down to a 4. Sent back to PT due to diagnosis of right shoulder impingement. Has been doing HEP from prior PT doing every other day. Got movement back in shoulder: ER AROM, theraband ex, wall push ups, table slide Has CRPS LEs, can't use cane due to pain in shoulders. Sleeps on right shoulder, no pain in shoulder when laying on it. Also reports pain anterior chest T6 ; has had OMT Prior Treatments and Tests x-ray shoulder 10/17/22: normal x-ray c/s 06/02/22 normal study EMG right UE normal PT-OP-C Subjective Start: 07/31/22 16:46 Freq: Status: Active Protocol: Document 08/20/22 08:15 SP (Rec: 08/20/22 09:04 SP [id number]) OP-PT Subjective Patient Comments Patient Comments Pt report doesn't feel US helped, does soak warm baths and feels is helpful. Soreness over anterior L shld today arrival. Has been awake since 11 pm last night. PT-OP-F Manual Assessment Start: 07/31/22 16:46 Freq: Status: Active Protocol: Document 08/04/22 07:55 SAK (Rec: 08/05/22 16:26 SAK [id number]) Manual Assessments Joint Mobility Assessment Joint Mobility Assessment dec posterior and inf glid mireille shoulders right greater than left PT-OP-H Neuro Start: 07/31/22 16:46 Freq: Status: Active Protocol: Document 08/04/22 07:55 SAK (Rec: 08/05/22 16:26 SAK [id number]) Sensation Evaluation Gross Sensation Gross Sensation Right UE Impaired Sensation Description Tingling Dermatome Impairments C7,C8,T1 PT-OP-J Posture/Palpation/Skin Start: 07/31/22 16:46 Freq: Status: Active Protocol: Document 08/04/22 07:55 SAK (Rec: 08/05/22 16:26 SAK [id number]) Posture Evaluation Position Sitting Head/C-Spine Posture Forward Head T-Spine Posture Increased Kyphosis Shoulder Posture (L) Rounded,(R) Rounded Scapula Posture (L) Protracted,(R) Protracted Arm Posture (L) Internally Rotated,(R) Internally Rotated Palpation Assessment Location cervical spine Palpation Location mireille right greater than left Palpation Findings Soft Tissue Tightness,Muscle Guarding,Tenderness shoulder Palpation Location GH joint line mireille Palpation Findings Soft Tissue Tightness,Muscle Guarding,Tenderness Palpation Details right greater than left PT-OP-K Range of Motion Start: 07/31/22 16:46 Freq: Status: Active Protocol: Document 08/04/22 07:55 SAK (Rec: 08/04/22 08:45 SAK [id number]) Cervical Spine Range of Motion Cervical Spine Active Flexion 55 Extension 40 Rotation Left 55 Rotation Right 55 Lateral Flexion Left 50 Lateral Flexion Right 50 ROM Limitations Pain Shoulder Goniometric Range of Motion Shoulder Right Flexion 158 Extension 25 Abduction 150 Horizontal Abduction 75 Horizontal Adduction 0 Internal Rotation Behind Back (text) T12 Left Shoulder ROM WFL Yes Testing Position Sitting Internal Rotation Behind Back (text) T12 Shoulder ROM Limitations Shoulder ROM Limitations Pain Elbow/Forearm Range of Motion Elbow/Forearm mireille Elbow/Forearm ROM WFL Yes PT-OP-L Special Tests Start: 07/31/22 16:46 Freq: Status: Active Protocol: Document 08/04/22 07:55 SAK (Rec: 08/05/22 16:26 SAK [id number]) Special Tests Shoulder Special Tests Empty Can Test Results + R shoulder Comments Painful in positioning Belly Press Test Results - R shoulder Comments Good tolerance Anterior Draw Test Results - R shoulder [place] Impingement Test Results + R shoulder Comments Very painful Elevation Impingement Test Results + R shoulder Comments Pt gets pain at R Supraspinatus region and inferior shoulder joint. PT-OP-M Strength Start: 07/31/22 16:46 Freq: Status: Active Protocol: Document 08/04/22 07:55 [facility] (Rec: 08/04/22 08:45 SAK [id number]) Shoulder Strength Shoulder Manual Muscle Testing Right Flexion 4+ Good+ Extension 4+ Good+ Abduction (C5) 4+ Good+ External Rotation 4- Good- Internal Rotation 4 Good Comments pain all motions, clunking right shoulder with return from elevation Left External Rotation 4 Good Internal Rotation 4+ Good+ Elbow/Forearm Strength Elbow and Forearm Manual Muscle Testing Right Flexion (C6) 4+ Good+ Extension (C7) 4+ Good+ Left Flexion (C6) 4+ Good+ Extension (C7) 4+ Good+ PT-OP-Q Treatments Start: 07/31/22 16:46 Freq: Status: Active Protocol: Document 08/20/22 08:15 SP (Rec: 08/20/22 09:04 SP [id number]) Therapeutic Exercises Supine Exercises pec stretch Side bilateral Equipment Used over noodle Reps/Minutes 1 min Comments cued with breath, arms relaxed out to side Prone Exercises Is, Ts, Ys Prone Exercise Name trial- caused tingling forearm to dorsal hand Resistance 08/20 Hold Reps/Minutes 3 reps each Comments cued CS neutral on opp forearm , painfree range Sidelying Exercises open book Sidelying Exercise Name modfied hand on head, scapular glide Equipment Used manual support as needed for tactile cuing Reps/Minutes 10x Comments cued minimize head turn for no UT recruitment Sitting Exercises scapular retraction Reps/Minutes 5x Comments combination with scapular rolls sh shrugs Reps/Minutes 5x Comments combination with scapular rolls Standing Exercises R shld ADD Standing Exercise Name initiated in PT for HEP Side right Resistance Tb #2 Reps/Minutes x5 reps Comments trialed various angles forearm , cued scap set for no UT wall posture Reps/Minutes 3 min Comments verbal and tactile cues; less strain, dec effort to comfortable level Manual Therapy Treatment Soft Tissue Mobilization c/s Body Location UT, LS Mobilization Type Myofascial Release,Sustained Pressure Intensity/Depth Moderate Body Position Hooklying right shoulder Body Location biceps, deltoid, UT, pec, Rhomboid, infraspinatus, subscap Mobilization Type Myofascial Release,Strumming, Sustained Pressure,Other Intensity/Depth Moderate Body Position Sidelying Comments w/ FM FF, elbow flexion/ext passive PT-OP-R Modalities Start: 07/31/22 16:46 Freq: Status: Active Protocol: Document 08/18/22 07:58 SAK (Rec: 08/18/22 08:46 SAK [id number]) Hot Pack/Cold Pack Treatment Hot Pack Location right shoulder Patient Position Supine Treatment Duration (minutes) 15 Patient Tolerance Good Ultrasound Therapy Treatment right shoulder Patient Position Supine Coupling Medium Ultrasound Gel Applicator Size (cm2) 10 Frequency Setting (mHz) 1 Duty Cycle 100% Intensity Setting (w/cm2) 1.4 PT-OP-T Assessment and Plan Start: 07/31/22 16:46 Freq: Status: Active Protocol: Document 08/20/22 08:15 SP (Rec: 08/20/22 09:04 SP [id number]) Physical Therapy Assessment Goals One Impairment weakness R shoulder and c/s Short Term Goal (STG) Patient to be instructed in HEP for purposes of c/s and shoulder strengthening STG Duration 09/04/22 Shelter Goal (LTG) Patient to be independent with HEP and demonstrate at least 4+/5 muscle strength throughout c/s and right shoulder for improved function with ADL's and work activities LTG Duration 10/04/22 Two Impairment postural dysfunction Impairment contributes to cervical and shoulder pain and dysfunction Short Term Goal (STG) instruct patient in neutral posture and postural correction exercises STG Duration 09/04/22 Mirror Painter Goal (LTG) Patient to be independent with HEP and demonstrate improved posture statically and with functional activities. LTG Duration 10/04/22 Three Impairment Pain in neck and right shoulders as high as 7/10 Short Term Goal (STG) Decrease reported pain level to no greater than 5/10 with all usual activities STG Duration 09/04/22 Shelter Goal (LTG) Decrease reported pain level to no greater than 3/10 with all usual activities and allow patient to resume prior level of function Four Impairment Decreased activity tolerance Impairment UE QuickDASH initial is 57% Short Term Goal (STG) Improve QuickDash score to no greater than 40% as measure of improved activity tolerance STG Duration 09/04/22 Mirror Painter Goal (LTG) Improve Quickdash score to no greater than 30% as measure of improved activity tolerance Assessment Summary Assessment Pt declined modalities today, stated doesnt' think helps and has MHP at home. Tactile and verbal cuing for scap set hand on head open book on side not seated (performnig at home w/ pain). Pt improved symptoms having 75% time radial nerve glide dorsal forearm to fingers. Ed posture wall and over noodle with breath for decrease anterior chain tension. Physical Therapy Plan Frequency and Duration Frequency of Treatment 2x/Week Duration of treatment (weeks) 8 Plan of Care Start Date 08/04/22 Plan of Care End Date 10/04/22 Therapeutic Interventions Therapeutic Interventions Home Exercise Program,Joint Mobilizations,Manual Therapy, Patient/Caregiver Education, Self-Care/Home Management,Soft Tissue Mobilization,Taping, Therapeutic Activities, Therapeutic Exercises Modalities Cold Pack/Ice Massage,Electric Stimulation,Hot Packs, Traction- Mechanical, Ultrasound Next Visit Focus/Plan Next Note Type Treatment Note Next Visit Plan Continue gentle progression of postural correction ex. Add AAROM ther ex as tolerated progression to AROM and resisted. Evaluate response to moist heat to shoulder today.
--- NOTE | 2022-08-25 08:47 | PT.OTN ---
Current Diagnoses Acute pain due to trauma (08/25/22) Pain in right shoulder (08/25/22) Radiculopathy, cervical region (08/25/22) Impingement syndrome of right shoulder (08/25/22) Weakness (08/25/22) Physical Therapy Treatment Note PT-OP-A Visit Information Start: 07/31/22 16:46 Freq: Status: Active Protocol: Document 08/25/22 07:56 SAK (Rec: 08/25/22 08:47 [facility] [id number]) Out-Patient Physical Therapy Visit Information Visit Information Visit Type Treatment Note Visit Note 09/15 Visit Start Time 08:00 Visit Stop Time 08:45 Total Visit Minutes 45 Visit Number 5 Number of ARBORICULTURIST Visits 1 Precautions Precautions spinal implants 08/13-03/28: Ktaping- blister adverse reaction. PT-OP-B Current Condition Start: 07/31/22 16:46 Freq: Status: Active Protocol: Document 08/25/22 07:56 SAK (Rec: 08/25/22 08:47 [facility] [id number]) Current Condition History of Current Condition Onset Date 1 year Current Complaints right shoulder pain, neck pain History of Current Condition Arsalan presents today for further evaluation treatment of ongoing right shoulder and arm pain. He reports that approximately a year ago he was doing pushups when he subsequently felt acute pain involving his right shoulder and arm. He reports pain down to the fingers typically the 3rd, 4th, and 5th digits. He reports he has been through extensive conservative therapy including physical therapy at [facility]. He reports that shoulder exercises ultrasound as well as conservative management has not been beneficial; left shoulder just started hurting as well about a week ago. Had cortisone injection right shoulder about 1 month ago; took pain from 7 down to a 4. Sent back to PT due to diagnosis of right shoulder impingement. Has been doing HEP from prior PT doing every other day. Got movement back in shoulder: ER AROM, theraband ex, wall push ups, table slide Has CRPS LEs, can't use cane due to pain in shoulders. Sleeps on right shoulder, no pain in shoulder when laying on it. Also reports pain anterior chest T6 ; has had OMT Prior Treatments and Tests x-ray shoulder 10/17/22: normal x-ray c/s 06/02/22 normal study EMG right UE normal PT-OP-C Subjective Start: 07/31/22 16:46 Freq: Status: Active Protocol: Document 08/25/22 07:56 SAK (Rec: 08/25/22 08:47 [facility] [id number]) OP-PT Subjective Patient Comments Patient Comments Maybe getting about 10% less tingling as PT has gone on, otherwise nothing else but heat helpful. Wondering if wires from implants impating his pain. PT-OP-F Manual Assessment Start: 07/31/22 16:46 Freq: Status: Active Protocol: Document 08/04/22 07:55 SAK (Rec: 08/05/22 16:26 [facility] [id number]) Manual Assessments Joint Mobility Assessment Joint Mobility Assessment dec posterior and inf glid mireille shoulders right greater than left PT-OP-H Neuro Start: 07/31/22 16:46 Freq: Status: Active Protocol: Document 08/04/22 07:55 SAK (Rec: 08/05/22 16:26 [facility] [id number]) Sensation Evaluation Gross Sensation Gross Sensation Right UE Impaired Sensation Description Tingling Dermatome Impairments C7,C8,T1 PT-OP-J Posture/Palpation/Skin Start: 07/31/22 16:46 Freq: Status: Active Protocol: Document 08/04/22 07:55 SAK (Rec: 08/05/22 16:26 [facility] [id number]) Posture Evaluation Position Sitting Head/C-Spine Posture Forward Head T-Spine Posture Increased Kyphosis Shoulder Posture (L) Rounded,(R) Rounded Scapula Posture (L) Protracted,(R) Protracted Arm Posture (L) Internally Rotated,(R) Internally Rotated Palpation Assessment Location cervical spine Palpation Location mireille right greater than left Palpation Findings Soft Tissue Tightness,Muscle Guarding,Tenderness shoulder Palpation Location GH joint line mireille Palpation Findings Soft Tissue Tightness,Muscle Guarding,Tenderness Palpation Details right greater than left PT-OP-K Range of Motion Start: 07/31/22 16:46 Freq: Status: Active Protocol: Document 08/04/22 07:55 SAK (Rec: 08/04/22 08:45 SAK [id number]) Cervical Spine Range of Motion Cervical Spine Active Flexion 55 Extension 40 Rotation Left 55 Rotation Right 55 Lateral Flexion Left 50 Lateral Flexion Right 50 ROM Limitations Pain Shoulder Goniometric Range of Motion Shoulder Right Flexion 158 Extension 25 Abduction 150 Horizontal Abduction 75 Horizontal Adduction 0 Internal Rotation Behind Back (text) T12 Left Shoulder ROM WFL Yes Testing Position Sitting Internal Rotation Behind Back (text) T12 Shoulder ROM Limitations Shoulder ROM Limitations Pain Elbow/Forearm Range of Motion Elbow/Forearm mrieille Elbow/Forearm ROM WFL Yes PT-OP-L Special Tests Start: 07/31/22 16:46 Freq: Status: Active Protocol: Document 08/04/22 07:55 [facility] (Rec: 08/05/22 16:26 [facility] [id number]) Special Tests Shoulder Special Tests Empty Can Test Results + R shoulder Comments Painful in positioning Belly Press Test Results - R shoulder Comments Good tolerance Anterior Draw Test Results - R shoulder [place] Impingement Test Results + R shoulder Comments Very painful Elevation Impingement Test Results + R shoulder Comments Pt gets pain at R Supraspinatus region and inferior shoulder joint. PT-OP-M Strength Start: 07/31/22 16:46 Freq: Status: Active Protocol: Document 08/04/22 07:55 [facility] (Rec: 08/04/22 08:45 [facility] [id number]) Shoulder Strength Shoulder Manual Muscle Testing Right Flexion 4+ Good+ Extension 4+ Good+ Abduction (C5) 4+ Good+ External Rotation 4- Good- Internal Rotation 4 Good Comments pain all motions, clunking right shoulder with return from elevation Left External Rotation 4 Good Internal Rotation 4+ Good+ Elbow/Forearm Strength Elbow and Forearm Manual Muscle Testing Right Flexion (C6) 4+ Good+ Extension (C7) 4+ Good+ Left Flexion (C6) 4+ Good+ Extension (C7) 4+ Good+ PT-OP-Q Treatments Start: 07/31/22 16:46 Freq: Status: Active Protocol: Document 08/25/22 07:56 [facility] (Rec: 08/25/22 08:47 [facility] [id number]) Therapeutic Exercises Prone Exercises circles Reps/Minutes 10x CW, CCW Is, Ts, Ys Reps/Minutes 5x ea Comments cued CS neutral on opp forearm , painfree range Sidelying Exercises scapular clocks Sidelying Exercise Name right shoulder 9,8,7:00 Reps/Minutes 5x ea Comments gentle tactile cues open book Sidelying Exercise Name modfied hand on head, scapular glide Equipment Used manual support as needed for tactile cuing Reps/Minutes 10x Comments incorporate breathing Standing Exercises row Equipment Used L2 TB Reps/Minutes 10x5 shoulder ext Reps/Minutes 10x Comments verbal and tactile cues scapula shoulder ER/IR Reps/Minutes 10x Comments long axis, extended elbow, arms at sides, pain-free ROM R shld ADD Standing Exercise Name initiated in PT for HEP Side right Resistance Tb #2 Reps/Minutes x10 reps Comments plane of scapula wall posture Reps/Minutes 3 min Comments verbal and tactile cues; less strain, dec effort to comfortable level Manual Therapy Treatment Soft Tissue Mobilization c/s Body Location UT, LS Mobilization Type Myofascial Release,Sustained Pressure Intensity/Depth Moderate Body Position Hooklying right shoulder Body Location biceps, deltoid, UT, pec, Rhomboid, infraspinatus, subscap Mobilization Type Myofascial Release,Strumming, Sustained Pressure,Other Intensity/Depth Moderate Body Position Sidelying Comments w/ FM FF, elbow flexion/ext passive Joint Mobilizations R scapulothoracic Direction retraction/depression Body Position Sidelying Comments small, gentle ROM- improved post manual STMs PT-OP-R Modalities Start: 07/31/22 16:46 Freq: Status: Active Protocol: Document 08/18/22 07:58 [facility] (Rec: 08/18/22 08:46 [facility] [id number]) Hot Pack/Cold Pack Treatment Hot Pack Location right shoulder Patient Position Supine Treatment Duration (minutes) 15 Patient Tolerance Good Ultrasound Therapy Treatment right shoulder Patient Position Supine Coupling Medium Ultrasound Gel Applicator Size (cm2) 10 Frequency Setting (mHz) 1 Duty Cycle 100% Intensity Setting (w/cm2) 1.4 PT-OP-T Assessment and Plan Start: 07/31/22 16:46 Freq: Status: Active Protocol: Document 08/25/22 07:56 [facility] (Rec: 08/25/22 08:47 [facility] [id number]) Physical Therapy Assessment Goals One Impairment weakness R shoulder and c/s Short Term Goal (STG) Patient to be instructed in HEP for purposes of c/s and shoulder strengthening STG Duration 09/04/22 [facility] Goal (LTG) Patient to be independent with HEP and demonstrate at least 4+/5 muscle strength throughout c/s and right shoulder for improved function with ADL's and work activities LTG Duration 10/04/22 Two Impairment postural dysfunction Impairment contributes to cervical and shoulder pain and dysfunction Short Term Goal (STG) instruct patient in neutral posture and postural correction exercises STG Duration 09/04/22 [facility] Goal (LTG) Patient to be independent with HEP and demonstrate improved posture statically and with functional activities. LTG Duration 10/04/22 Three Impairment Pain in neck and right shoulders as high as 7/10 Short Term Goal (STG) Decrease reported pain level to no greater than 5/10 with all usual activities STG Duration 09/04/22 [facility] Goal (LTG) Decrease reported pain level to no greater than 3/10 with all usual activities and allow patient to resume prior level of function Four Impairment Decreased activity tolerance Impairment UE QuickDASH initial is 57% Short Term Goal (STG) Improve QuickDash score to no greater than 40% as measure of improved activity tolerance STG Duration 09/04/22 [facility] Goal (LTG) Improve Quickdash score to no greater than 30% as measure of improved activity tolerance Assessment Summary Assessment Improved ex performance, with cues for relaxation UT, inc scapular activation, breathing . Physical Therapy Plan Frequency and Duration Frequency of Treatment 2x/Week Duration of treatment (weeks) 8 Plan of Care Start Date 08/04/22 Plan of Care End Date 10/04/22 Therapeutic Interventions Therapeutic Interventions Home Exercise Program,Joint Mobilizations,Manual Therapy, Patient/Caregiver Education, Self-Care/Home Management,Soft Tissue Mobilization,Taping, Therapeutic Activities, Therapeutic Exercises Modalities Cold Pack/Ice Massage,Electric Stimulation,Hot Packs, Traction- Mechanical, Ultrasound Next Visit Focus/Plan Next Note Type Treatment Note Next Visit Plan Continue gentle progression of postural correction ex. Add AAROM ther ex as tolerated progression to AROM and resisted.
--- NOTE | 2022-08-27 09:00 | PT.OTN ---
Current Diagnoses Acute pain due to trauma (08/27/22) Pain in right shoulder (08/27/22) Radiculopathy, cervical region (08/27/22) Impingement syndrome of right shoulder (08/27/22) Weakness (08/27/22) Physical Therapy Treatment Note PT-OP-A Visit Information Start: 07/31/22 16:46 Freq: Status: Active Protocol: Document 08/27/22 08:21 SP (Rec: 08/27/22 09:02 SP [id number]) Out-Patient Physical Therapy Visit Information Visit Information Visit Type Treatment Note Visit Start Time 08:21 Visit Stop Time 09:00 Total Visit Minutes 39 Visit Number 6 Number of BROACHING MACHINE OPERATOR Visits 1 Evaluation Information Evaluation Date 08/04/22 Precautions Precautions spinal implants 08/13-03/28: Ktaping- blister adverse reaction. PT-OP-B Current Condition Start: 07/31/22 16:46 Freq: Status: Active Protocol: Document 08/25/22 07:56 SAK (Rec: 08/25/22 08:47 SAK [id number]) Current Condition History of Current Condition Onset Date 1 year Current Complaints right shoulder pain, neck pain History of Current Condition Arsalan presents today for further evaluation treatment of ongoing right shoulder and arm pain. He reports that approximately a year ago he was doing pushups when he subsequently felt acute pain involving his right shoulder and arm. He reports pain down to the fingers typically the 3rd, 4th, and 5th digits. He reports he has been through extensive conservative therapy including physical therapy at [facility]. He reports that shoulder exercises ultrasound as well as conservative management has not been beneficial; left shoulder just started hurting as well about a week ago. Had cortisone injection right shoulder about 1 month ago; took pain from 7 down to a 4. Sent back to PT due to diagnosis of right shoulder impingement. Has been doing HEP from prior PT doing every other day. Got movement back in shoulder: ER AROM, theraband ex, wall push ups, table slide Has CRPS LEs, can't use cane due to pain in shoulders. Sleeps on right shoulder, no pain in shoulder when laying on it. Also reports pain anterior chest T6 ; has had OMT Prior Treatments and Tests x-ray shoulder 10/17/22: normal x-ray c/s 06/02/22 normal study EMG right UE normal PT-OP-C Subjective Start: 07/31/22 16:46 Freq: Status: Active Protocol: Document 08/27/22 08:21 SP (Rec: 08/27/22 09:02 SP [id number]) OP-PT Subjective Patient Comments Patient Comments Pt reports fighting a migraine today, dad drove him here. He stated was sore after last tx but ok. Is compliant with HEP and a good reminder for scap setting. PT-OP-F Manual Assessment Start: 07/31/22 16:46 Freq: Status: Active Protocol: Document 08/04/22 07:55 SAK (Rec: 08/05/22 16:26 SAK [id number]) Manual Assessments Joint Mobility Assessment Joint Mobility Assessment dec posterior and inf glid mireille shoulders right greater than left PT-OP-H Neuro Start: 07/31/22 16:46 Freq: Status: Active Protocol: Document 08/04/22 07:55 SAK (Rec: 08/05/22 16:26 SAK [id number]) Sensation Evaluation Gross Sensation Gross Sensation Right UE Impaired Sensation Description Tingling Dermatome Impairments C7,C8,T1 PT-OP-J Posture/Palpation/Skin Start: 07/31/22 16:46 Freq: Status: Active Protocol: Document 08/04/22 07:55 SAK (Rec: 08/05/22 16:26 SAK [id number]) Posture Evaluation Position Sitting Head/C-Spine Posture Forward Head T-Spine Posture Increased Kyphosis Shoulder Posture (L) Rounded,(R) Rounded Scapula Posture (L) Protracted,(R) Protracted Arm Posture (L) Internally Rotated,(R) Internally Rotated Palpation Assessment Location cervical spine Palpation Location mireille right greater than left Palpation Findings Soft Tissue Tightness,Muscle Guarding,Tenderness shoulder Palpation Location GH joint line mireille Palpation Findings Soft Tissue Tightness,Muscle Guarding,Tenderness Palpation Details right greater than left PT-OP-K Range of Motion Start: 07/31/22 16:46 Freq: Status: Active Protocol: Document 08/04/22 07:55 SAK (Rec: 08/04/22 08:45 SAK [id number]) Cervical Spine Range of Motion Cervical Spine Active Flexion 55 Extension 40 Rotation Left 55 Rotation Right 55 Lateral Flexion Left 50 Lateral Flexion Right 50 ROM Limitations Pain Shoulder Goniometric Range of Motion Shoulder Right Flexion 158 Extension 25 Abduction 150 Horizontal Abduction 75 Horizontal Adduction 0 Internal Rotation Behind Back (text) T12 Left Shoulder ROM WFL Yes Testing Position Sitting Internal Rotation Behind Back (text) T12 Shoulder ROM Limitations Shoulder ROM Limitations Pain Elbow/Forearm Range of Motion Elbow/Forearm mireille Elbow/Forearm ROM WFL Yes PT-OP-L Special Tests Start: 07/31/22 16:46 Freq: Status: Active Protocol: Document 08/04/22 07:55 SAK (Rec: 08/05/22 16:26 SAK [id number]) Special Tests Shoulder Special Tests Empty Can Test Results + R shoulder Comments Painful in positioning Belly Press Test Results - R shoulder Comments Good tolerance Anterior Draw Test Results - R shoulder [place] Impingement Test Results + R shoulder Comments Very painful Elevation Impingement Test Results + R shoulder Comments Pt gets pain at R Supraspinatus region and inferior shoulder joint. PT-OP-M Strength Start: 07/31/22 16:46 Freq: Status: Active Protocol: Document 08/04/22 07:55 [facility] (Rec: 08/04/22 08:45 SAK [id number]) Shoulder Strength Shoulder Manual Muscle Testing Right Flexion 4+ Good+ Extension 4+ Good+ Abduction (C5) 4+ Good+ External Rotation 4- Good- Internal Rotation 4 Good Comments pain all motions, clunking right shoulder with return from elevation Left External Rotation 4 Good Internal Rotation 4+ Good+ Elbow/Forearm Strength Elbow and Forearm Manual Muscle Testing Right Flexion (C6) 4+ Good+ Extension (C7) 4+ Good+ Left Flexion (C6) 4+ Good+ Extension (C7) 4+ Good+ PT-OP-Q Treatments Start: 07/31/22 16:46 Freq: Status: Active Protocol: Document 08/27/22 08:21 SP (Rec: 08/27/22 09:02 SP [id number]) Therapeutic Exercises Standing Exercises shoulder ext Resistance TB #2 orange Reps/Minutes 10x Comments verbal and tactile cues scapula retraction shoulder ER/IR Side bilateral Resistance AROM Reps/Minutes 10x Comments long axis, extended elbow, arms at sides, pain-free ROM R shld ADD Standing Exercise Name initiated in PT for HEP Side right Resistance Tb #2 Reps/Minutes x10 reps Comments plane of scapula, not passed carrying angle wall posture Side bilateral Reps/Minutes 3 min Comments cued pelvis, LS, TS, post head onwall, UE long axis ER Manual Therapy Treatment Soft Tissue Mobilization c/s Body Location UT, LS, SOR, Craniosacral ( cranial) Mobilization Type Myofascial Release,Sustained Pressure Intensity/Depth Moderate Body Position Hooklying right shoulder Body Location UT, pec, subscap Mobilization Type Myofascial Release,Strumming, Sustained Pressure,Other Intensity/Depth Moderate Body Position Sidelying Joint Mobilizations R GH Jt Joint R Direction inferior, posterior Grade II Body Position Hooklying PT-OP-R Modalities Start: 07/31/22 16:46 Freq: Status: Active Protocol: Document 08/18/22 07:58 SAK (Rec: 08/18/22 08:46 SAK [id number]) Hot Pack/Cold Pack Treatment Hot Pack Location right shoulder Patient Position Supine Treatment Duration (minutes) 15 Patient Tolerance Good Ultrasound Therapy Treatment right shoulder Patient Position Supine Coupling Medium Ultrasound Gel Applicator Size (cm2) 10 Frequency Setting (mHz) 1 Duty Cycle 100% Intensity Setting (w/cm2) 1.4 PT-OP-T Assessment and Plan Start: 07/31/22 16:46 Freq: Status: Active Protocol: Document 08/27/22 08:21 SP (Rec: 08/27/22 09:02 SP [id number]) Physical Therapy Assessment Goals One Impairment weakness R shoulder and c/s Short Term Goal (STG) Patient to be instructed in HEP for purposes of c/s and shoulder strengthening STG Duration 09/04/22 Patient Services Technician Goal (LTG) Patient to be independent with HEP and demonstrate at least 4+/5 muscle strength throughout c/s and right shoulder for improved function with ADL's and work activities LTG Duration 10/04/22 Two Impairment postural dysfunction Impairment contributes to cervical and shoulder pain and dysfunction Short Term Goal (STG) instruct patient in neutral posture and postural correction exercises STG Duration 09/04/22 Correction Goal (LTG) Patient to be independent with HEP and demonstrate improved posture statically and with functional activities. LTG Duration 10/04/22 Three Impairment Pain in neck and right shoulders as high as 7/10 Short Term Goal (STG) Decrease reported pain level to no greater than 5/10 with all usual activities STG Duration 09/04/22 Correction Goal (LTG) Decrease reported pain level to no greater than 3/10 with all usual activities and allow patient to resume prior level of function Four Impairment Decreased activity tolerance Impairment UE QuickDASH initial is 57% Short Term Goal (STG) Improve QuickDash score to no greater than 40% as measure of improved activity tolerance STG Duration 09/04/22 Patient Services Technician Goal (LTG) Improve Quickdash score to no greater than 30% as measure of improved activity tolerance Assessment Summary Assessment Pt reports decreased tension in head post manual but migraine not gone. Pt reports less R shld irritation on wall with ER. Cues for scap setting and breath improved increase ROM. Physical Therapy Plan Frequency and Duration Frequency of Treatment 2x/Week Duration of treatment (weeks) 8 Plan of Care Start Date 08/04/22 Plan of Care End Date 10/04/22 Therapeutic Interventions Therapeutic Interventions Home Exercise Program,Joint Mobilizations,Manual Therapy, Patient/Caregiver Education, Self-Care/Home Management,Soft Tissue Mobilization,Taping, Therapeutic Activities, Therapeutic Exercises Modalities Cold Pack/Ice Massage,Electric Stimulation,Hot Packs, Traction- Mechanical, Ultrasound Next Visit Focus/Plan Next Note Type Treatment Note Next Visit Plan Continue gentle progression of postural correction ex. Add AAROM ther ex as tolerated progression to AROM and resisted.
--- NOTE | 2022-09-03 10:47 | PT.OTN ---
Current Diagnoses Acute pain due to trauma (09/03/22) Pain in right shoulder (09/03/22) Radiculopathy, cervical region (09/03/22) Impingement syndrome of right shoulder (09/03/22) Weakness (09/03/22) Physical Therapy Treatment Note PT-OP-A Visit Information Start: 07/31/22 16:46 Freq: Status: Active Protocol: Document 09/03/22 10:03 SP (Rec: 09/03/22 10:50 SP [id number]) Out-Patient Physical Therapy Visit Information Visit Information Visit Type Treatment Note Visit Note 11/15 Visit Start Time 10:03 Visit Stop Time 10:47 Total Visit Minutes 45 Visit Number 8 Number of MIDDLE SCHOOL GUIDANCE COUNSELOR Visits 2 Precautions Precautions spinal implants 08/13-03/28: Ktaping- blister adverse reaction. PT-OP-B Current Condition Start: 07/31/22 16:46 Freq: Status: Active Protocol: Document 08/25/22 07:56 SAK (Rec: 08/25/22 08:47 SAK [id number]) Current Condition History of Current Condition Onset Date 1 year Current Complaints right shoulder pain, neck pain History of Current Condition Arsalan presents today for further evaluation treatment of ongoing right shoulder and arm pain. He reports that approximately a year ago he was doing pushups when he subsequently felt acute pain involving his right shoulder and arm. He reports pain down to the fingers typically the 3rd, 4th, and 5th digits. He reports he has been through extensive conservative therapy including physical therapy at [facility]. He reports that shoulder exercises ultrasound as well as conservative management has not been beneficial; left shoulder just started hurting as well about a week ago. Had cortisone injection right shoulder about 1 month ago; took pain from 7 down to a 4. Sent back to PT due to diagnosis of right shoulder impingement. Has been doing HEP from prior PT doing every other day. Got movement back in shoulder: ER AROM, theraband ex, wall push ups, table slide Has CRPS LEs, can't use cane due to pain in shoulders. Sleeps on right shoulder, no pain in shoulder when laying on it. Also reports pain anterior chest T6 ; has had OMT Prior Treatments and Tests x-ray shoulder 10/17/22: normal x-ray c/s 06/02/22 normal study EMG right UE normal PT-OP-C Subjective Start: 07/31/22 16:46 Freq: Status: Active Protocol: Document 09/03/22 10:03 SP (Rec: 09/03/22 10:50 SP [id number]) OP-PT Subjective Patient Comments Patient Comments Pt reports light headache ( wearing sunglasses), still pinching endrange and pretty tight through R>L pec lately. PT-OP-F Manual Assessment Start: 07/31/22 16:46 Freq: Status: Active Protocol: Document 08/04/22 07:55 SAK (Rec: 08/05/22 16:26 SAK [id number]) Manual Assessments Joint Mobility Assessment Joint Mobility Assessment dec posterior and inf glid mireille shoulders right greater than left PT-OP-H Neuro Start: 07/31/22 16:46 Freq: Status: Active Protocol: Document 08/04/22 07:55 SAK (Rec: 08/05/22 16:26 SAK [id number]) Sensation Evaluation Gross Sensation Gross Sensation Right UE Impaired Sensation Description Tingling Dermatome Impairments C7,C8,T1 PT-OP-J Posture/Palpation/Skin Start: 07/31/22 16:46 Freq: Status: Active Protocol: Document 08/04/22 07:55 SAK (Rec: 08/05/22 16:26 SAK [id number]) Posture Evaluation Position Sitting Head/C-Spine Posture Forward Head T-Spine Posture Increased Kyphosis Shoulder Posture (L) Rounded,(R) Rounded Scapula Posture (L) Protracted,(R) Protracted Arm Posture (L) Internally Rotated,(R) Internally Rotated Palpation Assessment Location cervical spine Palpation Location mireille right greater than left Palpation Findings Soft Tissue Tightness,Muscle Guarding,Tenderness shoulder Palpation Location GH joint line mireille Palpation Findings Soft Tissue Tightness,Muscle Guarding,Tenderness Palpation Details right greater than left PT-OP-K Range of Motion Start: 07/31/22 16:46 Freq: Status: Active Protocol: Document 09/03/22 10:03 SP (Rec: 09/03/22 10:50 SP [id number]) Shoulder Goniometric Range of Motion Shoulder Left Shoulder ROM WFL Yes Testing Position Sitting Flexion 138 Extension 60 Abduction 180 External Rotation at 0 degrees Abduction 92 Internal Rotation Behind Back (text) T10 Comments R shld AROM seated: FF Pain at 90* less 20 deg(138 *) Ext improved 35 deg (160*) ABD gained 30 deg (180*) ER 92* IR standing behind back ( gained 2 vertebra) T10 PT-OP-L Special Tests Start: 07/31/22 16:46 Freq: Status: Active Protocol: Document 08/04/22 07:55 SAK (Rec: 08/05/22 16:26 SAK [id number]) Special Tests Shoulder Special Tests Empty Can Test Results + R shoulder Comments Painful in positioning Belly Press Test Results - R shoulder Comments Good tolerance Anterior Draw Test Results - R shoulder [place] Impingement Test Results + R shoulder Comments Very painful Elevation Impingement Test Results + R shoulder Comments Pt gets pain at R Supraspinatus region and inferior shoulder joint. PT-OP-M Strength Start: 07/31/22 16:46 Freq: Status: Active Protocol: Document 08/04/22 07:55 [facility] (Rec: 08/04/22 08:45 SAK [id number]) Shoulder Strength Shoulder Manual Muscle Testing Right Flexion 4+ Good+ Extension 4+ Good+ Abduction (C5) 4+ Good+ External Rotation 4- Good- Internal Rotation 4 Good Comments pain all motions, clunking right shoulder with return from elevation Left External Rotation 4 Good Internal Rotation 4+ Good+ Elbow/Forearm Strength Elbow and Forearm Manual Muscle Testing Right Flexion (C6) 4+ Good+ Extension (C7) 4+ Good+ Left Flexion (C6) 4+ Good+ Extension (C7) 4+ Good+ PT-OP-Q Treatments Start: 07/31/22 16:46 Freq: Status: Active Protocol: Document 09/03/22 10:03 SP (Rec: 09/03/22 10:50 SP [id number]) Therapeutic Exercises Standing Exercises R shld abd 90/90, IR/ eccentric ER Standing Exercise Name added to HEP Side right Resistance TB #1 peach Reps/Minutes 2x10 Comments good positional corrections, painfree range shoulder ER/IR Standing Exercise Name HEP reviewed (increased resistance 09/03/22) Side bilateral Resistance TB #2 orange Reps/Minutes 10x Comments long axis, extended elbow, arms at sides, good painfree Manual Therapy Treatment Soft Tissue Mobilization right shoulder Body Location pec, bicep, coracobrachialis, ant deltoid, pec mior Mobilization Type Strumming,Sustained Pressure, Other Intensity/Depth Moderate Body Position Hooklying Comments manual STMs and sustained pressure pec with FM FF, ER, HADD/HABD with ed on self application. Joint Mobilizations R GH Jt Joint R Direction inferior, posterior Grade II Body Position Hooklying PT-OP-R Modalities Start: 07/31/22 16:46 Freq: Status: Active Protocol: Document 08/18/22 07:58 SAK (Rec: 08/18/22 08:46 SAK [id number]) Hot Pack/Cold Pack Treatment Hot Pack Location right shoulder Patient Position Supine Treatment Duration (minutes) 15 Patient Tolerance Good Ultrasound Therapy Treatment right shoulder Patient Position Supine Coupling Medium Ultrasound Gel Applicator Size (cm2) 10 Frequency Setting (mHz) 1 Duty Cycle 100% Intensity Setting (w/cm2) 1.4 PT-OP-T Assessment and Plan Start: 07/31/22 16:46 Freq: Status: Active Protocol: Document 09/03/22 10:03 SP (Rec: 09/03/22 10:50 SP [id number]) Physical Therapy Assessment Goals One Impairment weakness R shoulder and c/s Short Term Goal (STG) Patient to be instructed in HEP for purposes of c/s and shoulder strengthening 09/03/22: added abd w/ ER 90deg resisted IR/ ER good muscle tiring within painfree range. STG Duration 09/04/22 progressing 09/03/22 Shelter Goal (LTG) Patient to be independent with HEP and demonstrate at least 4+/5 muscle strength throughout c/s and right shoulder for improved function with ADL's and work activities LTG Duration 10/04/22 Two Impairment postural dysfunction Impairment contributes to cervical and shoulder pain and dysfunction Short Term Goal (STG) instruct patient in neutral posture and postural correction exercises 09/03/22: GOAL MET: pt demonstrates good self corrections posture during ther ex post ed previous tx. STG Duration 09/04/22 GOAL MET: 09/03/22 Automobile Service Advisor Goal (LTG) Patient to be independent with HEP and demonstrate improved posture statically and with functional activities. LTG Duration 10/04/22 Three Impairment Pain in neck and right shoulders as high as 7/10 Short Term Goal (STG) Decrease reported pain level to no greater than 5/10 with all usual activities STG Duration 09/04/22 Automobile Service Advisor Goal (LTG) Decrease reported pain level to no greater than 3/10 with all usual activities and allow patient to resume prior level of function Four Impairment Decreased activity tolerance Impairment UE QuickDASH initial is 57% Short Term Goal (STG) Improve QuickDash score to no greater than 40% as measure of improved activity tolerance STG Duration 09/04/22 Shelter Goal (LTG) Improve Quickdash score to no greater than 30% as measure of improved activity tolerance Progress Towards Goals Progress Comments R shld AROM seated: FF Pain at 90* less 20 deg(138 *) Ext improved 35 deg (160*) ABD gained 30 deg (180*) ER 92* IR standing behind back ( gained 2 vertebra) T10 Assessment Summary Assessment Pt reported decreased pec tension post manual STMs/ MWM with functional movement while add ed self application. He tolerated increase resistance with long axis R shld IR/ ER and added 90/90 abd w/ IR/ eccentric ER against low resistance painfree range to progress more functional ADL mobility. Physical Therapy Plan Frequency and Duration Frequency of Treatment 2x/Week Duration of treatment (weeks) 8 Plan of Care Start Date 08/04/22 Plan of Care End Date 10/04/22 Therapeutic Interventions Therapeutic Interventions Home Exercise Program,Joint Mobilizations,Manual Therapy, Patient/Caregiver Education, Self-Care/Home Management,Soft Tissue Mobilization,Taping, Therapeutic Activities, Therapeutic Exercises Modalities Cold Pack/Ice Massage,Electric Stimulation,Hot Packs, Traction- Mechanical, Ultrasound Next Visit Focus/Plan Next Note Type Treatment Note Next Visit Plan 10th visit PN in 2 visits. Assess goal feedback next tx. Recheck added abd/er added . Add functional AROM/TB over foam roller/noodle/towel. POC: Continue gentle progression of postural correction ex. Add AAROM ther ex as tolerated progression to AROM and resisted.
--- NOTE | 2022-09-03 10:47 | PT.OTN ---
Current Diagnoses Acute pain due to trauma (09/03/22) Pain in right shoulder (09/03/22) Radiculopathy, cervical region (09/03/22) Impingement syndrome of right shoulder (09/03/22) Weakness (09/03/22) Physical Therapy Treatment Note PT-OP-A Visit Information Start: 07/31/22 16:46 Freq: Status: Active Protocol: Document 09/03/22 10:03 SP (Rec: 09/03/22 10:50 SP [id number]) Out-Patient Physical Therapy Visit Information Visit Information Visit Type Treatment Note Visit Note 11/15 Visit Start Time 10:03 Visit Stop Time 10:47 Total Visit Minutes 45 Visit Number 7 Number of BUSINESS SERVICES DIRECTOR Visits 2 Precautions Precautions spinal implants 08/13-03/28: Ktaping- blister adverse reaction. PT-OP-B Current Condition Start: 07/31/22 16:46 Freq: Status: Active Protocol: Document 08/25/22 07:56 SAK (Rec: 08/25/22 08:47 SAK [id number]) Current Condition History of Current Condition Onset Date 1 year Current Complaints right shoulder pain, neck pain History of Current Condition Arsalan presents today for further evaluation treatment of ongoing right shoulder and arm pain. He reports that approximately a year ago he was doing pushups when he subsequently felt acute pain involving his right shoulder and arm. He reports pain down to the fingers typically the 3rd, 4th, and 5th digits. He reports he has been through extensive conservative therapy including physical therapy at [facility]. He reports that shoulder exercises ultrasound as well as conservative management has not been beneficial; left shoulder just started hurting as well about a week ago. Had cortisone injection right shoulder about 1 month ago; took pain from 7 down to a 4. Sent back to PT due to diagnosis of right shoulder impingement. Has been doing HEP from prior PT doing every other day. Got movement back in shoulder: ER AROM, theraband ex, wall push ups, table slide Has CRPS LEs, can't use cane due to pain in shoulders. Sleeps on right shoulder, no pain in shoulder when laying on it. Also reports pain anterior chest T6 ; has had OMT Prior Treatments and Tests x-ray shoulder 10/17/22: normal x-ray c/s 06/02/22 normal study EMG right UE normal PT-OP-C Subjective Start: 07/31/22 16:46 Freq: Status: Active Protocol: Document 09/03/22 10:03 SP (Rec: 09/03/22 10:50 SP [id number]) OP-PT Subjective Patient Comments Patient Comments Pt reports light headache ( wearing sunglasses), still pinching endrange and pretty tight through R>L pec lately. PT-OP-F Manual Assessment Start: 07/31/22 16:46 Freq: Status: Active Protocol: Document 08/04/22 07:55 SAK (Rec: 08/05/22 16:26 SAK [id number]) Manual Assessments Joint Mobility Assessment Joint Mobility Assessment dec posterior and inf glid mireille shoulders right greater than left PT-OP-H Neuro Start: 07/31/22 16:46 Freq: Status: Active Protocol: Document 08/04/22 07:55 SAK (Rec: 08/05/22 16:26 SAK [id number]) Sensation Evaluation Gross Sensation Gross Sensation Right UE Impaired Sensation Description Tingling Dermatome Impairments C7,C8,T1 PT-OP-J Posture/Palpation/Skin Start: 07/31/22 16:46 Freq: Status: Active Protocol: Document 08/04/22 07:55 SAK (Rec: 08/05/22 16:26 SAK [id number]) Posture Evaluation Position Sitting Head/C-Spine Posture Forward Head T-Spine Posture Increased Kyphosis Shoulder Posture (L) Rounded,(R) Rounded Scapula Posture (L) Protracted,(R) Protracted Arm Posture (L) Internally Rotated,(R) Internally Rotated Palpation Assessment Location cervical spine Palpation Location mireille right greater than left Palpation Findings Soft Tissue Tightness,Muscle Guarding,Tenderness shoulder Palpation Location GH joint line mireille Palpation Findings Soft Tissue Tightness,Muscle Guarding,Tenderness Palpation Details right greater than left PT-OP-K Range of Motion Start: 07/31/22 16:46 Freq: Status: Active Protocol: Document 09/03/22 10:03 SP (Rec: 09/03/22 10:50 SP [id number]) Shoulder Goniometric Range of Motion Shoulder Left Shoulder ROM WFL Yes Testing Position Sitting Flexion 138 Extension 60 Abduction 180 External Rotation at 0 degrees Abduction 92 Internal Rotation Behind Back (text) T10 Comments R shld AROM seated: FF Pain at 90* less 20 deg(138 *) Ext improved 35 deg (160*) ABD gained 30 deg (180*) ER 92* IR standing behind back ( gained 2 vertebra) T10 PT-OP-L Special Tests Start: 07/31/22 16:46 Freq: Status: Active Protocol: Document 08/04/22 07:55 SAK (Rec: 08/05/22 16:26 SAK [id number]) Special Tests Shoulder Special Tests Empty Can Test Results + R shoulder Comments Painful in positioning Belly Press Test Results - R shoulder Comments Good tolerance Anterior Draw Test Results - R shoulder [place] Impingement Test Results + R shoulder Comments Very painful Elevation Impingement Test Results + R shoulder Comments Pt gets pain at R Supraspinatus region and inferior shoulder joint. PT-OP-M Strength Start: 07/31/22 16:46 Freq: Status: Active Protocol: Document 08/04/22 07:55 [facility] (Rec: 08/04/22 08:45 SAK [id number]) Shoulder Strength Shoulder Manual Muscle Testing Right Flexion 4+ Good+ Extension 4+ Good+ Abduction (C5) 4+ Good+ External Rotation 4- Good- Internal Rotation 4 Good Comments pain all motions, clunking right shoulder with return from elevation Left External Rotation 4 Good Internal Rotation 4+ Good+ Elbow/Forearm Strength Elbow and Forearm Manual Muscle Testing Right Flexion (C6) 4+ Good+ Extension (C7) 4+ Good+ Left Flexion (C6) 4+ Good+ Extension (C7) 4+ Good+ PT-OP-Q Treatments Start: 07/31/22 16:46 Freq: Status: Active Protocol: Document 09/03/22 10:03 SP (Rec: 09/03/22 10:50 SP [id number]) Therapeutic Exercises Standing Exercises R shld abd 90/90, IR/ eccentric ER Standing Exercise Name added to HEP Side right Resistance TB #1 peach Reps/Minutes 2x10 Comments good positional corrections, painfree range shoulder ER/IR Standing Exercise Name HEP reviewed (increased resistance 09/03/22) Side bilateral Resistance TB #2 orange Reps/Minutes 10x Comments long axis, extended elbow, arms at sides, good painfree Manual Therapy Treatment Soft Tissue Mobilization right shoulder Body Location pec, bicep, coracobrachialis, ant deltoid, pec mior Mobilization Type Strumming,Sustained Pressure, Other Intensity/Depth Moderate Body Position Hooklying Comments manual STMs and sustained pressure pec with FM FF, ER, HADD/HABD with ed on self application. Joint Mobilizations R GH Jt Joint R Direction inferior, posterior Grade II Body Position Hooklying PT-OP-R Modalities Start: 07/31/22 16:46 Freq: Status: Active Protocol: Document 08/18/22 07:58 SAK (Rec: 08/18/22 08:46 SAK [id number]) Hot Pack/Cold Pack Treatment Hot Pack Location right shoulder Patient Position Supine Treatment Duration (minutes) 15 Patient Tolerance Good Ultrasound Therapy Treatment right shoulder Patient Position Supine Coupling Medium Ultrasound Gel Applicator Size (cm2) 10 Frequency Setting (mHz) 1 Duty Cycle 100% Intensity Setting (w/cm2) 1.4 PT-OP-T Assessment and Plan Start: 07/31/22 16:46 Freq: Status: Active Protocol: Document 09/03/22 10:03 SP (Rec: 09/03/22 10:50 SP [id number]) Physical Therapy Assessment Goals One Impairment weakness R shoulder and c/s Short Term Goal (STG) Patient to be instructed in HEP for purposes of c/s and shoulder strengthening 09/03/22: added abd w/ ER 90deg resisted IR/ ER good muscle tiring within painfree range. STG Duration 09/04/22 progressing 09/03/22 Usp Goal (LTG) Patient to be independent with HEP and demonstrate at least 4+/5 muscle strength throughout c/s and right shoulder for improved function with ADL's and work activities LTG Duration 10/04/22 Two Impairment postural dysfunction Impairment contributes to cervical and shoulder pain and dysfunction Short Term Goal (STG) instruct patient in neutral posture and postural correction exercises 09/03/22: GOAL MET: pt demonstrates good self corrections posture during ther ex post ed previous tx. STG Duration 09/04/22 GOAL MET: 09/03/22 Credit Or Loans Officer Goal (LTG) Patient to be independent with HEP and demonstrate improved posture statically and with functional activities. LTG Duration 10/04/22 Three Impairment Pain in neck and right shoulders as high as 7/10 Short Term Goal (STG) Decrease reported pain level to no greater than 5/10 with all usual activities STG Duration 09/04/22 Credit Or Loans Officer Goal (LTG) Decrease reported pain level to no greater than 3/10 with all usual activities and allow patient to resume prior level of function Four Impairment Decreased activity tolerance Impairment UE QuickDASH initial is 57% Short Term Goal (STG) Improve QuickDash score to no greater than 40% as measure of improved activity tolerance STG Duration 09/04/22 Usp Goal (LTG) Improve Quickdash score to no greater than 30% as measure of improved activity tolerance Progress Towards Goals Progress Comments R shld AROM seated: FF Pain at 90* less 20 deg(138 *) Ext improved 35 deg (160*) ABD gained 30 deg (180*) ER 92* IR standing behind back ( gained 2 vertebra) T10 Assessment Summary Assessment Pt reported decreased pec tension post manual STMs/ MWM with functional movement while add ed self application. He tolerated increase resistance with long axis R shld IR/ ER and added 90/90 abd w/ IR/ eccentric ER against low resistance painfree range to progress more functional ADL mobility. Physical Therapy Plan Frequency and Duration Frequency of Treatment 2x/Week Duration of treatment (weeks) 8 Plan of Care Start Date 08/04/22 Plan of Care End Date 10/04/22 Therapeutic Interventions Therapeutic Interventions Home Exercise Program,Joint Mobilizations,Manual Therapy, Patient/Caregiver Education, Self-Care/Home Management,Soft Tissue Mobilization,Taping, Therapeutic Activities, Therapeutic Exercises Modalities Cold Pack/Ice Massage,Electric Stimulation,Hot Packs, Traction- Mechanical, Ultrasound Next Visit Focus/Plan Next Note Type Treatment Note Next Visit Plan Assess goal feedback next tx. Recheck added abd/er added . Add functional AROM/TB over foam roller/noodle/towel. POC: Continue gentle progression of postural correction ex. Add AAROM ther ex as tolerated progression to AROM and resisted.
--- NOTE | 2022-09-05 11:50 | PT.OTN ---
Current Diagnoses Acute pain due to trauma (09/05/22) Pain in right shoulder (09/05/22) Radiculopathy, cervical region (09/05/22) Impingement syndrome of right shoulder (09/05/22) Weakness (09/05/22) Physical Therapy Treatment Note PT-OP-A Visit Information Start: 07/31/22 16:46 Freq: Status: Active Protocol: Document 09/05/22 10:05 NBM (Rec: 09/05/22 11:49 NBM [id number]) Out-Patient Physical Therapy Visit Information Visit Information Visit Type Treatment Note Visit Note 12/16 Visit Start Time 10:06 Visit Stop Time 10:51 Total Visit Minutes 45 Visit Number 9 Number of TRANSFERRER Visits 3 Evaluation Information Evaluation Date 08/04/22 Precautions Precautions spinal implants 08/13-03/28: Ktaping- blister adverse reaction. PT-OP-B Current Condition Start: 07/31/22 16:46 Freq: Status: Active Protocol: Document 08/25/22 07:56 SAK (Rec: 08/25/22 08:47 SAK [id number]) Current Condition History of Current Condition Onset Date 1 year Current Complaints right shoulder pain, neck pain History of Current Condition Arsalan presents today for further evaluation treatment of ongoing right shoulder and arm pain. He reports that approximately a year ago he was doing pushups when he subsequently felt acute pain involving his right shoulder and arm. He reports pain down to the fingers typically the 3rd, 4th, and 5th digits. He reports he has been through extensive conservative therapy including physical therapy at [facility]. He reports that shoulder exercises ultrasound as well as conservative management has not been beneficial; left shoulder just started hurting as well about a week ago. Had cortisone injection right shoulder about 1 month ago; took pain from 7 down to a 4. Sent back to PT due to diagnosis of right shoulder impingement. Has been doing HEP from prior PT doing every other day. Got movement back in shoulder: ER AROM, theraband ex, wall push ups, table slide Has CRPS LEs, can't use cane due to pain in shoulders. Sleeps on right shoulder, no pain in shoulder when laying on it. Also reports pain anterior chest T6 ; has had OMT Prior Treatments and Tests x-ray shoulder 10/17/22: normal x-ray c/s 06/02/22 normal study EMG right UE normal PT-OP-C Subjective Start: 07/31/22 16:46 Freq: Status: Active Protocol: Document 09/05/22 10:05 NBM (Rec: 09/05/22 11:49 NBM [id number]) OP-PT Subjective Patient Comments Patient Comments Pt states headache went away for a couple of days but came back (wearing sunglasses). He still feels sore just in the R pec from the last treatment. He is doing his home ex's and trying to stop in the range right when the pain starts, and using ice and heat. Pt states he's been getting sleep lately surprisingly. He reports pain 4.5/10. Patient Questionnaires Quick Dash- Upper Extremity Quick Dash UE Score 31 Quick Dash UE Impairment 40 to 59% Impaired (Score 40- 59) PT-OP-F Manual Assessment Start: 07/31/22 16:46 Freq: Status: Active Protocol: Document 08/04/22 07:55 SAK (Rec: 08/05/22 16:26 SAK [id number]) Manual Assessments Joint Mobility Assessment Joint Mobility Assessment dec posterior and inf glid mireille shoulders right greater than left PT-OP-H Neuro Start: 07/31/22 16:46 Freq: Status: Active Protocol: Document 08/04/22 07:55 SAK (Rec: 08/05/22 16:26 [facility] [id number]) Sensation Evaluation Gross Sensation Gross Sensation Right UE Impaired Sensation Description Tingling Dermatome Impairments C7,C8,T1 PT-OP-J Posture/Palpation/Skin Start: 07/31/22 16:46 Freq: Status: Active Protocol: Document 08/04/22 07:55 SAK (Rec: 08/05/22 16:26 [facility] [id number]) Posture Evaluation Position Sitting Head/C-Spine Posture Forward Head T-Spine Posture Increased Kyphosis Shoulder Posture (L) Rounded,(R) Rounded Scapula Posture (L) Protracted,(R) Protracted Arm Posture (L) Internally Rotated,(R) Internally Rotated Palpation Assessment Location cervical spine Palpation Location mireille right greater than left Palpation Findings Soft Tissue Tightness,Muscle Guarding,Tenderness shoulder Palpation Location GH joint line mireille Palpation Findings Soft Tissue Tightness,Muscle Guarding,Tenderness Palpation Details right greater than left PT-OP-K Range of Motion Start: 07/31/22 16:46 Freq: Status: Active Protocol: Document 09/03/22 10:03 SP (Rec: 09/03/22 10:50 SP [id number]) Shoulder Goniometric Range of Motion Shoulder Left Shoulder ROM WFL Yes Testing Position Sitting Flexion 138 Extension 60 Abduction 180 External Rotation at 0 degrees Abduction 92 Internal Rotation Behind Back (text) T10 Comments R shld AROM seated: FF Pain at 90* less 20 deg(138 *) Ext improved 35 deg (160*) ABD gained 30 deg (180*) ER 92* IR standing behind back ( gained 2 vertebra) T10 PT-OP-L Special Tests Start: 07/31/22 16:46 Freq: Status: Active Protocol: Document 08/04/22 07:55 SAK (Rec: 08/05/22 16:26 SAK [id number]) Special Tests Shoulder Special Tests Empty Can Test Results + R shoulder Comments Painful in positioning Belly Press Test Results - R shoulder Comments Good tolerance Anterior Draw Test Results - R shoulder [place] Impingement Test Results + R shoulder Comments Very painful Elevation Impingement Test Results + R shoulder Comments Pt gets pain at R Supraspinatus region and inferior shoulder joint. PT-OP-M Strength Start: 07/31/22 16:46 Freq: Status: Active Protocol: Document 08/04/22 07:55 SAK (Rec: 08/04/22 08:45 SAK [id number]) Shoulder Strength Shoulder Manual Muscle Testing Right Flexion 4+ Good+ Extension 4+ Good+ Abduction (C5) 4+ Good+ External Rotation 4- Good- Internal Rotation 4 Good Comments pain all motions, clunking right shoulder with return from elevation Left External Rotation 4 Good Internal Rotation 4+ Good+ Elbow/Forearm Strength Elbow and Forearm Manual Muscle Testing Right Flexion (C6) 4+ Good+ Extension (C7) 4+ Good+ Left Flexion (C6) 4+ Good+ Extension (C7) 4+ Good+ PT-OP-Q Treatments Start: 07/31/22 16:46 Freq: Status: Active Protocol: Document 09/05/22 10:05 NBM (Rec: 09/05/22 11:49 NBM [id number]) Therapeutic Exercises Standing Exercises R shld abd 90/90, IR/ eccentric ER Standing Exercise Name HEP Side right Resistance TB #1 orange Reps/Minutes 2x10 Comments cued chin tuck, painfree range shoulder ext Resistance TB #2 orange Reps/Minutes 10x Comments verbal and tactile cues scapula retraction shoulder ER/IR Standing Exercise Name HEP reviewed (increased resistance 09/03/22) Side bilateral Resistance TB #2 orange Reps/Minutes 10x Comments long axis, extended elbow, arms at sides, good painfree R shld ADD Standing Exercise Name initiated in PT for HEP Side right Resistance Tb #2 Reps/Minutes x10 reps Comments plane of scapula, not passed carrying angle wall posture Side bilateral Reps/Minutes 3 min Comments cued pelvis, LS, TS, post head onwall, UE long axis ER Manual Therapy Treatment Soft Tissue Mobilization c/s Body Location UT, LS Mobilization Type Myofascial Release,Rolling, Strumming,Sustained Pressure Intensity/Depth Moderate Body Position Sidelying right shoulder Body Location pec, coracobrachialis, ant deltoid, pec minor, subscapularis Mobilization Type Strumming,Sustained Pressure, Other Intensity/Depth Moderate Body Position Hooklying Comments manual STMs and sustained pressure pec focus on pec and subscapularis . Joint Mobilizations R GH Jt Joint R Direction inferior, posterior Grade II Body Position Hooklying Comments positive feedback response R scapulothoracic Direction retraction/depression Body Position Sidelying Self-Care/Home Management Treatment Education Other Education Reminded pt of self massage with tennis ball, with focus on subscapularis and pec currently. PT-OP-R Modalities Start: 07/31/22 16:46 Freq: Status: Active Protocol: Document 09/05/22 10:05 NB (Rec: 09/05/22 11:49 [facility] [id number]) Hot Pack/Cold Pack Treatment Hot Pack Location right shoulder Patient Position Hooklying Treatment Duration (minutes) 15 Patient Tolerance Good Comments Bolster under LEs. PT-OP-T Assessment and Plan Start: 07/31/22 16:46 Freq: Status: Active Protocol: Document 09/05/22 10:05 NBM (Rec: 09/05/22 11:49 [facility] [id number]) Physical Therapy Assessment Impairments Impairments Activity Tolerance,Pain, Posture,ROM,Strength Goals One Impairment weakness R shoulder and c/s Short Term Goal (STG) Patient to be instructed in HEP for purposes of c/s and shoulder strengthening 09/03/22: added abd w/ ER 90deg resisted IR/ ER good muscle tiring within painfree range. STG Duration 09/04/22 progressing 09/03/22 Prosthodontist/Educator Goal (LTG) Patient to be independent with HEP and demonstrate at least 4+/5 muscle strength throughout c/s and right shoulder for improved function with ADL's and work activities LTG Duration 10/04/22 Two Impairment postural dysfunction Impairment contributes to cervical and shoulder pain and dysfunction Short Term Goal (STG) instruct patient in neutral posture and postural correction exercises 09/03/22: GOAL MET: pt demonstrates good self corrections posture during ther ex post ed previous tx. STG Duration 09/04/22 GOAL MET: 09/03/22 Fdc Goal (LTG) Patient to be independent with HEP and demonstrate improved posture statically and with functional activities. LTG Duration 10/04/22 Three Impairment Pain in neck and right shoulders as high as 7/10 Short Term Goal (STG) Decrease reported pain level to no greater than 5/10 with all usual activities 09/05/22: Pt reports 4.5/10 at rest but still increases above 5/10 wtih activity, then uses ice and heat while resting to manage pain. STG Duration 09/04/22 Prosthodontist/Educator Goal (LTG) Decrease reported pain level to no greater than 3/10 with all usual activities and allow patient to resume prior level of function Four Impairment Decreased activity tolerance Impairment UE QuickDASH initial is 57% Short Term Goal (STG) Improve QuickDash score to no greater than 40% as measure of improved activity tolerance 09/05/22: QuickDash score is 46% (Optional sports/ performing arts module is 69%) STG Duration 09/04/22 Fdc Goal (LTG) Improve Quickdash score to no greater than 30% as measure of improved activity tolerance Assessment Summary Assessment Pt is progressing towards QuickDash goal of no greater than 40% with improvement from 57% at initial evaluation to 46% today. The Optional QuickDash sports/performing arts module for Art Drawing is 69% today but not completed at initial evaluation. Pt demonstrates HEP compliance with good recall of resisted shoulder ex's, but requires verbal and tactile cues for scapular engagement w/ these ex's. His self-awareness improves with cueing and repetition. He also requires consistent cues for chin tuck. He demonstrates slight Upper trapezius overactivation towards end-range but lacks self-awanress and is encouraged to use a mirror at home for monitoring this. Reminded pt of self massage with tennis ball, with focus on subscapularis and pec currently. Palpable tension to R Pectoralis and Subscapularis muscles improves w/ manual therapy. End of session pt reports pain level didn't go down much from 4.5 /10 start of session. Physical Therapy Plan Frequency and Duration Frequency of Treatment 2x/Week Duration of treatment (weeks) 8 Plan of Care Start Date 08/04/22 Plan of Care End Date 10/04/22 Therapeutic Interventions Therapeutic Interventions Home Exercise Program,Joint Mobilizations,Manual Therapy, Patient/Caregiver Education, Self-Care/Home Management,Soft Tissue Mobilization,Taping, Therapeutic Activities, Therapeutic Exercises Modalities Cold Pack/Ice Massage,Electric Stimulation,Hot Packs, Traction- Mechanical, Ultrasound Next Visit Focus/Plan Next Note Type Treatment Note Next Visit Plan Recheck added abd/er added . Add functional AROM/TB over foam roller/noodle/towel. POC: Continue gentle progression of postural correction ex. Add AAROM ther ex as tolerated progression to AROM and resisted.
--- NOTE | 2022-09-09 08:25 | PT.OTN ---
Current Diagnoses Acute pain due to trauma (09/09/22) Pain in right shoulder (09/09/22) Radiculopathy, cervical region (09/09/22) Impingement syndrome of right shoulder (09/09/22) Weakness (09/09/22) Physical Therapy Treatment Note PT-OP-A Visit Information Start: 07/31/22 16:46 Freq: Status: Active Protocol: Document 09/09/22 07:31 SP (Rec: 09/09/22 09:23 SP [id number]) Out-Patient Physical Therapy Visit Information Visit Information Visit Type Treatment Note Visit Note 01/15 Visit Start Time 07:31 Visit Stop Time 08:25 Total Visit Minutes 54 Visit Number 10 Number of [employer] Visits 4 Evaluation Information Evaluation Date 08/04/22 Precautions Precautions spinal implants 08/13-03/28: Ktaping- blister adverse reaction and adverse reaction increased pain spasming post Estim. PT-OP-B Current Condition Start: 07/31/22 16:46 Freq: Status: Active Protocol: Document 08/25/22 07:56 SAK (Rec: 08/25/22 08:47 SAK [id number]) Current Condition History of Current Condition Onset Date 1 year Current Complaints right shoulder pain, neck pain History of Current Condition Arsalan presents today for further evaluation treatment of ongoing right shoulder and arm pain. He reports that approximately a year ago he was doing pushups when he subsequently felt acute pain involving his right shoulder and arm. He reports pain down to the fingers typically the 3rd, 4th, and 5th digits. He reports he has been through extensive conservative therapy including physical therapy at [facility]. He reports that shoulder exercises ultrasound as well as conservative management has not been beneficial; left shoulder just started hurting as well about a week ago. Had cortisone injection right shoulder about 1 month ago; took pain from 7 down to a 4. Sent back to PT due to diagnosis of right shoulder impingement. Has been doing HEP from prior PT doing every other day. Got movement back in shoulder: ER AROM, theraband ex, wall push ups, table slide Has CRPS LEs, can't use cane due to pain in shoulders. Sleeps on right shoulder, no pain in shoulder when laying on it. Also reports pain anterior chest T6 ; has had OMT Prior Treatments and Tests x-ray shoulder 10/17/22: normal x-ray c/s 06/02/22 normal study EMG right UE normal PT-OP-C Subjective Start: 07/31/22 16:46 Freq: Status: Active Protocol: Document 09/09/22 07:31 SP (Rec: 09/09/22 09:23 SP [id number]) OP-PT Subjective Patient Comments Patient Comments Pt reports his R shoulder is really sore since Sat from R elbow to front shoulder around back shoulder and medial scap . He reports had to move 2x 25 lb back grain for parents but his R shoulder was already irritated and didn't worsen. He stated triled to do his exercises over the weekend but makes it feel worse so just rested/slept alot. He continues to fight migraines/ headaches daily, so between R shoulder pain and headaches limits his driving. He reports is going to stop by Dr Saleh office and see if can get in to be seen for further assessment due to going backward in progress. Pt inquired decrease resistance, HEP and if needed decreased frequency of PT appts, seems to always going through doing well then starts have pain again and when backs off giving more recovery time does better to progress again. PT-OP-F Manual Assessment Start: 07/31/22 16:46 Freq: Status: Active Protocol: Document 08/04/22 07:55 SAK (Rec: 08/05/22 16:26 [facility] [id number]) Manual Assessments Joint Mobility Assessment Joint Mobility Assessment dec posterior and inf glid mireille shoulders right greater than left PT-OP-H Neuro Start: 07/31/22 16:46 Freq: Status: Active Protocol: Document 08/04/22 07:55 SAK (Rec: 08/05/22 16:26 [facility] [id number]) Sensation Evaluation Gross Sensation Gross Sensation Right UE Impaired Sensation Description Tingling Dermatome Impairments C7,C8,T1 PT-OP-J Posture/Palpation/Skin Start: 07/31/22 16:46 Freq: Status: Active Protocol: Document 08/04/22 07:55 SAK (Rec: 08/05/22 16:26 [facility] [id number]) Posture Evaluation Position Sitting Head/C-Spine Posture Forward Head T-Spine Posture Increased Kyphosis Shoulder Posture (L) Rounded,(R) Rounded Scapula Posture (L) Protracted,(R) Protracted Arm Posture (L) Internally Rotated,(R) Internally Rotated Palpation Assessment Location cervical spine Palpation Location mireille right greater than left Palpation Findings Soft Tissue Tightness,Muscle Guarding,Tenderness shoulder Palpation Location GH joint line mireille Palpation Findings Soft Tissue Tightness,Muscle Guarding,Tenderness Palpation Details right greater than left PT-OP-K Range of Motion Start: 07/31/22 16:46 Freq: Status: Active Protocol: Document 09/03/22 10:03 SP (Rec: 09/03/22 10:50 SP [id number]) Shoulder Goniometric Range of Motion Shoulder Left Shoulder ROM WFL Yes Testing Position Sitting Flexion 138 Extension 60 Abduction 180 External Rotation at 0 degrees Abduction 92 Internal Rotation Behind Back (text) T10 Comments R shld AROM seated: FF Pain at 90* less 20 deg(138 *) Ext improved 35 deg (160*) ABD gained 30 deg (180*) ER 92* IR standing behind back ( gained 2 vertebra) T10 PT-OP-L Special Tests Start: 07/31/22 16:46 Freq: Status: Active Protocol: Document 08/04/22 07:55 SAK (Rec: 08/05/22 16:26 SAK [id number]) Special Tests Shoulder Special Tests Empty Can Test Results + R shoulder Comments Painful in positioning Belly Press Test Results - R shoulder Comments Good tolerance Anterior Draw Test Results - R shoulder [place] Impingement Test Results + R shoulder Comments Very painful Elevation Impingement Test Results + R shoulder Comments Pt gets pain at R Supraspinatus region and inferior shoulder joint. PT-OP-M Strength Start: 07/31/22 16:46 Freq: Status: Active Protocol: Document 08/04/22 07:55 SAK (Rec: 08/04/22 08:45 SAK [id number]) Shoulder Strength Shoulder Manual Muscle Testing Right Flexion 4+ Good+ Extension 4+ Good+ Abduction (C5) 4+ Good+ External Rotation 4- Good- Internal Rotation 4 Good Comments pain all motions, clunking right shoulder with return from elevation Left External Rotation 4 Good Internal Rotation 4+ Good+ Elbow/Forearm Strength Elbow and Forearm Manual Muscle Testing Right Flexion (C6) 4+ Good+ Extension (C7) 4+ Good+ Left Flexion (C6) 4+ Good+ Extension (C7) 4+ Good+ PT-OP-Q Treatments Start: 07/31/22 16:46 Freq: Status: Active Protocol: Document 09/09/22 07:31 SP (Rec: 09/09/22 09:23 SP [id number]) Therapeutic Exercises Sidelying Exercises ABD Sidelying Exercise Name trialed for tolerant ROM assess Side right Reps/Minutes 3 reps Comments 90 deg before feels pain over distal RTC to mid humerus open book Sidelying Exercise Name modfied hand on head, scapular glide Equipment Used manual support as needed for tactile cuing Reps/Minutes x3 reps Comments incorporate breathing- hold for now due to shld ER Sidelying Exercise Name small range Side right Resistance AROM to 90 deg Reps/Minutes x8 reps Comments cued slow painfree range, scap neutral stab positioning Standing Exercises R shld abd 90/90, IR/ eccentric ER Standing Exercise Name HEP- Hold for now due to pain R shld. Side right Resistance TB #1 orange Reps/Minutes 2x10 Comments cued chin tuck, painfree range shoulder ER/IR Standing Exercise Name HEP reviewed- 09/09 reports elbow pain hold long axis and return elbow 90 deg Side bilateral Resistance TB #2 orange> #1 peach TB Reps/Minutes 10x Comments elbow 90 deg, just muscle tiring R shld ADD Standing Exercise Name review- causing pain so hold Side right Resistance Tb #2> AROM Reps/Minutes 3 reps Comments plane of scapula irritation anterior R shld Manual Therapy Treatment Soft Tissue Mobilization c/s Body Location UT, LS Mobilization Type Myofascial Release,Rolling, Strumming,Sustained Pressure Intensity/Depth Moderate Body Position Hooklying right shoulder Body Location pec, coracobrachialis, ant deltoid, pec minor, subscapularis Mobilization Type Strumming,Sustained Pressure, Other Intensity/Depth Moderate Body Position Hooklying Comments manual STMs and sustained pressure pec focus on pec and subscapularis . Joint Mobilizations R GH Jt Joint R Direction inferior, posterior Grade II Body Position Hooklying Comments manual and inferior glide with shld ER, FF, scaption PROM R scapulothoracic Direction retraction/depression Grade II Body Position Sidelying PT-OP-R Modalities Start: 07/31/22 16:46 Freq: Status: Active Protocol: Document 09/09/22 07:31 SP (Rec: 09/09/22 09:23 SP [id number]) Hot Pack/Cold Pack Treatment Hot Pack Location right shoulder Patient Position Hooklying Treatment Duration (minutes) 15 Patient Tolerance Good Comments Bolster under LEs. PT-OP-T Assessment and Plan Start: 07/31/22 16:46 Freq: Status: Active Protocol: Document 09/09/22 07:31 SP (Rec: 09/09/22 09:23 SP [id number]) Physical Therapy Assessment Goals One Impairment weakness R shoulder and c/s Short Term Goal (STG) Patient to be instructed in HEP for purposes of c/s and shoulder strengthening 09/03/22: added abd w/ ER 90deg resisted IR/ ER good muscle tiring within painfree range. STG Duration 09/04/22 progressing 09/03/22 [employer] Goal (LTG) Patient to be independent with HEP and demonstrate at least 4+/5 muscle strength throughout c/s and right shoulder for improved function with ADL's and work activities LTG Duration 10/04/22 Two Impairment postural dysfunction Impairment contributes to cervical and shoulder pain and dysfunction Short Term Goal (STG) instruct patient in neutral posture and postural correction exercises 09/03/22: GOAL MET: pt demonstrates good self corrections posture during ther ex post ed previous tx. STG Duration 09/04/22 GOAL MET: 09/03/22 Custodial Goal (LTG) Patient to be independent with HEP and demonstrate improved posture statically and with functional activities. 09/09/22: verbal review HEP: open book (hold), prone pendulum circles/Ts/Is/Ys, TB: HABD/ HADD (hold), IR/ER elbow bent, wall posture. LTG Duration 10/04/22 updated 09/09/22 Three Impairment Pain in neck and right shoulders as high as 7/10 Short Term Goal (STG) Decrease reported pain level to no greater than 5/10 with all usual activities 09/05/22: Pt reports 4.5/10 at rest but still increases above 5/10 wtih activity, then uses ice and heat while resting to manage pain. STG Duration 09/04/22 updated 09/05/22 Custodial Goal (LTG) Decrease reported pain level to no greater than 3/10 with all usual activities and allow patient to resume prior level of function 09/05/22: Pt reports 4.5/10 at rest but still increases above 5/10 wtih activity, then uses ice and heat while resting to manage pain. LTG Duration updated 09/05/22 Four Impairment Decreased activity tolerance Impairment UE QuickDASH initial is 57% Short Term Goal (STG) Improve QuickDash score to no greater than 40% as measure of improved activity tolerance 09/05/22: QuickDash score is 46% (Optional sports/ performing arts module is 69%) STG Duration 09/04/22 updated 09/05/22 [employer] Goal (LTG) Improve Quickdash score to no greater than 30% as measure of improved activity tolerance 09/05/22: QuickDash score is 46% (Optional sports/ performing arts module is 69%, of no greater than 40% with improvement from 57% at initial evaluation. LTG Duration updated 09/05/22 Assessment Summary Assessment Tx focused on manual due to pain report on arrival. He responded increase scapular mobility post manual with less tension through pec and proximal bicep. Good tolerance to decrease resistance to IR /ER with change of elbow at 90 deg. Put hold/inactivate on irritating HEP this tx, see objective. Physical Therapy Plan Frequency and Duration Frequency of Treatment 2x/Week Duration of treatment (weeks) 8 Plan of Care Start Date 08/04/22 Plan of Care End Date 10/04/22 Therapeutic Interventions Therapeutic Interventions Home Exercise Program,Joint Mobilizations,Manual Therapy, Patient/Caregiver Education, Self-Care/Home Management,Soft Tissue Mobilization,Taping, Therapeutic Activities, Therapeutic Exercises Modalities Cold Pack/Ice Massage,Electric Stimulation,Hot Packs, Traction- Mechanical, Ultrasound Next Visit Focus/Plan Next Note Type Progress Note Next Visit Plan * No Ktaping, Estim. 11th visit PN next tx, 09/15. Ask if was able make appt with Dr Hector. DIscuss if need to decrease frequency/continue recheck tolerated HEP at this time. REcheck prone Ts, Is, Ys . Add functional AROM over foam roller/noodle/towel. POC: Continue gentle progression of postural correction ex, ROM and progress resistance as tolerated.
--- NOTE | 2022-09-15 19:08 | PT.OTN ---
Current Diagnoses Acute pain due to trauma (09/15/22) Pain in right shoulder (09/15/22) Radiculopathy, cervical region (09/15/22) Impingement syndrome of right shoulder (09/15/22) Weakness (09/15/22) Physical Therapy Treatment Note PT-OP-A Visit Information Start: 07/31/22 16:46 Freq: Status: Active Protocol: Document 09/15/22 09:40 LRN (Rec: 09/15/22 10:30 LRN [id number]) Out-Patient Physical Therapy Visit Information Visit Information Visit Type Progress Note Visit Start Time 09:40 Visit Stop Time 10:35 Total Visit Minutes 55 Visit Number 11 Evaluation Information Evaluation Date 08/04/22 Precautions Precautions spinal implants 08/13-03/28: Ktaping- blister adverse reaction and adverse reaction increased pain spasming post Estim. PT-OP-B Current Condition Start: 07/31/22 16:46 Freq: Status: Active Protocol: Document 08/25/22 07:56 SAK (Rec: 08/25/22 08:47 SAK [id number]) Current Condition History of Current Condition Onset Date 1 year Current Complaints right shoulder pain, neck pain History of Current Condition Arsalan presents today for further evaluation treatment of ongoing right shoulder and arm pain. He reports that approximately a year ago he was doing pushups when he subsequently felt acute pain involving his right shoulder and arm. He reports pain down to the fingers typically the 3rd, 4th, and 5th digits. He reports he has been through extensive conservative therapy including physical therapy at [facility]. He reports that shoulder exercises ultrasound as well as conservative management has not been beneficial; left shoulder just started hurting as well about a week ago. Had cortisone injection right shoulder about 1 month ago; took pain from 7 down to a 4. Sent back to PT due to diagnosis of right shoulder impingement. Has been doing HEP from prior PT doing every other day. Got movement back in shoulder: ER AROM, theraband ex, wall push ups, table slide Has CRPS LEs, can't use cane due to pain in shoulders. Sleeps on right shoulder, no pain in shoulder when laying on it. Also reports pain anterior chest T6 ; has had OMT Prior Treatments and Tests x-ray shoulder 10/17/22: normal x-ray c/s 06/02/22 normal study EMG right UE normal PT-OP-C Subjective Start: 07/31/22 16:46 Freq: Status: Active Protocol: Document 09/15/22 09:40 LRN (Rec: 09/15/22 10:30 LRN [id number]) OP-PT Subjective Patient Comments Patient Comments Pt made appt with Dr. Hector for end of November. Pt reports he is now able to deep breathe and feels his collar bone and clavicle have loosened up allowing him to deep breathe. Drawing has improved from 15 to 30 minutes before pain onset. Pain sensation and locations are the same. Pain down the R arm as previously reported. PT-OP-F Manual Assessment Start: 07/31/22 16:46 Freq: Status: Active Protocol: Document 08/04/22 07:55 SAK (Rec: 08/05/22 16:26 SAK [id number]) Manual Assessments Joint Mobility Assessment Joint Mobility Assessment dec posterior and inf glid mireille shoulders right greater than left PT-OP-H Neuro Start: 07/31/22 16:46 Freq: Status: Active Protocol: Document 08/04/22 07:55 SAK (Rec: 08/05/22 16:26 SAK [id number]) Sensation Evaluation Gross Sensation Gross Sensation Right UE Impaired Sensation Description Tingling Dermatome Impairments C7,C8,T1 PT-OP-J Posture/Palpation/Skin Start: 07/31/22 16:46 Freq: Status: Active Protocol: Document 08/04/22 07:55 SAK (Rec: 08/05/22 16:26 SAK [id number]) Posture Evaluation Position Sitting Head/C-Spine Posture Forward Head T-Spine Posture Increased Kyphosis Shoulder Posture (L) Rounded,(R) Rounded Scapula Posture (L) Protracted,(R) Protracted Arm Posture (L) Internally Rotated,(R) Internally Rotated Palpation Assessment Location cervical spine Palpation Location mireille right greater than left Palpation Findings Soft Tissue Tightness,Muscle Guarding,Tenderness shoulder Palpation Location GH joint line mireille Palpation Findings Soft Tissue Tightness,Muscle Guarding,Tenderness Palpation Details right greater than left PT-OP-K Range of Motion Start: 07/31/22 16:46 Freq: Status: Active Protocol: Document 09/03/22 10:03 SP (Rec: 09/03/22 10:50 SP [id number]) Shoulder Goniometric Range of Motion Shoulder Left Shoulder ROM WFL Yes Testing Position Sitting Flexion 138 Extension 60 Abduction 180 External Rotation at 0 degrees Abduction 92 Internal Rotation Behind Back (text) T10 Comments R shld AROM seated: FF Pain at 90* less 20 deg(138 *) Ext improved 35 deg (160*) ABD gained 30 deg (180*) ER 92* IR standing behind back ( gained 2 vertebra) T10 PT-OP-L Special Tests Start: 07/31/22 16:46 Freq: Status: Active Protocol: Document 08/04/22 07:55 SAK (Rec: 08/05/22 16:26 SAK [id number]) Special Tests Shoulder Special Tests Empty Can Test Results + R shoulder Comments Painful in positioning Belly Press Test Results - R shoulder Comments Good tolerance Anterior Draw Test Results - R shoulder [place] Impingement Test Results + R shoulder Comments Very painful Elevation Impingement Test Results + R shoulder Comments Pt gets pain at R Supraspinatus region and inferior shoulder joint. PT-OP-M Strength Start: 07/31/22 16:46 Freq: Status: Active Protocol: Document 09/15/22 09:40 LRN (Rec: 09/15/22 18:29 LRN [id number]) Cervical Spine Strength Cervical Spine Manual Muscle Testing Testing Position Sitting Flexion (C1-2) 5 Normal Extension 5 Normal Lateral Flexion Left (C3) 5 Normal Lateral Flexion Right (C3) 5 Normal Shoulder Strength Shoulder Manual Muscle Testing Right External Rotation 4+ Good+ Comments MMT is 5/5 except as indicated above. Left External Rotation 4+ Good+ Comments MMT is 5/5 except as indicated above. PT-OP-Q Treatments Start: 07/31/22 16:46 Freq: Status: Active Protocol: Document 09/15/22 09:40 LRN (Rec: 09/15/22 10:30 LRN [id number]) Therapeutic Exercises Supine Exercises pec stretch Supine Exercise Name Open book with elbow bent, slower mvmt on L. Side bilateral Reps/Minutes 8' Comments cued with breath, rotation of head w/arm. deep breathing Supine Exercise Name abdominal and chest Reps/Minutes 4' Comments Use of arm lifts to improve chest breaths. Prone Exercises Is, Ts, Ys Side right Reps/Minutes 5x ea Comments cued CS neutral on opp forearm and scap retract/depr w/Ys, painfree range Sitting Exercises C/S Yajaira Sitting Exercise Name Cervical Isometric holds (Flex , Ext, mireille SB) Side bilateral Comments MMT taken Shoulder Yajaira Sitting Exercise Name Shoulder Isometric holds (Flex , Ext, ER, IR, AB) Side bilateral Comments MMT taken sitting posture Sitting Exercise Name Sitting posture review with pt demonstrating self posture corrections Reps/Minutes 5' Comments Posture corrections throughout exercises Standing Exercises row Equipment Used L2 TB Reps/Minutes 10x5 shoulder ext Resistance TB #2 orange & #1 peach Reps/Minutes 10x each Comments verbal and tactile cues scapula retraction shoulder ER/IR Standing Exercise Name HEP reviewed- 09/09 reports elbow pain hold long axis and return elbow 90 deg Side bilateral Resistance TB #1 peach Reps/Minutes 9x, 2x Comments elbow 90 deg, just muscle tiring wall posture Standing Exercise Name Verbal review after pt performed self postural corrections. Reps/Minutes 3' PT-OP-R Modalities Start: 07/31/22 16:46 Freq: Status: Active Protocol: Document 09/15/22 09:40 LRN (Rec: 09/15/22 10:30 LRN [id number]) Hot Pack/Cold Pack Treatment Hot Pack Location right shoulder Patient Position Hooklying Treatment Duration (minutes) 15 Patient Tolerance Good Comments Bolster under LEs. PT-OP-T Assessment and Plan Start: 07/31/22 16:46 Freq: Status: Active Protocol: Document 09/15/22 09:40 LRN (Rec: 09/15/22 10:30 LRN [id number]) Physical Therapy Assessment Rehab Potential Rehabilitation Potential Good Evaluation Complexity Number of Personal Factors/Comorbidities 1-2 Number of Body Systems Impaired 3 Clinical Presentation at Evaluation Evolving Impairments Impairments Activity Tolerance,Pain, Posture,ROM,Strength Goals One Impairment weakness R shoulder and c/s Short Term Goal (STG) Patient to be instructed in HEP for purposes of c/s and shoulder strengthening. 09/03/22: added abd w/ER 90deg resisted IR/ ER good muscle tiring within painfree range. STG Duration 10/01/22 progressing 09/03/22 Alf Goal (LTG) Patient to be independent with HEP and demonstrate at least 4+/5 muscle strength throughout c/s and right shoulder for improved function with ADL's and work activities. 09/15/22: Shoulder strength is 5/5 except with ER bilaterally, C/S strength is 5 /5 for flex/ext/mireille SB. LTG Duration 10/08/22 progressed 09/15/22. Two Impairment postural dysfunction Impairment contributes to cervical and shoulder pain and dysfunction Short Term Goal (STG) instruct patient in neutral posture and postural correction exercises 09/03/22: GOAL MET: pt demonstrates good self corrections posture during ther ex post ed previous tx. STG Duration 09/04/22 GOAL MET: 09/03/22 Noodle Catalyst Maker Goal (LTG) Patient to be independent with HEP and demonstrate improved posture statically and with functional activities. 09/09/22: verbal review HEP: open book (hold), prone pendulum circles/Ts/Is/Ys, TB: HABD/ HADD (hold), IR/ER elbow bent, wall posture. 09/15/22: Pt demonstrates awareness of his posture with self correction during and inbetween exercises. Unknown postural corrections with functional activities. LTG Duration 10/08/22 progressed 09/15/22 Three Impairment Pain in neck and right shoulders as high as 7/10 Short Term Goal (STG) Decrease reported pain level to no greater than 5/10 with all usual activities 09/05/22: Pt reports 4.5/10 at rest but still increases above 5/10 wtih activity, then uses ice and heat while resting to manage pain. 09/15/22: Pain 4-4.5/10 with usual activities, 5/10 with fishing. STG Duration 10/01/22 updated 09/05/22 Alf Goal (LTG) Decrease reported pain level to no greater than 3/10 with all usual activities and allow patient to resume prior level of function. 09/05/22: Pt reports 4.5/10 at rest but still increases above 5/10 wtih activity, then uses ice and heat while resting to manage pain. LTG Duration 10/08/22 progressed 09/05/22 Four Impairment Decreased activity tolerance Impairment UE QuickDASH initial is 57% Short Term Goal (STG) Improve QuickDash score to no greater than 40% as measure of improved activity tolerance 09/05/22: QuickDash score is 46% (Optional sports/ performing arts module is 69%) STG Duration 09/04/22 progressed 09/05/22 Noodle Catalyst Maker Goal (LTG) Improve Quickdash score to no greater than 30% as measure of improved activity tolerance 09/05/22: QuickDash score is 46% (Optional sports/ performing arts module is 69%, of no greater than 40% with improvement from 57% at initial evaluation. LTG Duration 10/08/22 progressed 09/05/22 Assessment Summary Assessment Pt has low tolerance to exercise; therefore it may be the reason for his slow progress onto a HEP for C/S and shoulder strengthening and lack of improvement with functional activities, but he continues to be consistent with ex's and demonstrates good knowledge of his current HEP and recently added prone Ts, Is, Ys exercises. Pt appears to need HEP for C/S and scap stab strengthening. Extra time was taken for ex review of existing HEP for POC assessment. Pt decreased frequency of visits to 1x/week due to discomfort just from driving to his appointments. Function has improved per UE Quickdash score of 31, 20-39% impaired (initially score was 57, 40-59% impaired). The pt is limited in his insurance limits and has one more visit for final education and training in strengthening and pain management. Physical Therapy Plan Frequency and Duration Frequency of Treatment 2x/Week Duration of treatment (weeks) 8 Plan of Care Start Date 08/04/22 Plan of Care End Date 10/08/22 Therapeutic Interventions Therapeutic Interventions Home Exercise Program,Manual Therapy,Neuromuscular Re- education,Orthotic/Prosthetic Management,Patient/Caregiver Education,Self-Care/Home Management,Soft Tissue Mobilization,Taping, Therapeutic Activities, Therapeutic Exercises Modalities Cold Pack/Ice Massage,Hot Packs Next Visit Focus/Plan Next Note Type Discharge Summary Next Visit Plan * No Ktaping, Estim. Add functional AROM over foam roller/noodle/towel for HEP, and complete HEP self care program for DC if no further PT visits authorized. POC: Gentle progression of postural correction ex, ROM and resistance strengthnening as tolerated.
--- NOTE | 2022-09-15 19:12 | PT.OPPOC ---
Physical, Occupational & Speech Therapy At Current Diagnoses Acute pain due to trauma (09/15/22) Pain in right shoulder (09/15/22) Radiculopathy, cervical region (09/15/22) Impingement syndrome of right shoulder (09/15/22) Weakness (09/15/22) Visit Care Team Role Provider Type Rambo Reinoso DO Family Provider Physician Primary Care Provider Specialty: Family Practice Address: [address] [place] [address], [id number] Email: Rome Hector DO Attending Provider Physician Referring Provider Specialty: Physiatry Pain Management Address: [facility] [place], [address] Email: [email or web address] Plan Of Care PT-OP-T Assessment and Plan Start: 07/31/22 16:46 Freq: Status: Active Protocol: Document 09/15/22 09:40 LRN (Rec: 09/15/22 10:30 LRN [id number]) Physical Therapy Assessment Rehab Potential Rehabilitation Potential Good Evaluation Complexity Number of Personal Factors/Comorbidities 1-2 Number of Body Systems Impaired 3 Clinical Presentation at Evaluation Evolving Impairments Impairments Activity Tolerance,Pain, Posture,ROM,Strength Goals One Impairment weakness R shoulder and c/s Short Term Goal (STG) Patient to be instructed in HEP for purposes of c/s and shoulder strengthening. 09/03/22: added abd w/ER 90deg resisted IR/ ER good muscle tiring within painfree range. STG Duration 10/01/22 progressing 09/03/22 Wood Heel Back Liner Goal (LTG) Patient to be independent with HEP and demonstrate at least 4+/5 muscle strength throughout c/s and right shoulder for improved function with ADL's and work activities. 09/15/22: Shoulder strength is 5/5 except with ER bilaterally, C/S strength is 5 /5 for flex/ext/mireille SB. LTG Duration 10/08/22 progressed 09/15/22. Two Impairment postural dysfunction Impairment contributes to cervical and shoulder pain and dysfunction Short Term Goal (STG) instruct patient in neutral posture and postural correction exercises 09/03/22: GOAL MET: pt demonstrates good self corrections posture during ther ex post ed previous tx. STG Duration 09/04/22 GOAL MET: 09/03/22 Wood Heel Back Liner Goal (LTG) Patient to be independent with HEP and demonstrate improved posture statically and with functional activities. 09/09/22: verbal review HEP: open book (hold), prone pendulum circles/Ts/Is/Ys, TB: HABD/ HADD (hold), IR/ER elbow bent, wall posture. 09/15/22: Pt demonstrates awareness of his posture with self correction during and inbetween exercises. Unknown postural corrections with functional activities. LTG Duration 10/08/22 progressed 09/15/22 Three Impairment Pain in neck and right shoulders as high as 7/10 Short Term Goal (STG) Decrease reported pain level to no greater than 5/10 with all usual activities 09/05/22: Pt reports 4.5/10 at rest but still increases above 5/10 wtih activity, then uses ice and heat while resting to manage pain. 09/15/22: Pain 4-4.5/10 with usual activities, 5/10 with fishing. STG Duration 10/01/22 updated 09/05/22 Residential Goal (LTG) Decrease reported pain level to no greater than 3/10 with all usual activities and allow patient to resume prior level of function. 09/05/22: Pt reports 4.5/10 at rest but still increases above 5/10 wtih activity, then uses ice and heat while resting to manage pain. LTG Duration 10/08/22 progressed 09/05/22 Four Impairment Decreased activity tolerance Impairment UE QuickDASH initial is 57% Short Term Goal (STG) Improve QuickDash score to no greater than 40% as measure of improved activity tolerance 09/05/22: QuickDash score is 46% (Optional sports/ performing arts module is 69%) STG Duration 09/04/22 progressed 09/05/22 Wood Heel Back Liner Goal (LTG) Improve Quickdash score to no greater than 30% as measure of improved activity tolerance 09/05/22: QuickDash score is 46% (Optional sports/ performing arts module is 69%, of no greater than 40% with improvement from 57% at initial evaluation. LTG Duration 10/08/22 progressed 09/05/22 Assessment Summary Assessment Primary therapist on leave currently, but will return prior to pt discharge for reassessment at a later date. Today, pt demonstrated low tolerance to exercise; therefore it may be the reason for his slow progress onto a HEP for C/S and shoulder strengthening and lack of improvement with functional activities, but he continues to be consistent with ex's and demonstrates good knowledge of his current HEP and recently added prone Ts, Is, Ys exercises. Pt appears to need HEP for C/S and scap stab strengthening. Extra time was taken for ex review of existing HEP for POC assessment. Pt decreased frequency of visits to 1x/week due to discomfort just from driving to his appointments. Function has improved per UE Quickdash score of 31, 20-39% impaired (initially score was 57, 40-59% impaired). The pt is limited in his insurance limits and has one more visit for final education and training in strengthening and pain management. Physical Therapy Plan Frequency and Duration Frequency of Treatment 2x/Week Duration of treatment (weeks) 8 Plan of Care Start Date 08/04/22 Plan of Care End Date 10/08/22 Therapeutic Interventions Therapeutic Interventions Home Exercise Program,Manual Therapy,Neuromuscular Re- education,Orthotic/Prosthetic Management,Patient/Caregiver Education,Self-Care/Home Management,Soft Tissue Mobilization,Taping, Therapeutic Activities, Therapeutic Exercises Modalities Cold Pack/Ice Massage,Hot Packs Next Visit Focus/Plan Next Note Type Discharge Summary Next Visit Plan * No Ktaping, Estim. Reassessment for probable discharge. Add functional AROM over foam roller/noodle/ towel for HEP, and complete HEP self care program for DC if no further PT visits authorized, or unless pt chooses to pay out of pocket. POC: Gentle progression of postural correction ex, ROM and resistance strengthening as tolerated. Plan of Care Dates Plan of Care Start Date 08/04/22 Plan of Care End Date 10/08/22 Electronically Signed by: Taylor Marcus, PT 09/15/221911 If you are in agreement with this Plan of Care, please return a signed and dated copy. I have reviewed this Plan of Care and certify that the skilled therapy services above are required to meet the patient?s needs. Physician Signature Date Printed Name and Credentials Clinical Instructor Signature Printed Name and Credentials
--- NOTE | 2022-09-29 13:13 | PT.OTN ---
Current Diagnoses Acute pain due to trauma (09/29/22) Pain in right shoulder (09/29/22) Radiculopathy, cervical region (09/29/22) Impingement syndrome of right shoulder (09/29/22) Weakness (09/29/22) Physical Therapy Treatment Note PT-OP-A Visit Information Start: 07/31/22 16:46 Freq: Status: Active Protocol: Document 09/29/22 12:30 SAK (Rec: 09/29/22 13:13 [facility] [id number]) Out-Patient Physical Therapy Visit Information Visit Information Visit Type Treatment Note Visit Start Time 12:30 Total Visit Minutes 55 Visit Number 12 Evaluation Information Evaluation Date 08/04/22 Precautions Precautions spinal implants 08/13-03/28: Ktaping- blister adverse reaction and adverse reaction increased pain spasming post Estim. PT-OP-B Current Condition Start: 07/31/22 16:46 Freq: Status: Active Protocol: Document 08/25/22 07:56 SAK (Rec: 08/25/22 08:47 SAK [id number]) Current Condition History of Current Condition Onset Date 1 year Current Complaints right shoulder pain, neck pain History of Current Condition Arsalan presents today for further evaluation treatment of ongoing right shoulder and arm pain. He reports that approximately a year ago he was doing pushups when he subsequently felt acute pain involving his right shoulder and arm. He reports pain down to the fingers typically the 3rd, 4th, and 5th digits. He reports he has been through extensive conservative therapy including physical therapy at [facility]. He reports that shoulder exercises ultrasound as well as conservative management has not been beneficial; left shoulder just started hurting as well about a week ago. Had cortisone injection right shoulder about 1 month ago; took pain from 7 down to a 4. Sent back to PT due to diagnosis of right shoulder impingement. Has been doing HEP from prior PT doing every other day. Got movement back in shoulder: ER AROM, theraband ex, wall push ups, table slide Has CRPS LEs, can't use cane due to pain in shoulders. Sleeps on right shoulder, no pain in shoulder when laying on it. Also reports pain anterior chest T6 ; has had OMT Prior Treatments and Tests x-ray shoulder 10/17/22: normal x-ray c/s 06/02/22 normal study EMG right UE normal PT-OP-C Subjective Start: 07/31/22 16:46 Freq: Status: Active Protocol: Document 09/15/22 09:40 LRN (Rec: 09/15/22 10:30 [facility] [id number]) OP-PT Subjective Patient Comments Patient Comments Pt made appt with Dr. Hector for end of November. Pt reports he is now able to deep breathe and feels his collar bone and clavicle have loosened up allowing him to deep breathe. Drawing has improved from 15 to 30 minutes before pain onset. Pain sensation and locations are the same. Pain down the R arm as previously reported. PT-OP-F Manual Assessment Start: 07/31/22 16:46 Freq: Status: Active Protocol: Document 08/04/22 07:55 SAK (Rec: 08/05/22 16:26 SAK [id number]) Manual Assessments Joint Mobility Assessment Joint Mobility Assessment dec posterior and inf glid mireille shoulders right greater than left PT-OP-H Neuro Start: 07/31/22 16:46 Freq: Status: Active Protocol: Document 08/04/22 07:55 SAK (Rec: 08/05/22 16:26 SAK [id number]) Sensation Evaluation Gross Sensation Gross Sensation Right UE Impaired Sensation Description Tingling Dermatome Impairments C7,C8,T1 PT-OP-J Posture/Palpation/Skin Start: 07/31/22 16:46 Freq: Status: Active Protocol: Document 08/04/22 07:55 SAK (Rec: 08/05/22 16:26 SAK [id number]) Posture Evaluation Position Sitting Head/C-Spine Posture Forward Head T-Spine Posture Increased Kyphosis Shoulder Posture (L) Rounded,(R) Rounded Scapula Posture (L) Protracted,(R) Protracted Arm Posture (L) Internally Rotated,(R) Internally Rotated Palpation Assessment Location cervical spine Palpation Location mireille right greater than left Palpation Findings Soft Tissue Tightness,Muscle Guarding,Tenderness shoulder Palpation Location GH joint line mireille Palpation Findings Soft Tissue Tightness,Muscle Guarding,Tenderness Palpation Details right greater than left PT-OP-K Range of Motion Start: 07/31/22 16:46 Freq: Status: Active Protocol: Document 09/03/22 10:03 SP (Rec: 09/03/22 10:50 SP [id number]) Shoulder Goniometric Range of Motion Shoulder Left Shoulder ROM WFL Yes Testing Position Sitting Flexion 138 Extension 60 Abduction 180 External Rotation at 0 degrees Abduction 92 Internal Rotation Behind Back (text) T10 Comments R shld AROM seated: FF Pain at 90* less 20 deg(138 *) Ext improved 35 deg (160*) ABD gained 30 deg (180*) ER 92* IR standing behind back ( gained 2 vertebra) T10 PT-OP-L Special Tests Start: 07/31/22 16:46 Freq: Status: Active Protocol: Document 08/04/22 07:55 SAK (Rec: 08/05/22 16:26 SAK [id number]) Special Tests Shoulder Special Tests Empty Can Test Results + R shoulder Comments Painful in positioning Belly Press Test Results - R shoulder Comments Good tolerance Anterior Draw Test Results - R shoulder [place] Impingement Test Results + R shoulder Comments Very painful Elevation Impingement Test Results + R shoulder Comments Pt gets pain at R Supraspinatus region and inferior shoulder joint. PT-OP-M Strength Start: 07/31/22 16:46 Freq: Status: Active Protocol: Document 09/15/22 09:40 LRN (Rec: 09/15/22 18:29 LRN [id number]) Cervical Spine Strength Cervical Spine Manual Muscle Testing Testing Position Sitting Flexion (C1-2) 5 Normal Extension 5 Normal Lateral Flexion Left (C3) 5 Normal Lateral Flexion Right (C3) 5 Normal Shoulder Strength Shoulder Manual Muscle Testing Right External Rotation 4+ Good+ Comments MMT is 5/5 except as indicated above. Left External Rotation 4+ Good+ Comments MMT is 5/5 except as indicated above. PT-OP-Q Treatments Start: 07/31/22 16:46 Freq: Status: Active Protocol: Document 09/29/22 12:30 [facility] (Rec: 09/29/22 13:13 [facility] [id number]) Self-Care/Home Management Treatment Education Patient Education Home Exercise Program,Pain Management,Posture Other Education deep breathing, self massage PT-OP-R Modalities Start: 07/31/22 16:46 Freq: Status: Active Protocol: Document 09/29/22 12:30 [facility] (Rec: 09/29/22 13:13 [facility] [id number]) Hot Pack/Cold Pack Treatment Hot Pack Location right shoulder Patient Position Hooklying Treatment Duration (minutes) 15 Patient Tolerance Good Comments Bolster under LEs. PT-OP-T Assessment and Plan Start: 07/31/22 16:46 Freq: Status: Active Protocol: Document 09/29/22 12:30 [facility] (Rec: 09/29/22 13:13 [facility] [id number]) Physical Therapy Assessment Goals One Impairment weakness R shoulder and c/s Short Term Goal (STG) Patient to be instructed in HEP for purposes of c/s and shoulder strengthening. 09/03/22: added abd w/ER 90deg resisted IR/ ER good muscle tiring within painfree range. STG Duration 10/01/22 progressing 09/03/22 Group Home Goal (LTG) Patient to be independent with HEP and demonstrate at least 4+/5 muscle strength throughout c/s and right shoulder for improved function with ADL's and work activities. 09/15/22: Shoulder strength is 5/5 except with ER bilaterally, C/S strength is 5 /5 for flex/ext/mireille SB. LTG Duration 10/08/22 progressed 09/15/22. Two Impairment postural dysfunction Impairment contributes to cervical and shoulder pain and dysfunction Short Term Goal (STG) instruct patient in neutral posture and postural correction exercises 09/03/22: GOAL MET: pt demonstrates good self corrections posture during ther ex post ed previous tx. STG Duration 09/04/22 GOAL MET: 09/03/22 Group Home Goal (LTG) Patient to be independent with HEP and demonstrate improved posture statically and with functional activities. 09/09/22: verbal review HEP: open book (hold), prone pendulum circles/Ts/Is/Ys, TB: HABD/ HADD (hold), IR/ER elbow bent, wall posture. 09/15/22: Pt demonstrates awareness of his posture with self correction during and inbetween exercises. Unknown postural corrections with functional activities. LTG Duration 10/08/22 progressed 09/15/22 Three Impairment Pain in neck and right shoulders as high as 7/10 Short Term Goal (STG) Decrease reported pain level to no greater than 5/10 with all usual activities 09/05/22: Pt reports 4.5/10 at rest but still increases above 5/10 wtih activity, then uses ice and heat while resting to manage pain. 09/15/22: Pain 4-4.5/10 with usual activities, 5/10 with fishing. STG Duration 10/01/22 updated 09/05/22 Group Home Goal (LTG) Decrease reported pain level to no greater than 3/10 with all usual activities and allow patient to resume prior level of function. 09/05/22: Pt reports 4.5/10 at rest but still increases above 5/10 wtih activity, then uses ice and heat while resting to manage pain. LTG Duration 10/08/22 progressed 09/05/22 Four Impairment Decreased activity tolerance Impairment UE QuickDASH initial is 57% Short Term Goal (STG) Improve QuickDash score to no greater than 40% as measure of improved activity tolerance 09/05/22: QuickDash score is 46% (Optional sports/ performing arts module is 69%) STG Duration 09/04/22 progressed 09/05/22 Civil Drafting Technician Goal (LTG) Improve Quickdash score to no greater than 30% as measure of improved activity tolerance 09/05/22: QuickDash score is 46% (Optional sports/ performing arts module is 69%, of no greater than 40% with improvement from 57% at initial evaluation. LTG Duration 10/08/22 progressed 09/05/22 Assessment Summary Assessment Patient reporting 30% improvement in pain and function. Today is last PT appointment due to insurance restrictions. Patient to see Dr. Hector in November. He is independent in HEP and demonstrates good understanding of self massage using tennis ball. May benefit from further PT in the new year. Physical Therapy Plan Discharge Physical Therapy Discharge Comments insurance restrictions
== END 2022-10-02 11:26 | disposition home or self-care (01) ==
LOC: PHYS 12:30
PROVIDERS: Family Provider Family Medicine; PCP Family Medicine; Referring Provider Physical Medicine & Rehabilitation; Visit Provider Physical Medicine & Rehabilitation
DX: M75.41 Impingement syndrome of right shoulder (principal); M54.12 Radiculopathy, cervical region; M25.511 Pain in right shoulder; G89.11 Acute pain due to trauma; R53.1 Weakness
CPT/HCPCS: 97010; 97014; 97110; 97140; 97162; 97535; G0283

== ENCOUNTER → 2023-05-12 10:31 | Outpatient (CLI) | payer OTHER, MEDICAID, SELFPAY ==
[2023-05-12 12:07] LABS: Add Manual Diff / Slide Review NO; Basophils Absolute Auto 0 /uL (0-100); Basophils Percent Auto 0.6 % (0-2); Eosinophils Absolute Auto 600 /uL (0-450); Eosinophils Percent Auto 7.8 % (2-4); Hematocrit 48.5 % (41-53); Hemoglobin 16.6 g/dL (13.5-17.5); Lymphocytes Absolute Auto 1900 /uL (1100-4500); Lymphocytes Percent Auto 23.6 % (25-40); Mean Corpuscular HGB Conc 34.3 % (30-36); Mean Corpuscular Hemoglobin 31.6 PG (26-34); Mean Corpuscular Volume 92.1 fL (80-100); Monocytes Absolute Auto 600 /uL (0-900); Monocytes Percent Auto 7.2 % (3-14); Neutrophils Absolute Auto 4800 /uL (1500-7000); Neutrophils Percent Auto 60.8 % (50-75); Platelet Count 267 X10^3/uL (150-400); Red Blood Cell Count 5.27 X10^6/uL (4.5-5.9); Red Cell Distribution Width 13.5 % (11.6-14.8); White Blood Cell Count 7.9 X10^3/uL (4.5-11.0)
[2023-05-12 12:30] LABS: Erythrocyte Sedimentation Rate 6 MM/HR (0-15)
[2023-05-12 13:03] LABS: Alanine Aminotransferase 29 IU/L (<50); Albumin 4.3 g/dL (3.5-5.0); Albumin Globulin Ratio 1.1 (1.0-2.8); Alkaline Phosphatase 79 U/L (38-126); Aspartate Aminotransferase 36 IU/L (17-59); BUN Creatinine Ratio 14.4 (6-22); Bilirubin Total 0.5 mg/dL (0.2-1.3); Blood Urea Nitrogen 13 mg/dL (9-20); C-Reactive Protein Quant 1.4 mg/dL (<1.0); Calcium 9.7 mg/dL (8.4-10.2); Carbon Dioxide 28 mmol/L (22-32); Chloride 104 mmol/L (98-107); Cholesterol 195 mg/dL (140-199); Estimated Glomerular Filt Rate > 60 mL/min (>60); Globulin 3.8 g/dL (1.7-4.1); Glucose 105 mg/dL (70-100); HDL Cholesterol 45 mg/dL (40-60); HEMOLYSIS 16 (0-50); LDL Cholesterol Calculated 121 mg/dL (<100); Potassium 4.7 mmol/L (3.4-5.1); Sodium 138 mmol/L (137-145); Total Protein 8.1 g/dL (6.3-8.2); Triglycerides 143 mg/dL (35-150)
[2023-05-12 13:22] LABS: TSH w/ Reflex to FT4 1.31 uIU/mL (0.47-4.68)
[2023-05-12 13:45] LABS: Vitamin B12 271 pg/mL (239-931)
== END ==
PROVIDERS: Family Provider Family Medicine; PCP Family Medicine; Referring Provider Family Medicine; Visit Provider Family Medicine
DX: Z13.220 Encounter for screening for lipoid disorders (principal); R20.2 Paresthesia of skin; R52 Pain, unspecified; H53.9 Unspecified visual disturbance; E66.9 Obesity, unspecified; G43.909 Migraine, unspecified, not intractable, without status migrainosus; J44.9 Chronic obstructive pulmonary disease, unspecified
CPT/HCPCS: 36415; 80053; 80061; 82607; 84443; 85025; 85651; 86140

== ENCOUNTER 2023-07-06 09:00 | Outpatient (RCR) | payer OTHER, MEDICAID, SELFPAY ==
--- NOTE | 2023-05-07 10:35 | PT.OIE ---
Current Diagnoses Acute pain due to trauma (05/07/23) Pain in right shoulder (05/07/23) Radiculopathy, cervical region (05/07/23) Impingement syndrome of right shoulder (05/07/23) Past Medical History (Last Reviewed 03/02/23 @ 10:35 by Rome Hector DO) Acute exacerbation of chronic low back pain Acute pain of right shoulder due to trauma ADHD Allergies Ankle pain Asthma Cervical radiculopathy Chronic back pain Chronic cough Chronic pain of left ankle Cranial somatic dysfunction CRPS (complex regional pain syndrome) Depression Excessive cerumen in left ear canal Foot pain Fractures GI bleeding Headache History of recurrent ear infection Impingement syndrome of right shoulder Inflamed seborrheic keratosis Insomnia due to medical condition Kidney stones Lower limb region somatic dysfunction Migraines Obesity (BMI 30.0-34.9) Pain, foot, right, chronic Paresthesia of upper extremity Post traumatic stress disorder (PTSD) Sacral region somatic dysfunction Sacroiliac joint stiffness Screening for hyperlipidemia Sleep apnea Urge incontinence of urine Vitamin deficiency Past Surgical History (Last Reviewed 03/02/23 @ 10:35 by Rome Hector DO) Anesthesia History of placement of ear tubes Status post insertion of spinal cord stimulator Status post insertion of spinal cord stimulator Visit Care Team Role Provider Type Rambo Reinoso DO Family Provider Physician Primary Care Provider Referring Provider Specialty: Family Practice Address: [address] [place], [place] [id number] Email: Rome Hector DO Attending Provider Physician Specialty: Interventional Radiology Physiatry Pain Management Address: [facility] [address] [place] [address] Email: [email or web address] Physical Therapy Initial Evaluation PT-OP-A Visit Information Start: 05/07/23 09:01 Freq: Status: Active Protocol: Document 05/07/23 09:02 [facility] (Rec: 05/07/23 09:45 [facility] [id number]) Out-Patient Physical Therapy Visit Information Visit Information Visit Type Initial Evaluation Visit Note 04/17 Visit Start Time 09:03 Visit Stop Time 09:45 Visit Number 1 Evaluation Information Evaluation Date 05/07/23 Precautions Precautions neurostimulator in right lumbar, history LBP, eye infection PT-OP-B Current Condition Start: 05/07/23 09:01 Freq: Status: Active Protocol: Document 05/07/23 09:02 [facility] (Rec: 05/07/23 09:45 [facility] [id number]) Current Condition History of Current Condition Onset Date 2020 Current Complaints right shoulder scapular pain pain History of Current Condition Right shoulder injury experienced when patient was doing a pushup and experienced acute pain in his shoulder and arm. Has been seen in this PT clinic previously. Since last seen in PT has been doing HEP, has helped quite a bit and reports when pulling down from a position of arms at to the side with therabands in January felt something snap, then has felt better except in scapular area radiating to chest. Most painful is rowing motion, postural correction scapular squeeze and deep breathing. States most helpful prior PT exercises and manual therapy. Skin didn't tolerate kinesiotape. Ultrasound and IFES not helpful. Occasional use of ice and heat at home. History CRPS in LE's, thinks may have in right UE. Prior Treatments and Tests Saw Dr. Hector for check up Injections not helpful, recommended further PT. Future Testing and Treatments Planned not able to have MRI due to stimulator wires right lumbar Treatment Goals Patient/Caregiver Goals Decrease pain, be able to sleep, reach with right UE without pain kayak. Current Functional Impairments (Reported) Functional Limitations- ADL's most painful reaching forward and lifting up and back, lifts 25# at most. Rowing motion or postural correction painful Functional Limitations- Other doing most exercises every other day PT-OP-C Subjective Start: 05/07/23 09:01 Freq: Status: Active Protocol: Document 05/07/23 09:02 [facility] (Rec: 05/07/23 10:34 [facility] [id number]) Patient Questionnaires Quick Dash- Upper Extremity Quick Dash UE Score 43% OP-PT Pain Assessment Pain Assessment Grid Paper Pain Assessment Grid Completed Yes Location R shoulder Pain Location Details 6 Description Aching,Pressure,Shooting, Tender Pain Aggravating Factors Lifting Other Pain Aggravating Factors pulling, reaching Pain Alleviating Factors Cold,Heat,Exercise,Rest PT-OP-H Neuro Start: 05/07/23 09:01 Freq: Status: Active Protocol: Document 05/07/23 09:02 [facility] (Rec: 05/07/23 09:45 [facility] [id number]) Sensation Evaluation Gross Sensation Gross Sensation Right UE Impaired Sensation Description Tingling PT-OP-J Posture/Palpation/Skin Start: 05/07/23 09:01 Freq: Status: Active Protocol: Document 05/07/23 09:02 [facility] (Rec: 05/07/23 09:45 [facility] [id number]) Posture Evaluation Position Sitting Head/C-Spine Posture Forward Head T-Spine Posture Increased Kyphosis Shoulder Posture (L) Rounded,(R) Rounded Scapula Posture (L) Protracted,(R) Protracted Palpation Assessment Location AC Palpation Findings Tenderness c/s Palpation Details no tenderness UT Palpation Details no tenderness scap border Palpation Location right med Palpation Findings Tenderness right shoulder Palpation Location AC Palpation Findings Tenderness PT-OP-K Range of Motion Start: 05/07/23 09:01 Freq: Status: Active Protocol: Document 05/07/23 09:02 [facility] (Rec: 05/07/23 09:45 [facility] [id number]) Cervical Spine Range of Motion Cervical Spine Active Testing Position Sitting Comments WNL Shoulder Goniometric Range of Motion Shoulder Right Shoulder ROM WFL Yes Testing Position Sitting Flexion 165 Abduction 165 Horizontal Abduction 80 Horizontal Adduction 25 External Rotation at 90 degrees 75 Abduction External Rotation at 0 degrees Abduction 70 Internal Rotation Behind Back (text) T12 Comments painful achy to burn IR Left Shoulder ROM WFL Yes Shoulder ROM Limitations Shoulder ROM Limitations Soft Tissue Tightness,Pain Elbow/Forearm Range of Motion Elbow/Forearm mireille Elbow/Forearm ROM WFL Yes PT-OP-M Strength Start: 05/07/23 09:01 Freq: Status: Active Protocol: Document 05/07/23 09:02 [facility] (Rec: 05/07/23 10:34 [facility] [id number]) Cervical Spine Strength Cervical Spine Manual Muscle Testing Testing Position Sitting Flexion (C1-2) 4+ Good+ Extension 4+ Good+ Rotation Left 4+ Good+ Rotation Right 4+ Good+ Lateral Flexion Left (C3) 4+ Good+ Lateral Flexion Right (C3) 4+ Good+ Shoulder Strength Shoulder Manual Muscle Testing Right Flexion 4 Good Extension 4 Good Abduction (C5) 4 Good External Rotation 4- Good- Internal Rotation 4 Good Horizontal Abduction 4- Good- Left Flexion 5 Normal Extension 5 Normal Abduction (C5) 5 Normal External Rotation 4+ Good+ Internal Rotation 5 Normal Horizontal Abduction 4+ Good+ PT-OP-Q Treatments Start: 05/07/23 09:01 Freq: Status: Active Protocol: Document 05/07/23 09:02 [facility] (Rec: 05/07/23 09:45 [facility] [id number]) Self-Care/Home Management Treatment Education Patient Education Home Exercise Program,Posture Other Education work on gentle postural correction, resume open book and T's and Y's PT-OP-T Assessment and Plan Start: 05/07/23 09:01 Freq: Status: Active Protocol: Document 05/07/23 09:02 [facility] (Rec: 05/07/23 09:45 [facility] [id number]) Physical Therapy Assessment Rehab Potential Rehabilitation Potential Good Evaluation Complexity Number of Personal Factors/Comorbidities 1-2 Number of Body Systems Impaired 3 Clinical Presentation at Evaluation Evolving Impairments Impairments Pain,Posture,Strength Goals One Impairment activity intolerance Impairment Quickdash disability index score 43% Short Term Goal (STG) Improve Quickdash disability index score to no greater than 32% as measure of improved right shoulder function STG Duration 06/19/23 Toy Packer Goal (LTG) Decrease Quickdash disability index score to no greater than 20% as measure of improved right shoulder function and quality of life LTG Duration 08/05/23 Four Impairment postural dysfunction Impairment pain withpostural correction med scap border and anterior attachment of ribs to sternum Senior Care Goal (LTG) patient will be able to attain neutral postural alignment with min to no increase in pain LTG Duration 08/05/23 Three Impairment weakness right shoulder Impairment improve right shoulder strength to 5/5 all muscle groups Short Term Goal (STG) patient HEP current HEP to be progressed with monitoring for correct muscle activation and form STG Duration 06/19/23 Toy Packer Goal (LTG) Patient will be independent with HEP and demonstrate 5/5 muscle strength throughout LTG Duration 08/05/23 Two Impairment Right shoulder pain Impairment Pain at rest is 4/10 Pain with movement is 6/10 Short Term Goal (STG) decrease pain to no greater than 4/10 with movement and activities such as sleep, reaching, and recreational activities STG Duration 06/19/23 Toy Packer Goal (LTG) Decrease pain to no greater than 2/10 with all usual activities including sleep, reaching, and recreational activities such as kayaking LTG Duration 08/05/23 Assessment Summary Assessment Patient presents to PT with function-limiting right shoulder pain improved since original injury in 2020 but pain persists especially with sleep, reaching, and pulling shoulders back. He has been unable to have an MRI due to neurostimulator implant. Injections have not been helpful. He presents with postural dysfunction, weakness right shoulder especially posterior chain musculature, positive impingement signs, overal deconditioning due to multiple medical issues including chronic back pain. Feel patient will benefit from another course of PT for further strengthening, postural correction, manual techniques to decrease muscle tension and pain. POC was discussed and patient was in agreement. Physical Therapy Plan Frequency and Duration Frequency of Treatment 1x/Week Duration of treatment (weeks) 12 Plan of Care Start Date 05/07/23 Plan of Care End Date 08/05/23
--- NOTE | 2023-05-07 10:36 | PT.OPPOC ---
Physical, Occupational & Speech Therapy At [facility] Current Diagnoses Acute pain due to trauma (05/07/23) Pain in right shoulder (05/07/23) Radiculopathy, cervical region (05/07/23) Impingement syndrome of right shoulder (05/07/23) Visit Care Team Role Provider Type Rambo Reinoso DO Family Provider Physician Primary Care Provider Referring Provider Specialty: Family Practice Address: [address] [place] [address], [id number] Email: Rome Hector DO Attending Provider Physician Specialty: Interventional Radiology Physiatry Pain Management Address: [facility] [place], [address] Email: [email or web address] Plan Of Care PT-OP-T Assessment and Plan Start: 05/07/23 09:01 Freq: Status: Active Protocol: Document 05/07/23 09:02 [facility] (Rec: 05/07/23 09:45 [facility] [id number]) Physical Therapy Assessment Rehab Potential Rehabilitation Potential Good Evaluation Complexity Number of Personal Factors/Comorbidities 1-2 Number of Body Systems Impaired 3 Clinical Presentation at Evaluation Evolving Impairments Impairments Pain,Posture,Strength Goals One Impairment activity intolerance Impairment Quickdash disability index score 43% Short Term Goal (STG) Improve Quickdash disability index score to no greater than 32% as measure of improved right shoulder function STG Duration 06/19/23 [facility] Goal (LTG) Decrease Quickdash disability index score to no greater than 20% as measure of improved right shoulder function and quality of life LTG Duration 08/05/23 Four Impairment postural dysfunction Impairment pain withpostural correction med scap border and anterior attachment of ribs to sternum [facility] Goal (LTG) patient will be able to attain neutral postural alignment with min to no increase in pain LTG Duration 08/05/23 Three Impairment weakness right shoulder Impairment improve right shoulder strength to 5/5 all muscle groups Short Term Goal (STG) patient HEP current HEP to be progressed with monitoring for correct muscle activation and form STG Duration 06/19/23 [facility] Goal (LTG) Patient will be independent with HEP and demonstrate 5/5 muscle strength throughout LTG Duration 08/05/23 Two Impairment Right shoulder pain Impairment Pain at rest is 4/10 Pain with movement is 6/10 Short Term Goal (STG) decrease pain to no greater than 4/10 with movement and activities such as sleep, reaching, and recreational activities STG Duration 06/19/23 [facility] Goal (LTG) Decrease pain to no greater than 2/10 with all usual activities including sleep, reaching, and recreational activities such as kayaking LTG Duration 08/05/23 Assessment Summary Assessment Patient presents to PT with function-limiting right shoulder pain improved since original injury in 2020 but pain persists especially with sleep, reaching, and pulling shoulders back. He has been unable to have an MRI due to neurostimulator implant. Injections have not been helpful. He presents with postural dysfunction, weakness right shoulder especially posterior chain musculature, positive impingement signs, overal deconditioning due to multiple medical issues including chronic back pain. Feel patient will benefit from another course of PT for further strengthening, postural correction, manual techniques to decrease muscle tension and pain. POC was discussed and patient was in agreement. Physical Therapy Plan Frequency and Duration Frequency of Treatment 1x/Week Duration of treatment (weeks) 12 Plan of Care Start Date 05/07/23 Plan of Care End Date 08/05/23 Plan of Care Dates Plan of Care Start Date 05/07/23 Plan of Care End Date 08/05/23 Electronically Signed by: Jelly Marlow, PT 05/07/23 1036 If you are in agreement with this Plan of Care, please return a signed and dated copy. I have reviewed this Plan of Care and certify that the skilled therapy services above are required to meet the patient?s needs. Physician Signature Date Printed Name and Credentials Clinical Instructor Signature Printed Name and Credentials
--- NOTE | 2023-05-19 11:50 | PT.OTN ---
Current Diagnoses Acute pain due to trauma (05/19/23) Pain in right shoulder (05/19/23) Radiculopathy, cervical region (05/19/23) Impingement syndrome of right shoulder (05/19/23) Physical Therapy Treatment Note PT-OP-A Visit Information Start: 05/07/23 09:01 Freq: Status: Active Protocol: Document 05/19/23 08:12 [facility] (Rec: 05/19/23 09:01 [facility] [id number]) Out-Patient Physical Therapy Visit Information Visit Information Visit Type Treatment Note Visit Start Time 08:15 Visit Stop Time 09:15 Visit Number 2 Evaluation Information Evaluation Date 05/07/23 Precautions Precautions neurostimulator in right lumbar, history LBP, eye infection PT-OP-B Current Condition Start: 05/07/23 09:01 Freq: Status: Active Protocol: Document 05/19/23 08:12 [facility] (Rec: 05/19/23 09:01 [facility] [id number]) Current Condition History of Current Condition Onset Date 2020 Current Complaints right shoulder scapular pain pain History of Current Condition Right shoulder injury experienced when patient was doing a pushup and experienced acute pain in his shoulder and arm. Has been seen in this PT clinic previously. Since last seen in PT has been doing HEP, has helped quite a bit and reports when pulling down from a position of arms at to the side with therabands in January felt something snap, then has felt better except in scapular area radiating to chest. Most painful is rowing motion, postural correction scapular squeeze and deep breathing. States most helpful prior PT exercises and manual therapy. Skin didn't tolerate kinesiotape. Ultrasound and IFES not helpful. Occasional use of ice and heat at home. History CRPS in LE's, thinks may have in right UE. Prior Treatments and Tests Saw Dr. Hetcor for check up Injections not helpful, recommended further PT. Future Testing and Treatments Planned not able to have MRI due to stimulator wires right lumbar Treatment Goals Patient/Caregiver Goals Decrease pain, be able to sleep, reach with right UE without pain kayak. Current Functional Impairments (Reported) Functional Limitations- ADL's most painful reaching forward and lifting up and back, lifts 25# at most. Rowing motion or postural correction painful Functional Limitations- Other doing most exercises every other day PT-OP-C Subjective Start: 05/07/23 09:01 Freq: Status: Active Protocol: Document 05/19/23 08:12 [facility] (Rec: 05/19/23 09:01 [facility] [id number]) OP-PT Subjective Patient Comments Patient Comments No new c/o. Reports weight is 285. Has been doing more exercises; did the whole alphabet, is that too much ( vs I,T,Y) Saw his primary care, blood sugar was 107. Reports I eat whatever tastes good, I know that's not good for me. PT-OP-H Neuro Start: 05/07/23 09:01 Freq: Status: Active Protocol: Document 05/07/23 09:02 [facility] (Rec: 05/07/23 09:45 [facility] [id number]) Sensation Evaluation Gross Sensation Gross Sensation Right UE Impaired Sensation Description Tingling PT-OP-J Posture/Palpation/Skin Start: 05/07/23 09:01 Freq: Status: Active Protocol: Document 05/07/23 09:02 [facility] (Rec: 05/07/23 09:45 [facility] [id number]) Posture Evaluation Position Sitting Head/C-Spine Posture Forward Head T-Spine Posture Increased Kyphosis Shoulder Posture (L) Rounded,(R) Rounded Scapula Posture (L) Protracted,(R) Protracted Palpation Assessment Location AC Palpation Findings Tenderness c/s Palpation Details no tenderness UT Palpation Details no tenderness scap border Palpation Location right med Palpation Findings Tenderness right shoulder Palpation Location AC Palpation Findings Tenderness PT-OP-K Range of Motion Start: 05/07/23 09:01 Freq: Status: Active Protocol: Document 05/07/23 09:02 [facility] (Rec: 05/07/23 09:45 [facility] [id number]) Cervical Spine Range of Motion Cervical Spine Active Testing Position Sitting Comments WNL Shoulder Goniometric Range of Motion Shoulder Right Shoulder ROM WFL Yes Testing Position Sitting Flexion 165 Abduction 165 Horizontal Abduction 80 Horizontal Adduction 25 External Rotation at 90 degrees 75 Abduction External Rotation at 0 degrees Abduction 70 Internal Rotation Behind Back (text) T12 Comments painful achy to burn IR Left Shoulder ROM WFL Yes Shoulder ROM Limitations Shoulder ROM Limitations Soft Tissue Tightness,Pain Elbow/Forearm Range of Motion Elbow/Forearm mireille Elbow/Forearm ROM WFL Yes PT-OP-M Strength Start: 05/07/23 09:01 Freq: Status: Active Protocol: Document 05/07/23 09:02 [facility] (Rec: 05/07/23 10:34 [facility] [id number]) Cervical Spine Strength Cervical Spine Manual Muscle Testing Testing Position Sitting Flexion (C1-2) 4+ Good+ Extension 4+ Good+ Rotation Left 4+ Good+ Rotation Right 4+ Good+ Lateral Flexion Left (C3) 4+ Good+ Lateral Flexion Right (C3) 4+ Good+ Shoulder Strength Shoulder Manual Muscle Testing Right Flexion 4 Good Extension 4 Good Abduction (C5) 4 Good External Rotation 4- Good- Internal Rotation 4 Good Horizontal Abduction 4- Good- Left Flexion 5 Normal Extension 5 Normal Abduction (C5) 5 Normal External Rotation 4+ Good+ Internal Rotation 5 Normal Horizontal Abduction 4+ Good+ PT-OP-Q Treatments Start: 05/07/23 09:01 Freq: Status: Active Protocol: Document 05/19/23 08:12 [facility] (Rec: 05/19/23 09:01 [facility] [id number]) Cardio Equipment Recumbent Stepper (Sci-Fit) Duration (Minutes) 5 Resistance 13 Seat Position 1 Therapeutic Exercises Supine Exercises T Resistance L1 TB Equipment Used 10 Y Equipment Used L1 TB Reps/Minutes 10 Prone Exercises I,T,Y Resistance 2lbs Reps/Minutes 10x ea Standing Exercises door stretch Standing Exercise Name review Reps/Minutes 1x scap retraction Reps/Minutes 10x wall posture Reps/Minutes 10x shoulder shrulgs Standing Exercise Name mireille and unil Reps/Minutes 10x Manual Therapy Treatment Soft Tissue Mobilization periscap Mobilization Type Myofascial Release,Sustained Pressure Intensity/Depth Moderate Body Position Sidelying Joint Mobilizations scapula Joint sup, inf, med,lat Body Position Sidelying Reps/Duration 10x ea Self-Care/Home Management Treatment Education Patient Education Home Exercise Program,Posture Other Education postural correction PT-OP-R Modalities Start: 05/07/23 09:01 Freq: Status: Active Protocol: Document 05/19/23 08:12 [facility] (Rec: 05/19/23 11:50 [facility] [id number]) Hot Pack/Cold Pack Treatment Hot Pack Location right thoracic spine and shoulder Patient Position Prone Patient Tolerance Good Comments pillows under legs (prone per patient request. consider supine next session) PT-OP-T Assessment and Plan Start: 05/07/23 09:01 Freq: Status: Active Protocol: Document 05/19/23 08:12 [facility] (Rec: 05/19/23 09:01 [facility] [id number]) Physical Therapy Assessment Impairments Impairments Pain,Posture,Strength Goals One Impairment activity intolerance Impairment Quickdash disability index score 43% Short Term Goal (STG) Improve Quickdash disability index score to no greater than 32% as measure of improved right shoulder function STG Duration 06/19/23 Applications Coordinator Goal (LTG) Decrease Quickdash disability index score to no greater than 20% as measure of improved right shoulder function and quality of life LTG Duration 08/05/23 Four Impairment postural dysfunction Impairment pain withpostural correction med scap border and anterior attachment of ribs to sternum Alf Goal (LTG) patient will be able to attain neutral postural alignment with min to no increase in pain LTG Duration 08/05/23 Three Impairment weakness right shoulder Impairment improve right shoulder strength to 5/5 all muscle groups Short Term Goal (STG) patient HEP current HEP to be progressed with monitoring for correct muscle activation and form STG Duration 06/19/23 Applications Coordinator Goal (LTG) Patient will be independent with HEP and demonstrate 5/5 muscle strength throughout LTG Duration 08/05/23 Two Impairment Right shoulder pain Impairment Pain at rest is 4/10 Pain with movement is 6/10 Short Term Goal (STG) decrease pain to no greater than 4/10 with movement and activities such as sleep, reaching, and recreational activities STG Duration 06/19/23 Applications Coordinator Goal (LTG) Decrease pain to no greater than 2/10 with all usual activities including sleep, reaching, and recreational activities such as kayaking LTG Duration 08/05/23 Assessment Summary Assessment Patient needs moderate postural cues for all ther ex. Verbal and tactile cues for scapular stab and mobility. Issued HO for prone I, T, Y Physical Therapy Plan Frequency and Duration Frequency of Treatment 1x/Week Duration of treatment (weeks) 12 Plan of Care Start Date 05/07/23 Plan of Care End Date 08/05/23 Therapeutic Interventions Therapeutic Interventions Home Exercise Program,Manual Therapy,Neuromuscular Re- education,Patient/Caregiver Education,Self-Care/Home Management,Soft Tissue Mobilization,Taping, Therapeutic Activities, Therapeutic Exercises Modalities Cold Pack/Ice Massage,Hot Packs,Iontophoresis Next Visit Focus/Plan Next Note Type Treatment Note Next Visit Plan Body blade, review ex given last session, manual therapy right shoulder girdle to decrease muscle tension and pain. Modalities PRN
--- NOTE | 2023-05-26 10:18 | PT.OTN ---
Current Diagnoses Acute pain due to trauma (05/26/23) Pain in right shoulder (05/26/23) Radiculopathy, cervical region (05/26/23) Impingement syndrome of right shoulder (05/26/23) Physical Therapy Treatment Note PT-OP-A Visit Information Start: 05/07/23 09:01 Freq: Status: Active Protocol: Document 05/26/23 08:09 [facility] (Rec: 05/26/23 10:18 [facility] [id number]) Out-Patient Physical Therapy Visit Information Visit Information Visit Type Treatment Note Visit Note Access Code [id number] Visit Start Time 09:03 Visit Stop Time 09:44 Visit Number 3 Number of ESTIMATOR AND DRAFTER Visits 1 Evaluation Information Evaluation Date 05/07/23 Precautions Precautions neurostimulator in right lumbar, history LBP, eye infection PT-OP-B Current Condition Start: 05/07/23 09:01 Freq: Status: Active Protocol: Document 05/19/23 08:12 [facility] (Rec: 05/19/23 09:01 [facility] [id number]) Current Condition History of Current Condition Onset Date 2020 Current Complaints right shoulder scapular pain pain History of Current Condition Right shoulder injury experienced when patient was doing a pushup and experienced acute pain in his shoulder and arm. Has been seen in this PT clinic previously. Since last seen in PT has been doing HEP, has helped quite a bit and reports when pulling down from a position of arms at to the side with therabands in January felt something snap, then has felt better except in scapular area radiating to chest. Most painful is rowing motion, postural correction scapular squeeze and deep breathing. States most helpful prior PT exercises and manual therapy. Skin didn't tolerate kinesiotape. Ultrasound and IFES not helpful. Occasional use of ice and heat at home. History CRPS in LE's, thinks may have in right UE. Prior Treatments and Tests Saw Dr. Hector for check up Injections not helpful, recommended further PT. Future Testing and Treatments Planned not able to have MRI due to stimulator wires right lumbar Treatment Goals Patient/Caregiver Goals Decrease pain, be able to sleep, reach with right UE without pain kacandek. Current Functional Impairments (Reported) Functional Limitations- ADL's most painful reaching forward and lifting up and back, lifts 25# at most. Rowing motion or postural correction painful Functional Limitations- Other doing most exercises every other day PT-OP-C Subjective Start: 05/07/23 09:01 Freq: Status: Active Protocol: Document 05/26/23 08:09 [facility] (Rec: 05/26/23 10:18 [facility] [id number]) OP-PT Subjective Patient Comments Patient Comments Patient reports that he is worse, attributes to lack of sleep, migranes and headaches. Patient reports he was able to perform his HEP. PT-OP-H Neuro Start: 05/07/23 09:01 Freq: Status: Active Protocol: Document 05/07/23 09:02 [facility] (Rec: 05/07/23 09:45 [facility] [id number]) Sensation Evaluation Gross Sensation Gross Sensation Right UE Impaired Sensation Description Tingling PT-OP-J Posture/Palpation/Skin Start: 05/07/23 09:01 Freq: Status: Active Protocol: Document 05/07/23 09:02 [facility] (Rec: 05/07/23 09:45 [facility] [id number]) Posture Evaluation Position Sitting Head/C-Spine Posture Forward Head T-Spine Posture Increased Kyphosis Shoulder Posture (L) Rounded,(R) Rounded Scapula Posture (L) Protracted,(R) Protracted Palpation Assessment Location AC Palpation Findings Tenderness c/s Palpation Details no tenderness UT Palpation Details no tenderness scap border Palpation Location right med Palpation Findings Tenderness right shoulder Palpation Location AC Palpation Findings Tenderness PT-OP-K Range of Motion Start: 05/07/23 09:01 Freq: Status: Active Protocol: Document 05/07/23 09:02 [facility] (Rec: 05/07/23 09:45 [facility] [id number]) Cervical Spine Range of Motion Cervical Spine Active Testing Position Sitting Comments WNL Shoulder Goniometric Range of Motion Shoulder Right Shoulder ROM WFL Yes Testing Position Sitting Flexion 165 Abduction 165 Horizontal Abduction 80 Horizontal Adduction 25 External Rotation at 90 degrees 75 Abduction External Rotation at 0 degrees Abduction 70 Internal Rotation Behind Back (text) T12 Comments painful achy to burn IR Left Shoulder ROM WFL Yes Shoulder ROM Limitations Shoulder ROM Limitations Soft Tissue Tightness,Pain Elbow/Forearm Range of Motion Elbow/Forearm mireille Elbow/Forearm ROM WFL Yes PT-OP-M Strength Start: 05/07/23 09:01 Freq: Status: Active Protocol: Document 05/07/23 09:02 [facility] (Rec: 05/07/23 10:34 [facility] [id number]) Cervical Spine Strength Cervical Spine Manual Muscle Testing Testing Position Sitting Flexion (C1-2) 4+ Good+ Extension 4+ Good+ Rotation Left 4+ Good+ Rotation Right 4+ Good+ Lateral Flexion Left (C3) 4+ Good+ Lateral Flexion Right (C3) 4+ Good+ Shoulder Strength Shoulder Manual Muscle Testing Right Flexion 4 Good Extension 4 Good Abduction (C5) 4 Good External Rotation 4- Good- Internal Rotation 4 Good Horizontal Abduction 4- Good- Left Flexion 5 Normal Extension 5 Normal Abduction (C5) 5 Normal External Rotation 4+ Good+ Internal Rotation 5 Normal Horizontal Abduction 4+ Good+ PT-OP-Q Treatments Start: 05/07/23 09:01 Freq: Status: Active Protocol: Document 05/26/23 08:09 [facility] (Rec: 05/26/23 10:18 [facility] [id number]) Therapeutic Exercises Supine Exercises pec stretch on foam roller Side bilateral Equipment Used soft foam roller Reps/Minutes 3 min Comments Verbal cues for position and breathing from diaphragm Prone Exercises I,T,Y Resistance 2lb for T and I 1 lb for Y Reps/Minutes X10 each Comments over ball this session Standing Exercises Wall push up plus Side bilateral Reps/Minutes X10 Comments Verbal and visual cues door stretch Reps/Minutes X2 each UE single arm 60 sec Comments Verbal cues, jr for pain Therapeutic Activity Therapeutic Activity right sidelying positioning Comments pillows under left UE and between knees, Patient ed importance of supporting head and UE when positioned sidelying Manual Therapy Treatment Soft Tissue Mobilization right pec Mobilization Type Cross-Friction,Rolling,Other Body Position Hooklying Comments Jr for pain, performed prior to stretch periscap Mobilization Type Cross-Friction,Rolling Intensity/Depth Moderate Body Position Sidelying Neuro Re-Education Treatment Other Activities Rhythmic stabilization Details Statue of liberty and modified statue of liberty Reps/Duration 30 seconds X 2, yellow therabar Comments UE at side on second trial, back to wall for posture for both trials 30 sec each post set up and instruction Self-Care/Home Management Treatment Activities Self-Care/Home Management Activities wall push up plus added to HEP , Y,T,I with ball and instructions for prone or ball added to HEP, also pec door stretch at 60 vs 90 due to reports of sub deltoid pain at 90 deg PT-OP-R Modalities Start: 05/07/23 09:01 Freq: Status: Active Protocol: Document 05/19/23 08:12 [facility] (Rec: 05/19/23 11:50 [facility] [id number]) Hot Pack/Cold Pack Treatment Hot Pack Location right thoracic spine and shoulder Patient Position Prone Patient Tolerance Good Comments pillows under legs (prone per patient request. consider supine next session) PT-OP-T Assessment and Plan Start: 05/07/23 09:01 Freq: Status: Active Protocol: Document 05/26/23 08:09 [facility] (Rec: 05/26/23 10:18 [facility] [id number]) Physical Therapy Assessment Goals One Impairment activity intolerance Impairment Quickdash disability index score 43% Short Term Goal (STG) Improve Quickdash disability index score to no greater than 32% as measure of improved right shoulder function STG Duration 06/19/23 Correction Goal (LTG) Decrease Quickdash disability index score to no greater than 20% as measure of improved right shoulder function and quality of life LTG Duration 08/05/23 Four Impairment postural dysfunction Impairment pain withpostural correction med scap border and anterior attachment of ribs to sternum Personal Carer Goal (LTG) patient will be able to attain neutral postural alignment with min to no increase in pain LTG Duration 08/05/23 Three Impairment weakness right shoulder Impairment improve right shoulder strength to 5/5 all muscle groups Short Term Goal (STG) patient HEP current HEP to be progressed with monitoring for correct muscle activation and form STG Duration 06/19/23 Correction Goal (LTG) Patient will be independent with HEP and demonstrate 5/5 muscle strength throughout LTG Duration 08/05/23 Two Impairment Right shoulder pain Impairment Pain at rest is 4/10 Pain with movement is 6/10 Short Term Goal (STG) decrease pain to no greater than 4/10 with movement and activities such as sleep, reaching, and recreational activities STG Duration 06/19/23 Personal Carer Goal (LTG) Decrease pain to no greater than 2/10 with all usual activities including sleep, reaching, and recreational activities such as kayaking LTG Duration 08/05/23 Assessment Summary Assessment Patient reports pain is the same end of session. Into session with reports of performing I, T,Y's with 1 lb at home. Was able to perform T , and I exercises this session with good return demonstration and no reports of increased pain end of session. Physical Therapy Plan Frequency and Duration Frequency of Treatment 1x/Week Duration of treatment (weeks) 12 Plan of Care Start Date 05/07/23 Plan of Care End Date 08/05/23 Next Visit Focus/Plan Next Note Type Treatment Note Next Visit Plan Assess isaac to statue of liberty w/ therabar possibly progress to Body blade, review ex given last session, manual therapy right shoulder girdle to decrease muscle tension and pain/ possibly scapular mobilization. Modalities PRN, possibly open book
--- NOTE | 2023-06-01 12:16 | PT.OTN ---
Current Diagnoses Acute pain due to trauma (06/01/23) Pain in right shoulder (06/01/23) Radiculopathy, cervical region (06/01/23) Impingement syndrome of right shoulder (06/01/23) Physical Therapy Treatment Note PT-OP-A Visit Information Start: 05/07/23 09:01 Freq: Status: Active Protocol: Document 06/01/23 09:45 SAK (Rec: 06/01/23 10:31 [facility] [id number]) Out-Patient Physical Therapy Visit Information Visit Information Visit Type Treatment Note Visit Note Access Code [email or web address] Visit Start Time 09:46 Visit Stop Time 10:41 Visit Number 4 Number of MATERIALS ENGINEERING TECHNICIAN Visits 0 Evaluation Information Evaluation Date 05/07/23 Precautions Precautions neurostimulator in right lumbar, history LBP, eye infection PT-OP-B Current Condition Start: 05/07/23 09:01 Freq: Status: Active Protocol: Document 06/01/23 09:45 SAK (Rec: 06/01/23 10:31 [facility] [id number]) Current Condition History of Current Condition Onset Date 2020 Current Complaints right shoulder scapular pain pain History of Current Condition Right shoulder injury experienced when patient was doing a pushup and experienced acute pain in his shoulder and arm. Has been seen in this PT clinic previously. Since last seen in PT has been doing HEP, has helped quite a bit and reports when pulling down from a position of arms at to the side with therabands in January felt something snap, then has felt better except in scapular area radiating to chest. Most painful is rowing motion, postural correction scapular squeeze and deep breathing. States most helpful prior PT exercises and manual therapy. Skin didn't tolerate kinesiotape. Ultrasound and IFES not helpful. Occasional use of ice and heat at home. History CRPS in LE's, thinks may have in right UE. Prior Treatments and Tests Saw Dr. Hector for check up Injections not helpful, recommended further PT. Future Testing and Treatments Planned not able to have MRI due to stimulator wires right lumbar Treatment Goals Patient/Caregiver Goals Decrease pain, be able to sleep, reach with right UE without pain kayak. PT-OP-C Subjective Start: 05/07/23 09:01 Freq: Status: Active Protocol: Document 06/01/23 09:45 [facility] (Rec: 06/01/23 10:31 [facility] [id number]) OP-PT Subjective Patient Comments Patient Comments Still has NICHOLSON, foam roller is a no go, still discomfort from where the edge of it was. Towel behind the back ok. Has been doing the exercises at home ok. Seeing doctor about his eyes tomorrow, wearing dark glasses due to this PT-OP-H Neuro Start: 05/07/23 09:01 Freq: Status: Active Protocol: Document 05/07/23 09:02 [facility] (Rec: 05/07/23 09:45 [facility] [id number]) Sensation Evaluation Gross Sensation Gross Sensation Right UE Impaired Sensation Description Tingling PT-OP-J Posture/Palpation/Skin Start: 05/07/23 09:01 Freq: Status: Active Protocol: Document 05/07/23 09:02 [facility] (Rec: 05/07/23 09:45 [facility] [id number]) Posture Evaluation Position Sitting Head/C-Spine Posture Forward Head T-Spine Posture Increased Kyphosis Shoulder Posture (L) Rounded,(R) Rounded Scapula Posture (L) Protracted,(R) Protracted Palpation Assessment Location AC Palpation Findings Tenderness c/s Palpation Details no tenderness UT Palpation Details no tenderness scap border Palpation Location right med Palpation Findings Tenderness right shoulder Palpation Location AC Palpation Findings Tenderness PT-OP-K Range of Motion Start: 05/07/23 09:01 Freq: Status: Active Protocol: Document 05/07/23 09:02 [facility] (Rec: 05/07/23 09:45 [facility] [id number]) Cervical Spine Range of Motion Cervical Spine Active Testing Position Sitting Comments WNL Shoulder Goniometric Range of Motion Shoulder Right Shoulder ROM WFL Yes Testing Position Sitting Flexion 165 Abduction 165 Horizontal Abduction 80 Horizontal Adduction 25 External Rotation at 90 degrees 75 Abduction External Rotation at 0 degrees Abduction 70 Internal Rotation Behind Back (text) T12 Comments painful achy to burn IR Left Shoulder ROM WFL Yes Shoulder ROM Limitations Shoulder ROM Limitations Soft Tissue Tightness,Pain Elbow/Forearm Range of Motion Elbow/Forearm mireille Elbow/Forearm ROM WFL Yes PT-OP-M Strength Start: 05/07/23 09:01 Freq: Status: Active Protocol: Document 05/07/23 09:02 [facility] (Rec: 05/07/23 10:34 [facility] [id number]) Cervical Spine Strength Cervical Spine Manual Muscle Testing Testing Position Sitting Flexion (C1-2) 4+ Good+ Extension 4+ Good+ Rotation Left 4+ Good+ Rotation Right 4+ Good+ Lateral Flexion Left (C3) 4+ Good+ Lateral Flexion Right (C3) 4+ Good+ Shoulder Strength Shoulder Manual Muscle Testing Right Flexion 4 Good Extension 4 Good Abduction (C5) 4 Good External Rotation 4- Good- Internal Rotation 4 Good Horizontal Abduction 4- Good- Left Flexion 5 Normal Extension 5 Normal Abduction (C5) 5 Normal External Rotation 4+ Good+ Internal Rotation 5 Normal Horizontal Abduction 4+ Good+ PT-OP-Q Treatments Start: 05/07/23 09:01 Freq: Status: Active Protocol: Document 06/01/23 09:45 [facility] (Rec: 06/01/23 10:31 [facility] [id number]) Cardio Equipment Upper Body Ergometer (UBE) Duration (Minutes) 13 RPM 60 Therapeutic Exercises Supine Exercises pec stretch on foam roller Side bilateral Equipment Used small pool noodle Reps/Minutes 3 min Comments Verbal cues for position and breathing from diaphragm T Resistance L1 TB Equipment Used 10 Y Equipment Used L1 TB Reps/Minutes 10 Comments cues for PNF patterning, shoulder protection Standing Exercises side raise plus ER Equipment Used wall Reps/Minutes 10x short axis shoulder ER/IR Reps/Minutes 10x long axis shoulder ER and IR Reps/Minutes 10x Wall push up plus Side bilateral Reps/Minutes X10 Comments Verbal and visual cues door stretch Standing Exercise Name reverse V position Side bilateral Comments cued for staggered feet, gentle lean forward, pain-free stretch shoulder shrulgs Standing Exercise Name mireille and unil Reps/Minutes 10x Manual Therapy Treatment Soft Tissue Mobilization right pec Mobilization Type Cross-Friction,Rolling,Other Body Position Hooklying Comments Jr for pain, performed prior to stretch periscap Mobilization Type Cross-Friction,Rolling Intensity/Depth Moderate Body Position Sidelying Joint Mobilizations scapula Joint sup, inf, med,lat Body Position Sidelying Reps/Duration 10x ea Neuro Re-Education Treatment Other Activities Rhythmic stabilization Details modified statue of liberty to statue of liberty Reps/Duration 30 seconds X 2, yellow therabar Comments back to wall for posture for both trials 30 sec each post set up and instruction Self-Care/Home Management Treatment Education Patient Education Home Exercise Program,Posture PT-OP-R Modalities Start: 05/07/23 09:01 Freq: Status: Active Protocol: Document 06/01/23 09:45 [facility] (Rec: 06/01/23 10:31 [facility] [id number]) Hot Pack/Cold Pack Treatment Hot Pack Location right thoracic spine, shoulder, pec Patient Position Prone Patient Tolerance Good Comments pillows under legs PT-OP-T Assessment and Plan Start: 05/07/23 09:01 Freq: Status: Active Protocol: Document 06/01/23 09:45 [facility] (Rec: 06/01/23 10:31 [facility] [id number]) Physical Therapy Assessment Goals One Impairment activity intolerance Impairment Quickdash disability index score 43% Short Term Goal (STG) Improve Quickdash disability index score to no greater than 32% as measure of improved right shoulder function STG Duration 06/19/23 Fourth Grade Teacher Goal (LTG) Decrease Quickdash disability index score to no greater than 20% as measure of improved right shoulder function and quality of life LTG Duration 08/05/23 Four Impairment postural dysfunction Impairment pain withpostural correction med scap border and anterior attachment of ribs to sternum Fourth Grade Teacher Goal (LTG) patient will be able to attain neutral postural alignment with min to no increase in pain LTG Duration 08/05/23 Three Impairment weakness right shoulder Impairment improve right shoulder strength to 5/5 all muscle groups Short Term Goal (STG) patient HEP current HEP to be progressed with monitoring for correct muscle activation and form STG Duration 06/19/23 Fourth Grade Teacher Goal (LTG) Patient will be independent with HEP and demonstrate 5/5 muscle strength throughout LTG Duration 08/05/23 Two Impairment Right shoulder pain Impairment Pain at rest is 4/10 Pain with movement is 6/10 Short Term Goal (STG) decrease pain to no greater than 4/10 with movement and activities such as sleep, reaching, and recreational activities STG Duration 06/19/23 Fourth Grade Teacher Goal (LTG) Decrease pain to no greater than 2/10 with all usual activities including sleep, reaching, and recreational activities such as kayaking LTG Duration 08/05/23 Assessment Summary Assessment Did not tolerate foam roller, better isaac for pool noodle. Continue yellow Therabar. Physical Therapy Plan Frequency and Duration Frequency of Treatment 1x/Week Duration of treatment (weeks) 12 Plan of Care Start Date 05/07/23 Plan of Care End Date 08/05/23 Therapeutic Interventions Therapeutic Interventions Home Exercise Program,Manual Therapy,Neuromuscular Re- education,Patient/Caregiver Education,Self-Care/Home Management,Soft Tissue Mobilization,Taping, Therapeutic Activities, Therapeutic Exercises Modalities Cold Pack/Ice Massage,Hot Packs,Iontophoresis Next Visit Focus/Plan Next Note Type Treatment Note Next Visit Plan Assess toleranace for todays treatment including wall lateral raises with W. Open book review. Progress scap stab
--- NOTE | 2023-06-15 14:22 | PT.OTN ---
Current Diagnoses Acute pain due to trauma (06/15/23) Pain in right shoulder (06/15/23) Radiculopathy, cervical region (06/15/23) Impingement syndrome of right shoulder (06/15/23) Physical Therapy Treatment Note PT-OP-A Visit Information Start: 05/07/23 09:01 Freq: Status: Active Protocol: Document 06/15/23 08:10 AB (Rec: 06/15/23 09:47 AB [id number]) Out-Patient Physical Therapy Visit Information Visit Information Visit Type Treatment Note Visit Note Access Code [email or web address] Visit Start Time 09:06 Visit Stop Time 09:46 Visit Number 5 Number of ASBESTOS BRAKE LINING FINISHER HELPER Visits 1 Evaluation Information Evaluation Date 05/07/23 Precautions Precautions neurostimulator in right lumbar, history LBP, eye infection PT-OP-B Current Condition Start: 05/07/23 09:01 Freq: Status: Active Protocol: Document 06/01/23 09:45 SAK (Rec: 06/01/23 10:31 SAK [id number]) Current Condition History of Current Condition Onset Date 2020 Current Complaints right shoulder scapular pain pain History of Current Condition Right shoulder injury experienced when patient was doing a pushup and experienced acute pain in his shoulder and arm. Has been seen in this PT clinic previously. Since last seen in PT has been doing HEP, has helped quite a bit and reports when pulling down from a position of arms at to the side with therabands in January felt something snap, then has felt better except in scapular area radiating to chest. Most painful is rowing motion, postural correction scapular squeeze and deep breathing. States most helpful prior PT exercises and manual therapy. Skin didn't tolerate kinesiotape. Ultrasound and IFES not helpful. Occasional use of ice and heat at home. History CRPS in LE's, thinks may have in right UE. Prior Treatments and Tests Saw Dr. Hector for check up Injections not helpful, recommended further PT. Future Testing and Treatments Planned not able to have MRI due to stimulator wires right lumbar Treatment Goals Patient/Caregiver Goals Decrease pain, be able to sleep, reach with right UE without pain kayak. PT-OP-C Subjective Start: 05/07/23 09:01 Freq: Status: Active Protocol: Document 06/15/23 08:10 AB (Rec: 06/15/23 09:47 AB [id number]) OP-PT Subjective Patient Comments Patient Comments Patient reports the shoulder is a lot better, pain is gone, but reports a burn with regular activitly. Patient reports he was a little sore post previous session, not bad , reports had a little crackling in the shoulder post previous session with this therapist. PT-OP-H Neuro Start: 05/07/23 09:01 Freq: Status: Active Protocol: Document 05/07/23 09:02 [facility] (Rec: 05/07/23 09:45 [facility] [id number]) Sensation Evaluation Gross Sensation Gross Sensation Right UE Impaired Sensation Description Tingling PT-OP-J Posture/Palpation/Skin Start: 05/07/23 09:01 Freq: Status: Active Protocol: Document 05/07/23 09:02 [facility] (Rec: 05/07/23 09:45 [facility] [id number]) Posture Evaluation Position Sitting Head/C-Spine Posture Forward Head T-Spine Posture Increased Kyphosis Shoulder Posture (L) Rounded,(R) Rounded Scapula Posture (L) Protracted,(R) Protracted Palpation Assessment Location AC Palpation Findings Tenderness c/s Palpation Details no tenderness UT Palpation Details no tenderness scap border Palpation Location right med Palpation Findings Tenderness right shoulder Palpation Location AC Palpation Findings Tenderness PT-OP-K Range of Motion Start: 05/07/23 09:01 Freq: Status: Active Protocol: Document 05/07/23 09:02 [facility] (Rec: 05/07/23 09:45 [facility] [id number]) Cervical Spine Range of Motion Cervical Spine Active Testing Position Sitting Comments WNL Shoulder Goniometric Range of Motion Shoulder Right Shoulder ROM WFL Yes Testing Position Sitting Flexion 165 Abduction 165 Horizontal Abduction 80 Horizontal Adduction 25 External Rotation at 90 degrees 75 Abduction External Rotation at 0 degrees Abduction 70 Internal Rotation Behind Back (text) T12 Comments painful achy to burn IR Left Shoulder ROM WFL Yes Shoulder ROM Limitations Shoulder ROM Limitations Soft Tissue Tightness,Pain Elbow/Forearm Range of Motion Elbow/Forearm mireille Elbow/Forearm ROM WFL Yes PT-OP-M Strength Start: 05/07/23 09:01 Freq: Status: Active Protocol: Document 05/07/23 09:02 [facility] (Rec: 05/07/23 10:34 [facility] [id number]) Cervical Spine Strength Cervical Spine Manual Muscle Testing Testing Position Sitting Flexion (C1-2) 4+ Good+ Extension 4+ Good+ Rotation Left 4+ Good+ Rotation Right 4+ Good+ Lateral Flexion Left (C3) 4+ Good+ Lateral Flexion Right (C3) 4+ Good+ Shoulder Strength Shoulder Manual Muscle Testing Right Flexion 4 Good Extension 4 Good Abduction (C5) 4 Good External Rotation 4- Good- Internal Rotation 4 Good Horizontal Abduction 4- Good- Left Flexion 5 Normal Extension 5 Normal Abduction (C5) 5 Normal External Rotation 4+ Good+ Internal Rotation 5 Normal Horizontal Abduction 4+ Good+ PT-OP-Q Treatments Start: 05/07/23 09:01 Freq: Status: Active Protocol: Document 06/15/23 08:10 AB (Rec: 06/15/23 09:47 AB [id number]) Therapeutic Exercises Supine Exercises pec stretch on foam roller Supine Exercise Name on pool noodle Equipment Used small pool noodle Reps/Minutes 3 min Comments Verbal cues for position and breathing from diaphragm Sidelying Exercises sidelying shoulder ER Side right Reps/Minutes X10 Comments jr for pain open book Side bilateral Reps/Minutes X5 Comments Verbal and tactile cues shoulder ER Reps/Minutes X10 Standing Exercises scapular depression Side bilateral Resistance level one band Reps/Minutes X10 Comments Verbal and visual cues wall slide with lift of and lower Standing Exercise Name flexion wall slide with lift off step back and lower without wall Side right Reps/Minutes X8 Comments verbal and visual cues mini band Side bilateral Equipment Used light blue band Reps/Minutes X10 push up plus on counter Side bilateral Reps/Minutes X10 Comments Verbal and visual cues, monitored for pain door stretch Side right Reps/Minutes X1 Comments Verbal cues for LE position Manual Therapy Treatment Soft Tissue Mobilization right pec Mobilization Type Cross-Friction,Rolling,Other Body Position Hooklying Comments Jr for pain, performed prior to stretch periscap Mobilization Type Cross-Friction,Rolling Intensity/Depth Moderate Body Position Sidelying Joint Mobilizations scapula Joint into depression and adduction Body Position Sidelying Reps/Duration 10x ea PT-OP-R Modalities Start: 05/07/23 09:01 Freq: Status: Active Protocol: Document 06/01/23 09:45 SAK (Rec: 06/01/23 10:31 SAK [id number]) Hot Pack/Cold Pack Treatment Hot Pack Location right thoracic spine, shoulder, pec Patient Position Prone Patient Tolerance Good Comments pillows under legs PT-OP-T Assessment and Plan Start: 05/07/23 09:01 Freq: Status: Active Protocol: Document 06/15/23 08:10 AB (Rec: 06/15/23 09:47 AB [id number]) Physical Therapy Assessment Goals One Impairment activity intolerance Impairment Quickdash disability index score 43% Short Term Goal (STG) Improve Quickdash disability index score to no greater than 32% as measure of improved right shoulder function STG Duration 06/19/23 Custodial Goal (LTG) Decrease Quickdash disability index score to no greater than 20% as measure of improved right shoulder function and quality of life LTG Duration 08/05/23 Four Impairment postural dysfunction Impairment pain withpostural correction med scap border and anterior attachment of ribs to sternum Custodial Goal (LTG) patient will be able to attain neutral postural alignment with min to no increase in pain LTG Duration 08/05/23 Three Impairment weakness right shoulder Impairment improve right shoulder strength to 5/5 all muscle groups Short Term Goal (STG) patient HEP current HEP to be progressed with monitoring for correct muscle activation and form STG Duration 06/19/23 Marine Consultant Goal (LTG) Patient will be independent with HEP and demonstrate 5/5 muscle strength throughout LTG Duration 08/05/23 Two Impairment Right shoulder pain Impairment Pain at rest is 4/10 Pain with movement is 6/10 Short Term Goal (STG) decrease pain to no greater than 4/10 with movement and activities such as sleep, reaching, and recreational activities STG Duration 06/19/23 Marine Consultant Goal (LTG) Decrease pain to no greater than 2/10 with all usual activities including sleep, reaching, and recreational activities such as kayaking LTG Duration 08/05/23 Assessment Summary Assessment 152 deg AROM right shoulder flexion start of session to 166 deg end of session. Arsalan reports the shoulder feels a little achy 3/10 end of session. Physical Therapy Plan Frequency and Duration Frequency of Treatment 1x/Week Duration of treatment (weeks) 12 Plan of Care Start Date 05/07/23 Plan of Care End Date 08/05/23 Next Visit Focus/Plan Next Note Type Treatment Note Next Visit Plan Assess tolerance for todays treatment/mini band add to HEP if isaac, Progress scap stab
--- NOTE | 2023-07-06 09:42 | PT.OTN ---
Current Diagnoses Acute pain due to trauma (07/06/23) Pain in right shoulder (07/06/23) Radiculopathy, cervical region (07/06/23) Impingement syndrome of right shoulder (07/06/23) Physical Therapy Treatment Note PT-OP-A Visit Information Start: 05/07/23 09:01 Freq: Status: Active Protocol: Document 07/06/23 09:05 [facility] (Rec: 07/06/23 09:42 [facility] [id number]) Out-Patient Physical Therapy Visit Information Visit Information Visit Type Treatment Note Visit Start Time 09:02 Visit Stop Time 09:40 Visit Number 6 Evaluation Information Evaluation Date 05/07/23 Precautions Precautions neurostimulator in right lumbar, history LBP, eye infection PT-OP-B Current Condition Start: 05/07/23 09:01 Freq: Status: Active Protocol: Document 07/06/23 09:05 [facility] (Rec: 07/06/23 09:42 [facility] [id number]) Current Condition History of Current Condition Onset Date 2020 Current Complaints right shoulder scapular pain pain History of Current Condition Right shoulder injury experienced when patient was doing a pushup and experienced acute pain in his shoulder and arm. Has been seen in this PT clinic previously. Since last seen in PT has been doing HEP, has helped quite a bit and reports when pulling down from a position of arms at to the side with therabands in January felt something snap, then has felt better except in scapular area radiating to chest. Most painful is rowing motion, postural correction scapular squeeze and deep breathing. States most helpful prior PT exercises and manual therapy. Skin didn't tolerate kinesiotape. Ultrasound and IFES not helpful. Occasional use of ice and heat at home. History CRPS in LE's, thinks may have in right UE. Prior Treatments and Tests Saw Dr. Hector for check up Injections not helpful, recommended further PT. Future Testing and Treatments Planned not able to have MRI due to stimulator wires right lumbar PT-OP-C Subjective Start: 05/07/23 09:01 Freq: Status: Active Protocol: Document 07/06/23 09:05 [facility] (Rec: 07/06/23 09:42 [facility] [id number]) OP-PT Subjective Patient Comments Patient Comments Shoulder still feeling better, no pain, has progressed L3 and L5 TB. PT-OP-H Neuro Start: 05/07/23 09:01 Freq: Status: Active Protocol: Document 05/07/23 09:02 [facility] (Rec: 05/07/23 09:45 [facility] [id number]) Sensation Evaluation Gross Sensation Gross Sensation Right UE Impaired Sensation Description Tingling PT-OP-J Posture/Palpation/Skin Start: 05/07/23 09:01 Freq: Status: Active Protocol: Document 05/07/23 09:02 [facility] (Rec: 05/07/23 09:45 [facility] [id number]) Posture Evaluation Position Sitting Head/C-Spine Posture Forward Head T-Spine Posture Increased Kyphosis Shoulder Posture (L) Rounded,(R) Rounded Scapula Posture (L) Protracted,(R) Protracted Palpation Assessment Location AC Palpation Findings Tenderness c/s Palpation Details no tenderness UT Palpation Details no tenderness scap border Palpation Location right med Palpation Findings Tenderness right shoulder Palpation Location AC Palpation Findings Tenderness PT-OP-K Range of Motion Start: 05/07/23 09:01 Freq: Status: Active Protocol: Document 05/07/23 09:02 [facility] (Rec: 05/07/23 09:45 [facility] [id number]) Cervical Spine Range of Motion Cervical Spine Active Testing Position Sitting Comments WNL Shoulder Goniometric Range of Motion Shoulder Right Shoulder ROM WFL Yes Testing Position Sitting Flexion 165 Abduction 165 Horizontal Abduction 80 Horizontal Adduction 25 External Rotation at 90 degrees 75 Abduction External Rotation at 0 degrees Abduction 70 Internal Rotation Behind Back (text) T12 Comments painful achy to burn IR Left Shoulder ROM WFL Yes Shoulder ROM Limitations Shoulder ROM Limitations Soft Tissue Tightness,Pain Elbow/Forearm Range of Motion Elbow/Forearm mireille Elbow/Forearm ROM WFL Yes PT-OP-M Strength Start: 05/07/23 09:01 Freq: Status: Active Protocol: Document 05/07/23 09:02 [facility] (Rec: 05/07/23 10:34 [facility] [id number]) Cervical Spine Strength Cervical Spine Manual Muscle Testing Testing Position Sitting Flexion (C1-2) 4+ Good+ Extension 4+ Good+ Rotation Left 4+ Good+ Rotation Right 4+ Good+ Lateral Flexion Left (C3) 4+ Good+ Lateral Flexion Right (C3) 4+ Good+ Shoulder Strength Shoulder Manual Muscle Testing Right Flexion 4 Good Extension 4 Good Abduction (C5) 4 Good External Rotation 4- Good- Internal Rotation 4 Good Horizontal Abduction 4- Good- Left Flexion 5 Normal Extension 5 Normal Abduction (C5) 5 Normal External Rotation 4+ Good+ Internal Rotation 5 Normal Horizontal Abduction 4+ Good+ PT-OP-Q Treatments Start: 05/07/23 09:01 Freq: Status: Active Protocol: Document 07/06/23 09:05 [facility] (Rec: 07/06/23 09:42 [facility] [id number]) Therapeutic Exercises Supine Exercises pec stretch on foam roller Supine Exercise Name on pool noodle Equipment Used small pool noodle Reps/Minutes 3 min Comments Verbal cues for position and breathing from diaphragm Prone Exercises I,T,Y Resistance 3# Reps/Minutes X10 each Comments over ball this session Sidelying Exercises sidelying shoulder ER Side right Reps/Minutes X10 Comments jr for pain Standing Exercises overhead press Equipment Used L4 TB Reps/Minutes 10x upright row Equipment Used L4 TB Reps/Minutes 10x tricep press Equipment Used L4 TB Reps/Minutes 10x side raise plus ER Equipment Used wall Reps/Minutes 10x Manual Therapy Treatment Soft Tissue Mobilization right pec Mobilization Type Cross-Friction,Rolling,Other Body Position Hooklying Comments Jr for pain, performed prior to stretch periscap Mobilization Type Cross-Friction,Rolling Intensity/Depth Moderate Body Position Sidelying PT-OP-R Modalities Start: 05/07/23 09:01 Freq: Status: Active Protocol: Document 06/01/23 09:45 [facility] (Rec: 06/01/23 10:31 [facility] [id number]) Hot Pack/Cold Pack Treatment Hot Pack Location right thoracic spine, shoulder, pec Patient Position Prone Patient Tolerance Good Comments pillows under legs PT-OP-T Assessment and Plan Start: 05/07/23 09:01 Freq: Status: Active Protocol: Document 07/06/23 09:05 [facility] (Rec: 07/06/23 09:42 [facility] [id number]) Physical Therapy Assessment Goals One Impairment activity intolerance Impairment Quickdash disability index score 43% Short Term Goal (STG) Improve Quickdash disability index score to no greater than 32% as measure of improved right shoulder function 07/06/23: goal met STG Duration 06/19/23 [employer] Goal (LTG) Decrease Quickdash disability index score to no greater than 20% as measure of improved right shoulder function and quality of life 07/06/23: goal met LTG Duration 08/05/23 Four Impairment postural dysfunction Impairment pain withpostural correction med scap border and anterior attachment of ribs to sternum Prison Goal (LTG) patient will be able to attain neutral postural alignment with min to no increase in pain 07/06/23:goal met LTG Duration 08/05/23 Three Impairment weakness right shoulder Impairment improve right shoulder strength to 5/5 all muscle groups Short Term Goal (STG) patient HEP current HEP to be progressed with monitoring for correct muscle activation and form 07/06/23: goal met STG Duration 06/19/23 [employer] Goal (LTG) Patient will be independent with HEP and demonstrate 5/5 muscle strength throughout 07/06/23: goal met LTG Duration 08/05/23 Two Impairment Right shoulder pain Impairment Pain at rest is 4/10 Pain with movement is 6/10 Short Term Goal (STG) decrease pain to no greater than 4/10 with movement and activities such as sleep, reaching, and recreational activities 07/06/23: goal met STG Duration 06/19/23 [employer] Goal (LTG) Decrease pain to no greater than 2/10 with all usual activities including sleep, reaching, and recreational activities such as kayaking 07/06/23: mostly met, hasnt tried kayaking yet LTG Duration 08/05/23 Assessment Summary Assessment Patient PT goals met, doing well without pain and with self-progression of HEP. No further PT needs at this time for his shoulder.l Physical Therapy Plan Discharge Physical Therapy Discharge Reasons Goals Met
== END 2023-07-08 13:52 ==
LOC: PHYS 09:00
PROVIDERS: Family Provider Family Medicine; PCP Family Medicine; Referring Provider Family Medicine; Visit Provider Physical Medicine & Rehabilitation
DX: M75.41 Impingement syndrome of right shoulder (principal); M54.12 Radiculopathy, cervical region; M25.511 Pain in right shoulder; G89.11 Acute pain due to trauma
CPT/HCPCS: 97110; 97140; 97162; 97535

== ENCOUNTER → 2023-10-16 12:19 | Outpatient (CLI) | payer OTHER, MEDICAID, SELFPAY ==
[2023-10-16 13:16] LABS: Add Manual Diff / Slide Review NO; Basophils Absolute Auto 0 /uL (0-100); Basophils Percent Auto 0.6 % (0-2); Eosinophils Absolute Auto 300 /uL (0-450); Eosinophils Percent Auto 3.8 % (2-4); Hematocrit 44.5 % (41-53); Hemoglobin 15.3 g/dL (13.5-17.5); Lymphocytes Absolute Auto 2200 /uL (1100-4500); Lymphocytes Percent Auto 26.2 % (25-40); Mean Corpuscular HGB Conc 34.4 % (30-36); Mean Corpuscular Hemoglobin 31.7 PG (26-34); Mean Corpuscular Volume 92.2 fL (80-100); Monocytes Absolute Auto 700 /uL (0-900); Monocytes Percent Auto 8.5 % (3-14); Neutrophils Absolute Auto 5100 /uL (1500-7000); Neutrophils Percent Auto 60.9 % (50-75); Platelet Count 281 X10^3/uL (150-400); Red Blood Cell Count 4.82 X10^6/uL (4.5-5.9); Red Cell Distribution Width 13.4 % (11.6-14.8); White Blood Cell Count 8.4 X10^3/uL (4.5-11.0)
[2023-10-16 13:30] LABS: Alanine Aminotransferase 29 IU/L (<50); Albumin 4.1 g/dL (3.5-5.0); Albumin Globulin Ratio 1.1 (1.0-2.8); Alkaline Phosphatase 78 U/L (38-126); Aspartate Aminotransferase 30 IU/L (17-59); BUN Creatinine Ratio 11.1 (6-22); Bilirubin Total 0.6 mg/dL (0.2-1.3); Blood Urea Nitrogen 11 mg/dL (9-20); Carbon Dioxide 33 mmol/L (22-32); Chloride 105 mmol/L (98-107); Cholesterol 188 mg/dL (140-199); Estimated Glomerular Filt Rate > 60 mL/min (>60); Globulin 3.6 g/dL (1.7-4.1); Glucose 98 mg/dL (70-100); HDL Cholesterol 42 mg/dL (40-60); HEMOLYSIS < 15 (0-50); LDL Cholesterol Calculated 114 mg/dL (<100); Potassium 4.2 mmol/L (3.4-5.1); Sodium 139 mmol/L (137-145); Total Protein 7.7 g/dL (6.3-8.2); Triglycerides 161 mg/dL (35-150)
[2023-10-16 13:34] LABS: Hemoglobin A1C% w Est Avg Glu 5.7 % (4.0-6.0)
[2023-10-16 14:42] LABS: TSH w/ Reflex to FT4 1.86 uIU/mL (0.47-4.68)
== END ==
PROVIDERS: Family Provider Family Medicine; PCP Family Medicine; Referring Provider Family Medicine; Visit Provider Family Medicine
DX: F43.10 Post-traumatic stress disorder, unspecified (principal); E66.9 Obesity, unspecified
CPT/HCPCS: 36415; 80053; 80061; 83036; 84443; 85025

== ENCOUNTER 2023-10-20 02:14 | Emergency (ER) | payer OTHER, MEDICAID, SELFPAY ==
--- NOTE | 2023-10-20 02:21 | ED.GENADULT ---
HPI - General Adult General Chief complaint: Shortness of Breath/Dyspnea Stated complaint: hard to breath, blurry vision, nausea Time Seen by Provider: 10/20/23 02:20 History of Present Illness HPI narrative: A 37-year-old gentleman with a history of chronic pain and multiple forms with nerve stimulator, complex regional pain syndrome, PTSD, multiple prior head injuries history of headaches with no formal diagnosis of migraine who developed a headache today took a dose of Imitrex and within 30 minutes felt that he was having trouble breathing and notice some chest tightness. The headache did not improve. This is the 3rd time he is taken the medication the 1st time he has had adverse effects. He comes in still complaining of headache. He does not complain of fever, cough he notes some mild nausea, no palpitations he feels that his breathing is restricted but has no wheeze is able to speak in full sentences and symmetrical air movement bilaterally. Related Data Home Medications Medication Instructions Recorded Confirmed Medical Marijuana PO PRN Pain Control 05/26/22 10/13/23 zolpidem 5 mg tablet 5 mg PO ONCE PM PRN 03/02/23 10/13/23 levocetirizine 5 mg tablet 5 mg PO DAILY 05/12/23 10/13/23 Previous Rx's Medication Instructions Recorded sumatriptan succinate 50 mg tablet See Rx Instructions PO .COMPLEX 10/13/23 #60 tabs Allergies Allergy/AdvReac Type Severity Reaction Status Date / Time bee venom protein (honey bee) Allergy Severe Anaphylaxis Verified 10/13/23 09:59 fentanyl Allergy Mild N/V Verified 10/13/23 09:59 amitriptyline Allergy Unknown Verified 10/13/23 09:59 amoxicillin Allergy Unknown Verified 10/13/23 09:59 gabapentin Allergy Unknown Verified 10/13/23 09:59 lithium Allergy Unknown Verified 10/13/23 09:59 trazodone Allergy Unknown Verified 10/13/23 09:59 buprenorphine Allergy Anaphylaxis Verified 10/13/23 09:59 pregabalin AdvReac Severe eyelid Verified 10/13/23 09:59 swelling zolpidem [From Ambien] AdvReac Intermediate Migraine Verified 10/13/23 09:59 bupropion [From Wellbutrin] AdvReac Verified 10/13/23 09:59 clavulanic acid AdvReac Verified 10/13/23 09:59 [From Augmentin] clonidine AdvReac Verified 10/13/23 09:59 methadone AdvReac Verified 10/13/23 09:59 nortriptyline AdvReac Verified 10/13/23 09:59 Review of Systems Review of Systems Narrative: Pertinent positive and negative findings as per HPI Patient History Medical History Insomnia disorder, with non-sleep disorder mental comorbidity BMI 40.0-44.9, adult Visual changes Painful paresthesia Paresthesia of upper extremity Cervical radiculopathy Impingement syndrome of right shoulder Chronic pain of left ankle Acute pain of right shoulder due to trauma Cranial somatic dysfunction Sacral region somatic dysfunction Screening for hyperlipidemia Acute exacerbation of chronic low back pain Inflamed seborrheic keratosis Lower limb region somatic dysfunction Pain, foot, right, chronic Sacroiliac joint stiffness Urge incontinence of urine Vitamin deficiency Excessive cerumen in left ear canal Obesity (BMI 30.0-34.9) Insomnia due to medical condition Sleep apnea Chronic cough Asthma Allergies Post traumatic stress disorder (PTSD) Depression CRPS (complex regional pain syndrome) Migraines Headache ADHD Fractures Foot pain Chronic back pain Ankle pain History of recurrent ear infection Kidney stones GI bleeding Surgical History Anesthesia Status post insertion of spinal cord stimulator Status post insertion of spinal cord stimulator History of placement of ear tubes Family History Father Hypertension Mother Cancer Hyperlipidemia Mental health problem Post traumatic stress disorder (PTSD) Sister Thyroid cancer Grandfather History of heart disease Hypertension Hyperlipidemia Kidney disease Grandmother Diabetes mellitus History of heart disease Hyperlipidemia Hypertension Stroke Breast cancer Alzheimer's disease Grandfather Lung cancer Hypertension Hyperlipidemia Grandmother History of heart disease Social History Smoking Status: Former smoker alcohol intake: current substance use type: marijuana Smoking Status: Former smoker alcohol intake frequency: 0-2 drinks per day Substance Use Type: marijuana Exam Narrative Exam Narrative: General: Patient has dark sunglasses on, is speaking in full sentences unrestricted breathing alert and appropriate HEENT: Moist mucous membranes, normal sclera with reactive pupils, Respiratory: Lungs are clear to auscultation, no wheezing no rales no rhonchi. Full and symmetrical air movement Cardiac: Regular rate and rhythm no murmurs no bruits Abdomen: Soft, nontender, good bowel tones, no flank pain Skin: Warm and dry, no rashes Neurologic: Freely moving all extremities Extremities: No trauma, well perfused Psych: Cooperative, appropriate insight and affect Medical Decision Making MDM Narrative Medical decision making narrative: CC: Cough and tightness 30 minutes following Imitrex, headache Complicating co-morbidities: Multiple chronic pain issues, asthma, regular marijuana use for pain control Data collected from: patient Medical records reviewed: Primary care note from October 12 with fairly comprehensive review of all of his medical issues is reviewed Differential considered: Migraine, viral syndrome, adverse reaction to Imitrex Exam documented above, pertinent findings include: Dark glasses in place pupils equal and reactive, neurologically intact, exam is otherwise benign with clear lungs and no murmurs or cardiac irregularities appreciated Lab Test results independently reviewed as above. Pertinent findings: CBC is unremarkable Serology testing does not suggest acute viral syndrome Chemistries are unaware Troponin is undetectable Independently reviewed EKG: EKG shows sinus rhythm at a rate of 74 with no acute ischemic changes Imaging studies independently reviewed: Chest x-ray is unremarkable Treatments: Fluids, Toradol, Benadryl. He was given IV Compazine and I believe this caused a sensation of vertigo for approximately 10 minutes post administration Discussion: 37-year-old gentleman with multiple who medical issues comes in complaining of migraine headache with chest tightness after taking Imitrex. Who workup is reassuring, no evidence of acute coronary syndrome, pulmonary pathology, respiratory viral panel was unremarkable. Chemistries are reassuring. He did have some vertigo with Compazine that improved after approximately 10 minutes. He is feeling much more tired believes he can go to sleep in his requesting discharge which I believe is entirely appropriate at this time. There is no additional indication for further workup, advanced imaging or hospitalization at this time. Questions are answered. Discharge Plan Departure Patient Disposition: Home Clinical Impression: Migraines Qualifiers: Migraine type: unspecified Status migrainosus presence: without status migrainosus Intractability: not intractable Qualified Code(s): G43.909 - Migraine, unspecified, not intractable, without status migrainosus Instructions: DI for Migraine Activity Restrictions/Additional Instructions: Thank you for coming in today I think the majority of your symptoms were a combination of migraine headache and unpleasant side effects of sumatriptan. Your workup was actually fairly reassuring. I did not find evidence for infection either viral or bacterial. Chemistries reassuring. I did not find evidence for acute coronary syndrome. Your chest x-ray was equally reassuring One of the medications that we gave you was Compazine to help with your migraine headache. I suspect that is the 1 that made you feel like you were spinning. That is not an allergy but he might suggest that we try a different nausea medication or slower administration of Compazine if you do return with recurrent headache symptoms in the future If you find that you are getting worse or develop any new symptoms, please feel free to return to the emergency department for further evaluation. Prescriptions: No Action sumatriptan succinate 50 mg tablet See Rx Instructions PO .COMPLEX Qty: 60 5RF Rx Instructions: take 1 tab at onset of headache; if no relief may repeat 1 tab after at least 2 hrs; max = 4 tabs/24 hr PO levocetirizine 5 mg tablet 5 mg PO DAILY Medical Marijuana PO PRN (Reason: Pain Control) zolpidem 5 mg tablet 5 mg PO ONCE PM PRN Referrals: Rambo Reinoso DO [Primary Care Provider] - Stand Alone Forms: Patient Portal/API
[2023-10-20 02:26] VITALS: BP 151/92; PULSE 89; RESP 16; TEMP 36.6; O2SAT 96; BMI 41.5
[2023-10-20 02:49] VITALS: PULSE 84; O2SAT 95
--- NOTE | 2023-10-20 02:59 | DI.RAD.S_ITS ---
PROCEDURE: XR CHEST 1V INDICATIONS: chest tightness TECHNIQUE: One view of the chest was acquired. COMPARISON: None. FINDINGS: Surgical changes and devices: Partially visualized spinal stimulator leads. Lungs and pleura: Lungs are clear. No pleural effusions or pneumothorax. Streaky left basilar atelectasis. Mediastinum: Mediastinal contours appear normal. Heart size is normal. Bones and chest wall: No suspicious bony lesions. Overlying soft tissues appear unremarkable. IMPRESSION: No acute cardiopulmonary abnormality is seen. Agree with preliminary report. Dictated by: Jamie Last M.D. on 10/20/2023 at 8:37 Approved by: Jamie Last M.D. on 10/20/2023 at 8:40
[2023-10-20 03:00] VITALS: BP 133/76; PULSE 86; O2SAT 94
--- NOTE | 2023-10-20 03:12 | EKG_ITS ---
[address] [address] Test Date: 2023-10-20 Pat Name: Arsalan Varela Department: 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
[2023-10-20] MEDS: diphenhydrAMINE 50 MG/ML VIAL 25 MG IV (03:20)
[2023-10-20 03:21] VITALS: BP 133/76; PULSE 81
[2023-10-20] MEDS: PROCHLORPERAZINE 10 MG/2 ML VIAL IV (03:21)
[2023-10-20] MEDS: KETOROLAC 30 MG/ML VIAL 15 MG IV (03:21)
[2023-10-20 03:27] LABS: Add Manual Diff / Slide Review NO; Basophils Absolute Auto 0 /uL (0-100); Basophils Percent Auto 0.3 % (0-2); Eosinophils Absolute Auto 300 /uL (0-450); Eosinophils Percent Auto 2.3 % (2-4); Hematocrit 44.7 % (41-53); Hemoglobin 15.4 g/dL (13.5-17.5); Lymphocytes Absolute Auto 1600 /uL (1100-4500); Lymphocytes Percent Auto 14.7 % (25-40); Mean Corpuscular HGB Conc 34.5 % (30-36); Mean Corpuscular Hemoglobin 31.8 PG (26-34); Mean Corpuscular Volume 92.2 fL (80-100); Monocytes Absolute Auto 600 /uL (0-900); Monocytes Percent Auto 5.4 % (3-14); Neutrophils Absolute Auto 8300 /uL (1500-7000); Neutrophils Percent Auto 77.3 % (50-75); Platelet Count 275 X10^3/uL (150-400); Red Blood Cell Count 4.84 X10^6/uL (4.5-5.9); Red Cell Distribution Width 13.8 % (11.6-14.8); White Blood Cell Count 10.7 X10^3/uL (4.5-11.0)
[2023-10-20 03:28] LABS: Adenovirus Not Detected (Not Detect); B. parapertussis Not Detected (Not Detecte); Bordetella pertussis Not Detected (Not Detect); Chlamydophila pneumoniae Not Detected (Not Detect); Coronavirus 229E Not Detected (Not Detect); Coronavirus HKU1 Not Detected (Not Detect); Coronavirus NL 63 Not Detected (Not Detect); Coronavirus OC43 Not Detected (Not Detect); Human Metapneumovirus Not Detected (Not Detect); Human Rhinovirus/Enterovirus Not Detected (Not Detect); Influenza A Not Detected (Not Detect); Influenza B Not Detected (Not Detect); Mycoplasma pneumoniae Not Detected (Not Detect); Parainfluenza Virus 1 Not Detected (Not Detect); Parainfluenza Virus 2 Not Detected (Not Detect); Parainfluenza Virus 3 Not Detected (Not Detect); Parainfluenza Virus 4 Not Detected (Not Detect); Respiratory Syncytial Virus Not Detected (Not Detect); SARS- CoV-2 Not Detected (Not Detecte)
[2023-10-20] MEDS: SODIUM CHLORIDE 0.9% 1,000 ML 1000 ML IV (03:29)
[2023-10-20 03:30] VITALS: BP 140/79; PULSE 76; RESP 11; O2SAT 96
[2023-10-20 03:41] LABS: Alanine Aminotransferase 22 IU/L (<50); Albumin 4.3 g/dL (3.5-5.0); Albumin Globulin Ratio 1.2 (1.0-2.8); Alkaline Phosphatase 78 U/L (38-126); Aspartate Aminotransferase 26 IU/L (17-59); BUN Creatinine Ratio 8.7 (6-22); Bilirubin Total 0.4 mg/dL (0.2-1.3); Blood Urea Nitrogen 9 mg/dL (9-20); Calcium 8.9 mg/dL (8.4-10.2); Carbon Dioxide 29 mmol/L (22-32); Chloride 103 mmol/L (98-107); Estimated Glomerular Filt Rate > 60 mL/min (>60); Globulin 3.6 g/dL (1.7-4.1); Glucose 110 mg/dL (70-100); HEMOLYSIS < 15 (0-50); Potassium 4.5 mmol/L (3.4-5.1); Sodium 140 mmol/L (137-145); Total Protein 7.9 g/dL (6.3-8.2)
[2023-10-20 03:52] LABS: Troponin I < 0.012 ng/mL (0.01-0.034)
--- NOTE | 2023-10-20 04:02 | PC.NURSE ---
Pt requesting to be discharged as the bed is uncomfortable and causing his legs to cram due to other chronic illnesses. RON Artis notified.
[2023-10-20 04:03] VITALS: BP 140/79; PULSE 80; RESP 16; O2SAT 96
== END 2023-10-20 04:04 | disposition home or self-care (01) ==
PROVIDERS: Emergency Provider Emergency Medicine; Family Provider Family Medicine; PCP Family Medicine
DX: G43.909 Migraine, unspecified, not intractable, without status migrainosus (principal); R06.02 Shortness of breath; R07.9 Chest pain, unspecified; Z11.52 Encounter for screening for COVID-19
CPT/HCPCS: 36415; 71045; 80053; 81003; 84484; 85025; 87633; 93005; 96374; 96375; 99284; J0780; J1200; J1885

== ENCOUNTER 2023-11-14 12:18 | Emergency (ER) | payer OTHER, MEDICAID, SELFPAY ==
[2023-11-14] VITALS (8 sets, daily range): BP systolic 122–167; BP diastolic 80–108; PULSE 79–102; RESP 7–18; TEMP 36.7–36.9; O2SAT 95–97; BMI 40.3
--- NOTE | 2023-11-14 12:40 | EKG_ITS ---
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
--- NOTE | 2023-11-14 13:42 | DI.RAD.S_ITS ---
PROCEDURE: XR CHEST 1V INDICATIONS: chest pain TECHNIQUE: One view of the chest was acquired. COMPARISON: [facility], CR, XR CHEST 1V, 10/20/2023, 3:03. FINDINGS: Surgical changes and devices: None. Lungs and pleura: Lungs are hypoinflated but clear. No pleural effusions or pneumothorax. Mediastinum: Mediastinal contours appear normal. Heart size is normal. Bones and chest wall: No suspicious bony lesions. Overlying soft tissues appear unremarkable. IMPRESSION: No acute cardiopulmonary abnormality is seen. Dictated by: Jessy Cramer M.D. on 11/14/2023 at 13:27 Approved by: Jessy Cramer M.D. on 11/14/2023 at 13:30
--- NOTE | 2023-11-14 13:42 | ED.CHESTPAIN ---
HPI - Chest Pain General Chief Complaint: Chest Pain Stated Complaint: Mild chest pain Time Seen by Provider: 11/14/23 13:17 Source: patient Mode of arrival: Ambulatory Limitations: no limitations History of Present Illness HPI narrative: Patient is a 38-year-old male. History of complex regional pain syndrome. Has nerve stimulators in his back. Is here for evaluation of left-sided chest discomfort and right upper chest discomfort. He states the symptoms started when he was sitting on the couch earlier today. Fairly sudden onset. No cough. No fevers. No shortness of breath other than it does hurt when he takes a deep breath. The discomfort is reproducible with palpation. No skin changes over the area. Has not tried anything for the symptoms prior to arrival. Related Data Home Medications Medication Instructions Recorded Confirmed Medical Marijuana PO PRN Pain Control 05/26/22 11/13/23 sertraline 25 mg tablet 25 mg PO DAILY 11/13/23 11/13/23 Previous Rx's Medication Instructions Recorded hydrocodone 10 mg-acetaminophen 1 tab PO BEDTIME PRN pain #30 tabs 10/23/23 325 mg tablet losartan 25 mg tablet 25 mg PO DAILY #90 tabs 11/13/23 ondansetron 4 mg disintegrating 4 mg PO Q8H PRN nausea and 11/13/23 tablet vomiting #60 tabs Allergies Allergy/AdvReac Type Severity Reaction Status Date / Time bee venom protein (honey bee) Allergy Severe Anaphylaxis Verified 11/14/23 12:22 fentanyl Allergy Mild N/V Verified 11/14/23 12:22 amitriptyline Allergy Unknown SI Verified 11/14/23 12:25 amoxicillin Allergy Unknown baby Verified 11/14/23 12:25 reaction lithium Allergy Unknown Syncope Verified 11/14/23 12:25 trazodone Allergy Unknown Migraine Verified 11/14/23 12:25 trigger buprenorphine Allergy Anaphylaxis Verified 11/14/23 12:22 pregabalin AdvReac Severe eyelid Verified 11/14/23 12:22 swelling zolpidem [From Ambien] AdvReac Intermediate Migraine Verified 11/14/23 12:22 gabapentin AdvReac Unknown Facial Verified 11/14/23 12:25 burning bupropion [From Wellbutrin] AdvReac Tachycardia Verified 11/14/23 12:25 clavulanic acid AdvReac baby Verified 11/14/23 12:25 [From Augmentin] reaction clonidine AdvReac Palpitation Verified 11/14/23 12:25 s methadone AdvReac Hypotension Verified 11/14/23 12:25 nortriptyline AdvReac SI Verified 11/14/23 12:25 Review of Systems Review of Systems Narrative: See HPI Patient History Medical History Nausea HTN (hypertension) Chronic pain Lower urinary tract symptoms (LUTS) Insomnia disorder, with non-sleep disorder mental comorbidity BMI 40.0-44.9, adult Visual changes Painful paresthesia Paresthesia of upper extremity Cervical radiculopathy Impingement syndrome of right shoulder Chronic pain of left ankle Acute pain of right shoulder due to trauma Cranial somatic dysfunction Sacral region somatic dysfunction Screening for hyperlipidemia Acute exacerbation of chronic low back pain Inflamed seborrheic keratosis Lower limb region somatic dysfunction Pain, foot, right, chronic Sacroiliac joint stiffness Urge incontinence of urine Vitamin deficiency Excessive cerumen in left ear canal Obesity (BMI 30.0-34.9) Insomnia due to medical condition Sleep apnea Chronic cough Asthma Allergies Post traumatic stress disorder (PTSD) Depression CRPS (complex regional pain syndrome) Migraines Headache ADHD Fractures Foot pain Chronic back pain Ankle pain History of recurrent ear infection Kidney stones GI bleeding Surgical History Anesthesia Status post insertion of spinal cord stimulator Status post insertion of spinal cord stimulator History of placement of ear tubes Family History Father Hypertension Mother Cancer Hyperlipidemia Mental health problem Post traumatic stress disorder (PTSD) Sister Thyroid cancer Grandfather History of heart disease Hypertension Hyperlipidemia Kidney disease Grandmother Diabetes mellitus History of heart disease Hyperlipidemia Hypertension Stroke Breast cancer Alzheimer's disease Grandfather Lung cancer Hypertension Hyperlipidemia Grandmother History of heart disease Social History Smoking Status: Former smoker alcohol intake: current substance use type: marijuana Smoking Status: Former smoker alcohol intake frequency: 0-2 drinks per day Substance Use Type: former substance user and opiates Exam Initial Vital Signs Initial Vital Signs: Vital Signs Temperature 98.5 F 11/14/23 12:25 Pulse Rate 102 H 11/14/23 12:25 Respiratory Rate 18 11/14/23 12:25 Blood Pressure 167/108 H 11/14/23 12:25 Pulse Oximetry 97 11/14/23 12:25 Oxygen Delivery Method Room Air 11/14/23 12:25 HENMT Head: normal to inspection and normocephalic Chest Chest: No crepitus and tenderness (Left upper chest and left-sided lower chest.) Resp Effort & Inspection: normal respiratory effort Auscultation: clear to auscultation bilaterally Cardio Rate: regular rate Rhythm: regular rhythm Skin General: no rashes or lesions noted Neuro General: patient alert, patient awake and moves all extremities Course Orders Ordered: ED Orders 11/14/23 12:31 EKG-12 Lead Stat 11/14/23 13:42 XR chest 1V Stat Vital Signs Vital signs: Vital Signs - 8 hr 11/14/23 12:25 11/14/23 12:34 11/14/23 13:00 Temperature 98.5 F Pulse Rate 102 H 94 H 90 Respiratory Rate 18 12 9 L Blood Pressure 167/108 H 140/103 H 144/88 H Pulse Oximetry 97 97 97 Oxygen Delivery Method Room Air 11/14/23 13:30 Temperature Pulse Rate 87 Respiratory Rate 10 L Blood Pressure 142/90 H Pulse Oximetry 95 Oxygen Delivery Method Room Air MDM - Chest Pain ECG Data Attestation: I personally reviewed and interpreted this ECG as follows: Interpretation: Sinus rhythm Ventricular rate [address] T wave changes MDM Narrative Medical decision making narrative: Chest x-ray is negative. EKG is unremarkable. He was reproducible tenderness to palpation in his left lower chest and right upper chest. No skin changes concerning for zoster although I did discuss with him that if he develops a rash over the next day or so that he should return to the emergency department. I have low suspicion for ACS. Low suspicion for pulmonary embolism as this discomfort is reproducible. I suspect that this is musculoskeletal potentially intercostal muscle spasms. Did discuss with the patient. Use of Tylenol and ibuprofen. He was given return precautions. He expressed understanding and agreement with plan. Discharge Plan Departure Patient Disposition: Home Clinical Impression: Acute chest wall pain Activity Restrictions/Additional Instructions: You can take your pain medication at home as needed for the discomfort. Your workup here in the emergency department is very reassuring. Contact your primary doctor for a follow-up. Return to the emergency department for new symptoms. Prescriptions: No Action hydrocodone-acetaminophen 10-325 mg tablet 1 tab PO BEDTIME PRN (Reason: pain) Qty: 30 0RF sertraline 25 mg tablet 25 mg PO DAILY losartan 25 mg tablet 25 mg PO DAILY Qty: 90 3RF ondansetron 4 mg tablet,disintegrating 4 mg PO Q8H PRN (Reason: nausea and vomiting) Qty: 60 0RF Medical Marijuana PO PRN (Reason: Pain Control) Referrals: Rambo Reinoso DO [Primary Care Provider] - Stand Alone Forms: Patient Portal/API
--- NOTE | 2023-11-14 14:19 | PC.NURSE ---
Pt states he feels SOB when laying back. reproducible cp on left lower chest. pt states it came on suddenly. No hx of heart issues in the past. Pt states his 70+ year old father was recently treated for heart issues. Pt states he stopped smoking marijuana 1 week ago. Pt denies pain radiating anywhere. Pt denies pain getting worse on inspiration.
== END 2023-11-14 15:11 | disposition home or self-care (01) ==
PROVIDERS: Emergency Provider Emergency Medicine; Family Provider Family Medicine; PCP Family Medicine
DX: R07.89 Other chest pain (principal)
CPT/HCPCS: 71045; 93005; 99281; 99284

== ENCOUNTER → 2023-12-31 12:50 | Outpatient (CLI) | payer OTHER, MEDICAID, SELFPAY ==
--- NOTE | 2023-12-31 12:52 | DI.RAD.S_ITS ---
PROCEDURE: XR THORACIC SPINE 3V INDICATIONS: RIB PAIN TECHNIQUE: 3 views of the thoracic spine were acquired. COMPARISON: None. FINDINGS: Bones: No fractures or dislocations. There is mild rightward curvature of lower thoracic spine with apex at T11 level. No suspicious bony lesions. 12 pairs of ribs are noted, and appear intact where visualized. Soft tissues: No paravertebral stripe thickening. Possible stimulator leads seen projecting at T11-12 level. IMPRESSION: No acute thoracic spine fracture or dislocation. No significant degenerative disc disease. Very mild rightward curvature of lower thoracic spine as above. Dictated by: Oh Dougherty M.D. on 12/31/2023 at 13:33 Approved by: Oh Dougherty M.D. on 12/31/2023 at 13:34
--- NOTE | 2023-12-31 12:52 | DI.RAD.S_ITS ---
PROCEDURE: XR LUMBAR SPINE MIN 4V INDICATIONS: BACK PAIN TECHNIQUE: 5 views of the lumbar spine were acquired, including bilateral oblique views. COMPARISON: None. FINDINGS: Bones: 5 nonrib-bearing vertebrae are present. There is normal bony alignment. No vertebral body compression fractures. No suspicious bony lesions. Soft tissues: 2 possible cord stimulators are seen with leads projecting at T11-12 level. Overlying bowel gas pattern is normal. No suspicious soft tissue calcifications. Oblique images: No pars defects. IMPRESSION: No acute compression fracture or spondylolisthesis. No significant degenerative disc disease. No pars defects are noted on oblique views. No significant bony foraminal stenosis. Dictated by: Oh Dougherty M.D. on 12/31/2023 at 13:32 Approved by: Oh Dougherty M.D. on 12/31/2023 at 13:33
== END ==
PROVIDERS: Family Provider Family Medicine; PCP Family Medicine; Referring Provider Physical Medicine & Rehabilitation; Visit Provider Physical Medicine & Rehabilitation
DX: M54.12 Radiculopathy, cervical region (principal); M75.41 Impingement syndrome of right shoulder; R07.81 Pleurodynia; M54.9 Dorsalgia, unspecified; R20.2 Paresthesia of skin
CPT/HCPCS: 72072; 72110; 99214

== ENCOUNTER 2024-02-22 13:04 | Outpatient (CLI) | payer OTHER, MEDICAID, SELFPAY ==
[2024-02-22] VITALS (8 sets, daily range): BP systolic 119–133; BP diastolic 72–89; PULSE 68–89; RESP 18–20; TEMP 36.8; O2SAT 95–97
--- NOTE | 2024-02-22 | DI.RAD.S_ITS ---
PROCEDURE: FL INJECT SPINE FOR CT MYELO INDICATIONS: Chronic low back pain COMPARISON: None. TECHNIQUE: The indications, alternatives, benefits, risks and complications of the procedure were explained to the patient. Written informed consent was obtained and placed in the chart. The patient was placed in a prone position on the fluoroscopy table, and a level was chosen for percutaneous access under fluoroscopic guidance. The skin was prepped and draped in a sterile fashion. After local anaesthetic, a spinal needle was then used to enter the intrathecal space, with return of clear cerebrospinal fluid. 15 mL of Isovue M-200 were administered intrathecally under fluoroscopic visualization. The needle was then withdrawn, and a bandage applied to the puncture site. Fluoroscopic spot films were then acquired in various positions. FINDINGS: Standing frontal, lateral, and oblique views demonstrate no significant central canal stenoses. Access level: L3 Medications: 1% lidocaine for local anaesthesia. Complications: None. Patient was transferred to CT for subsequent CT myelogram. IMPRESSION: Successful fluoroscopically guided administration of iodinated contrast into the lumbar spine central canal for CT myelogram. Dictated by: Elmira Jerez M.D. on 02/23/2024 at 9:56 Approved by: Elmira Jerez M.D. on 02/23/2024 at 9:56
--- NOTE | 2024-02-22 13:06 | DI.CT.S_ITS ---
PROCEDURE: CT LUMBAR MYELOGRAM INDICATIONS: CHRONIC MIDLINE LOW BACK PAIN TECHNIQUE: After the intrathecal administration of 15 mL intrathecal contrast, 3 mm thick sections acquired from T12 to the sacrum. Sagittal and coronal reformats were then constructed. For radiation dose reduction, the following was used: automated exposure control. COMPARISON: [facility], CT, L-SPINE WITH CONTRAST, 06/25/2017, 9:49. FINDINGS: Image quality: Stimulator leads as well as soft tissue artifact diminished visibility of contrast within the spinal canal in the lower lumbar spine. Bones: Spinal alignment is normal. No spondylolysis or spondylolisthesis. No suspicious bony lesions. No acute fractures. Soft tissues: No retroperitoneal masses. Visualized aorta demonstrates normal caliber. T12-L1: No disc bulge, spinal stenosis or foraminal narrowing. L1-L2: No disc bulge, spinal stenosis or foraminal narrowing. L2-L3: No disc bulge, spinal stenosis or foraminal narrowing. L3-L4: Minimal disc bulge spinal stenosis. Minimal bilateral foraminal narrowing. L4-L5: Minimal disc bulge without spinal stenosis. Minimal left foraminal narrowing. L5-S1: Minimal disc bulge without spinal stenosis. Moderate left and mild right foraminal narrowing. Stimulator lead is noted to course through the right foramina. It also extends into the right foramina at S1-2. Miscellaneous: Nerve roots appear unremarkable throughout. No nerve root clumping to suggest arachnoiditis. IMPRESSION: Scattered minimal to mild disc bulges. Foraminal narrowing overall most notable at L5-S1 as above. Stimulator leads are present coursing into the right foramina at L5-S1 and S1-S2. Dictated by: Elmira Jerez M.D. on 02/23/2024 at 9:47 Approved by: Elmira Jerez M.D. on 02/23/2024 at 9:52
== END 2024-02-22 16:45 | disposition home or self-care (01) ==
PROVIDERS: Family Provider Family Medicine; PCP Family Medicine
DX: M51.360 Other intervertebral disc degeneration, lumbar region with discogenic back pain only (principal); M48.07 Spinal stenosis, lumbosacral region; G89.29 Other chronic pain; Z96.82 Presence of neurostimulator
CPT/HCPCS: 62284; 72133; 77003; Q9967

== ENCOUNTER → 2024-10-27 11:52 | Outpatient (CLI) | payer OTHER, SELFPAY ==
--- NOTE | 2024-10-27 11:54 | DI.MG.S_ITS ---
MM diagnostic mammo BI: 10/27/2024. BI-RADS: 2 CLINICAL: 38-year old male for bilateral diagnostic mammogram. Current reported family history of breast cancer: mother. The patient reports pain (less than 1 month) in both breasts. PRIOR EXAMS: No prior examinations available. MAMMOGRAPHY TECHNIQUE: 2D and 3D (tomosynthesis) digital mammographic views obtained, with additional images as needed for full coverage. Current study was also evaluated with a Computer Aided Detection (CAD) system. DENSITY A. The breasts are almost entirely fatty. MAMMOGRAPHY FINDINGS Right: Central, Retroareolar, Far Anterior depth: There is an asymmetry consistent with gynecomastia. There is mild bilateral dendritic pattern gynecomastia, right greater than left. This correlates with the patient's reported bilateral retroareaolar breast pain. No suspicious mass, asymmetry, microcalcification, or other abnormality seen. Left: Central, Retroareolar, Far Anterior depth: There is an asymmetry consistent with gynecomastia. There is mild bilateral dendritic pattern gynecomastia, right greater than left. This correlates with the patient's reported bilateral retroareaolar breast pain. No suspicious mass, asymmetry, microcalcification, or other abnormality seen. IMPRESSION: * No evidence of malignancy with benign findings. RECOMMENDATIONS Bilateral * Clinical follow up is recommended for the patient's gynecomastia, with evaluation for etiologies including medication/drug-related factors, hormonal or systemic disorders. COMMENTS: Findings and recommendations were conveyed to the patient during today's evaluation. OVERALL ASSESSMENT CATEGORY BI-RADS-2: Benign. ELECTRONICALLY SIGNED: Tricia Temple M.D. on 10/27/2024 at 12:52:27 PM PT Interpreting Station ID: [id number]
== END ==
PROVIDERS: Family Provider Family Medicine; PCP Family Medicine; Referring Provider Family Medicine; Visit Provider Family Medicine
DX: R92.8 Other abnormal and inconclusive findings on diagnostic imaging of breast (principal); N62 Hypertrophy of breast; N64.4 Mastodynia; Z80.3 Family history of malignant neoplasm of breast; R92.313 Mammographic fatty tissue density, bilateral breasts
CPT/HCPCS: 77066; G0279

== ENCOUNTER → 2024-10-29 08:06 | Outpatient (CLI) | payer OTHER, SELFPAY ==
[2024-10-29 09:08] LABS: Add Manual Diff / Slide Review NO; Hematocrit 43.1 % (41-53); Hemoglobin 14.9 g/dL (13.5-17.5); Lymphocytes Absolute Auto 2500 /uL (1100-4500); Mean Corpuscular HGB Conc 34.6 % (30-36); Mean Corpuscular Hemoglobin 31.9 PG (26-34); Mean Corpuscular Volume 92.2 fL (80-100); Platelet Count 271 X10^3/uL (150-400)
[2024-10-29 09:36] LABS: Alanine Aminotransferase 23 IU/L (<50); Albumin 4.1 g/dL (3.5-5.0); Albumin Globulin Ratio 1.3 (1.0-2.8); Blood Urea Nitrogen 10 mg/dL (9-20); Calcium 9.2 mg/dL (8.4-10.2); Carbon Dioxide 28 mmol/L (22-32); Chloride 103 mmol/L (98-107); Estimated Glomerular Filt Rate > 60 mL/min (>60); Globulin 3.1 g/dL (1.7-4.1); Glucose 102 mg/dL (70-99); HDL Cholesterol 46 mg/dL (40-60); Potassium 4.7 mmol/L (3.4-5.1); Sodium 140 mmol/L (137-145); Total Protein 7.2 g/dL (6.3-8.2)
[2024-10-29 09:37] LABS: Alkaline Phosphatase 68 U/L (38-126); Cholesterol 182 mg/dL (140-199); Triglycerides 142 mg/dL (35-150)
[2024-10-29 09:38] LABS: HEMOLYSIS 72 (0-50)
[2024-10-29 10:05] LABS: TSH w/ Reflex to FT4 1.69 uIU/mL (0.47-4.68)
== END ==
PROVIDERS: PCP Family Medicine; Referring Provider Family Medicine; Visit Provider Family Medicine
DX: N62 Hypertrophy of breast (principal); I10 Essential (primary) hypertension; Z13.220 Encounter for screening for lipoid disorders
CPT/HCPCS: 36415; 80053; 80061; 84402; 84403; 84443; 85025

== ENCOUNTER → 2024-11-12 08:32 | Outpatient (CLI) | payer OTHER, SELFPAY | PROVIDERS: PCP Family Medicine; Referring Provider Family Medicine; Visit Provider Family Medicine | DX: R79.89 Other specified abnormal findings of blood chemistry (principal) | CPT/HCPCS: 84402; 84403 ==

== ENCOUNTER → 2025-01-03 08:13 | Outpatient (CLI) | payer OTHER, SELFPAY ==
[2025-01-03 10:01] LABS: Add Manual Diff / Slide Review NO; Hematocrit 45.8 % (41-53); Hemoglobin 15.9 g/dL (13.5-17.5); Lymphocytes Absolute Auto 2900 /uL (1100-4500); Mean Corpuscular HGB Conc 34.6 % (30-36); Mean Corpuscular Hemoglobin 31.3 PG (26-34); Mean Corpuscular Volume 90.4 fL (80-100); Platelet Count 292 X10^3/uL (150-400)
[2025-01-10 12:16] LABS: Percent Free Testosterone 1.93 % (1.50-4.20)
== END ==
PROVIDERS: PCP Family Medicine; Referring Provider Family Medicine; Visit Provider Family Medicine
DX: E29.1 Testicular hypofunction (principal); R79.89 Other specified abnormal findings of blood chemistry
CPT/HCPCS: 36415; 84402; 84403; 85025

== ENCOUNTER → 2025-02-11 07:58 | Outpatient (CLI) | payer OTHER, SELFPAY | PROVIDERS: PCP Family Medicine; Referring Provider Family Medicine; Visit Provider Family Medicine | DX: R79.89 Other specified abnormal findings of blood chemistry (principal); E29.1 Testicular hypofunction | CPT/HCPCS: 36415; 84402; 84403 ==

== ENCOUNTER → 2025-04-05 07:08 | Outpatient (CLI) | payer OTHER, SELFPAY | PROVIDERS: PCP Family Medicine; Referring Provider Family Medicine; Visit Provider Family Medicine | DX: E29.1 Testicular hypofunction (principal); R79.89 Other specified abnormal findings of blood chemistry | CPT/HCPCS: 36415; 84402; 84403 ==